=== PATIENT | male | born 1950 | race Asian ===

== ENCOUNTER 2016-10-03 19:52 | Inpatient (IN) | payer MEDICARE, OTHER ==
[~2016-10-03] VITALS: Ht 167.6 cm; Wt 90.7 kg
[2016-10-03] MEDS ORDERED: MIDODRINE HCL10 MG ORAL (20:11)
[2016-10-03] MEDS ORDERED: XIFAXAN550 MG ORAL (20:11)
[2016-10-03] MEDS ORDERED: HYDRALAZINE HCL25 M1 ORAL (20:11)
[2016-10-03] MEDS ORDERED: PRO-STAT LIQUID30 ML ORAL (20:11)
[2016-10-03] MEDS ORDERED: PANTOPRAZOLE SO40 MG ORAL (20:11)
[2016-10-03] MEDS ORDERED: ZINC SULFATE220 M2 ORAL (20:11)
[2016-10-03] MEDS ORDERED: VITAMIN C500 M1 ORAL (20:11)
[2016-10-03] MEDS ORDERED: LACTULOSE20 GM/301 ORAL (20:11)
[2016-10-03] MEDS ORDERED: IRON325 M2 PO (20:11)
[2016-10-03] MEDS ORDERED: NEPHROVITE1 TAB ORAL (20:11)
[2016-10-03] MEDS ORDERED: AMLODIPINE BESYL5 MG ORAL (20:11)
[2016-10-03] MEDS ORDERED: Famotidine 20 MG/ 2ML VIAL IVP ONE (20:15)
--- NOTE | 2016-10-03 20:34 | Emergency Room Report ---
History of Present Illness General Chief Complaint: Abdominal Pain Source: Patient, Family Member, EMS Present Illness HPI The patient was brought in for altered mentation and abdominal pain. He has a history of cirrhosis and is in [facility] facility. Allegedly he was on hospice care but then when he went to [facility] he was signed off of hospice. He was short of breath earlier today and that an x-ray was taken and according to his doctor he had bilateral infiltrates and effusions. He was sent for further evaluation of this. EMS claim that the patient is fully oriented. The patient has his eyes closed and is not answering any questions for me at this time. The patient has a history of cirrhosis. According to daughter, pleural effusions have been tapped multiple times. Prior GI bleeds with transfusions. Family decided DNR, then patient reversed this. Family was not present when this happened. She has not seen vomiting or diarrhea. He has had encephalopathy in the past. Later the patient c/o chest pain. Will not elaborate. Allergies: Coded Allergies: No Known Allergies (Unverified , 10/03/16) Patient History Limited by: medical condition Past Medical History: see triage record Social History: Reports: alcohol use - prior Social History Narrative [facility] Reviewed Nursing Documentation: PMH: Agreed, PSxH: Agreed Review of Systems All Other Systems: negative except mentioned in HPI - patient poor historian Physical Exam Vital Signs Date Time Temp Pulse Resp B/P Pulse Ox O2 Delivery O2 Flow Rate FiO2 10/03/16 19:48 99.0 96 20 191/96 100 Non-Rebreather 6.0 Sp02 EP Interpretation: reviewed, normal - 98% on room air General Appearance: no apparent distress, non-toxic, Chronically Ill Eyes: bilateral eye PERRL, bilateral eye conjunctivae pale ENT: moist mucus membranes Neck: supple, no bony tend Respiratory: no respiratory distress, decreased breath sounds, crackles Cardiovascular #1: regular rate, rhythm, edema - anasarca, but more edema L arm Cardiovascular #2: 2+ radial (R) Gastrointestinal: no rebound, distended, tenderness - diffuse Rectal: heme negative stool - yellow Musculoskeletal: digits/nails normal, swelling Neurologic: responsive, motor weakness - diffuse, other - poor coordination Psychiatric: depressed affect - occasionally answers questions, not follow commands Skin: other - sallo and pale Procedures Critical Care Time Critical Care Time Total Critical Care Time: 30 min bedside evaluation and treatment excludes procedures (EKG). Reason for critical care: aloc, critical anemia, effusions, liver failure, renal failure, determination level of care Possible complications: hypotension, hypertension, SC, shock, arrhythmias, metabolic acidosis, end organ damage, respiratory failure, hemorrhage, renal failure, encephalopathy. Interventions: Lasix, lactulose, blood ready for transfusion, discussion of level of care Course: Patient with severe cirrhosis with sob, abd pain and aloc. Evaluation with severe anemia, but no GI bleed at this time - blood ready. Hepatic encephalopathy with airway protected. Lactulose given. Coagulopathy treated with vitamin K. Discussion with PMD, patient and daughter regarding code status. Consultations: nursing staff, EMS, family, PMD Performed by: Dr. Najera Tolerated well condition = serious Medical Decision Making Diagnostic Impression: Primary Impression: Altered mental state Qualified Codes: R41.0 - Disorientation, unspecified Additional Impressions: Pleural effusion associated with hepatic disorder Abdominal pain Qualified Codes: R10.84 - Generalized abdominal pain Anemia Qualified Codes: D64.9 - Anemia, unspecified Chest pain Qualified Codes: R07.9 - Chest pain, unspecified Hepatic encephalopathy Renal insufficiency Coagulopathy Thrombocytopenia ER Course Patient presents with ALOC, dyspnea and abdominal pain. Extremely complicated patient. Ddx: anemia, SBP, pneumonia, effusions, hepatic encephalopathy, coagulopathy, electrolyte abnormality amongst others. Evaluation with labs, EKG , CXR. Non-focal neuro and no recent h/o trauma - CT of head not indicated at this time. Total body fluid overloaded. No evidence of GI bleed at this time. Severe anemia, but no evidence of bleeding. Will make blood ready. Elevated ammonia. Coagulopathy. Large effusions. Normal WBC. Renal failure. Treated with lasix, lactulose, vitamin K. Still c/o pain - now in chest. Treating with morphine. C/O needing to urinate (perkins present). Pyridium ordered. Dr. Dc requestes admit to Dr. Light. Discussed care with daughter. She states family wanted DNR but patient wanted full code. Attempt to discuss quality of life with patient. He refuses to answer many questions (might be function of encephalopathy) however, he seems to continue to want full treatment. Laboratory Tests Test 10/03/16 20:16 10/03/16 20:26 White Blood Count 5.7 K/UL (4.8-10.8) Red Blood Count 2.32 M/UL (4.70-6.10) L Hemoglobin 7.3 G/DL (14.2-18.0) L Hematocrit 23.2 % (42.0-52.0) L Mean Corpuscular Volume 100 FL (80-99) H Mean Corpuscular Hemoglobin 31.5 PG (27.0-31.0) H Mean Corpuscular Hemoglobin Concent 31.5 G/DL (32.0-36.0) L Red Cell Distribution Width 24.0 % (11.6-14.8) H Platelet Count 88 K/UL (150-450) L Mean Platelet Volume 5.6 FL (6.5-10.1) L Neutrophils (%) (Auto) % (45.0-75.0) Lymphocytes (%) (Auto) % (20.0-45.0) Monocytes (%) (Auto) % (1.0-10.0) Eosinophils (%) (Auto) % (0.0-3.0) Basophils (%) (Auto) % (0.0-2.0) Differential Total Cells Counted 100 Neutrophils % (Manual) 70 % (45-75) Lymphocytes % (Manual) 16 % (20-45) L Monocytes % (Manual) 8 % (1-10) Eosinophils % (Manual) 3 % (0-3) Basophils % (Manual) 1 % (0-2) Band Neutrophils 2 % (0-8) Platelet Estimate Decreased L Platelet Morphology Normal Polychromasia 1+ Hypochromasia 1+ Anisocytosis 3+ Macrocytosis 2+ Prothrombin Time 14.1 SEC (9.30-11.50) H Prothrombin Time INR 1.4 (0.9-1.1) H PTT 39 SEC (23-33) H Urine Color Yellow Urine Appearance Cloudy Urine pH 5 (4.5-8.0) Urine Specific Sullivan 1.015 (1.005-1.035) Urine Protein 4+ (NEGATIVE) H Urine Glucose (UA) Negative (NEGATIVE) Urine Ketones Negative (NEGATIVE) Urine Occult Blood 4+ (NEGATIVE) H Urine Nitrite Negative (NEGATIVE) Urine Bilirubin Negative (NEGATIVE) Urine Urobilinogen Normal MG/DL (0.0-1.0) Urine Leukocyte Esterase Negative (NEGATIVE) Urine RBC 2-4 /HPF (0 - 0) H Urine WBC 0 /HPF (0 - 0) Urine Squamous Epithelial Cells None /LPF (NONE/OCC) Urine Amorphous Sediment Many /LPF (NONE) H Urine Bacteria Moderate /HPF (NONE) H Sodium Level 148 mEQ/L (135-145) H Potassium Level 4.6 mEQ/L (3.4-4.9) Chloride Level 111 mEQ/L (98-107) H Carbon Dioxide Level 25 mEQ/L (20-30) Anion Gap 12 (5-15) Blood Urea Nitrogen 49 mg/dL (7-23) H Creatinine 2.0 mg/dL (0.7-1.2) H Estimate Glomerular Filtration Rate 33.5 mL/min (>60) Glucose Level 106 mg/dL (74-106) Calcium Level 9.0 mg/dL (8.6-10.2) Total Bilirubin 1.9 mg/dL (0.0-1.2) H Direct Bilirubin 0.7 mg/dL (0.1-0.3) H Aspartate Amino Transferase (AST) 42 U/L (5-40) H Alanine Aminotransferase (ALT) 25 U/L (3-41) Alkaline Phosphatase 86 U/L (40-129) Ammonia 188 umol/L (16-60) H Troponin I < 0.30 ng/mL (<=0.30) Pro-B-Type Natriuretic Peptide 2327 pg/mL (0-125) H Total Protein 6.4 g/dL (6.6-8.7) L Albumin 2.4 g/dL (3.5-5.2) L Globulin 4.0 g/dL Albumin/Globulin Ratio 0.6 (1.0-2.7) L Lipase 41 U/L (< 60) Thyroid Stimulating Hormone (TSH) 5.110 uIU/mL (0.300-4.500) Salicylates Level < 1 mg/dL (10-30) L Urine Opiates Screen Negative (NEGATIVE) Acetaminophen Level < 10 ug/mL (10-30) L Urine Barbiturates Screen Negative (NEGATIVE) Phencyclidine (PCP) Screen Negative (NEGATIVE) Urine Amphetamines Screen Negative (NEGATIVE) Urine Benzodiazepines Screen Negative (NEGATIVE) Urine Cocaine Screen Negative (NEGATIVE) Urine Marijuana (THC) Screen Negative (NEGATIVE) Serum Alcohol < 10 mg/dL EKG Diagnostic Results Rate: normal Rhythm: NSR ST Segments: no acute changes Rhythm Strip Diag. Results EP Interpretation: yes Rhythm: NSR, no PVC's, no ectopy Chest X-Ray Diagnostic Results EP Interpretation: Yes Findings: no pneumothorax, other - L effusion, increased ramirez Number of Views: 1 Other X-Ray Diagnostic Results Other X-Ray Diagnostic Results : X-Ray Ordered: abd EP Interpretation: Yes Findings: other - ascites, no obstruction, gas in rectum Number of Views: 2 Last Vital Signs Date Time Temp Pulse Resp B/P Pulse Ox O2 Delivery O2 Flow Rate FiO2 10/03/16 19:48 99.0 96 20 191/96 100 Non-Rebreather 6.0 Status: improved Disposition: ADMITTED INPATIENT Condition: Serious Referrals: FERNANDO DC (PCP) Mando Najera M.D. Oct 03, 2016 20:34
[2016-10-03 21:05] VITALS: BP 152/58
[2016-10-03 21:07] LABS: APPEARANCE,URINE CLOUDY; KETONES,URINE NEGATIVE (NEGATIVE); LEUKOCYTE ESTERASE ,URINE NEGATIVE (NEGATIVE); NITRITE,URINE NEGATIVE (NEGATIVE); PH,URINE 5 (4.5-8.0); PROTEIN,URINE 4+ (NEGATIVE); UROBILINOGEN,URINE NORMAL MG/DL (0.0-1.0)
[2016-10-03 21:10] LABS: MEAN CORPUSCULAR HEMOGLOBIN 31.5 PG (27.0-31.0); MEAN CORPUSCULAR HGB CONC 31.5 G/DL (32.0-36.0); MEAN CORPUSCULAR VOLUME 100 FL (80-99); MEAN PLATELET VOLUME 5.6 FL (6.5-10.1); PLATELET COUNT 88 K/UL (150-450); RED BLOOD COUNT 2.32 M/UL (4.70-6.10); WHITE BLOOD COUNT 5.7 K/UL (4.8-10.8)
[2016-10-03 21:18] LABS: WBC,URINE 0 /HPF (0 - 0)
[2016-10-03 21:19] LABS: AMORPHOUS SEDIMENT,UR MANY /LPF; BACTERIA,URINE MODERATE /HPF
[2016-10-03 21:22] LABS: INR 1.4 (0.9-1.1); PROTHROMBIN TIME 14.1 SEC (9.30-11.50)
[2016-10-03 21:31] LABS: AMMONIA 188 umol/L (16-60)
[2016-10-03 21:32] LABS: TROPONIN I < 0.30 ng/mL (<=0.30)
[2016-10-03 21:33] LABS: ACETAMINOPHEN < 10 ug/mL (10-30); ALANINE AMINOTRANSFERASE 25 U/L (3-41); ALBUMIN/GLOBULIN RATIO 0.6 (1.0-2.7); ALCOHOL < 10 mg/dL; ANION GAP 12 (5-15); ASPARTATE AMINO TRANSFERASE 42 U/L (5-40); CARBON DIOXIDE 25 mEQ/L (20-30); CHLORIDE 111 mEQ/L (98-107); GLOMERULAR FILTRATION RATE 33.5 mL/min (>60); HEMOLYSIS 5; LIPASE 41 U/L (< 60); POTASSIUM 4.6 mEQ/L (3.4-4.9); SODIUM 148 mEQ/L (135-145); TOTAL PROTEIN 6.4 g/dL (6.6-8.7)
[2016-10-03 21:53] LABS: BAND NEUTROPHILS % (MANUAL) 2 % (0-8); BASOPHILS % (MANUAL) 1 % (0-2); EOSINOPHILS % (MANUAL) 3 % (0-3); LYMPHOCYTES % (MANUAL) 16 % (20-45); NEUTROPHILS % (MANUAL) 70 % (45-75); TOTAL CELLS COUNTED 100
[2016-10-03 21:54] LABS: PLATELET ESTIMATE DECREASED
[2016-10-03 21:55] LABS: PLATELET MORPHOLOGY NORMAL
[2016-10-03 22:00] LABS: BILIRUBIN,DIRECT 0.7 mg/dL (0.1-0.3)
[2016-10-03 22:04] LABS: ANISOCYTOSIS 3+; HYPOCHROMASIA 1+; MACROCYTES 2+; POLYCHROMASIA 1+
[2016-10-03] MEDS ORDERED: Lactulose 20gm/30ml UDC ORAL ONE (22:30)
[2016-10-03] MEDS ORDERED: Morphine Sulfate 2mg/ml Inj IVP ONE (22:30)
[2016-10-03] MEDS ORDERED: Phytonadione 10 mg/mL 1ml amp SUBQ ONE (22:30)
[2016-10-03 22:54] VITALS: BP 179/75
[2016-10-03] MEDS ORDERED: Phenazopyridine 200mg tab ORAL ONE (23:15)
[2016-10-03 23:45] VITALS: BP 165/70
[2016-10-04] MEDS ORDERED: ZOFRAN4 M1 ORAL (00:18)
[2016-10-04] MEDS ORDERED: MIRALAX17 G2 ORAL (00:18)
[2016-10-04] MEDS ORDERED: Morphine Sulfate 4mg/ml Inj IVP PRN (01:30)
[2016-10-04] MEDS: Morphine Sulfate 2mg/ml Inj IVP PRN ×2 (02:09→12:54)
[2016-10-04 04:00] VITALS: BP 165/64
[2016-10-04] MEDS: Lactulose 20gm/30ml UDC ORAL SCH ×4 (06:00→22:03)
[2016-10-04] MEDS: NovoLOG Insulin Flexpen SUBQ SCH ×4 (06:29→21:00)
[2016-10-04 08:11] VITALS: BP 173/74
--- NOTE | 2016-10-04 10:09 | Diagnostic Imaging Report ---
Indication: Abdominal pain Technique: Supine views of the abdomen Comparison: None Findings: Bowel gas pattern is nonobstructive and nonspecific. White catheter projects in the pelvis. There is increased density of the flanks. Degenerative changes of the spine are noted. Impression: Nonobstructive and nonspecific bowel gas pattern. Increased density of the flanks could represent ascites. Clinical correlation recommended.
[2016-10-04 10:45] LABS: ALANINE AMINOTRANSFERASE 31 U/L (3-41); ALBUMIN/GLOBULIN RATIO 0.6 (1.0-2.7); ANION GAP 13 (5-15); ASPARTATE AMINO TRANSFERASE 59 U/L (5-40); CALCIUM 9.1 mg/dL (8.6-10.2); CARBON DIOXIDE 24 mEQ/L (20-30); CHLORIDE 112 mEQ/L (98-107); CREATININE 2.1 mg/dL (0.7-1.2); GLOMERULAR FILTRATION RATE 31.7 mL/min (>60); MAGNESIUM 1.8 mg/dL (1.7-2.5); PHOSPHORUS 3.9 mg/dL (2.5-4.8); POTASSIUM 4.5 mEQ/L (3.4-4.9); SODIUM 149 mEQ/L (135-145); TOTAL PROTEIN 6.4 g/dL (6.6-8.7); URIC ACID 10.1 mg/dL (3.0-7.5)
--- NOTE | 2016-10-04 10:50 | Diagnostic Imaging Report ---
Indication: Back pain Technique: Renal ultrasound Findings: The right kidney measures 10.7 cm in length. The left kidney measures 10.1 cm in length. There is no obvious hydronephrosis. A right renal cyst measures 0.7 cm. White catheter is noted in the bladder limiting evaluation. Bilateral pleural effusions are seen. The visualized portions of the inferior vena cava are unremarkable. Impression: Technically limited examination without hydronephrosis. White catheter. Small right renal cyst. Bilateral pleural effusions.
--- NOTE | 2016-10-04 10:56 | Wound Care Consultation ---
Wound Assessment Wound Assessment #1: Wound Number: #1 Wound Present on Admission: Yes New Wound: No Status Change of Wound: No Wound Location Body Site Modif: mid Wound Location Body Site: sacral Wound Type: pressure ulcer Francisco J Test: Does not Francisco J Pressure Ulcer Stage: deep tissue injury - SUSPECTED Wound Thickness: Full Thickness Wound Length: 7.0 Wound Width: 7.0 Wound Depth: UTD Percent of Wound [place]/Red: 50 Percent of Wound Purple/Maroon: 50 Wound Drainage Amount: None Wound Drainage Odor: None/Absent Tissue Surrounding Wound: Intact Wound General Appearance: Reddened, Open to air Wound Assessment #2: Wound Number: #2 Wound Present on Admission: Yes New Wound: No Status Change of Wound: No Wound Location Body Site Modif: right Wound Location Body Site: elbow - close to elbow area on forearm Wound Type: other - open wound -etiology unknown. Francisco J Test: Does not Francisco J Edema Degree: 4+ marked deep indentation - noted +4 edema to upper extremitities Wound Thickness: Full Thickness Wound Length: 1.0 Wound Width: 1.0 Wound Depth: 0.2 Wound Drainage Description: Serosanguineous Wound Drainage Amount: Scant Wound Drainage Odor: None/Absent Tissue Surrounding Wound: Erythemic Wound General Appearance: Reddened, Draining Wound Assessment #3: Wound Number: #3 Wound Present on Admission: Yes New Wound: No Status Change of Wound: No Wound Location Body Site Modif: left Wound Location Body Site: elbow Wound Type: pressure ulcer Francisco J Test: Does not Francisco J Pressure Ulcer Stage: I Edema Degree: 4+ marked deep indentation Wound Length: 7.0 Wound Width: 3.0 Percent of Wound [place]/Red: 100 Wound Drainage Amount: None Wound Drainage Odor: None/Absent Tissue Surrounding Wound: Erythemic Wound General Appearance: Reddened Wound Assessment #4: Wound Number: #4 Wound Present on Admission: Yes New Wound: No Status Change of Wound: No Wound Location Body Site Modif: right Wound Location Body Site: chest Wound Type: scab - scattered scabs Francisco J Test: Does not Francisco J Wound Thickness: Partial Thickness Percent of Wound [place]/Red: 100 - scattered Wound Drainage Amount: None Wound Drainage Odor: None/Absent Tissue Surrounding Wound: Erythemic Wound General Appearance: Reddened, Open to air Wound Comment #1 Sacral suspected deep tissue injury. #2 Right elbow area open wound -etiology unknown. #3 Left elbow pressure ulcer stage I. #4 Left chest scattered scabs. #5 Bilateral lower extremities hyperpigmentation. Recommendation -Apply low air loss overlay (SPR) -Local wound care as ordered. -Turn and reposition. -Keep clean and dry. -Optimize nutrition. -Heel protectors. -Offload bilateral elbows, sacral and feet. -Avoid shear and friction. -Assess and notify MD if any change of condition is noted. DAVID DOTSON Oct 04, 2016 10:56
[2016-10-04 10:57] LABS: FREE T3 1.7 pg/mL (2.3-4.2)
[2016-10-04 11:12] LABS: HEMOLYSIS 6; IRON 120 ug/dL (59-158)
[2016-10-04 11:19] LABS: MEAN CORPUSCULAR HEMOGLOBIN 32.4 PG (27.0-31.0); MEAN CORPUSCULAR HGB CONC 32.8 G/DL (32.0-36.0); MEAN CORPUSCULAR VOLUME 99 FL (80-99); MEAN PLATELET VOLUME 6.2 FL (6.5-10.1); PLATELET COUNT 94 K/UL (150-450); RED BLOOD COUNT 2.23 M/UL (4.70-6.10); RED CELL DISTRIBUTION WIDTH 23.9 % (11.6-14.8); WHITE BLOOD COUNT 6.5 K/UL (4.8-10.8)
[2016-10-04 11:57] LABS: RETICULOCYTE COUNT 0.6 % (0.0-2.0)
[2016-10-04 12:01] LABS: LACTATE DEHYDROGENASE 334 U/L (135-230)
[2016-10-04 12:14] VITALS: BP 139/73
[2016-10-04 12:14] LABS: APPEARANCE,URINE SLIGHTLY CLOUDY
[2016-10-04 12:15] LABS: KETONES,URINE NEGATIVE (NEGATIVE); LEUKOCYTE ESTERASE ,URINE 2+ (NEGATIVE); NITRITE,URINE NEGATIVE (NEGATIVE); PH,URINE 5 (4.5-8.0); PROTEIN,URINE 4+ (NEGATIVE); RBC,URINE 30-40 /HPF (0 - 0); SQUAMOUS EPITHELIAL CELL,UR FEW /LPF (NONE/OCC); UROBILINOGEN,URINE NORMAL MG/DL (0.0-1.0)
[2016-10-04 12:16] LABS: BACTERIA,URINE FEW /HPF
[2016-10-04 12:23] LABS: BILIRUBIN,DIRECT 0.7 mg/dL (0.1-0.3); ERYTHROCYTE SEDIMENTATION RATE 75 MM/HR (0-20)
[2016-10-04 12:33] LABS: INR 1.4 (0.9-1.1); PROTHROMBIN TIME 14.5 SEC (9.30-11.50)
[2016-10-04 13:19] LABS: ANISOCYTOSIS 2+; BAND NEUTROPHILS % (MANUAL) 3 % (0-8); BASOPHILS % (MANUAL) 0 % (0-2); EOSINOPHILS % (MANUAL) 4 % (0-3); HYPOCHROMASIA 1+; LYMPHOCYTES % (MANUAL) 19 % (20-45); MACROCYTES 1+; NEUTROPHILS % (MANUAL) 64 % (45-75); PLATELET ESTIMATE DECREASED; PLATELET MORPHOLOGY NORMAL; TOTAL CELLS COUNTED 100
--- NOTE | 2016-10-04 13:19 | History & Physical ---
History and Physical History & Physicial Dictated for Int Med-Dr Light no. [id number]. KARIS FLORENTINO Oct 04, 2016 13:19
[2016-10-04 13:31] LABS: PATH BLOOD SMEAR/OMC SENT TO PATHOLOGIST
[2016-10-04] MEDS ORDERED: DuoNeb 0.5-3(2.5)mg/3ml neb HHN PRN (15:00)
--- NOTE | 2016-10-04 15:03 | Consultation ---
History of Present Illness General Date patient seen: Oct 04, 2016 Time patient seen: 13:00 Chief Complaint: Abdominal Pain Referring physician: dr Light Reason for Consultation: bialteral pleural effsuion Present Illness HPI 66 y/old male was brought in for altered mentation and abdominal pain. Patient with history of cirrhosis, encephalopathy ; patient is from [facility] facility. Allegedly he was on hospice care but then when he went to [facility] he was signed off of hospice. He was short of breath earlier prior to ER arrival No n/v/diarrhea chest x-ray was taken, and according to his doctor he had bilateral infiltrates and effusions. He was sent for further evaluation of this. in ED the patient had his eyes closed and was not answering any questions According to his daughter, pleural effusions have been tapped multiple times. History of prior GI bleeds with transfusions. Family decided DNR, then patient reversed this. Family was not present when this happened. workup in ED revealed CXR with bilateral pleural effusion L>R troponin negative ECG with NSR INR-1./4, PLT-88, HH 7.3/23.2, BUN/creat 49/2.0 elevated ammonia 188 elevated bili and AST pro BNP elevated -[id number] patient was admitted for further management PMH: cirrhosis, encephalopathy, pleural effusions with recurrent tap, Allergies: Coded Allergies: No Known Allergies (Unverified , 10/03/16) Medication History Scheduled Amino Acids/Protein Hydrolys (Pro-Stat Liquid), 30 ML ORAL DAILY, (Reported) Amlodipine Besylate* (Amlodipine Besylate*), 5 MG ORAL DAILY, (Reported) Ascorbic Acid* (Vitamin C*), 500 MG ORAL DAILY, (Reported) Ferrous Sulfate (Iron), 325 MG PO DAILY, (Reported) Hydralazine Hcl* (Hydralazine Hcl*), 25 MG ORAL TID, (Reported) Lactulose (Lactulose*), 30 ML ORAL TID, (Reported) Midodrine* (Proamatine*), 15 MG ORAL THREE TIMES A DAY, (Reported) Pantoprazole* (Pantoprazole*), 40 MG ORAL EVERY 12 HOURS, (Reported) Rifaximin* (Xifaxan*), 550 MG ORAL TWICE A DAY, (Reported) Vitamin B Cmplx/Vit C/Folic AC (Nephro-Heidi Tablet), 1 TAB ORAL DAILY, (Reported ) Zinc Sulfate (Zinc Sulfate), 220 MG ORAL DAILY, (Reported) Scheduled PRN Ondansetron (Zofran), 4 MG ORAL Q6H PRN for Nausea & Vomiting, (Reported) Polyethylene Glycol 3350* (Miralax*), 17 GM ORAL DAILY PRN for Constipation, ( Reported) Patient History Healthcare decision maker Resuscitation status Full Code Advanced Directive on File Past Medical/Surgical History Past Medical/Surgical History: (1) Renal insufficiency (2) Hepatic encephalopathy (3) Anemia (4) Pleural effusion associated with hepatic disorder (5) Altered level of consciousness Review of Systems ROS Narrative unable to obtain ROS due to ALOC Physical Exam General Appearance: no apparent distress, alert, other - somnolent, nonverbal, Lines, tubes and drains: peripheral HEENT: normocephalic, atraumatic Neck: non-tender, supple Respiratory/Chest: lungs clear - decreased BS at bases , no respiratory distress, no accessory muscle use Cardiovascular/Chest: regular rhythm - SR on tele , tachycardia Abdomen: normal bowel sounds, non tender - distended , soft Extremities: normal range of motion, no calf tenderness, normal capillary refill Neurologic: abnormal gait, other - lethargic, non verbal Musculoskeletal: normal muscle bulk Last 24 Hour Vital Signs Date Time Temp Pulse Resp B/P Pulse Ox O2 Delivery O2 Flow Rate FiO2 10/04/16 12:14 96.9 103 18 139/73 97 Room Air 10/04/16 12:00 103 10/04/16 08:49 173/74 10/04/16 08:11 96.6 96 18 173/74 98 Room Air 10/04/16 08:00 95 10/04/16 04:00 101 10/04/16 04:00 97.3 101 20 165/64 98 Room Air 10/04/16 00:02 98.9 90 20 165/70 98 Room Air 6.0 10/04/16 00:01 165/70 10/04/16 00:00 88 10/03/16 23:47 98.9 10/03/16 23:45 98.9 90 20 165/70 98 Room Air 10/03/16 22:54 98.9 90 20 179/75 98 Room Air 10/03/16 21:05 98.9 90 20 152/58 100 Room Air 10/03/16 19:48 99.0 96 20 191/96 100 Non-Rebreather 6.0 Intake and Output 10/03/16 10/04/16 19:00 07:00 Output Total 251 ml Balance -251 ml Output Urine Total 251 ml Laboratory Tests Test 10/03/16 20:16 10/03/16 20:26 10/04/16 09:00 10/04/16 09:45 White Blood Count 5.7 K/UL (4.8-10.8) 6.5 K/UL (4.8-10.8) Red Blood Count 2.32 M/UL (4.70-6.10) L 2.23 M/UL (4.70-6.10) L Hemoglobin 7.3 G/DL (14.2-18.0) L 7.2 G/DL (14.2-18.0) L Hematocrit 23.2 % (42.0-52.0) L 22.0 % (42.0-52.0) L Mean Corpuscular Volume 100 FL (80-99) H 99 FL (80-99) Mean Corpuscular Hemoglobin 31.5 PG (27.0-31.0) H 32.4 PG (27.0-31.0) H Mean Corpuscular Hemoglobin Concent 31.5 G/DL (32.0-36.0) L 32.8 G/DL (32.0-36.0) Red Cell Distribution Width 24.0 % (11.6-14.8) H 23.9 % (11.6-14.8) H Platelet Count 88 K/UL (150-450) L 94 K/UL (150-450) L Mean Platelet Volume 5.6 FL (6.5-10.1) L 6.2 FL (6.5-10.1) L Neutrophils (%) (Auto) % (45.0-75.0) % (45.0-75.0) Lymphocytes (%) (Auto) % (20.0-45.0) % (20.0-45.0) Monocytes (%) (Auto) % (1.0-10.0) % (1.0-10.0) Eosinophils (%) (Auto) % (0.0-3.0) % (0.0-3.0) Basophils (%) (Auto) % (0.0-2.0) % (0.0-2.0) Differential Total Cells Counted 100 100 Neutrophils % (Manual) 70 % (45-75) 64 % (45-75) Lymphocytes % (Manual) 16 % (20-45) L 19 % (20-45) L Monocytes % (Manual) 8 % (1-10) 10 % (1-10) Eosinophils % (Manual) 3 % (0-3) 4 % (0-3) H Basophils % (Manual) 1 % (0-2) 0 % (0-2) Band Neutrophils 2 % (0-8) 3 % (0-8) Platelet Estimate Decreased L Decreased L Platelet Morphology Normal Normal Polychromasia 1+ Hypochromasia 1+ 1+ Anisocytosis 3+ 2+ Macrocytosis 2+ 1+ Prothrombin Time 14.1 SEC (9.30-11.50) H Prothromb Time International Ratio 1.4 (0.9-1.1) H Activated Partial Thromboplast Time 39 SEC (23-33) H Urine Color Yellow Urine Appearance Cloudy Urine pH 5 (4.5-8.0) Urine Specific [place] 1.015 (1.005-1.035) Urine Protein 4+ (NEGATIVE) H Urine Glucose (UA) Negative (NEGATIVE) Urine Ketones Negative (NEGATIVE) Urine Occult Blood 4+ (NEGATIVE) H Urine Nitrite Negative (NEGATIVE) Urine Bilirubin Negative (NEGATIVE) Urine Urobilinogen Normal MG/DL (0.0-1.0) Urine Leukocyte Esterase Negative (NEGATIVE) Urine RBC 2-4 /HPF (0 - 0) H Urine WBC 0 /HPF (0 - 0) Urine Squamous Epithelial Cells None /LPF (NONE/OCC) Urine Amorphous Sediment Many /LPF (NONE) H Urine Bacteria Moderate /HPF (NONE) H Sodium Level 148 mEQ/L (135-145) H 149 mEQ/L (135-145) H Potassium Level 4.6 mEQ/L (3.4-4.9) 4.5 mEQ/L (3.4-4.9) Chloride Level 111 mEQ/L (98-107) H 112 mEQ/L (98-107) H Carbon Dioxide Level 25 mEQ/L (20-30) 24 mEQ/L (20-30) Anion Gap 12 (5-15) 13 (5-15) Blood Urea Nitrogen 49 mg/dL (7-23) H 48 mg/dL (7-23) H Creatinine 2.0 mg/dL (0.7-1.2) H 2.1 mg/dL (0.7-1.2) H Estimat Glomerular Filtration Rate 33.5 mL/min (>60) 31.7 mL/min (>60) Glucose Level 106 mg/dL (74-106) 79 mg/dL (74-106) Calcium Level 9.0 mg/dL (8.6-10.2) 9.1 mg/dL (8.6-10.2) Total Bilirubin 1.9 mg/dL (0.0-1.2) H 2.0 mg/dL (0.0-1.2) H Direct Bilirubin 0.7 mg/dL (0.1-0.3) H 0.7 mg/dL (0.1-0.3) H Aspartate Amino Transf (AST/SGOT) 42 U/L (5-40) H 59 U/L (5-40) H Alanine Aminotransferase (ALT/SGPT) 25 U/L (3-41) 31 U/L (3-41) Alkaline Phosphatase 86 U/L (40-129) 88 U/L (40-129) Ammonia 188 umol/L (16-60) H Troponin I < 0.30 ng/mL (<=0.30) Pro-B-Type Natriuretic Peptide 2327 pg/mL (0-125) H Total Protein 6.4 g/dL (6.6-8.7) L 6.4 g/dL (6.6-8.7) L Albumin 2.4 g/dL (3.5-5.2) L 2.5 g/dL (3.5-5.2) L Globulin 4.0 g/dL 3.9 g/dL Albumin/Globulin Ratio 0.6 (1.0-2.7) L 0.6 (1.0-2.7) L Lipase 41 U/L (< 60) Thyroid Stimulating Hormone (TSH) 5.110 uIU/mL (0.300-4.500) 5.700 uIU/mL (0.300-4.500) Salicylates Level < 1 mg/dL (10-30) L Urine Opiates Screen Negative (NEGATIVE) Acetaminophen Level < 10 ug/mL (10-30) L Urine Barbiturates Screen Negative (NEGATIVE) Phencyclidine (PCP) Screen Negative (NEGATIVE) Urine Amphetamines Screen Negative (NEGATIVE) Urine Benzodiazepines Screen Negative (NEGATIVE) Urine Cocaine Screen Negative (NEGATIVE) Urine Marijuana (THC) Screen Negative (NEGATIVE) Serum Alcohol < 10 mg/dL Erythrocyte Sedimentation Rate 75 MM/HR (0-20) H Reticulocyte Count 0.6 % (0.0-2.0) Plasma/Serum Osmolality Pending Uric Acid 10.1 mg/dL (3.0-7.5) H Phosphorus Level 3.9 mg/dL (2.5-4.8) Magnesium Level 1.8 mg/dL (1.7-2.5) Iron Level 120 ug/dL (59-158) Total Iron Binding Capacity ug/dL (250-400) Percent Iron Saturation % (15-50) Unsaturated Iron Binding ug/dL (112-346) Lactate Dehydrogenase 334 U/L (135-230) H Total Creatine Kinase 88 U/L (38-174) Carcinoembryonic Antigen 3.9 ng/mL H Vitamin B12 Level 1609 pg/mL (211-946) H Folate Pending Free Thyroxine 1.86 ng/dL (0.86-1.85) H Free Triiodothyronine 1.7 pg/mL (2.3-4.2) L Cortisol Pending Test 10/04/16 11:25 Prothrombin Time 14.5 SEC (9.30-11.50) H Prothromb Time International Ratio 1.4 (0.9-1.1) H Activated Partial Thromboplast Time 37 SEC (23-33) H Urine Color Yellow Urine Appearance Slightly cloudy Urine pH 5 (4.5-8.0) Urine Specific [place] 1.015 (1.005-1.035) Urine Protein 4+ (NEGATIVE) H Urine Glucose (UA) Negative (NEGATIVE) Urine Ketones Negative (NEGATIVE) Urine Occult Blood 5+ (NEGATIVE) H Urine Nitrite Negative (NEGATIVE) Urine Bilirubin Negative (NEGATIVE) Urine Urobilinogen Normal MG/DL (0.0-1.0) Urine Leukocyte Esterase 2+ (NEGATIVE) H Urine RBC 30-40 /HPF (0 - 0) H Urine WBC 10-15 /HPF (0 - 0) H Urine Squamous Epithelial Cells Few /LPF (NONE/OCC) Urine Bacteria Few /HPF (NONE) Urine Eosinophils None seen Urine Osmolality Pending Urine Random Sodium 67 mmol/L Urine Random Chloride 69 mmol/L Urine Potassium Timed 31 mmol/L Microbiology Date/Time Source Procedure Growth Status 10/03/16 20:26 Urine,Clean Catch Urine Culture - Preliminary NO GROWTH Resulted Height (Feet): 5 Height (Inches): 6.00 Weight (Pounds): 200 Medications Current Medications Medications (Trade) Dose Ordered Sig/Morgan Route PRN Reason Start Time Stop Time Status Last Admin Dose Admin Dextrose (Dextrose 50%) STAT PRN IV Hypoglycemia 10/04/16 01:30 11/03/16 01:29 Hydralazine HCl (Apresoline) 5 mg Q4H PRN IV For High Blood Pressure 10/04/16 01:30 11/03/16 01:29 10/04/16 08:49 Insulin Aspart (NovoLOG) BEFORE MEALS AND HS SUBQ 10/04/16 06:30 11/03/16 06:29 Lactulose (Cephulac) 20 gm EVERY 8 HOURS ORAL 10/04/16 06:00 11/03/16 05:59 10/04/16 14:09 Morphine Sulfate (Morphine Sulfate) 2 mg EVERY 4 HOURS PRN IVP Moderate Pain (Pain Scale 4-6) 10/04/16 01:30 10/11/16 01:29 10/04/16 12:54 Morphine Sulfate (Morphine Sulfate) 4 mg EVERY 4 HOURS PRN IVP Severe Pain (Pain Scale 7-10) 10/04/16 01:30 10/11/16 01:29 Ondansetron HCl (Zofran) 4 mg EVERY 4 HOURS PRN IVP Nausea & Vomiting 10/04/16 01:30 11/03/16 01:29 Vitamin A/Vitamin D (A & D Oint) 1 applic EVERY 12 HOURS TOPIC 10/04/16 21:00 11/03/16 20:59 Assessment/Plan Assessment/Plan ASSESSMENT acute hepatic encephalopathy pleural effusion associated with liver disease sinus tachycardia cirrhosis abdominal pain coagulopathy thrombocytopenia ATN anemia elevated CEA DM PLAN OF CARE tele lactulose, trend ammonia O2 HHN prn fup with CXR cardio eval per PMD US guided thoracentesis as needed pain management s/p vit K, check INR monitor PLT count anemia workup with stable B 12 and irom, folate P, elevated CEA , check stool OB transfuse 1 u PRBC BS management with SS of insulin GI prophylaxis keep NPO until fully awake GT inserted CT A/P today abdominal US GI eval -per PMD monitor renal parameters, lytes renal US with normal kidney echogenicity case discussed and evaluated by supervising physician Briseida Osullivan NP (Vanchtein) Oct 04, 2016 15:02
[2016-10-04 16:00] VITALS: BP 165/88
--- NOTE | 2016-10-04 18:38 | History and Physical Report ---
DATE OF ADMISSION: 10/03/[address] Light. CHIEF COMPLAINT: The patient is a 66-year-old male, presents with complaint of abdominal pain. HISTORY OF PRESENT ILLNESS: The patient himself is unable to contribute much of the history and physical at this time. The patient over and over. The patient is a resident of [facility]. According to staff at [facility], the patient was previously on hospice. The patient was taken off hospice recently. The patient has a history of end-stage cirrhosis of the liver. According to staff at [facility], the patient began to experience abdominal pain on 10/03/2016. The patient was transported to [facility]. The patient was admitted for abdominal pain to rule out obstruction. PAST MEDICAL HISTORY: Significant for, 1. Diabetes type 2. 2. Hypertension. 3. Anemia. 4. Chronic renal failure. 5. Elevated PSA . 6. End-stage cirrhosis of liver. PAST SURGICAL HISTORY: Significant for, 1. TIPS procedure. 2. Carpal tunnel surgery. 3. Cholecystectomy. CURRENT MEDICATIONS: 1. Vitamin C 500 mg one tablet p.o. daily. 2. 30 mL p.o. daily. 3. Rifaximin 550 mg p.o. one tablet p.o. twice daily. 4. Zinc sulfate 220 mg one tablet p.o. daily. 5. Iron sulfate 325 mg one tablet p.o. daily. 6. Amlodipine 5 mg one tablet p.o. daily. 7. Hydralazine 25 mg one tablet p.o. three times daily. 8. Lactulose 30 mL p.o. three times daily. 9. 15 mg one tablet p.o. three times daily. 10. Nephro-Heidi one tablet p.o. daily. 11. Protonix 40 mg one tablet p.o. twice daily. 12. MiraLax 17 g p.o. daily. ALLERGIES: No known drug allergies. SOCIAL HISTORY: The patient is resident of [facility]. The patient denies tobacco or alcohol use. REVIEW OF SYSTEMS: Unable to assess secondary to the patient's medical condition. PHYSICAL EXAMINATION: VITAL SIGNS: Temperature 97.2 degrees, respirations 20, pulse 101, and blood pressure 155/64. GENERAL: The patient is well-developed and well-nourished male, who is yelling help. HEENT: Eyes, pupils are equal and responsive to light and accommodation. Extraocular movements are intact. NECK: Supple without lymphadenopathy. CHEST: Lungs are clear to auscultation bilaterally without wheezes or rales. CARDIOVASCULAR: Regular rhythm and rate. S1, S2 normal without murmurs, rubs, or gallops. ABDOMEN: Soft and distended with positive bowel sounds. No evidence of hepatosplenomegaly. Currently, no rebound or guarding noted. There is a fluid wave noted. EXTREMITIES: Negative for clubbing, cyanosis, or edema. RECTAL: Refused. GENITAL: Refused. NEUROLOGIC: Unable to assess. LABORATORY STUDIES: WBC 5.7, hemoglobin 10.3, hematocrit 23.2, and platelets 88,000. Sodium 140, potassium 4.6, chloride 111, CO2 25, BUN 49, creatinine 2.0, and glucose 106. Liver function tests were elevated with a total bilirubin of 1.9. Direct bilirubin of 0.7. AST elevated at 42. Ammonia level elevated at 188. BNP elevated at 2327. ASSESSMENT: This is a 66-year-old male, 1. Abdominal pain. 2. Elevated liver function tests. 3. End-stage cirrhosis of the liver. 4. Congestive heart failure. 5. Diabetes type 2. 6. Hypertension. 7. Anemia. 8. Renal failure. TREATMENT: 1. Cirrhosis of the liver/abdominal pain/elevated liver function tests. A Gastroenterology consultation was obtaiend with Dr. Dustin Ly. The patient has elevated ammonia level. We will follow recommendations of Gastroenterology. The patient is currently NPO. 2. Congestive heart failure. Cardiology consultation with Dr. Siddharth Armendariz. Congestive heart failure may be secondary to congestive liver as above. 3. Diabetes type 2. The patient's blood sugar is currently normal. We will hold antihyperglycemic medication at this time. 4. Hypertension. Continue hydralazine and amlodipine as above. 5. Anemia may be secondary to gastrointestinal bleed. A Gastroenterology consultation was obtained with Dr. Dustin Ly M.D. 6. Renal failure. A Nephrology consultation was obtained with Dr. Reagan Langston. Rafiq Waldron M.D. DR: Aubree JOB#: [id number] CC:
[2016-10-04] MEDS ORDERED: cloNIDine 0.2mg Tab ORAL PRN (19:00)
--- NOTE | 2016-10-04 19:00 | Cardiac Electrophysiology PN ---
Subjective Subjective [id number] Objective Last 24 Hour Vital Signs Date Time Temp Pulse Resp B/P Pulse Ox O2 Delivery O2 Flow Rate FiO2 10/04/16 16:48 165/88 10/04/16 16:00 97.7 20 165/88 98 Room Air 10/04/16 12:14 96.9 103 18 139/73 97 Room Air 10/04/16 12:00 103 10/04/16 08:49 173/74 10/04/16 08:11 96.6 96 18 173/74 98 Room Air 10/04/16 08:00 95 10/04/16 04:00 101 10/04/16 04:00 97.3 101 20 165/64 98 Room Air 10/04/16 00:02 98.9 90 20 165/70 98 Room Air 6.0 10/04/16 00:01 165/70 10/04/16 00:00 88 10/03/16 23:47 98.9 10/03/16 23:45 98.9 90 20 165/70 98 Room Air 10/03/16 22:54 98.9 90 20 179/75 98 Room Air 10/03/16 21:05 98.9 90 20 152/58 100 Room Air 10/03/16 19:48 99.0 96 20 191/96 100 Non-Rebreather 6.0 Intake and Output 10/03/16 10/04/16 19:00 07:00 Output Total 251 ml Balance -251 ml Output Urine Total 251 ml Laboratory Tests Test 10/03/16 20:16 10/03/16 20:26 10/04/16 09:00 10/04/16 09:45 White Blood Count 5.7 K/UL (4.8-10.8) 6.5 K/UL (4.8-10.8) Red Blood Count 2.32 M/UL (4.70-6.10) L 2.23 M/UL (4.70-6.10) L Hemoglobin 7.3 G/DL (14.2-18.0) L 7.2 G/DL (14.2-18.0) L Hematocrit 23.2 % (42.0-52.0) L 22.0 % (42.0-52.0) L Mean Corpuscular Volume 100 FL (80-99) H 99 FL (80-99) Mean Corpuscular Hemoglobin 31.5 PG (27.0-31.0) H 32.4 PG (27.0-31.0) H Mean Corpuscular Hemoglobin Concent 31.5 G/DL (32.0-36.0) L 32.8 G/DL (32.0-36.0) Red Cell Distribution Width 24.0 % (11.6-14.8) H 23.9 % (11.6-14.8) H Platelet Count 88 K/UL (150-450) L 94 K/UL (150-450) L Mean Platelet Volume 5.6 FL (6.5-10.1) L 6.2 FL (6.5-10.1) L Neutrophils (%) (Auto) % (45.0-75.0) % (45.0-75.0) Lymphocytes (%) (Auto) % (20.0-45.0) % (20.0-45.0) Monocytes (%) (Auto) % (1.0-10.0) % (1.0-10.0) Eosinophils (%) (Auto) % (0.0-3.0) % (0.0-3.0) Basophils (%) (Auto) % (0.0-2.0) % (0.0-2.0) Differential Total Cells Counted 100 100 Neutrophils % (Manual) 70 % (45-75) 64 % (45-75) Lymphocytes % (Manual) 16 % (20-45) L 19 % (20-45) L Monocytes % (Manual) 8 % (1-10) 10 % (1-10) Eosinophils % (Manual) 3 % (0-3) 4 % (0-3) H Basophils % (Manual) 1 % (0-2) 0 % (0-2) Band Neutrophils 2 % (0-8) 3 % (0-8) Platelet Estimate Decreased L Decreased L Platelet Morphology Normal Normal Polychromasia 1+ Hypochromasia 1+ 1+ Anisocytosis 3+ 2+ Macrocytosis 2+ 1+ Prothrombin Time 14.1 SEC (9.30-11.50) H Prothromb Time International Ratio 1.4 (0.9-1.1) H Activated Partial Thromboplast Time 39 SEC (23-33) H Urine Color Yellow Urine Appearance Cloudy Urine pH 5 (4.5-8.0) Urine Specific [place] 1.015 (1.005-1.035) Urine Protein 4+ (NEGATIVE) H Urine Glucose (UA) Negative (NEGATIVE) Urine Ketones Negative (NEGATIVE) Urine Occult Blood 4+ (NEGATIVE) H Urine Nitrite Negative (NEGATIVE) Urine Bilirubin Negative (NEGATIVE) Urine Urobilinogen Normal MG/DL (0.0-1.0) Urine Leukocyte Esterase Negative (NEGATIVE) Urine RBC 2-4 /HPF (0 - 0) H Urine WBC 0 /HPF (0 - 0) Urine Squamous Epithelial Cells None /LPF (NONE/OCC) Urine Amorphous Sediment Many /LPF (NONE) H Urine Bacteria Moderate /HPF (NONE) H Sodium Level 148 mEQ/L (135-145) H 149 mEQ/L (135-145) H Potassium Level 4.6 mEQ/L (3.4-4.9) 4.5 mEQ/L (3.4-4.9) Chloride Level 111 mEQ/L (98-107) H 112 mEQ/L (98-107) H Carbon Dioxide Level 25 mEQ/L (20-30) 24 mEQ/L (20-30) Anion Gap 12 (5-15) 13 (5-15) Blood Urea Nitrogen 49 mg/dL (7-23) H 48 mg/dL (7-23) H Creatinine 2.0 mg/dL (0.7-1.2) H 2.1 mg/dL (0.7-1.2) H Estimat Glomerular Filtration Rate 33.5 mL/min (>60) 31.7 mL/min (>60) Glucose Level 106 mg/dL (74-106) 79 mg/dL (74-106) Calcium Level 9.0 mg/dL (8.6-10.2) 9.1 mg/dL (8.6-10.2) Total Bilirubin 1.9 mg/dL (0.0-1.2) H 2.0 mg/dL (0.0-1.2) H Direct Bilirubin 0.7 mg/dL (0.1-0.3) H 0.7 mg/dL (0.1-0.3) H Aspartate Amino Transf (AST/SGOT) 42 U/L (5-40) H 59 U/L (5-40) H Alanine Aminotransferase (ALT/SGPT) 25 U/L (3-41) 31 U/L (3-41) Alkaline Phosphatase 86 U/L (40-129) 88 U/L (40-129) Ammonia 188 umol/L (16-60) H Troponin I < 0.30 ng/mL (<=0.30) Pro-B-Type Natriuretic Peptide 2327 pg/mL (0-125) H Total Protein 6.4 g/dL (6.6-8.7) L 6.4 g/dL (6.6-8.7) L Albumin 2.4 g/dL (3.5-5.2) L 2.5 g/dL (3.5-5.2) L Globulin 4.0 g/dL 3.9 g/dL Albumin/Globulin Ratio 0.6 (1.0-2.7) L 0.6 (1.0-2.7) L Lipase 41 U/L (< 60) Thyroid Stimulating Hormone (TSH) 5.110 uIU/mL (0.300-4.500) 5.700 uIU/mL (0.300-4.500) Salicylates Level < 1 mg/dL (10-30) L Urine Opiates Screen Negative (NEGATIVE) Acetaminophen Level < 10 ug/mL (10-30) L Urine Barbiturates Screen Negative (NEGATIVE) Phencyclidine (PCP) Screen Negative (NEGATIVE) Urine Amphetamines Screen Negative (NEGATIVE) Urine Benzodiazepines Screen Negative (NEGATIVE) Urine Cocaine Screen Negative (NEGATIVE) Urine Marijuana (THC) Screen Negative (NEGATIVE) Serum Alcohol < 10 mg/dL Erythrocyte Sedimentation Rate 75 MM/HR (0-20) H Reticulocyte Count 0.6 % (0.0-2.0) Plasma/Serum Osmolality Pending Uric Acid 10.1 mg/dL (3.0-7.5) H Phosphorus Level 3.9 mg/dL (2.5-4.8) Magnesium Level 1.8 mg/dL (1.7-2.5) Iron Level 120 ug/dL (59-158) Total Iron Binding Capacity ug/dL (250-400) Percent Iron Saturation % (15-50) Unsaturated Iron Binding ug/dL (112-346) Ferritin 1703 ng/mL (10-230) H Lactate Dehydrogenase 334 U/L (135-230) H Total Creatine Kinase 88 U/L (38-174) Carcinoembryonic Antigen 3.9 ng/mL H Vitamin B12 Level 1609 pg/mL (211-946) H Folate Pending Free Thyroxine 1.86 ng/dL (0.86-1.85) H Free Triiodothyronine 1.7 pg/mL (2.3-4.2) L Cortisol Pending Test 10/04/16 11:25 Prothrombin Time 14.5 SEC (9.30-11.50) H Prothromb Time International Ratio 1.4 (0.9-1.1) H Activated Partial Thromboplast Time 37 SEC (23-33) H Urine Color Yellow Urine Appearance Slightly cloudy Urine pH 5 (4.5-8.0) Urine Specific [place] 1.015 (1.005-1.035) Urine Protein 4+ (NEGATIVE) H Urine Glucose (UA) Negative (NEGATIVE) Urine Ketones Negative (NEGATIVE) Urine Occult Blood 5+ (NEGATIVE) H Urine Nitrite Negative (NEGATIVE) Urine Bilirubin Negative (NEGATIVE) Urine Urobilinogen Normal MG/DL (0.0-1.0) Urine Leukocyte Esterase 2+ (NEGATIVE) H Urine RBC 30-40 /HPF (0 - 0) H Urine WBC 10-15 /HPF (0 - 0) H Urine Squamous Epithelial Cells Few /LPF (NONE/OCC) Urine Bacteria Few /HPF (NONE) Urine Eosinophils None seen Urine Osmolality Pending Urine Random Sodium 67 mmol/L Urine Random Chloride 69 mmol/L Urine Potassium Timed 31 mmol/L Microbiology Date/Time Source Procedure Growth Status 10/03/16 20:26 Urine,Clean Catch Urine Culture - Preliminary NO GROWTH Resulted MLYES COSME Oct 04, 2016 19:00
[2016-10-04 20:00] VITALS: BP 185/85
[2016-10-04] MEDS: Vitamin A&D Oint 2oz Tube TOPIC SCH (21:02)
[2016-10-05] VITALS (7 sets, daily range): BP systolic 152–198; BP diastolic 64–102
--- NOTE | 2016-10-05 06:08 | Consultation ---
DATE OF CONSULTATION: 10/04/2016 CARDIOLOGY CONSULTATION REFERRING PHYSICIAN: Jeremiah Light M.D. REASON FOR CONSULTATION: Accelerated hypertension. HISTORY OF PRESENT ILLNESS: The patient is a 66-year-old Urdu gentleman, who has history of hypertension, diabetes, end-stage cirrhosis of the liver and chronic kidney disease, who was brought to the emergency room upon care in alf facility, who previously was on hospice. The patient was taken off of hospice. The patient was brought to the emergency for increasing abdominal pain and was admitted to rule out obstruction. At time of my evaluation, the patient is unable to provide any information. Perfusing restrained. He has an NG-tube in and is getting blood transfusion. REVIEW OF SYSTEMS: Cannot be obtained. PAST MEDICAL HISTORY: 1. Hypertension. 2. Diabetes. 3. Chronic kidney disease. 4. Anemia. 5. End-stage cirrhosis of the liver. PAST SURGICAL HISTORY: 1. Carpal tunnel surgery. 2. TIPS procedure. 3. History of cholecystectomy. MEDICATIONS: At group home include amlodipine 5 mg daily, hydralazine 25 mg 2 times daily, lactulose, Protonix, MiraLax, , zinc sulfate and Nephro-Heidi. ALLERGIES: He has no known drug allergies. SOCIAL HISTORY: He lives in a [facility] Center. Does not smoke or drink alcohol. REVIEW OF SYSTEMS: Cannot be obtained due to patient's mental status. PHYSICAL EXAMINATION: VITAL SIGNS: Blood pressure 173/74, pulse 103, respirations 20, and temperature 97.7 degrees. NECK: Shows no JVD. He is orally intubated. LUNGS: Coarse rhonchi. CARDIOVASCULAR: Tachycardic. S1 and S2 with no gallop or murmur. ABDOMEN: Soft, but distended. EXTREMITIES: A 2+ pitting edema. LABORATORY DATA: White count 6.5, hemoglobin 7.2, hematocrit 22, and platelets 94,000. Sodium 149, potassium 4.5, BUN 48, creatinine 2.1, and glucose of 79. is 1703. Troponin is negative. BNP is 2327. TSH is 5.11. His urine toxicology screen is negative. INR is 1.4. ASSESSMENT AND PLAN: 1. Tachycardia with sinus tachycardia. The patient had severe anemia and hemoglobin of 7. The patient's first troponin is negative. Echocardiogram showed ejection fraction of 60% to 65%, very poor effusion and moderate left ventricular hypertrophy, moderate aortic regurgitation and severe pulmonary hypertension with pressure of 58. The patient is on as needed intravenous hydralazine and will be continued at this time. I will add at this time a dose of metoprolol 25 mg b.i.d. Continue to follow the patient clinically. 2. Altered mental status likely due to hepatic encephalopathy on lactulose at this time. 3. Cirrhosis of the liver. 4. Congestive heart failure with diastolic dysfunction. 5. Type 2 diabetes. 6. Renal failure. A cardiology consult by Dr. Langston. 7. Anemia with gastrointestinal bleed. 8. Cirrhosis. Further evaluation with Dr. Ly. Thank you very much, Dr. Light and Dr. Waldron, for allowing me to participate in the care of this patient. Please do not hesitate to contact for any questions regarding my evaluation. Siddharth Armendariz M.D. DR: DEEDEE JOB#: [id number] CC:
[2016-10-05] MEDS: Lactulose 20gm/30ml UDC NG SCH ×3 (06:30→22:12)
[2016-10-05] MEDS: NovoLOG Insulin Flexpen SUBQ SCH ×4 (07:00→21:00)
[2016-10-05 07:53] LABS: TROPONIN I < 0.30 ng/mL (<=0.30)
[2016-10-05 08:08] LABS: CORTISOL LC 8.9 ug/dL (.)
[2016-10-05] MEDS: Vitamin A&D Oint 2oz Tube TOPIC SCH ×2 (08:33→21:59)
--- NOTE | 2016-10-05 09:33 | Diagnostic Imaging Report ---
Indication: Hepatic encephalopathy and abdominal pain Technique: CT scan of the abdomen and pelvis utilizing automated exposure control with oral contrast. Axial, sagittal and coronal images were obtained. CT dose: Total DLP 1047 mGycm; CTDI vol 19.5 mGy Findings: Evaluation of the solid organs is limited without intravenous contrast material. Moderate bilateral pleural effusions are partially visualized with compressive atelectasis. There is diffuse subcutaneous edema. The liver is small and nodular consistent with cirrhosis. There is a questionable exophytic mass of the right lobe the liver anteriorly measuring 1.9 cm series 3 image 39. A TIPS shunt is present although patency cannot be assessed. Cholecystectomy clips are noted. A nasogastric tube is present within the stomach. The adrenal glands and pancreas are unremarkable. There is a small hypodensity within the lower pole of the right kidney. The spleen is enlarged. A White catheter is noted in the bladder. There is mild ascites which extends into a fluid, fat and bowel containing right inguinal hernia. The entering loop of bowel is relatively prominent measuring 2.3 cm in caliber compared to the exiting loop of bowel. There is no free intraperitoneal air. There is no definitive evidence of appendicitis. Atherosclerotic changes are present. Degenerative changes of the spine are seen. Impression: Moderate bilateral pleural effusions with compressive atelectasis in the partially visualized lung bases, left greater than right. Nasogastric tube within the stomach. White catheter in the bladder. Small and nodular liver consistent with cirrhosis. TIPS shunt not adequately evaluated without contrast. Questionable exophytic mass of the anterior right lobe of liver measuring 1.9 cm. Further evaluation with contrast recommended. Mild ascites. Right inguinal hernia containing fat, fluid and distal small bowel. Entering loop of bowel within the hernia relatively larger in caliber than the exiting loop of bowel and possibility of partial or early obstruction not excluded. Clinical correlation/followup recommended. Approximately 1.9 cm hypodensity within the lower pole of the right kidney incompletely assessed probably a cyst. Clinical correlation recommended. Diffuse subcutaneous edema. Other findings as above. The CT scanner at [facility] is accredited by the [employer] and the scans are performed using protocols designed to limit radiation exposure to as low as reasonably achievable to attain images of sufficient resolution adequate for diagnostic evaluation.
--- NOTE | 2016-10-05 10:14 | Pulmonology Progress Note ---
Assessment/Plan Assessment/Plan ASSESSMENT acute hepatic encephalopathy bilateral pleural effusions, associated with liver disease severe pulmonary HTN moderate TR ST -resolved diastolic dysfunction abdominal pain coagulopathy thrombocytopenia ATN anemia GI bleeding cirrhosis elevated CEA DM PLAN OF CARE tele all labs still pending for today tachy resolved, cardio eval noted ECHO with EF 60-65%, RVSP of 58, c/w severe pulmonary HTN, + moderate LVH, + moderate TR , large anterior and posterior pleural effusion lactulose, trend ammonia O2 HHN prn fup with CXR in am consider US guided thoracentesis depending on results of CXR pain management s/p vit K, monitor PLT count anemia workup with stable B 12 and iron, folate P, elevated CEA , check stool OB s/p 1 u PRBC BS management with SS of insulin GI prophylaxis keep NPO until fully awake NGT inserted CT A/P noted, mild ascites, moderate bilateral pleural effusions with compressive atelectasis in the partially visualized lung bases, left greater than right. abdominal US pending GI eval -per PMD monitor renal parameters, lytes renal US with normal kidney echogenicity case discussed and evaluated by supervising physician Subjective Allergies: Coded Allergies: No Known Allergies (Unverified , 10/03/16) Subjective tachy resolved, remains altered on RA sat stable, no signs of respiratory distress Objective Last 24 Hour Vital Signs Date Time Temp Pulse Resp B/P Pulse Ox O2 Delivery O2 Flow Rate FiO2 10/05/16 08:33 86 166/64 10/05/16 08:00 97.2 86 18 166/64 93 Room Air 10/05/16 04:15 98.1 84 20 156/69 95 Nasal Cannula 2.0 10/05/16 04:00 86 10/05/16 01:30 102 159/90 10/05/16 00:00 102 10/05/16 00:00 98.2 106 20 198/102 98 Nasal Cannula 2.0 10/04/16 23:53 192/102 10/04/16 20:00 98.1 91 20 185/85 Nasal Cannula 2.0 94 10/04/16 20:00 87 10/04/16 16:48 165/88 10/04/16 16:00 98 10/04/16 16:00 97.7 20 165/88 98 Room Air 10/04/16 12:14 96.9 103 18 139/73 97 Room Air 10/04/16 12:00 103 Intake and Output 10/04/16 10/05/16 19:00 07:00 Output Total 560 ml 400 ml Balance -560 ml -400 ml Output Urine Total 560 ml 400 ml # Bowel Movements 2 Objective General Appearance: no apparent distress, somnolent, nonverbal, Lines, tubes and drains: peripheral HEENT: normocephalic, atraumatic, NGT clamped Neck: non-tender, supple Respiratory/Chest: lungs clear , decreased BS at bases , no respiratory distress, no accessory muscle use Cardiovascular/Chest: normal rate, regular rhythm, SR on tele Abdomen: normal bowel sounds, non tender , distended , soft Extremities: normal range of motion, no calf tenderness, normal capillary refill, trace edema BLE Neurologic: abnormal gait, lethargic, non verbal Musculoskeletal: normal muscle bulk Microbiology Date/Time Source Procedure Growth Status 10/03/16 20:26 Urine,Clean Catch Urine Culture - Preliminary NO GROWTH Resulted Laboratory Tests 10/04/16 11:25: Prothrombin Time 14.5H, Prothromb Time International Ratio 1.4H, Activated Partial Thromboplast Time 37H, Urine Color Yellow, Urine Appearance Slightly cloudy, Urine pH 5, Urine Specific [place] 1.015, Urine Protein 4+H, Urine Glucose (UA) Negative, Urine Ketones Negative, Urine Occult Blood 5+H, Urine Nitrite Negative, Urine Bilirubin Negative, Urine Urobilinogen Normal, Urine Leukocyte Esterase 2+H, Urine RBC 30-40H, Urine WBC 10-15H, Urine Squamous Epithelial Cells Few, Urine Bacteria Few, Urine Eosinophils None seen, Urine Osmolality [Pending], Urine Random Sodium 67, Urine Random Chloride 69, Urine Potassium Timed 31 10/05/16 05:25: Troponin I < 0.30, Pro-B-Type Natriuretic Peptide 3462H 10/05/16 06:50: Stool Occult Blood [Pending] Current Medications Medications (Trade) Dose Ordered Sig/Morgan Route PRN Reason Start Time Stop Time Status Last Admin Dose Admin Albuterol/ Ipratropium (DuoNeb 0.5-3(2.5)mg/3ml) 3 ml Q4H PRN HHN Shortness of Breath 10/04/16 15:00 10/09/16 14:59 Amlodipine Besylate (Norvasc) 5 mg DAILY NG 10/05/16 09:00 11/04/16 08:59 10/05/16 08:33 Clonidine HCl (Catapres) 0.2 mg Q4H PRN GT SBP>170 10/05/16 07:00 11/04/16 06:59 Dextrose (D5W 1000ml) 1,000 ml @ 50 mls/hr Q20H IV 10/05/16 08:00 11/04/16 07:59 10/05/16 07:59 Dextrose (Dextrose 50%) STAT PRN IV Hypoglycemia 10/04/16 01:30 11/03/16 01:29 10/05/16 07:09 Hydralazine HCl (Apresoline) 5 mg Q4H PRN IV For High Blood Pressure 10/04/16 01:30 11/03/16 01:29 10/04/16 16:48 Insulin Aspart (NovoLOG) BEFORE MEALS AND HS SUBQ 10/04/16 06:30 11/03/16 06:29 Lactulose 20 gm 20 gm EVERY 8 HOURS NG 10/05/16 06:00 11/04/16 05:59 10/05/16 06:30 Morphine Sulfate (Morphine Sulfate) 2 mg EVERY 4 HOURS PRN IVP Moderate Pain (Pain Scale 4-6) 10/04/16 01:30 10/11/16 01:29 10/04/16 12:54 Morphine Sulfate (Morphine Sulfate) 4 mg EVERY 4 HOURS PRN IVP Severe Pain (Pain Scale 7-10) 10/04/16 01:30 10/11/16 01:29 Ondansetron HCl (Zofran) 4 mg EVERY 4 HOURS PRN IVP Nausea & Vomiting 10/04/16 01:30 11/03/16 01:29 Vitamin A/Vitamin D (A & D Oint) 1 applic EVERY 12 HOURS TOPIC 10/04/16 21:00 11/03/16 20:59 10/05/16 08:33 Abran DavenportBriseida doyle NP Oct 05, 2016 10:14
[2016-10-05 10:28] LABS: MEAN CORPUSCULAR HEMOGLOBIN 31.7 PG (27.0-31.0); MEAN CORPUSCULAR HGB CONC 32.5 G/DL (32.0-36.0); MEAN CORPUSCULAR VOLUME 98 FL (80-99); MEAN PLATELET VOLUME 6.5 FL (6.5-10.1); PLATELET COUNT 34 K/UL (150-450); RED BLOOD COUNT 2.65 M/UL (4.70-6.10); RED CELL DISTRIBUTION WIDTH 23.7 % (11.6-14.8); WHITE BLOOD COUNT 7.2 K/UL (4.8-10.8)
[2016-10-05 10:57] LABS: BILIRUBIN,DIRECT 0.7 mg/dL (0.1-0.3); CREATININE 2.2 mg/dL (0.7-1.2); POTASSIUM 4.7 mEQ/L (3.4-4.9); TOTAL PROTEIN 5.9 g/dL (6.6-8.7)
[2016-10-05] MEDS ORDERED: LORazepam Inj 2mg/ml 1ml IV ONE (11:05)
[2016-10-05 11:11] LABS: ANISOCYTOSIS 4+; BAND NEUTROPHILS % (MANUAL) 0 % (0-8); BASOPHILS % (MANUAL) 2 % (0-2); EOSINOPHILS % (MANUAL) 2 % (0-3); HYPOCHROMASIA 3+; LYMPHOCYTES % (MANUAL) 10 % (20-45); NEUTROPHILS % (MANUAL) 73 % (45-75); PLATELET ESTIMATE DECREASED; TOTAL CELLS COUNTED 100
[2016-10-05 11:12] LABS: PLATELET MORPHOLOGY NORMAL
[2016-10-05] MEDS ORDERED: Tubing Blood Filter IV ONE (11:13)
[2016-10-05] MEDS ORDERED: NS 275ml ONE (11:13)
[2016-10-05] MEDS ORDERED: Sterile Water Irrig 1000ml IRRIG ONE (11:13)
[2016-10-05] MEDS: Rifaximin 550mg tab ORAL SCH ×2 (11:21→21:59)
--- NOTE | 2016-10-05 15:04 | Internal Med Progress Note ---
Subjective Date of Service: Oct 05, 2016 Physician Name WaldronRafiq brantley Attending Physician Jeremiah Light MD Current Medications Medications (Trade) Dose Ordered Sig/Morgan Route PRN Reason Start Time Stop Time Status Last Admin Dose Admin Albuterol/ Ipratropium (DuoNeb 0.5-3(2.5)mg/3ml) 3 ml Q4H PRN HHN Shortness of Breath 10/04/16 15:00 10/09/16 14:59 Amlodipine Besylate (Norvasc) 5 mg DAILY NG 10/05/16 09:00 11/04/16 08:59 10/05/16 08:33 Clonidine HCl (Catapres) 0.2 mg Q4H PRN GT SBP>170 10/05/16 07:00 11/04/16 06:59 Dextrose (D5W 1000ml) 1,000 ml @ 50 mls/hr Q20H IV 10/05/16 08:00 11/04/16 07:59 10/05/16 07:59 Dextrose (Dextrose 50%) STAT PRN IV Hypoglycemia 10/04/16 01:30 11/03/16 01:29 10/05/16 07:09 Hydralazine HCl (Apresoline) 5 mg Q4H PRN IV For High Blood Pressure 10/04/16 01:30 11/03/16 01:29 10/04/16 16:48 Insulin Aspart (NovoLOG) BEFORE MEALS AND HS SUBQ 10/04/16 06:30 11/03/16 06:29 Lactulose 20 gm 20 gm EVERY 8 HOURS NG 10/05/16 06:00 11/04/16 05:59 10/05/16 14:16 Morphine Sulfate (Morphine Sulfate) 2 mg EVERY 4 HOURS PRN IVP Moderate Pain (Pain Scale 4-6) 10/04/16 01:30 10/11/16 01:29 10/04/16 12:54 Morphine Sulfate (Morphine Sulfate) 4 mg EVERY 4 HOURS PRN IVP Severe Pain (Pain Scale 7-10) 10/04/16 01:30 10/11/16 01:29 Ondansetron HCl (Zofran) 4 mg EVERY 4 HOURS PRN IVP Nausea & Vomiting 10/04/16 01:30 11/03/16 01:29 Rifaximin (Xifaxan) 550 mg EVERY 12 HOURS ORAL 10/05/16 12:00 10/12/16 11:59 10/05/16 11:21 Vitamin A/Vitamin D (A & D Oint) 1 applic EVERY 12 HOURS TOPIC 10/04/16 21:00 11/03/16 20:59 10/05/16 08:33 Allergies: Coded Allergies: No Known Allergies (Unverified , 10/03/16) ROS Limited/Unobtainable: Yes Subjective 66 YO M admitted with abdominal pain and encephalopathy. Await GI consult. Cover for Int Med-Dr Light. Objective Last Vital Signs Date Time Temp Pulse Resp B/P Pulse Ox O2 Delivery O2 Flow Rate FiO2 10/05/16 12:45 97.4 80 17 152/66 94 Room Air 10/05/16 04:15 2.0 10/04/16 20:00 94 General Appearance: WD/WN, alert, mild distress EENT: PERRL/EOMI, normal ENT inspection Neck: non-tender, normal alignment, supple, normal inspection Cardiovascular: normal peripheral pulses, normal rate, regular rhythm, no gallop/murmur, no JVD Respiratory/Chest: chest wall non-tender, lungs clear, no respiratory distress , no accessory muscle use Abdomen: decreased bowel sounds, distended, guarding, tender Extremities: normal range of motion 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: 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 II-XII grossly normal, no motor/sensory deficits Skin: normal pigmentation, warm/dry Laboratory Tests Test 10/05/16 05:25 10/05/16 06:50 10/05/16 09:40 Troponin I < 0.30 ng/mL (<=0.30) Pro-B-Type Natriuretic Peptide 3462 pg/mL (0-125) H Stool Occult Blood Pending White Blood Count 7.2 K/UL (4.8-10.8) Red Blood Count 2.65 M/UL (4.70-6.10) L Hemoglobin 8.4 G/DL (14.2-18.0) L Hematocrit 25.9 % (42.0-52.0) L Mean Corpuscular Volume 98 FL (80-99) Mean Corpuscular Hemoglobin 31.7 PG (27.0-31.0) H Mean Corpuscular Hemoglobin Concent 32.5 G/DL (32.0-36.0) Red Cell Distribution Width 23.7 % (11.6-14.8) H Platelet Count 34 K/UL (150-450) #L Mean Platelet Volume 6.5 FL (6.5-10.1) Neutrophils (%) (Auto) % (45.0-75.0) Lymphocytes (%) (Auto) % (20.0-45.0) Monocytes (%) (Auto) % (1.0-10.0) Eosinophils (%) (Auto) % (0.0-3.0) Basophils (%) (Auto) % (0.0-2.0) Differential Total Cells Counted 100 Neutrophils % (Manual) 73 % (45-75) Lymphocytes % (Manual) 10 % (20-45) L Monocytes % (Manual) 13 % (1-10) H Eosinophils % (Manual) 2 % (0-3) Basophils % (Manual) 2 % (0-2) Band Neutrophils 0 % (0-8) Platelet Estimate Decreased L Platelet Morphology Normal Hypochromasia 3+ Anisocytosis 4+ Sodium Level 147 mEQ/L (135-145) H Potassium Level 4.7 mEQ/L (3.4-4.9) Chloride Level 111 mEQ/L (98-107) H Carbon Dioxide Level 23 mEQ/L (20-30) Anion Gap 13 (5-15) Blood Urea Nitrogen 47 mg/dL (7-23) H Creatinine 2.2 mg/dL (0.7-1.2) H Estimat Glomerular Filtration Rate 30.0 mL/min (>60) Glucose Level 81 mg/dL (74-106) Calcium Level 9.0 mg/dL (8.6-10.2) Total Bilirubin 2.4 mg/dL (0.0-1.2) H Direct Bilirubin 0.7 mg/dL (0.1-0.3) H Aspartate Amino Transf (AST/SGOT) 50 U/L (5-40) H Alanine Aminotransferase (ALT/SGPT) 26 U/L (3-41) Alkaline Phosphatase 66 U/L (40-129) Total Protein 5.9 g/dL (6.6-8.7) L Albumin 2.4 g/dL (3.5-5.2) L Microbiology Date/Time Source Procedure Growth Status 10/03/16 20:21 Blood Blood Culture - Preliminary NO GROWTH AFTER 24 HOURS Resulted 10/03/16 20:12 Blood Blood Culture - Preliminary NO GROWTH AFTER 24 HOURS Resulted 10/03/16 21:05 Nasal Nares MRSA Culture - Final NO METHICILLIN RESISTANT STAPH AUREUS... Complete 10/04/16 11:25 Urine,Clean Catch Urine Culture - Preliminary NO GROWTH Resulted 10/03/16 20:26 Urine,Clean Catch Urine Culture - Final NO GROWTH AFTER 48 HOURS Complete 10/03/16 21:05 Rectum VRE Culture - Final Enterococcus Faecium - Vre Complete Intake and Output 10/04/16 10/05/16 19:00 07:00 Output Total 560 ml 400 ml Balance -560 ml -400 ml Output Urine Total 560 ml 400 ml # Bowel Movements 2 Assessment/Plan Problem List: (1) Altered mental status (2) Cirrhosis of liver Assessment & Plan: Await GI consult. (3) Elevated liver function tests (4) CHF (congestive heart failure) (5) Diabetes mellitus Assessment & Plan: Cont novolog sliding scale (6) HTN (hypertension) Assessment & Plan: Continue amlodipine and clonidine. (7) Renal failure (8) Anemia (9) Hepatic encephalopathy Assessment & Plan: Continue Xifaxan Status: not improved RAFIQ WALDRON Oct 05, 2016 15:04
[2016-10-05] MEDS: cloNIDine 0.2mg Tab GT PRN (22:03)
[2016-10-06 00:05] VITALS: BP 120/68
--- NOTE | 2016-10-06 00:18 | Consultation ---
DATE OF CONSULTATION: 10/05/2016 CHIEF COMPLAINT: Altered mental status, anemia, and cirrhosis. HISTORY OF PRESENT ILLNESS: Most of the history is per chart. The patient is confused at this time, had an NG tube. On restraints, encephalopathic with pneumonia 180. PAST MEDICAL HISTORY: 1. Most probably the patient has history of cirrhosis. 2. Hypertension. 3. History of encephalopathy. 4. Ascites. 5. BPH. 6. Arthritis. 7. Chronic kidney disease. 8. Anemia. 9. Nephrolithiasis. 10. History of alcohol abuse. 11. Thrombocytopenia. 12. Cholecystectomy. 13. Questionable diabetes. 14. UTI. PAST SURGICAL HISTORY: None. ALLERGIES: No known drug allergies. MEDICATIONS: Please see medication reconciliation list. SOCIAL HISTORY: Unable to obtain at this time, but the patient apparently had prior history of alcohol abuse. FAMILY HISTORY: Unable to obtain. REVIEW OF SYSTEMS: Unable to obtain. PHYSICAL EXAMINATION: VITAL SIGNS: Temperature 97.2 degrees, pulse 86, respiration 18, and blood pressure is 166/64. HEENT: Most likely mild pale conjunctiva. NECK: Supple. No evidence of lymphadenopathy. CARDIOVASCULAR: Tachy. Regular rate. Plus S1 and S2. No obvious murmur. LUNGS: Decreased breath sounds bilaterally and diffusely. ABDOMEN: Soft and nontender. No rebound. No peritoneal sign. EXTREMITIES: No cyanosis. No clubbing. LABORATORY DATA: White count 7.2, hemoglobin 8.4, hematocrit 25.9, and platelet count is 34,000. CT of the abdomen and pelvis showed evidence of cirrhosis, ascites, and questionable liver lesion ASSESSMENT: This is a 66-year-old male with of most probably alcoholic cirrhosis complicated with thrombocytopenia, anemia, ascites, encephalopathy, and hypoalbuminemia. PLAN: Continue on NG tube for using a G-tube for lactulose, we are going to add . At one point, the patient would benefit from paracentesis, but given platelet count of 34,000 and no elevated white count, we are going to hold off at this time. Also patient at one point will need an endoscopy for evaluation of esophageal varices, but again given the platelet count of 34,000, and no active GI bleeding. We are ill going to hold off at this time, we are going to order abdominal ultrasound for evaluation of liver mass and we are going to order alpha-fetoprotein and monitor the patient labs and supportive care. Overall poor prognosis. Dustin Ly M.D. DR: Kayla JOB#: [id number] CC:
[2016-10-06] MEDS: Morphine Sulfate 2mg/ml Inj IVP PRN (00:53)
[2016-10-06 04:00] VITALS: BP 165/84
[2016-10-06] MEDS: NovoLOG Insulin Flexpen SUBQ SCH ×4 (06:30→21:00)
[2016-10-06] MEDS: Lactulose 20gm/30ml UDC NG SCH ×3 (06:34→22:10)
[2016-10-06 07:55] VITALS: BP 185/90
--- NOTE | 2016-10-06 08:00 | Diagnostic Imaging Report ---
Indication: Nasogastric tube placement Technique: XRAY ABDOMEN 1VIEW/KUB Comparison: Examination from the same day at 1109 hrs. Findings: Nasogastric tube is within the stomach. Small bowel loops are mildly distended. There is gas and stool in the colon. Impression: Nasogastric tube placement within the stomach. Mildly distended small bowel loops measuring up to 3.5 cm. Clinical correlation recommended. Cholecystectomy and TIPS shunt.
--- NOTE | 2016-10-06 08:07 | Diagnostic Imaging Report ---
Indication: Nasogastric tube placement Technique: Supine abdomen Comparison: 10/03/16 Findings: Nasogastric tube is within the stomach. Bowel gas pattern is again nonspecific. Clips are seen in the right upper quadrant. There is an apparent TIPS shunt. Impression: Nasogastric tube placement within the stomach.
--- NOTE | 2016-10-06 08:09 | Diagnostic Imaging Report ---
Indication: Shortness of breath Technique: XRAY CHEST 1 V Comparison: None Findings: Cardiac silhouette is obscured. Moderate to large left and small right pleural effusions are seen with atelectasis. Degenerative changes of the spine are noted. Impression: Moderate to large left and small right pleural effusions.
[2016-10-06 08:16] LABS: MEAN CORPUSCULAR HEMOGLOBIN 31.5 PG (27.0-31.0); MEAN CORPUSCULAR HGB CONC 32.2 G/DL (32.0-36.0); MEAN CORPUSCULAR VOLUME 98 FL (80-99); MEAN PLATELET VOLUME 6.7 FL (6.5-10.1); PLATELET COUNT 71 K/UL (150-450); RED BLOOD COUNT 2.46 M/UL (4.70-6.10); RED CELL DISTRIBUTION WIDTH 23.5 % (11.6-14.8); WHITE BLOOD COUNT 4.4 K/UL (4.8-10.8)
[2016-10-06 08:26] LABS: ALBUMIN/GLOBULIN RATIO 0.6 (1.0-2.7); CALCIUM 8.8 mg/dL (8.6-10.2); CREATININE 2.2 mg/dL (0.7-1.2); POTASSIUM 4.4 mEQ/L (3.4-4.9); TOTAL PROTEIN 5.6 g/dL (6.6-8.7)
[2016-10-06 08:42] LABS: ANISOCYTOSIS 3+; BAND NEUTROPHILS % (MANUAL) 0 % (0-8); BASOPHILS % (MANUAL) 2 % (0-2); EOSINOPHILS % (MANUAL) 9 % (0-3); HYPOCHROMASIA 3+; LYMPHOCYTES % (MANUAL) 19 % (20-45); NEUTROPHILS % (MANUAL) 58 % (45-75); PLATELET ESTIMATE DECREASED; TOTAL CELLS COUNTED 100
[2016-10-06 08:43] LABS: PLATELET MORPHOLOGY NORMAL; SPHEROCYTES 2+
[2016-10-06 08:52] LABS: BILIRUBIN,DIRECT 0.7 mg/dL (0.1-0.3)
[2016-10-06] MEDS: Rifaximin 550mg tab ORAL SCH ×2 (09:06→22:10)
[2016-10-06] MEDS: Vitamin A&D Oint 2oz Tube TOPIC SCH ×2 (09:07→22:14)
--- NOTE | 2016-10-06 10:24 | Internal Med Progress Note ---
Subjective Date of Service: Oct 06, 2016 Physician Name Florentino,Karis Attending Physician Jeremiah Light MD Current Medications Medications (Trade) Dose Ordered Sig/Morgan Route PRN Reason Start Time Stop Time Status Last Admin Dose Admin Albuterol/ Ipratropium (DuoNeb 0.5-3(2.5)mg/3ml) 3 ml Q4H PRN HHN Shortness of Breath 10/04/16 15:00 10/09/16 14:59 Amlodipine Besylate (Norvasc) 5 mg DAILY NG 10/05/16 09:00 11/04/16 08:59 10/06/16 09:07 Clonidine HCl (Catapres) 0.2 mg Q4H PRN GT SBP>170 10/05/16 07:00 11/04/16 06:59 10/05/16 22:03 Dextrose (D5W 1000ml) 1,000 ml @ 50 mls/hr Q20H IV 10/05/16 08:00 11/04/16 07:59 10/06/16 04:44 Dextrose (Dextrose 50%) STAT PRN IV Hypoglycemia 10/04/16 01:30 11/03/16 01:29 10/05/16 07:09 Hydralazine HCl (Apresoline) 5 mg Q4H PRN IV For High Blood Pressure 10/04/16 01:30 11/03/16 01:29 10/05/16 17:24 Insulin Aspart (NovoLOG) BEFORE MEALS AND HS SUBQ 10/04/16 06:30 11/03/16 06:29 Lactulose 20 gm 20 gm EVERY 8 HOURS NG 10/05/16 06:00 11/04/16 05:59 10/06/16 06:34 Morphine Sulfate (Morphine Sulfate) 2 mg EVERY 4 HOURS PRN IVP Moderate Pain (Pain Scale 4-6) 10/04/16 01:30 10/11/16 01:29 10/06/16 00:53 Morphine Sulfate (Morphine Sulfate) 4 mg EVERY 4 HOURS PRN IVP Severe Pain (Pain Scale 7-10) 10/04/16 01:30 10/11/16 01:29 Ondansetron HCl (Zofran) 4 mg EVERY 4 HOURS PRN IVP Nausea & Vomiting 10/04/16 01:30 11/03/16 01:29 Rifaximin (Xifaxan) 550 mg EVERY 12 HOURS ORAL 10/05/16 12:00 10/12/16 11:59 10/06/16 09:06 Vitamin A/Vitamin D (A & D Oint) 1 applic EVERY 12 HOURS TOPIC 10/04/16 21:00 11/03/16 20:59 10/06/16 09:07 Allergies: Coded Allergies: No Known Allergies (Unverified , 10/03/16) ROS Limited/Unobtainable: Yes Subjective 66 YO M admitted with abdominal pain and encephalopathy. Less agitated today. Cover for Int Med-Dr Light.. Paracentesis and colonoscopy/endoscopy on hold due to thrombocytopenia. Objective Last Vital Signs Date Time Temp Pulse Resp B/P Pulse Ox O2 Delivery O2 Flow Rate FiO2 10/06/16 09:07 63 185/90 10/06/16 07:55 97.0 20 96 Room Air 10/06/16 07:43 21 10/05/16 04:15 2.0 Laboratory Tests Test 10/06/16 06:30 White Blood Count 4.4 K/UL (4.8-10.8) L Red Blood Count 2.46 M/UL (4.70-6.10) L Hemoglobin 7.8 G/DL (14.2-18.0) L Hematocrit 24.1 % (42.0-52.0) L Mean Corpuscular Volume 98 FL (80-99) Mean Corpuscular Hemoglobin 31.5 PG (27.0-31.0) H Mean Corpuscular Hemoglobin Concent 32.2 G/DL (32.0-36.0) Red Cell Distribution Width 23.5 % (11.6-14.8) H Platelet Count 71 K/UL (150-450) #L Mean Platelet Volume 6.7 FL (6.5-10.1) Neutrophils (%) (Auto) % (45.0-75.0) Lymphocytes (%) (Auto) % (20.0-45.0) Monocytes (%) (Auto) % (1.0-10.0) Eosinophils (%) (Auto) % (0.0-3.0) Basophils (%) (Auto) % (0.0-2.0) Differential Total Cells Counted 100 Neutrophils % (Manual) 58 % (45-75) Lymphocytes % (Manual) 19 % (20-45) L Monocytes % (Manual) 12 % (1-10) H Eosinophils % (Manual) 9 % (0-3) H Basophils % (Manual) 2 % (0-2) Band Neutrophils 0 % (0-8) Platelet Estimate Decreased L Platelet Morphology Normal Hypochromasia 3+ Anisocytosis 3+ Spherocytes 2+ Sodium Level 148 mEQ/L (135-145) H Potassium Level 4.4 mEQ/L (3.4-4.9) Chloride Level 114 mEQ/L (98-107) H Carbon Dioxide Level 25 mEQ/L (20-30) Anion Gap 9 (5-15) Blood Urea Nitrogen 46 mg/dL (7-23) H Creatinine 2.2 mg/dL (0.7-1.2) H Estimat Glomerular Filtration Rate 30.0 mL/min (>60) Glucose Level 84 mg/dL (74-106) Calcium Level 8.8 mg/dL (8.6-10.2) Total Bilirubin 1.9 mg/dL (0.0-1.2) H Direct Bilirubin 0.7 mg/dL (0.1-0.3) H Aspartate Amino Transf (AST/SGOT) 41 U/L (5-40) H Alanine Aminotransferase (ALT/SGPT) 22 U/L (3-41) Alkaline Phosphatase 61 U/L (40-129) Ammonia 51 umol/L (16-60) Total Protein 5.6 g/dL (6.6-8.7) L Albumin 2.1 g/dL (3.5-5.2) L Globulin 3.5 g/dL Albumin/Globulin Ratio 0.6 (1.0-2.7) L Alpha Fetoprotein Pending Hepatitis A IgM Antibody Pending Hepatitis B Surface Antigen Pending Hepatitis B Core IgM Antibody Pending Hepatitis C Antibody Pending Microbiology Date/Time Source Procedure Growth Status 10/03/16 20:21 Blood Blood Culture - Preliminary NO GROWTH AFTER 48 HOURS Resulted 10/03/16 20:12 Blood Blood Culture - Preliminary NO GROWTH AFTER 48 HOURS Resulted 10/03/16 21:05 Nasal Nares MRSA Culture - Final NO METHICILLIN RESISTANT STAPH AUREUS... Complete 10/04/16 11:25 Urine,Clean Catch Urine Culture - Preliminary NO GROWTH Resulted 10/03/16 20:26 Urine,Clean Catch Urine Culture - Final NO GROWTH AFTER 48 HOURS Complete 10/03/16 21:05 Rectum VRE Culture - Final Enterococcus Faecium - Vre Complete Intake and Output 10/05/16 10/06/16 18:59 06:59 Intake Total 500 ml 600 ml Output Total 380 ml Balance 120 ml 600 ml Intake IV Total 500 ml 600 ml Output Urine Total 380 ml # Bowel Movements 1 1 Objective General Appearance: WD/WN, alert, mild distress EENT: PERRL/EOMI, normal ENT inspection Neck: non-tender, normal alignment, supple, normal inspection Cardiovascular: normal peripheral pulses, normal rate, regular rhythm, no gallop/murmur, no JVD Respiratory/Chest: chest wall non-tender, lungs clear, no respiratory distress , no accessory muscle use Abdomen: decreased bowel sounds, distended, guarding, tender Extremities: normal range of motion Neurologic: manager credit II-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 (3) Elevated liver function tests (4) CHF (congestive heart failure) (5) Diabetes mellitus Assessment & Plan: Cont novolog sliding scale (6) HTN (hypertension) Assessment & Plan: Continue amlodipine and clonidine. (7) Renal failure (8) Anemia (9) Hepatic encephalopathy Assessment & Plan: Continue Xifaxan (10) Ascites Assessment & Plan: Paracentesis on hold due to thrombocytopenia. (11) Thrombocytopenia Status: not improved Assessment/Plan Colonoscopy and endoscopy on hold due to thrombocytopenia - see GI note KARIS FLORENTINO Oct 06, 2016 10:24
[2016-10-06 11:36] VITALS: BP 150/77
--- NOTE | 2016-10-06 12:13 | Consultation ---
Consult Note Assessment/Plan renal consult dictated # [id number] FERNANDO DC Oct 06, 2016 12:13
--- NOTE | 2016-10-06 12:17 | Diagnostic Imaging Report ---
Indication: Dyspnea Comparison: 10/03/16 A single view chest radiograph was obtained. Findings: There is a moderate to large left pleural effusion. There is evidence of CHF. Heart size is probably enlarged but difficult to evaluate on this study. NG tube is satisfactory in position. Impression: NG tube in good position. No change otherwise.
--- NOTE | 2016-10-06 12:28 | Cardiology Report ---
APPROVED REPORT EXAM: Two-dimensional and M-mode echocardiogram with Doppler and color Doppler. INDICATION Congestive Heart Failure M-Mode DIMENSIONS IVSd0.8 (0.7-1.1cm)Left Atrium (MM)3.2 (1.6-4.0cm) LVDd5.4 (3.5-5.6cm)Aortic Root2.7 (2.0-3.7cm) PWd0.8 (0.7-1.1cm)Aortic Cusp Exc.1.6 (1.5-2.0cm) LVDs2.9 (2.5-4.0cm) PWs1.3 cm Technically difficult study due to poor acoustic windows. Patient on restrains. Normal left ventricular chamber size, systolic function and wall motion. Left ventricular ejection fraction estimated to be 60-65 %. Moderate left ventricular hypertrophy. Large anterior and posterior pleural effusion. Right cardiac chamber sizes are within normal limits. Mild left atrial enlargement by 2D. Focal aortic valve sclerosis with adequate cusp excursion Thickened mitral valve leaflets with normal excursion. Mitral annulus and aortic root calcification. Pulmonic valve not well visualized. Normal tricuspid valve structure. IVC is normal in size with physiologic collapse. A color flow and spectral Doppler study was performed and revealed: No aortic regurgitation. Trace mitral regurgitation. Left ventricular diastolic dysfunction grade 1. Moderate tricuspid regurgitation. Tricuspid systolic velocities suggests peak right ventricular systolic pressure of 58 mmHg Consistent with severe pulmonary hypertension.
--- NOTE | 2016-10-06 14:45 | Pulmonology Progress Note ---
Assessment/Plan Problems: (1) Pleural effusion associated with hepatic disorder (2) Coagulopathy (3) Thrombocytopenia (4) Altered mental state Assessment/Plan thoracentesis liver w/u in process rule out malignancy. f/u GI ammonia level Subjective ROS Limited/Unobtainable: No Interval Events: somnolent Allergies: Coded Allergies: No Known Allergies (Unverified , 10/03/16) Objective Last 24 Hour Vital Signs Date Time Temp Pulse Resp B/P Pulse Ox O2 Delivery O2 Flow Rate FiO2 10/06/16 12:00 58 10/06/16 11:36 96.9 56 20 150/77 97 Room Air 10/06/16 09:07 63 185/90 10/06/16 08:00 60 10/06/16 07:55 97.0 63 20 185/90 96 Room Air 10/06/16 07:43 62 20 Room Air 21 10/06/16 04:00 98.1 66 19 165/84 98 Room Air 10/06/16 04:00 63 10/06/16 00:05 96.3 70 18 120/68 99 Room Air 10/06/16 00:00 65 10/05/16 22:03 172/96 10/05/16 20:00 96.8 82 19 193/81 100 Room Air 10/05/16 20:00 76 10/05/16 19:30 68 20 Room Air 10/05/16 17:24 166/72 10/05/16 16:00 82 10/05/16 16:00 97.5 80 18 170/77 97 Room Air Intake and Output 10/05/16 10/06/16 19:00 07:00 Intake Total 550 ml 600 ml Output Total 380 ml Balance 170 ml 600 ml Intake IV Total 550 ml 600 ml Output Urine Total 380 ml # Bowel Movements 1 1 General Appearance: WD/WN HEENT: normocephalic, atraumatic Respiratory/Chest: chest wall non-tender, crackles/rales Cardiovascular: normal rate Abdomen: normal bowel sounds Genitourinary: normal external genitalia Skin: no rash Neurologic/Psychiatric: utilization specialist II-XII grossly normal Microbiology Date/Time Source Procedure Growth Status 10/03/16 20:21 Blood Blood Culture - Preliminary NO GROWTH AFTER 48 HOURS Resulted 10/03/16 20:12 Blood Blood Culture - Preliminary NO GROWTH AFTER 48 HOURS Resulted 10/03/16 21:05 Nasal Nares MRSA Culture - Final NO METHICILLIN RESISTANT STAPH AUREUS... Complete 10/04/16 11:25 Urine,Clean Catch Urine Culture - Preliminary NO GROWTH AFTER 24 HOURS Resulted 10/03/16 20:26 Urine,Clean Catch Urine Culture - Final NO GROWTH AFTER 48 HOURS Complete 10/03/16 21:05 Rectum VRE Culture - Final Enterococcus Faecium - Vre Complete Laboratory Tests 10/06/16 06:30: White Blood Count 4.4L, Red Blood Count 2.46L, Hemoglobin 7.8L, Hematocrit 24.1L , Mean Corpuscular Volume 98, Mean Corpuscular Hemoglobin 31.5H, Mean Corpuscular Hemoglobin Concent 32.2, Red Cell Distribution Width 23.5H, Platelet Count 71#L, Mean Platelet Volume 6.7, Neutrophils (%) (Auto) , Lymphocytes (%) (Auto) , Monocytes (%) (Auto) , Eosinophils (%) (Auto) , Basophils (%) (Auto) , Differential Total Cells Counted 100, Neutrophils % ( Manual) 58, Lymphocytes % (Manual) 19L, Monocytes % (Manual) 12H, Eosinophils % (Manual) 9H, Basophils % (Manual) 2, Band Neutrophils 0, Platelet Estimate DecreasedL, Platelet Morphology Normal, Hypochromasia 3+, Anisocytosis 3+, Spherocytes 2+, Sodium Level 148H, Potassium Level 4.4, Chloride Level 114H, Carbon Dioxide Level 25, Anion Gap 9, Blood Urea Nitrogen 46H, Creatinine 2.2H, Estimat Glomerular Filtration Rate 30.0, Glucose Level 84, Calcium Level 8.8, Total Bilirubin 1.9H, Direct Bilirubin 0.7H, Aspartate Amino Transf (AST/SGOT) 41H, Alanine Aminotransferase (ALT/SGPT) 22, Alkaline Phosphatase 61, Ammonia 51 , Total Protein 5.6L, Albumin 2.1L, Globulin 3.5, Albumin/Globulin Ratio 0.6L, Alpha Fetoprotein [Pending], Hepatitis A IgM Antibody [Pending], Hepatitis B Surface Antigen [Pending], Hepatitis B Core IgM Antibody [Pending], Hepatitis C Antibody [Pending] Current Medications Medications (Trade) Dose Ordered Sig/Morgan Route PRN Reason Start Time Stop Time Status Last Admin Dose Admin Albuterol/ Ipratropium (DuoNeb 0.5-3(2.5)mg/3ml) 3 ml Q4H PRN HHN Shortness of Breath 10/04/16 15:00 10/09/16 14:59 Amlodipine Besylate (Norvasc) 5 mg DAILY NG 10/05/16 09:00 11/04/16 08:59 10/06/16 09:07 Clonidine HCl (Catapres) 0.2 mg Q4H PRN GT SBP>170 10/05/16 07:00 11/04/16 06:59 10/05/16 22:03 Dextrose (D5W 1000ml) 1,000 ml @ 50 mls/hr Q20H IV 10/05/16 08:00 11/04/16 07:59 10/06/16 04:44 Dextrose (Dextrose 50%) STAT PRN IV Hypoglycemia 10/04/16 01:30 11/03/16 01:29 10/05/16 07:09 Hydralazine HCl (Apresoline) 5 mg Q4H PRN IV For High Blood Pressure 10/04/16 01:30 11/03/16 01:29 10/05/16 17:24 Insulin Aspart (NovoLOG) BEFORE MEALS AND HS SUBQ 10/04/16 06:30 11/03/16 06:29 Lactulose 20 gm 20 gm EVERY 8 HOURS NG 10/05/16 06:00 11/04/16 05:59 10/06/16 13:17 Morphine Sulfate (Morphine Sulfate) 2 mg EVERY 4 HOURS PRN IVP Moderate Pain (Pain Scale 4-6) 10/04/16 01:30 10/11/16 01:29 10/06/16 00:53 Morphine Sulfate (Morphine Sulfate) 4 mg EVERY 4 HOURS PRN IVP Severe Pain (Pain Scale 7-10) 10/04/16 01:30 10/11/16 01:29 Ondansetron HCl (Zofran) 4 mg EVERY 4 HOURS PRN IVP Nausea & Vomiting 10/04/16 01:30 11/03/16 01:29 Rifaximin (Xifaxan) 550 mg EVERY 12 HOURS ORAL 10/05/16 12:00 10/12/16 11:59 10/06/16 09:06 Vitamin A/Vitamin D (A & D Oint) 1 applic EVERY 12 HOURS TOPIC 10/04/16 21:00 11/03/16 20:59 10/06/16 09:07 KRISTOPHER JACQUES Oct 06, 2016 14:45
--- NOTE | 2016-10-06 15:00 | GI Progress Note ---
Assessment/Plan Problems: (1) Ascites ICD Codes: R18.8 - Other ascites SNOMED: 561992036 (2) Elevated liver function tests ICD Codes: R94.5 - Abnormal results of liver function studies SNOMED: 531381511 (3) Altered mental status ICD Codes: R41.82 - Altered mental status, unspecified SNOMED: 879219205 (4) Cirrhosis of liver ICD Codes: K74.60 - Unspecified cirrhosis of liver SNOMED: 48223147 (5) Diabetes mellitus ICD Codes: E11.9 - Type 2 diabetes mellitus without complications SNOMED: 88451364 (6) Abdominal pain ICD Codes: R10.9 - Unspecified abdominal pain SNOMED: 76641184 Qualifiers: Qualified Codes: R10.84 - Generalized abdominal pain (7) Anemia ICD Codes: D64.9 - Anemia, unspecified SNOMED: 497024558 Qualifiers: Qualified Codes: D64.9 - Anemia, unspecified (8) Hepatic encephalopathy ICD Codes: K72.90 - Hepatic failure, unspecified without coma SNOMED: 01101168 (9) Thrombocytopenia ICD Codes: D69.6 - Thrombocytopenia, unspecified SNOMED: 498424815 (10) Coagulopathy ICD Codes: D68.9 - Coagulation defect, unspecified SNOMED: 38141309 Status: unchanged Status Narrative Discussed with Dr. Ly. Assessment/Plan APCT >> Small and nodular liver consistent with cirrhosis. TIPS shunt not adequately evaluated without contrast, see full report below. OB stool uncollected pt recommended to have EGD to evaluate for EV monitor H&H, transfuse prn ordered venous duplex NGT elevated ammonia >> lactulose + Xifaxan fu paracentesis fu abdominal US evaluation of liver mass fu AFP, Hep Panel ppi poor prognosis fu labs Subjective Subjective limited Objective Last 24 Hour Vital Signs Date Time Temp Pulse Resp B/P Pulse Ox O2 Delivery O2 Flow Rate FiO2 10/06/16 12:00 58 10/06/16 11:36 96.9 56 20 150/77 97 Room Air 10/06/16 09:07 63 185/90 10/06/16 08:00 60 10/06/16 07:55 97.0 63 20 185/90 96 Room Air 10/06/16 07:43 62 20 Room Air 21 10/06/16 04:00 98.1 66 19 165/84 98 Room Air 10/06/16 04:00 63 10/06/16 00:05 96.3 70 18 120/68 99 Room Air 10/06/16 00:00 65 10/05/16 22:03 172/96 10/05/16 20:00 96.8 82 19 193/81 100 Room Air 10/05/16 20:00 76 10/05/16 19:30 68 20 Room Air 21 10/05/16 17:24 166/72 10/05/16 16:00 82 10/05/16 16:00 97.5 80 18 170/77 97 Room Air Intake and Output 10/05/16 10/06/16 19:00 07:00 Intake Total 550 ml 600 ml Output Total 380 ml Balance 170 ml 600 ml Intake IV Total 550 ml 600 ml Output Urine Total 380 ml # Bowel Movements 1 1 Laboratory Tests Test 10/06/16 06:30 White Blood Count 4.4 K/UL (4.8-10.8) L Red Blood Count 2.46 M/UL (4.70-6.10) L Hemoglobin 7.8 G/DL (14.2-18.0) L Hematocrit 24.1 % (42.0-52.0) L Mean Corpuscular Volume 98 FL (80-99) Mean Corpuscular Hemoglobin 31.5 PG (27.0-31.0) H Mean Corpuscular Hemoglobin Concent 32.2 G/DL (32.0-36.0) Red Cell Distribution Width 23.5 % (11.6-14.8) H Platelet Count 71 K/UL (150-450) #L Mean Platelet Volume 6.7 FL (6.5-10.1) Neutrophils (%) (Auto) % (45.0-75.0) Lymphocytes (%) (Auto) % (20.0-45.0) Monocytes (%) (Auto) % (1.0-10.0) Eosinophils (%) (Auto) % (0.0-3.0) Basophils (%) (Auto) % (0.0-2.0) Differential Total Cells Counted 100 Neutrophils % (Manual) 58 % (45-75) Lymphocytes % (Manual) 19 % (20-45) L Monocytes % (Manual) 12 % (1-10) H Eosinophils % (Manual) 9 % (0-3) H Basophils % (Manual) 2 % (0-2) Band Neutrophils 0 % (0-8) Platelet Estimate Decreased L Platelet Morphology Normal Hypochromasia 3+ Anisocytosis 3+ Spherocytes 2+ Sodium Level 148 mEQ/L (135-145) H Potassium Level 4.4 mEQ/L (3.4-4.9) Chloride Level 114 mEQ/L (98-107) H Carbon Dioxide Level 25 mEQ/L (20-30) Anion Gap 9 (5-15) Blood Urea Nitrogen 46 mg/dL (7-23) H Creatinine 2.2 mg/dL (0.7-1.2) H Estimat Glomerular Filtration Rate 30.0 mL/min (>60) Glucose Level 84 mg/dL (74-106) Calcium Level 8.8 mg/dL (8.6-10.2) Total Bilirubin 1.9 mg/dL (0.0-1.2) H Direct Bilirubin 0.7 mg/dL (0.1-0.3) H Aspartate Amino Transf (AST/SGOT) 41 U/L (5-40) H Alanine Aminotransferase (ALT/SGPT) 22 U/L (3-41) Alkaline Phosphatase 61 U/L (40-129) Ammonia 51 umol/L (16-60) Total Protein 5.6 g/dL (6.6-8.7) L Albumin 2.1 g/dL (3.5-5.2) L Globulin 3.5 g/dL Albumin/Globulin Ratio 0.6 (1.0-2.7) L Alpha Fetoprotein Pending Hepatitis A IgM Antibody Pending Hepatitis B Surface Antigen Pending Hepatitis B Core IgM Antibody Pending Hepatitis C Antibody Pending Height (Feet): 5 Height (Inches): 6.00 Weight (Pounds): 200 General Appearance: alert, confused Cardiovascular: normal rate Respiratory/Chest: no respiratory distress Abdominal Exam: soft Extremities: other - BUE +3 / BLE + 1 Objective Service Date: 10/04/16 Procedure: CT Abdomen Pelvis WO Contrast Indication: Hepatic encephalopathy and abdominal pain Impression: Moderate bilateral pleural effusions with compressive atelectasis in the partially visualized lung bases, left greater than right. Nasogastric tube within the stomach. White catheter in the bladder. Small and nodular liver consistent with cirrhosis. TIPS shunt not adequately evaluated without contrast. Questionable exophytic mass of the anterior right lobe of liver measuring 1.9 cm. Further evaluation with contrast recommended. Mild ascites. Right inguinal hernia containing fat, fluid and distal small bowel. Entering loop of bowel within the hernia relatively larger in caliber than the exiting loop of bowel and possibility of partial or early obstruction not excluded. Clinical correlation/followup recommended. Approximately 1.9 cm hypodensity within the lower pole of the right kidney incompletely assessed probably a cyst. Clinical correlation recommended. Diffuse subcutaneous edema. Angela Anderson N.P. Oct 06, 2016 15:00
--- NOTE | 2016-10-06 15:48 | Cardiac Electrophysiology PN ---
Assessment/Plan Assessment/Plan 1. Tachycardia with sinus tachycardia. Due to severe anemia and sepsis. The patient's troponins are negative. Echocardiogram showed ejection fraction of 60% to 65%, Pleural effusion and moderate left ventricular hypertrophy, moderate aortic regurgitation and severe pulmonary hypertension with pressure of 58. 2. HTN on Norvasc 5 daily. 3. Pleural effusion and Congestive heart failure with diastolic dysfunction.Thoracentesis tomorrow 4. Altered mental status likely due to hepatic encephalopathy on lactulose at this time. 5. Cirrhosis of the liver. 6. Type 2 diabetes. 7. Renal failure. Per Dr. Langston. 8. Anemia with gastrointestinal bleed. FÉLIX RN Subjective Subjective Lethargic. No SVT or VT overnight. Objective Last 24 Hour Vital Signs Date Time Temp Pulse Resp B/P Pulse Ox O2 Delivery O2 Flow Rate FiO2 10/06/16 12:00 58 10/06/16 11:36 96.9 56 20 150/77 97 Room Air 10/06/16 09:07 63 185/90 10/06/16 08:00 60 10/06/16 07:55 97.0 63 20 185/90 96 Room Air 10/06/16 07:43 62 20 Room Air 21 10/06/16 04:00 98.1 66 19 165/84 98 Room Air 10/06/16 04:00 63 10/06/16 00:05 96.3 70 18 120/68 99 Room Air 10/06/16 00:00 65 10/05/16 22:03 172/96 10/05/16 20:00 96.8 82 19 193/81 100 Room Air 10/05/16 20:00 76 10/05/16 19:30 68 20 Room Air 21 10/05/16 17:24 166/72 10/05/16 16:00 82 10/05/16 16:00 97.5 80 18 170/77 97 Room Air Intake and Output 10/05/16 10/06/16 19:00 07:00 Intake Total 550 ml 600 ml Output Total 380 ml Balance 170 ml 600 ml Intake IV Total 550 ml 600 ml Output Urine Total 380 ml # Bowel Movements 1 1 Laboratory Tests Test 10/06/16 06:30 White Blood Count 4.4 K/UL (4.8-10.8) L Red Blood Count 2.46 M/UL (4.70-6.10) L Hemoglobin 7.8 G/DL (14.2-18.0) L Hematocrit 24.1 % (42.0-52.0) L Mean Corpuscular Volume 98 FL (80-99) Mean Corpuscular Hemoglobin 31.5 PG (27.0-31.0) H Mean Corpuscular Hemoglobin Concent 32.2 G/DL (32.0-36.0) Red Cell Distribution Width 23.5 % (11.6-14.8) H Platelet Count 71 K/UL (150-450) #L Mean Platelet Volume 6.7 FL (6.5-10.1) Neutrophils (%) (Auto) % (45.0-75.0) Lymphocytes (%) (Auto) % (20.0-45.0) Monocytes (%) (Auto) % (1.0-10.0) Eosinophils (%) (Auto) % (0.0-3.0) Basophils (%) (Auto) % (0.0-2.0) Differential Total Cells Counted 100 Neutrophils % (Manual) 58 % (45-75) Lymphocytes % (Manual) 19 % (20-45) L Monocytes % (Manual) 12 % (1-10) H Eosinophils % (Manual) 9 % (0-3) H Basophils % (Manual) 2 % (0-2) Band Neutrophils 0 % (0-8) Platelet Estimate Decreased L Platelet Morphology Normal Hypochromasia 3+ Anisocytosis 3+ Spherocytes 2+ Sodium Level 148 mEQ/L (135-145) H Potassium Level 4.4 mEQ/L (3.4-4.9) Chloride Level 114 mEQ/L (98-107) H Carbon Dioxide Level 25 mEQ/L (20-30) Anion Gap 9 (5-15) Blood Urea Nitrogen 46 mg/dL (7-23) H Creatinine 2.2 mg/dL (0.7-1.2) H Estimat Glomerular Filtration Rate 30.0 mL/min (>60) Glucose Level 84 mg/dL (74-106) Calcium Level 8.8 mg/dL (8.6-10.2) Total Bilirubin 1.9 mg/dL (0.0-1.2) H Direct Bilirubin 0.7 mg/dL (0.1-0.3) H Aspartate Amino Transf (AST/SGOT) 41 U/L (5-40) H Alanine Aminotransferase (ALT/SGPT) 22 U/L (3-41) Alkaline Phosphatase 61 U/L (40-129) Ammonia 51 umol/L (16-60) Total Protein 5.6 g/dL (6.6-8.7) L Albumin 2.1 g/dL (3.5-5.2) L Globulin 3.5 g/dL Albumin/Globulin Ratio 0.6 (1.0-2.7) L Alpha Fetoprotein Pending Hepatitis A IgM Antibody Pending Hepatitis B Surface Antigen Pending Hepatitis B Core IgM Antibody Pending Hepatitis C Antibody Pending Microbiology Date/Time Source Procedure Growth Status 10/03/16 20:21 Blood Blood Culture - Preliminary NO GROWTH AFTER 48 HOURS Resulted 10/03/16 20:12 Blood Blood Culture - Preliminary NO GROWTH AFTER 48 HOURS Resulted 10/03/16 21:05 Nasal Nares MRSA Culture - Final NO METHICILLIN RESISTANT STAPH AUREUS... Complete 10/04/16 11:25 Urine,Clean Catch Urine Culture - Preliminary NO GROWTH AFTER 24 HOURS Resulted 10/03/16 20:26 Urine,Clean Catch Urine Culture - Final NO GROWTH AFTER 48 HOURS Complete 10/03/16 21:05 Rectum VRE Culture - Final Enterococcus Faecium - Vre Complete Objective NECK: Shows no JVD. NG tube in. LUNGS: Coarse rhonchi. CARDIOVASCULAR: Tachycardic. S1 and S2 with no gallop or murmur. ABDOMEN: Soft, but distended. EXTREMITIES: A 2+ pitting edema. MYLES COSME Oct 06, 2016 15:48
[2016-10-06 16:00] VITALS: BP 174/75
[2016-10-06] MEDS ORDERED: Phytonadione 10 MG in D5W 55 ML IVPB ONE (16:00)
[2016-10-06] MEDS: cloNIDine 0.2mg Tab GT PRN (16:24)
--- NOTE | 2016-10-06 17:22 | Diagnostic Imaging Report ---
Indication: Abdominal pain Technique: Soliz-scale and duplex images of the upper abdomen were obtained Comparison: Reference made to CT abdomen pelvis dated 10/04/2016, renal ultrasound dated 10/04/2016 Findings: The pancreas is unremarkable. The liver demonstrates increased echogenicity. It contains a TIPS shunt. The velocities range between 60 and 150 m/s. The liver demonstrates surface nodularity and relative atrophy. There is a large right pleural effusion. There is trace ascites. Liver surface demonstrates nodularity. No focal abnormality to correspond to anterior right lobe liver mass described on recent CT. Right kidney measures 11.4 cm in length. It demonstrates increased echogenicity It demonstrates a 2.4 cm lower pole cyst and a smaller interpolar region cyst. The gallbladder is surgically absent. The common bile duct measures 8 mm diameter. No intrahepatic biliary duct dilatation. Nonaneurysmal abdominal aorta. The left kidney measures 10.7 cm in length. There is a left pleural effusion. The spleen is upper limits of normal in size, measuring 12.9 cm long axis dimension. The pancreas is unremarkable. Impression: Evidence of hepatic cirrhosis, also previously described Patent TIPS shunt, normal velocities Surgically absent gallbladder. There is mild biliary ductal dilatation. Downstream obstruction not completely excludable. Correlate with liver function tests, consider MRCP for further evaluation if clinically indicated Bilateral large pleural effusions, also previously described Trace ascites, also previously described Note that exophytic liver mass recent CT scan could not be visualized sonographically. Abdominal wall edema Echogenic right kidney, may reflect medical renal disease Right renal cysts
[2016-10-06] MEDS ORDERED: DuoNeb 0.5-3(2.5)mg/3ml neb HHN PRN (19:00)
[2016-10-06] MEDS ORDERED: cloNIDine 0.2mg Tab GT PRN (19:00)
[2016-10-06 20:00] VITALS: BP 155/78
[2016-10-06] MEDS ORDERED: Morphine Sulfate 2mg/ml Inj IVP PRN (21:00)
[2016-10-06] MEDS ORDERED: Morphine Sulfate 4mg/ml Inj IVP PRN (21:00)
--- NOTE | 2016-10-06 23:08 | Consultation ---
DATE OF CONSULTATION: NEPHROLOGY CONSULTATION CONSULTING PHYSICIAN: Reagan Langston M.D. REFERRING PHYSICIAN: Jeremiah Light M.D. REASON FOR CONSULTATION: Renal failure. HISTORY OF PRESENT ILLNESS: This is a 66-year-old male, who is under my care at [facility]. I saw him on the day of admission in [facility]. The patient was complaining of orthopnea. A chest x-ray was done and reports came back as bilateral pulmonary infiltrates as well as pleural effusions. The patient was sent to the emergency room under Dr. Light. Dr. Light asked me to follow the patient because the patient has also history of renal failure. His BUN and creatinine are 46 and 2.2 as of today. The patient is lethargic at this point, is not able to provide any history. 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 The patient was a previously at hospice care, however, this was reversed later and the patient was taken off hospice care. The patient has history of gastrointestinal bleeds and transfusions, pleural effusions before, status post thoracentesis. MEDICATIONS: Reviewed. SOCIAL HISTORY: As mentioned, the patient lives in the halfway, otherwise unobtainable at this point. REVIEW OF SYSTEMS: Unobtainable. PHYSICAL EXAMINATION: GENERAL: The patient is a 66-year-old male, in no acute distress. VITAL SIGNS: Blood pressure 150/77, pulse 56, temperature 96.9, and respirations 20. HEENT: Pale conjunctivae, anicteric sclerae. NECK: Supple. LUNGS: Decreased breath sounds bilaterally. HEART: S1 and S2 without murmurs or rubs. ABDOMEN: Soft and nontender. EXTREMITIES: Bilateral pedal edema. LABORATORY FINDINGS: The CBC shows a WBC of 4.4, hematocrit 24.1, hemoglobin 7.8, and platelets are 71,000. The chemistry panel shows sodium 140, potassium 4.4, chloride 114, BUN is 46, and creatinine 2.2. Total bilirubin is 1.9. UA shows 30 to 40 RBCs and 10 to 15 WBCs per high-power field with 4+ protein. ASSESSMENT: This is a 66-year-old male, who is admitted with shortness of breath. He had bilateral pulmonary infiltrates on chest x-ray as well as pleural effusions. In terms of kidney function, his serum creatinine has not changed much since his admission. He has chronic kidney disease, likely as a result of atherosclerosis, but he does have also proteinuria, which goes along with the diagnosis, however, other possibilities cannot be excluded such as hepatorenal syndrome. His urine sodium was checked on 10/04/2016, however, was not that low, so that diagnosis is still in consideration but not very likely. Also, he has WBCs in the urine, but his eosinophils were negative against the diagnosis of interstitial nephritis. PLAN: I would follow his BUN and creatinine closely. The patient may require to be on diuretics, although at this time it does not appear that he is taking much p.o. He has an NG tube. So, I will hold off on that. His encephalopathy may be as a result of his high ammonia level, and he is on lactulose, which has to be probably increased and as it gets increased, the patient also will lose some fluid as well with the diarrhea. The case will be discussed with Dr. Light. Thank you very much for this consultation. Reagan Langston M.D. DR: BRITTNEE JOB#: [id number] CC: CAMERON
[2016-10-07] VITALS (8 sets, daily range): BP systolic 108–150; BP diastolic 50–87
[2016-10-07] MEDS: Lactulose 20gm/30ml UDC NG SCH ×3 (05:53→22:24)
[2016-10-07] MEDS: NovoLOG Insulin Flexpen SUBQ SCH ×3 (05:54→16:30)
[2016-10-07 07:10] LABS: GLOMERULAR FILTRATION RATE 33.5 mL/min (>60); POTASSIUM 4.3 mEQ/L (3.4-4.9)
[2016-10-07 07:28] LABS: MEAN CORPUSCULAR HEMOGLOBIN 31.8 PG (27.0-31.0); MEAN CORPUSCULAR HGB CONC 32.7 G/DL (32.0-36.0); MEAN CORPUSCULAR VOLUME 97 FL (80-99); MEAN PLATELET VOLUME 7.7 FL (6.5-10.1); PLATELET COUNT 82 K/UL (150-450); RED BLOOD COUNT 2.75 M/UL (4.70-6.10); RED CELL DISTRIBUTION WIDTH 22.8 % (11.6-14.8); WHITE BLOOD COUNT 3.9 K/UL (4.8-10.8)
[2016-10-07 09:01] LABS: BAND NEUTROPHILS % (MANUAL) 0 % (0-8); BASOPHILS % (MANUAL) 1 % (0-2); EOSINOPHILS % (MANUAL) 5 % (0-3); LYMPHOCYTES % (MANUAL) 11 % (20-45); NEUTROPHILS % (MANUAL) 73 % (45-75); PLATELET ESTIMATE DECREASED; PLATELET MORPHOLOGY NORMAL; TOTAL CELLS COUNTED 100
[2016-10-07 09:02] LABS: ANISOCYTOSIS 3+
[2016-10-07 09:03] LABS: HYPOCHROMASIA 1+
--- NOTE | 2016-10-07 12:04 | Diagnostic Imaging Report ---
APPROVED REPORT CPT Code: 70607 Present Symptoms Lower Extremity Pain: Bilateral BILATERAL: Imaging reveals a patent deep venous system bilaterally. There is no evidence of thrombus within the femoral, popliteal or tibial segments. The greater saphenous veins are also within normal limits. Doppler indicates normal spontaneous flow within these segments
[2016-10-07] MEDS: Rifaximin 550mg tab ORAL SCH (13:39)
[2016-10-07] MEDS: Vitamin A&D Oint 2oz Tube TOPIC SCH ×2 (13:43→22:00)
--- NOTE | 2016-10-07 14:31 | Diagnostic Imaging Report ---
Indications: Pleural effusion Technique: Ultrasound used to localize optimal puncture site. Sterile prepping and draping left chest. Local anesthesia with 1% lidocaine. Under real-time ultrasound guidance, puncture pleural space using thoracentesis needle. Stylet removed. Catheter placed to vacuum bottle suction. Total 3000 milliliters of fluid aspirated. Patient tolerated procedure well, although an ex vacuo pneumothorax was evident on the post procedure chest radiograph. Findings: Followup sonography demonstrates complete resolution of pleural fluid. Impression: Successful ultrasound-guided thoracentesis, yielding 3000 milliliters of fluid
--- NOTE | 2016-10-07 14:42 | Diagnostic Imaging Report ---
Indication: Status post large volume thoracentesis Technique: One view of the chest Comparison: 10/06/2016 Findings: Interval evacuation of previously demonstrated large left pleural effusion. There is now an approximately 40-50 % pneumothorax. The lung nonetheless appears more expanded than the on the prethoracentesis radiograph. There is a moderate to large right pleural effusion which appears slightly larger than on the previous exam. The heart size is normal. Nasogastric tube remains. Interstitial congestive changes persist. Impression: Interim thoracentesis, with complete evacuation of previously demonstrated large left pleural effusion. Resultant 40-50% left pneumothorax. This is presumably an ex vacuo pneumothorax, as the size of the pneumothorax appears to be considerably smaller than the size of the previous pleural effusion. Recommend short interval followup chest radiograph Critical value findings previously discussed by phone with Dr. Worley
--- NOTE | 2016-10-07 14:52 | Nephrology Progress Note ---
Assessment/Plan Problem List: (1) CKD (chronic kidney disease) (2) Ascites (3) Elevated liver function tests (4) Diabetes mellitus (5) Thrombocytopenia (6) Anemia (7) Hepatic encephalopathy (8) Altered mental state Plan cont lactulose follow BMP no diuretics for now Subjective Subjective lethargic Objective Objective Last 24 Hour Vital Signs Date Time Temp Pulse Resp B/P Pulse Ox O2 Delivery O2 Flow Rate FiO2 10/07/16 14:12 58 18 119/60 97 Room Air 10/07/16 09:00 55 119/60 10/07/16 08:00 96.9 60 18 147/87 98 Room Air 10/07/16 04:00 97.9 85 18 148/78 98 Room Air 10/07/16 00:00 97.9 84 18 150/75 98 Nasal Cannula 2.0 10/06/16 23:35 54 19 Room Air 2.0 28 10/06/16 20:05 54 19 Nasal Cannula 2.0 28 10/06/16 20:00 97.9 65 22 155/78 98 Room Air 10/06/16 16:24 174/75 10/06/16 16:00 97.8 63 20 174/75 99 Room Air Intake and Output 10/06/16 10/07/16 19:00 07:00 Intake Total 400 ml 600 ml Output Total 500 ml 350 ml Balance -100 ml 250 ml Intake IV Total 400 ml 600 ml Output Urine Total 500 ml 350 ml # Bowel Movements 2 1 Laboratory Tests 10/07/16 05:30: White Blood Count 3.9L, Red Blood Count 2.75L, Hemoglobin 8.7L, Hematocrit 26.7L , Mean Corpuscular Volume 97, Mean Corpuscular Hemoglobin 31.8H, Mean Corpuscular Hemoglobin Concent 32.7, Red Cell Distribution Width 22.8H, Platelet Count 82L, Mean Platelet Volume 7.7, Neutrophils (%) (Auto) , Lymphocytes (%) (Auto) , Monocytes (%) (Auto) , Eosinophils (%) (Auto) , Basophils (%) (Auto) , Differential Total Cells Counted 100, Neutrophils % ( Manual) 73, Lymphocytes % (Manual) 11L, Monocytes % (Manual) 10, Eosinophils % ( Manual) 5H, Basophils % (Manual) 1, Band Neutrophils 0, Platelet Estimate DecreasedL, Platelet Morphology Normal, Hypochromasia 1+, Anisocytosis 3+, Sodium Level 148H, Potassium Level 4.3, Chloride Level 112H, Carbon Dioxide Level 24, Anion Gap 12, Blood Urea Nitrogen 44H, Creatinine 2.0H, Estimat Glomerular Filtration Rate 33.5, Glucose Level 83, Calcium Level 9.0 Height (Feet): 5 Height (Inches): 6.00 Weight (Pounds): 200 Cardiovascular: normal rate Respiratory/Chest: lungs clear Extremities: moderate edema FERNANDO DC Oct 07, 2016 14:52
--- NOTE | 2016-10-07 15:42 | GI Progress Note ---
Assessment/Plan Problems: (1) Ascites ICD Codes: R18.8 - Other ascites SNOMED: 319835197 (2) Elevated liver function tests ICD Codes: R94.5 - Abnormal results of liver function studies SNOMED: 719327954 (3) Altered mental status ICD Codes: R41.82 - Altered mental status, unspecified SNOMED: 734320482 (4) Cirrhosis of liver ICD Codes: K74.60 - Unspecified cirrhosis of liver SNOMED: 31379202 (5) Diabetes mellitus ICD Codes: E11.9 - Type 2 diabetes mellitus without complications SNOMED: 68304534 (6) Abdominal pain ICD Codes: R10.9 - Unspecified abdominal pain SNOMED: 11859541 Qualifiers: Qualified Codes: R10.84 - Generalized abdominal pain (7) Anemia ICD Codes: D64.9 - Anemia, unspecified SNOMED: 328645043 Qualifiers: Qualified Codes: D64.9 - Anemia, unspecified (8) Hepatic encephalopathy ICD Codes: K72.90 - Hepatic failure, unspecified without coma SNOMED: 25525421 (9) Thrombocytopenia ICD Codes: D69.6 - Thrombocytopenia, unspecified SNOMED: 317280472 (10) Coagulopathy ICD Codes: D68.9 - Coagulation defect, unspecified SNOMED: 88586645 Status: unchanged Status Narrative Discussed with Dr. Ly. Assessment/Plan APCT >> Small and nodular liver consistent with cirrhosis. TIPS shunt not adequately evaluated without contrast, see full report below. OB stool uncollected pt recommended to have EGD to evaluate for EV monitor H&H, transfuse prn fu venous duplex hold NGTF elevated ammonia >> lactulose + Xifaxan fu abdominal US >> Evidence of hepatic cirrhosis, also previously described. Patent TIPS shunt, normal velocities fu AFP, Hep Panel ppi poor prognosis fu labs Subjective Subjective limited Objective Last 24 Hour Vital Signs Date Time Temp Pulse Resp B/P Pulse Ox O2 Delivery O2 Flow Rate FiO2 10/07/16 14:12 58 18 119/60 97 Room Air 10/07/16 09:00 55 119/60 10/07/16 08:00 96.9 60 18 147/87 98 Room Air 10/07/16 04:00 97.9 85 18 148/78 98 Room Air 10/07/16 00:00 97.9 84 18 150/75 98 Nasal Cannula 2.0 10/06/16 23:35 54 19 Room Air 2.0 28 10/06/16 20:05 54 19 Nasal Cannula 2.0 28 10/06/16 20:00 97.9 65 22 155/78 98 Room Air 10/06/16 16:24 174/75 10/06/16 16:00 97.8 63 20 174/75 99 Room Air Intake and Output 10/06/16 10/07/16 19:00 07:00 Intake Total 400 ml 600 ml Output Total 500 ml 350 ml Balance -100 ml 250 ml Intake IV Total 400 ml 600 ml Output Urine Total 500 ml 350 ml # Bowel Movements 2 1 Laboratory Tests Test 10/07/16 05:30 White Blood Count 3.9 K/UL (4.8-10.8) L Red Blood Count 2.75 M/UL (4.70-6.10) L Hemoglobin 8.7 G/DL (14.2-18.0) L Hematocrit 26.7 % (42.0-52.0) L Mean Corpuscular Volume 97 FL (80-99) Mean Corpuscular Hemoglobin 31.8 PG (27.0-31.0) H Mean Corpuscular Hemoglobin Concent 32.7 G/DL (32.0-36.0) Red Cell Distribution Width 22.8 % (11.6-14.8) H Platelet Count 82 K/UL (150-450) L Mean Platelet Volume 7.7 FL (6.5-10.1) Neutrophils (%) (Auto) % (45.0-75.0) Lymphocytes (%) (Auto) % (20.0-45.0) Monocytes (%) (Auto) % (1.0-10.0) Eosinophils (%) (Auto) % (0.0-3.0) Basophils (%) (Auto) % (0.0-2.0) Differential Total Cells Counted 100 Neutrophils % (Manual) 73 % (45-75) Lymphocytes % (Manual) 11 % (20-45) L Monocytes % (Manual) 10 % (1-10) Eosinophils % (Manual) 5 % (0-3) H Basophils % (Manual) 1 % (0-2) Band Neutrophils 0 % (0-8) Platelet Estimate Decreased L Platelet Morphology Normal Hypochromasia 1+ Anisocytosis 3+ Sodium Level 148 mEQ/L (135-145) H Potassium Level 4.3 mEQ/L (3.4-4.9) Chloride Level 112 mEQ/L (98-107) H Carbon Dioxide Level 24 mEQ/L (20-30) Anion Gap 12 (5-15) Blood Urea Nitrogen 44 mg/dL (7-23) H Creatinine 2.0 mg/dL (0.7-1.2) H Estimat Glomerular Filtration Rate 33.5 mL/min (>60) Glucose Level 83 mg/dL (74-106) Calcium Level 9.0 mg/dL (8.6-10.2) Height (Feet): 5 Height (Inches): 6.00 Weight (Pounds): 200 General Appearance: no apparent distress, lethargic, confused Cardiovascular: normal rate Respiratory/Chest: no respiratory distress Abdominal Exam: soft Extremities: other - BUE edema Objective Service Date: 10/04/16 Procedure: CT Abdomen Pelvis WO Contrast Indication: Hepatic encephalopathy and abdominal pain Impression: Moderate bilateral pleural effusions with compressive atelectasis in the partially visualized lung bases, left greater than right. Nasogastric tube within the stomach. White catheter in the bladder. Small and nodular liver consistent with cirrhosis. TIPS shunt not adequately evaluated without contrast. Questionable exophytic mass of the anterior right lobe of liver measuring 1.9 cm. Further evaluation with contrast recommended. Mild ascites. Right inguinal hernia containing fat, fluid and distal small bowel. Entering loop of bowel within the hernia relatively larger in caliber than the exiting loop of bowel and possibility of partial or early obstruction not excluded. Clinical correlation/followup recommended. Approximately 1.9 cm hypodensity within the lower pole of the right kidney incompletely assessed probably a cyst. Clinical correlation recommended. Diffuse subcutaneous edema. Angela Anderson N.P. Oct 07, 2016 15:42
--- NOTE | 2016-10-07 16:00 | Diagnostic Imaging Report ---
Indication: Followup pneumothorax, status post thoracentesis Technique: One view of the chest Comparison: 2 hours earlier Findings: Interim equivocal slight increase in size of previously demonstrated left pneumothorax. There is now increased opacification diffusely of the reexpanded left upper lobe. There is interim the accumulation of pleural fluid. Right-sided pleural effusion persists. Impression: Equivocal interim expansion of previously demonstrated left pneumothorax Diffuse opacification of previously lucent left lung, consistent with developing reexpansion pulmonary edema
[2016-10-07] MEDS ORDERED: Lidocaine 1% Plain 30 ml INJ ONE (16:29)
[2016-10-07] MEDS ORDERED: Sodium Bicarbonate 8.4% 50ml Inj ONE (16:29)
--- NOTE | 2016-10-07 16:33 | Cardiac Electrophysiology PN ---
Assessment/Plan Assessment/Plan 1.Sinus tachycardia. Due to severe anemia and sepsis. The patient's troponins are negative. EF 60% to 65%. HR better. 2. Severe pulmonary hypertension with PA pressure of 58. 3. HTN on Norvasc 5 daily. 4. Pleural effusion and Congestive heart failure with diastolic dysfunction.Thoracentesis tomorrow 5. Altered mental status likely due to hepatic encephalopathy due to Cirrhosis of the liver,on lactulose at this time. 6. Type 2 diabetes. 7. Renal failure. Per Dr. Langston. 8. Anemia with gastrointestinal bleed. FÉLIX RN Subjective Subjective Lethargic.Off tele. No new events overnight. Objective Last 24 Hour Vital Signs Date Time Temp Pulse Resp B/P Pulse Ox O2 Delivery O2 Flow Rate FiO2 10/07/16 14:12 58 18 119/60 97 Room Air 10/07/16 09:00 55 119/60 10/07/16 08:00 96.9 60 18 147/87 98 Room Air 10/07/16 04:00 97.9 85 18 148/78 98 Room Air 10/07/16 00:00 97.9 84 18 150/75 98 Nasal Cannula 2.0 10/06/16 23:35 54 19 Room Air 2.0 28 10/06/16 20:05 54 19 Nasal Cannula 2.0 28 10/06/16 20:00 97.9 65 22 155/78 98 Room Air Intake and Output 10/06/16 10/07/16 19:00 07:00 Intake Total 400 ml 600 ml Output Total 500 ml 350 ml Balance -100 ml 250 ml Intake IV Total 400 ml 600 ml Output Urine Total 500 ml 350 ml # Bowel Movements 2 1 Laboratory Tests Test 10/07/16 05:30 White Blood Count 3.9 K/UL (4.8-10.8) L Red Blood Count 2.75 M/UL (4.70-6.10) L Hemoglobin 8.7 G/DL (14.2-18.0) L Hematocrit 26.7 % (42.0-52.0) L Mean Corpuscular Volume 97 FL (80-99) Mean Corpuscular Hemoglobin 31.8 PG (27.0-31.0) H Mean Corpuscular Hemoglobin Concent 32.7 G/DL (32.0-36.0) Red Cell Distribution Width 22.8 % (11.6-14.8) H Platelet Count 82 K/UL (150-450) L Mean Platelet Volume 7.7 FL (6.5-10.1) Neutrophils (%) (Auto) % (45.0-75.0) Lymphocytes (%) (Auto) % (20.0-45.0) Monocytes (%) (Auto) % (1.0-10.0) Eosinophils (%) (Auto) % (0.0-3.0) Basophils (%) (Auto) % (0.0-2.0) Differential Total Cells Counted 100 Neutrophils % (Manual) 73 % (45-75) Lymphocytes % (Manual) 11 % (20-45) L Monocytes % (Manual) 10 % (1-10) Eosinophils % (Manual) 5 % (0-3) H Basophils % (Manual) 1 % (0-2) Band Neutrophils 0 % (0-8) Platelet Estimate Decreased L Platelet Morphology Normal Hypochromasia 1+ Anisocytosis 3+ Sodium Level 148 mEQ/L (135-145) H Potassium Level 4.3 mEQ/L (3.4-4.9) Chloride Level 112 mEQ/L (98-107) H Carbon Dioxide Level 24 mEQ/L (20-30) Anion Gap 12 (5-15) Blood Urea Nitrogen 44 mg/dL (7-23) H Creatinine 2.0 mg/dL (0.7-1.2) H Estimat Glomerular Filtration Rate 33.5 mL/min (>60) Glucose Level 83 mg/dL (74-106) Calcium Level 9.0 mg/dL (8.6-10.2) Objective NECK: Shows no JVD. NG tube in. LUNGS: Coarse rhonchi. CARDIOVASCULAR: Tachycardic. S1 and S2 with no gallop or murmur. ABDOMEN: Ascites EXTREMITIES: A 2+ pitting edema. MYLES COSME Oct 07, 2016 16:33
--- NOTE | 2016-10-07 16:45 | Internal Med Progress Note ---
Subjective Date of Service: Oct 07, 2016 Physician Name Florentino,Karis Attending Physician Jeremiah Light MD Current Medications Medications (Trade) Dose Ordered Sig/Morgan Route PRN Reason Start Time Stop Time Status Last Admin Dose Admin Albuterol/ Ipratropium (DuoNeb 0.5-3(2.5)mg/3ml) 3 ml Q4H PRN HHN Shortness of Breath 10/06/16 19:00 10/11/16 18:59 Amlodipine Besylate (Norvasc) 5 mg DAILY NG 10/07/16 09:00 11/06/16 08:59 Clonidine HCl (Catapres) 0.2 mg Q4H PRN GT SBP>170 10/06/16 19:00 11/05/16 18:59 Dextrose (D5W 1000ml) 1,000 ml @ 50 mls/hr Q20H IV 10/06/16 19:00 11/05/16 18:59 10/07/16 14:03 Dextrose (Dextrose 50%) STAT PRN IV Hypoglycemia 10/07/16 01:30 11/06/16 01:29 Insulin Aspart (NovoLOG) BEFORE MEALS AND HS SUBQ 10/06/16 21:00 11/05/16 20:59 Lactulose (Cephulac) 20 gm EVERY 8 HOURS NG 10/06/16 22:00 11/05/16 21:59 10/07/16 14:04 Morphine Sulfate (Morphine Sulfate) 2 mg EVERY 4 HOURS PRN IVP Moderate Pain (Pain Scale 4-6) 10/06/16 21:00 10/13/16 20:59 Morphine Sulfate (Morphine Sulfate) 4 mg EVERY 4 HOURS PRN IVP Severe Pain (Pain Scale 7-10) 10/06/16 21:00 10/13/16 20:59 Ondansetron HCl (Zofran) 4 mg EVERY 4 HOURS PRN IVP Nausea & Vomiting 10/06/16 21:00 11/05/16 20:59 Rifaximin (Xifaxan) 550 mg EVERY 12 HOURS ORAL 10/06/16 21:00 10/13/16 20:59 10/07/16 13:39 Vitamin A/Vitamin D (A & D Oint) 1 applic EVERY 12 HOURS TOPIC 10/06/16 21:00 11/05/16 20:59 10/07/16 13:43 Allergies: Coded Allergies: No Known Allergies (Unverified , 10/03/16) ROS Limited/Unobtainable: Yes Subjective 66 YO M admitted with abdominal pain and encephalopathy. Less agitated today. Cover for Int Med-Dr Light.. S/P left thoracentesis on 10/07/16. Now left pneumothorax; S/P chest tube. Objective Last Vital Signs Date Time Temp Pulse Resp B/P Pulse Ox O2 Delivery O2 Flow Rate FiO2 10/07/16 14:12 58 18 119/60 97 Room Air 10/07/16 08:00 96.9 10/07/16 00:00 2.0 10/06/16 23:35 28 Laboratory Tests Test 10/07/16 05:30 White Blood Count 3.9 K/UL (4.8-10.8) L Red Blood Count 2.75 M/UL (4.70-6.10) L Hemoglobin 8.7 G/DL (14.2-18.0) L Hematocrit 26.7 % (42.0-52.0) L Mean Corpuscular Volume 97 FL (80-99) Mean Corpuscular Hemoglobin 31.8 PG (27.0-31.0) H Mean Corpuscular Hemoglobin Concent 32.7 G/DL (32.0-36.0) Red Cell Distribution Width 22.8 % (11.6-14.8) H Platelet Count 82 K/UL (150-450) L Mean Platelet Volume 7.7 FL (6.5-10.1) Neutrophils (%) (Auto) % (45.0-75.0) Lymphocytes (%) (Auto) % (20.0-45.0) Monocytes (%) (Auto) % (1.0-10.0) Eosinophils (%) (Auto) % (0.0-3.0) Basophils (%) (Auto) % (0.0-2.0) Differential Total Cells Counted 100 Neutrophils % (Manual) 73 % (45-75) Lymphocytes % (Manual) 11 % (20-45) L Monocytes % (Manual) 10 % (1-10) Eosinophils % (Manual) 5 % (0-3) H Basophils % (Manual) 1 % (0-2) Band Neutrophils 0 % (0-8) Platelet Estimate Decreased L Platelet Morphology Normal Hypochromasia 1+ Anisocytosis 3+ Sodium Level 148 mEQ/L (135-145) H Potassium Level 4.3 mEQ/L (3.4-4.9) Chloride Level 112 mEQ/L (98-107) H Carbon Dioxide Level 24 mEQ/L (20-30) Anion Gap 12 (5-15) Blood Urea Nitrogen 44 mg/dL (7-23) H Creatinine 2.0 mg/dL (0.7-1.2) H Estimat Glomerular Filtration Rate 33.5 mL/min (>60) Glucose Level 83 mg/dL (74-106) Calcium Level 9.0 mg/dL (8.6-10.2) Intake and Output 10/06/16 10/07/16 19:00 07:00 Intake Total 400 ml 600 ml Output Total 500 ml 350 ml Balance -100 ml 250 ml Intake IV Total 400 ml 600 ml Output Urine Total 500 ml 350 ml # Bowel Movements 2 1 Objective General Appearance: WD/WN, alert, mild distress EENT: PERRL/EOMI, normal ENT inspection Neck: non-tender, normal alignment, supple, normal inspection Cardiovascular: normal peripheral pulses, normal rate, regular rhythm, no gallop/murmur, no JVD Respiratory/Chest: chest wall non-tender, lungs clear, no respiratory distress , no accessory muscle use Abdomen: decreased bowel sounds, distended, guarding, tender Extremities: normal range of motion Neurologic: project management manager II-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 (3) Elevated liver function tests (4) CHF (congestive heart failure) (5) Diabetes mellitus Assessment & Plan: Cont novolog sliding scale (6) HTN (hypertension) Assessment & Plan: Continue amlodipine and clonidine. (7) Renal failure (8) Anemia (9) Hepatic encephalopathy Assessment & Plan: Continue Xifaxan (10) Ascites Assessment & Plan: Paracentesis on hold due to thrombocytopenia. (11) Thrombocytopenia (12) Pleural effusion associated with hepatic disorder Assessment & Plan: Left. S/P thoracentesis 10/07/16. 3 Liters fluid removed. (13) Pneumothorax, left Assessment & Plan: S/P left chest tube. Status: deteriorating Assessment/Plan Colonoscopy and endoscopy on hold due to thrombocytopenia - see GI note KARIS FLORENTINO Oct 07, 2016 16:45
--- NOTE | 2016-10-07 17:11 | Pre-Procedure Note/Attestation ---
Pre-Procedure Note/Attestation Complete Prior to Procedure Planned Procedure: left Procedure Narrative: CT guided chest vent Indications for Procedure Pre-Operative Diagnosis: PTX Attestation I attest that I discussed the nature of the procedure; its benefits; risks and complications; and alternatives (and the risks and benefits of such alternatives ), prior to the procedure, with the patient (or the patient's legal representative phlebotomy services). I attest that, if there was a reasonable possibility of needing a blood transfusion, the patient (or the patient's legal representative phlebotomy services) was given the [facility] standardized written summary, pursuant to the Juan Strawberry Blood Safety Act ([place] Health and Safety Code # 1645, as amended). I attest that I re-evaluated the patient just prior to the surgery and that there has been no change in the patient's H&P, except as documented below: HUBER JAMESON M.D. Oct 07, 2016 17:11
--- NOTE | 2016-10-07 17:29 | Diagnostic Imaging Report ---
Indication: PNEUMOTX, status post chest vent placement Technique: One view of the chest Comparison: 3 hours earlier Findings: Interim reduction in size of previously demonstrated left pneumothorax, now only apical component, status post chest vent placement. Again demonstrated is opacification of the left lung diffusely, consistent with retention pulmonary edema. Right pleural effusion persists. Generalized interstitial congestion persists. Nasogastric tube again demonstrated. Impression: Decreased left pneumothorax, status post chest vent catheter placement. Other findings as noted
[2016-10-07] MEDS ORDERED: Sterile Water Irrig 1000ml IRRIG ONE (18:49)
[2016-10-07] MEDS ORDERED: DuoNeb 0.5-3(2.5)mg/3ml neb HHN PRN (22:00)
[2016-10-07] MEDS ORDERED: Rifaximin 550mg tab ORAL SCH (22:00)
--- NOTE | 2016-10-07 22:55 | Pulmonolgy Critical Care Note ---
Critical Care - Asmt/Plan Problems: (1) Pneumothorax, left (2) CKD (chronic kidney disease) (3) Ascites (4) Cirrhosis of liver (5) Altered mental status (6) Diabetes mellitus (7) Pleural effusion associated with hepatic disorder Respiratory: monitor respiratory rate, adjust FIO2, CXR, other - Dr. Austin for thoracic surgey called Cardiac: continue to monitor HR/BP Renal: F/U I&O, keep IV fluid Infectious Disease: check cultures Gastrointestinal: continue feedings/current rate Endocrine: monitor blood sugar, continue sliding scale insulin Hematologic: monitor H/H, transfuse if hgb<8.5 Neurologic: PRN Ativan, PRN Morphine, keep patient comfortable Affect: PRN ativan Time Spent (Minutes): 40 Notes Reviewed: rn women services, cardio, renal Discussed with: nurses, consultants, manager of case managementmanager configuration - Objective Last 24 Hour Vital Signs Date Time Temp Pulse Resp B/P Pulse Ox O2 Delivery O2 Flow Rate FiO2 10/07/16 21:45 95 Nasal Cannula 3.0 32 10/07/16 21:44 Nasal Cannula 3.0 32 10/07/16 19:35 63 16 Room Air 21 10/07/16 14:12 58 18 119/60 97 Room Air 10/07/16 09:00 55 119/60 10/07/16 08:00 96.9 60 18 147/87 98 Room Air 10/07/16 04:00 97.9 85 18 148/78 98 Room Air 10/07/16 00:00 97.9 84 18 150/75 98 Nasal Cannula 2.0 10/06/16 23:35 54 19 Room Air 2.0 28 Status: awake Condition: critical HEENT: atraumatic Lungs: clear Heart: HR/BP stable Abdomen: non-tender, feeding tube Extremities: no C/C/E, edema Decubiti: location Accucheck: 84 Critical Care - Subjective ROS Limited/Unobtainable: No ICU Day: 1 Interval Events: pt developed large pneumothorac after removing of 3 liters by thoracentesis, Radiology put a drainage tube. Condition: critical EKG Rhythm: Sinus Rhythm FI02: 32 Sputum Amount: None I&O: Intake and Output 10/06/16 10/07/16 19:00 07:00 Intake Total 400 ml 600 ml Output Total 500 ml 350 ml Balance -100 ml 250 ml Intake IV Total 400 ml 600 ml Output Urine Total 500 ml 350 ml # Bowel Movements 2 1 CXR: chest tube in place, pneumothorac resolved Labs: Laboratory Tests Test 10/08/16 04:15 10/08/16 09:00 White Blood Count 3.9 K/UL (4.8-10.8) L Red Blood Count 2.61 M/UL (4.70-6.10) L Hemoglobin 8.4 G/DL (14.2-18.0) L Hematocrit 26.1 % (42.0-52.0) L Mean Corpuscular Volume 100 FL (80-99) H Mean Corpuscular Hemoglobin 32.0 PG (27.0-31.0) H Mean Corpuscular Hemoglobin Concent 32.0 G/DL (32.0-36.0) Red Cell Distribution Width 23.4 % (11.6-14.8) H Platelet Count 86 K/UL (150-450) L Mean Platelet Volume 6.4 FL (6.5-10.1) L Neutrophils (%) (Auto) % (45.0-75.0) Lymphocytes (%) (Auto) % (20.0-45.0) Monocytes (%) (Auto) % (1.0-10.0) Eosinophils (%) (Auto) % (0.0-3.0) Basophils (%) (Auto) % (0.0-2.0) Sodium Level 148 mEQ/L (135-145) H Potassium Level 4.7 mEQ/L (3.4-4.9) Chloride Level 114 mEQ/L (98-107) H Carbon Dioxide Level 18 mEQ/L (20-30) L Anion Gap 16 (5-15) H Blood Urea Nitrogen 47 mg/dL (7-23) H Creatinine 2.1 mg/dL (0.7-1.2) H Estimat Glomerular Filtration Rate 31.7 mL/min (>60) Glucose Level 94 mg/dL (74-106) Calcium Level 8.4 mg/dL (8.6-10.2) L Phosphorus Level 4.2 mg/dL (2.5-4.8) Magnesium Level 1.7 mg/dL (1.7-2.5) Total Bilirubin 1.5 mg/dL (0.0-1.2) H Direct Bilirubin 0.4 mg/dL (0.1-0.3) H Aspartate Amino Transf (AST/SGOT) 56 U/L (5-40) H Alanine Aminotransferase (ALT/SGPT) 25 U/L (3-41) Alkaline Phosphatase 64 U/L (40-129) Total Protein 4.6 g/dL (6.6-8.7) L Albumin 1.6 g/dL (3.5-5.2) L Globulin 3.0 g/dL Albumin/Globulin Ratio 0.5 (1.0-2.7) L Arterial Blood pH 7.414 (7.350-7.450) Arterial Blood Partial Pressure CO2 36.3 mmHg (35.0-45.0) Arterial Blood Partial Pressure O2 96.4 mmHg (75.0-100.0) Arterial Blood HCO3 22.7 mmol/L (22.0-26.0) Arterial Blood Oxygen Saturation 96.6 % (92.0-98.0) Arterial Blood Base Excess -1.6 Kaden Test Positive KRISTOPHER JACQUES Oct 07, 2016 22:55
[2016-10-07] MEDS ORDERED: cloNIDine 0.2mg Tab GT PRN (23:00)
[2016-10-08] VITALS (22 sets, daily range): BP systolic 105–129; BP diastolic 41–69
[2016-10-08] MEDS ORDERED: Morphine Sulfate 4mg/ml Inj IVP PRN (01:00)
[2016-10-08] MEDS ORDERED: Morphine Sulfate 2mg/ml Inj IVP PRN (01:00)
[2016-10-08] MEDS: NovoLOG Insulin Flexpen SUBQ SCH ×4 (05:53→18:10)
[2016-10-08] MEDS: Lactulose 20gm/30ml UDC NG SCH ×3 (05:53→22:45)
[2016-10-08 05:56] LABS: MEAN CORPUSCULAR VOLUME 100 FL (80-99); MEAN PLATELET VOLUME 6.4 FL (6.5-10.1); PLATELET COUNT 86 K/UL (150-450); RED BLOOD COUNT 2.61 M/UL (4.70-6.10); RED CELL DISTRIBUTION WIDTH 23.4 % (11.6-14.8); WHITE BLOOD COUNT 3.9 K/UL (4.8-10.8)
[2016-10-08] MEDS ORDERED: NovoLOG Insulin Flexpen SUBQ SCH (06:30)
[2016-10-08 06:53] LABS: MAGNESIUM 1.7 mg/dL (1.7-2.5); PHOSPHORUS 4.2 mg/dL (2.5-4.8)
[2016-10-08 06:57] LABS: ALBUMIN/GLOBULIN RATIO 0.5 (1.0-2.7); CALCIUM 8.4 mg/dL (8.6-10.2); CREATININE 2.1 mg/dL (0.7-1.2); GLOMERULAR FILTRATION RATE 31.7 mL/min (>60); POTASSIUM 4.7 mEQ/L (3.4-4.9); TOTAL PROTEIN 4.6 g/dL (6.6-8.7)
[2016-10-08 07:32] LABS: BILIRUBIN,DIRECT 0.4 mg/dL (0.1-0.3)
[2016-10-08 09:16] LABS: ABG ALLEN TEST POSITIVE; ABG BASE EXCESS -1.6; ABG PCO2 36.3 mmHg (35.0-45.0)
[2016-10-08] MEDS: Rifaximin 550mg tab NG SCH ×2 (09:27→20:59)
--- NOTE | 2016-10-08 09:39 | Diagnostic Imaging Report ---
APPROVED REPORT CPT Code: 96835 Present Symptoms Comments: BUE arm swelling BILATERAL UPPER EXTREMITY: Imaging reveals patency of the internal jugular, subclavian, axillary and brachial veins. The cephalic and left basilic veins are also patent. Doppler indicates normal spontaneous flow within these venous segments, bilaterally.The right basilic vein was not well visualized.
[2016-10-08] MEDS: Vitamin A&D Oint 2oz Tube TOPIC SCH ×2 (09:55→21:00)
--- NOTE | 2016-10-08 11:52 | GI Progress Note ---
Assessment/Plan Problems: (1) Ascites ICD Codes: R18.8 - Other ascites SNOMED: 515116459 (2) Elevated liver function tests ICD Codes: R94.5 - Abnormal results of liver function studies SNOMED: 811618826 (3) Altered mental status ICD Codes: R41.82 - Altered mental status, unspecified SNOMED: 285826868 (4) Cirrhosis of liver ICD Codes: K74.60 - Unspecified cirrhosis of liver SNOMED: 34070591 (5) Diabetes mellitus ICD Codes: E11.9 - Type 2 diabetes mellitus without complications SNOMED: 96768683 (6) Abdominal pain ICD Codes: R10.9 - Unspecified abdominal pain SNOMED: 10953093 Qualifiers: Qualified Codes: R10.84 - Generalized abdominal pain (7) Anemia ICD Codes: D64.9 - Anemia, unspecified SNOMED: 195044264 Qualifiers: Qualified Codes: D64.9 - Anemia, unspecified (8) Hepatic encephalopathy ICD Codes: K72.90 - Hepatic failure, unspecified without coma SNOMED: 11523933 (9) Thrombocytopenia ICD Codes: D69.6 - Thrombocytopenia, unspecified SNOMED: 439302511 (10) Coagulopathy ICD Codes: D68.9 - Coagulation defect, unspecified SNOMED: 29630894 Status: not improved Status Narrative Discussed with Dr. Ly. Assessment/Plan APCT >> Small and nodular liver consistent with cirrhosis. TIPS shunt not adequately evaluated without contrast, see full report below. OB stool uncollected AFP WNL Hep panel negative fu abdominal US >> Evidence of hepatic cirrhosis, also previously described. Patent TIPS shunt, normal velocities pt recommended to have EGD to evaluate for EV when stable monitor H&H, transfuse prn cont NGTFs per dietary elevated ammonia >> lactulose + Xifaxan ppi poor prognosis fu labs Subjective Subjective limited Objective Last 24 Hour Vital Signs Date Time Temp Pulse Resp B/P Pulse Ox O2 Delivery O2 Flow Rate FiO2 10/08/16 09:27 77 121/47 10/08/16 07:55 Venturi Mask 8.0 40 10/08/16 07:54 100 Venturi Mask 8.0 40 10/08/16 07:53 81 16 Venturi Mask 8.0 40 10/08/16 06:00 86 17 105/53 100 Venturi Mask 40 10/08/16 05:00 86 24 117/47 100 Venturi Mask 40 10/08/16 04:00 97.9 84 35 108/63 98 Venturi Mask 40 10/08/16 03:00 83 35 127/61 98 Venturi Mask 40 10/08/16 02:00 83 26 124/69 98 Venturi Mask 40 10/08/16 01:00 81 23 129/67 97 Venturi Mask 40 10/08/16 00:00 94.0 80 25 118/69 93 Venturi Mask 40 10/07/16 23:45 Venturi Mask 10.0 40 10/07/16 23:00 75 23 109/50 93 Venturi Mask 40 10/07/16 22:00 79 18 108/61 91 Nasal Cannula 2.0 10/07/16 21:45 95 Nasal Cannula 3.0 32 10/07/16 21:44 Nasal Cannula 3.0 32 10/07/16 21:00 67 18 136/55 93 Nasal Cannula 2.0 10/07/16 20:00 92.0 67 25 125/65 92 Nasal Cannula 2.0 10/07/16 19:35 63 16 Room Air 21 10/07/16 14:12 58 18 119/60 97 Room Air Intake and Output 10/07/16 10/08/16 19:00 07:00 Intake Total 150 ml 709 ml Output Total 1010 ml Balance 150 ml -301 ml Intake IV Total 150 ml 450 ml Tube Feeding 259 ml Output Urine Total 310 ml Chest Tube Drainage Total 700 ml # Bowel Movements 1 Laboratory Tests Test 10/08/16 04:15 10/08/16 09:00 White Blood Count 3.9 K/UL (4.8-10.8) L Red Blood Count 2.61 M/UL (4.70-6.10) L Hemoglobin 8.4 G/DL (14.2-18.0) L Hematocrit 26.1 % (42.0-52.0) L Mean Corpuscular Volume 100 FL (80-99) H Mean Corpuscular Hemoglobin 32.0 PG (27.0-31.0) H Mean Corpuscular Hemoglobin Concent 32.0 G/DL (32.0-36.0) Red Cell Distribution Width 23.4 % (11.6-14.8) H Platelet Count 86 K/UL (150-450) L Mean Platelet Volume 6.4 FL (6.5-10.1) L Neutrophils (%) (Auto) % (45.0-75.0) Lymphocytes (%) (Auto) % (20.0-45.0) Monocytes (%) (Auto) % (1.0-10.0) Eosinophils (%) (Auto) % (0.0-3.0) Basophils (%) (Auto) % (0.0-2.0) Sodium Level 148 mEQ/L (135-145) H Potassium Level 4.7 mEQ/L (3.4-4.9) Chloride Level 114 mEQ/L (98-107) H Carbon Dioxide Level 18 mEQ/L (20-30) L Anion Gap 16 (5-15) H Blood Urea Nitrogen 47 mg/dL (7-23) H Creatinine 2.1 mg/dL (0.7-1.2) H Estimat Glomerular Filtration Rate 31.7 mL/min (>60) Glucose Level 94 mg/dL (74-106) Calcium Level 8.4 mg/dL (8.6-10.2) L Phosphorus Level 4.2 mg/dL (2.5-4.8) Magnesium Level 1.7 mg/dL (1.7-2.5) Total Bilirubin 1.5 mg/dL (0.0-1.2) H Direct Bilirubin 0.4 mg/dL (0.1-0.3) H Aspartate Amino Transf (AST/SGOT) 56 U/L (5-40) H Alanine Aminotransferase (ALT/SGPT) 25 U/L (3-41) Alkaline Phosphatase 64 U/L (40-129) Total Protein 4.6 g/dL (6.6-8.7) L Albumin 1.6 g/dL (3.5-5.2) L Globulin 3.0 g/dL Albumin/Globulin Ratio 0.5 (1.0-2.7) L Arterial Blood pH 7.414 (7.350-7.450) Arterial Blood Partial Pressure CO2 36.3 mmHg (35.0-45.0) Arterial Blood Partial Pressure O2 96.4 mmHg (75.0-100.0) Arterial Blood HCO3 22.7 mmol/L (22.0-26.0) Arterial Blood Oxygen Saturation 96.6 % (92.0-98.0) Arterial Blood Base Excess -1.6 Kaden Test Positive Height (Feet): 5 Height (Inches): 6.00 Weight (Pounds): 200 General Appearance: lethargic Cardiovascular: normal rate Respiratory/Chest: other - mech vent Abdominal Exam: other - NGTFs Objective Service Date: 10/04/16 Procedure: CT Abdomen Pelvis WO Contrast Indication: Hepatic encephalopathy and abdominal pain Impression: Moderate bilateral pleural effusions with compressive atelectasis in the partially visualized lung bases, left greater than right. Nasogastric tube within the stomach. White catheter in the bladder. Small and nodular liver consistent with cirrhosis. TIPS shunt not adequately evaluated without contrast. Questionable exophytic mass of the anterior right lobe of liver measuring 1.9 cm. Further evaluation with contrast recommended. Mild ascites. Right inguinal hernia containing fat, fluid and distal small bowel. Entering loop of bowel within the hernia relatively larger in caliber than the exiting loop of bowel and possibility of partial or early obstruction not excluded. Clinical correlation/followup recommended. Approximately 1.9 cm hypodensity within the lower pole of the right kidney incompletely assessed probably a cyst. Clinical correlation recommended. Diffuse subcutaneous edema. Angela Anderson N.P. Oct 08, 2016 11:52
--- NOTE | 2016-10-08 12:00 | Nephrology Progress Note ---
Assessment/Plan Problem List: (1) CKD (chronic kidney disease) Assessment: no change (2) Ascites (3) Elevated liver function tests (4) Diabetes mellitus (5) Thrombocytopenia (6) Anemia (7) Hepatic encephalopathy (8) Altered mental state (9) Pneumothorax, left Plan cont lactulose follow BMP ICU care Discussed with RN Subjective Subjective lethargic seen in ICU Objective Objective Last 24 Hour Vital Signs Date Time Temp Pulse Resp B/P Pulse Ox O2 Delivery O2 Flow Rate FiO2 10/08/16 09:27 77 121/47 10/08/16 07:55 Venturi Mask 8.0 40 10/08/16 07:54 100 Venturi Mask 8.0 40 10/08/16 07:53 81 16 Venturi Mask 8.0 40 10/08/16 06:00 86 17 105/53 100 Venturi Mask 40 10/08/16 05:00 86 24 117/47 100 Venturi Mask 40 10/08/16 04:00 97.9 84 35 108/63 98 Venturi Mask 40 10/08/16 03:00 83 35 127/61 98 Venturi Mask 40 10/08/16 02:00 83 26 124/69 98 Venturi Mask 40 10/08/16 01:00 81 23 129/67 97 Venturi Mask 40 10/08/16 00:00 94.0 80 25 118/69 93 Venturi Mask 40 10/07/16 23:45 Venturi Mask 10.0 40 10/07/16 23:00 75 23 109/50 93 Venturi Mask 40 10/07/16 22:00 79 18 108/61 91 Nasal Cannula 2.0 10/07/16 21:45 95 Nasal Cannula 3.0 32 10/07/16 21:44 Nasal Cannula 3.0 32 10/07/16 21:00 67 18 136/55 93 Nasal Cannula 2.0 10/07/16 20:00 92.0 67 25 125/65 92 Nasal Cannula 2.0 10/07/16 19:35 63 16 Room Air 21 10/07/16 14:12 58 18 119/60 97 Room Air Intake and Output 10/07/16 10/08/16 19:00 07:00 Intake Total 150 ml 709 ml Output Total 1010 ml Balance 150 ml -301 ml Intake IV Total 150 ml 450 ml Tube Feeding 259 ml Output Urine Total 310 ml Chest Tube Drainage Total 700 ml # Bowel Movements 1 Laboratory Tests 10/08/16 04:15: White Blood Count 3.9L, Red Blood Count 2.61L, Hemoglobin 8.4L, Hematocrit 26.1L , Mean Corpuscular Volume 100H, Mean Corpuscular Hemoglobin 32.0H, Mean Corpuscular Hemoglobin Concent 32.0, Red Cell Distribution Width 23.4H, Platelet Count 86L, Mean Platelet Volume 6.4L, Neutrophils (%) (Auto) , Lymphocytes (%) (Auto) , Monocytes (%) (Auto) , Eosinophils (%) (Auto) , Basophils (%) (Auto) , Sodium Level 148H, Potassium Level 4.7, Chloride Level 114H, Carbon Dioxide Level 18L, Anion Gap 16H, Blood Urea Nitrogen 47H, Creatinine 2.1H, Estimat Glomerular Filtration Rate 31.7, Glucose Level 94, Calcium Level 8.4L, Phosphorus Level 4.2, Magnesium Level 1.7, Total Bilirubin 1.5H, Direct Bilirubin 0.4H, Aspartate Amino Transf (AST/SGOT) 56H, Alanine Aminotransferase (ALT/SGPT) 25, Alkaline Phosphatase 64, Total Protein 4.6L, Albumin 1.6L, Globulin 3.0, Albumin/Globulin Ratio 0.5L 10/08/16 09:00: Arterial Blood pH 7.414, Arterial Blood Partial Pressure CO2 36.3, Arterial Blood Partial Pressure O2 96.4, Arterial Blood HCO3 22.7, Arterial Blood Oxygen Saturation 96.6, Arterial Blood Base Excess -1.6, Kaden Test Positive Height (Feet): 5 Height (Inches): 6.00 Weight (Pounds): 200 Respiratory/Chest: lungs clear Abdomen: soft Extremities: moderate edema FERNANDO DC Oct 08, 2016 12:00
--- NOTE | 2016-10-08 12:16 | Internal Med Progress Note ---
Subjective Date of Service: Oct 08, 2016 Physician Name Florentino,Karis Attending Physician Jeremiah Light MD Current Medications Medications (Trade) Dose Ordered Sig/Morgan Route PRN Reason Start Time Stop Time Status Last Admin Dose Admin Albuterol/ Ipratropium (DuoNeb 0.5-3(2.5)mg/3ml) 3 ml Q4H PRN HHN Shortness of Breath 10/07/16 22:00 10/12/16 21:59 Amlodipine Besylate (Norvasc) 5 mg DAILY NG 10/08/16 09:00 11/07/16 08:59 10/08/16 09:27 Clonidine HCl (Catapres) 0.2 mg Q4H PRN GT SBP>170 10/07/16 23:00 11/06/16 22:59 Dextrose (D5W 1000ml) 1,000 ml @ 50 mls/hr Q20H IV 10/07/16 21:30 11/06/16 21:29 10/07/16 22:23 Dextrose (Dextrose 50%) STAT PRN IV Hypoglycemia 10/07/16 22:00 11/06/16 21:59 Insulin Aspart (NovoLOG) EVERY 6 HOURS SUBQ 10/08/16 00:00 11/07/16 00:00 Lactulose (Cephulac) 20 gm EVERY 8 HOURS NG 10/07/16 22:00 11/06/16 21:59 10/08/16 05:53 Morphine Sulfate (Morphine Sulfate) 2 mg Q4H PRN IVP Moderate Pain (Pain Scale 4-6) 10/08/16 01:00 10/15/16 00:59 Morphine Sulfate (Morphine Sulfate) 4 mg Q4H PRN IVP Severe Pain (Pain Scale 7-10) 10/08/16 01:00 10/15/16 00:59 Ondansetron HCl (Zofran) 4 mg Q4H PRN IVP Nausea & Vomiting 10/08/16 01:00 11/07/16 00:59 Rifaximin (Xifaxan) 550 mg EVERY 12 HOURS NG 10/07/16 22:00 10/14/16 21:59 10/08/16 09:27 Vitamin A/Vitamin D (A & D Oint) 1 applic EVERY 12 HOURS TOPIC 10/07/16 22:00 11/06/16 21:59 10/08/16 09:55 Allergies: Coded Allergies: No Known Allergies (Unverified , 10/03/16) ROS Limited/Unobtainable: No Constitutional: Reports: no symptoms HEENT: Reports: no symptoms Cardiovascular: Reports: no symptoms Respiratory: Reports: no symptoms Gastrointestinal/Abdominal: Reports: no symptoms Genitourinary: Reports: no symptoms Neurologic/Psychiatric: Reports: no symptoms Subjective 66 YO M admitted with abdominal pain and encephalopathy. Cover for Int Med-Dr Light.. ICU. S/P left thoracentesis on 10/07/16. Now left pneumothorax; S/P chest tube. Objective Last Vital Signs Date Time Temp Pulse Resp B/P Pulse Ox O2 Delivery O2 Flow Rate FiO2 10/08/16 12:00 97.8 77 13 111/57 100 Venturi Mask 40 10/08/16 07:55 8.0 Laboratory Tests Test 10/08/16 04:15 10/08/16 09:00 White Blood Count 3.9 K/UL (4.8-10.8) L Red Blood Count 2.61 M/UL (4.70-6.10) L Hemoglobin 8.4 G/DL (14.2-18.0) L Hematocrit 26.1 % (42.0-52.0) L Mean Corpuscular Volume 100 FL (80-99) H Mean Corpuscular Hemoglobin 32.0 PG (27.0-31.0) H Mean Corpuscular Hemoglobin Concent 32.0 G/DL (32.0-36.0) Red Cell Distribution Width 23.4 % (11.6-14.8) H Platelet Count 86 K/UL (150-450) L Mean Platelet Volume 6.4 FL (6.5-10.1) L Neutrophils (%) (Auto) % (45.0-75.0) Lymphocytes (%) (Auto) % (20.0-45.0) Monocytes (%) (Auto) % (1.0-10.0) Eosinophils (%) (Auto) % (0.0-3.0) Basophils (%) (Auto) % (0.0-2.0) Sodium Level 148 mEQ/L (135-145) H Potassium Level 4.7 mEQ/L (3.4-4.9) Chloride Level 114 mEQ/L (98-107) H Carbon Dioxide Level 18 mEQ/L (20-30) L Anion Gap 16 (5-15) H Blood Urea Nitrogen 47 mg/dL (7-23) H Creatinine 2.1 mg/dL (0.7-1.2) H Estimat Glomerular Filtration Rate 31.7 mL/min (>60) Glucose Level 94 mg/dL (74-106) Calcium Level 8.4 mg/dL (8.6-10.2) L Phosphorus Level 4.2 mg/dL (2.5-4.8) Magnesium Level 1.7 mg/dL (1.7-2.5) Total Bilirubin 1.5 mg/dL (0.0-1.2) H Direct Bilirubin 0.4 mg/dL (0.1-0.3) H Aspartate Amino Transf (AST/SGOT) 56 U/L (5-40) H Alanine Aminotransferase (ALT/SGPT) 25 U/L (3-41) Alkaline Phosphatase 64 U/L (40-129) Total Protein 4.6 g/dL (6.6-8.7) L Albumin 1.6 g/dL (3.5-5.2) L Globulin 3.0 g/dL Albumin/Globulin Ratio 0.5 (1.0-2.7) L Arterial Blood pH 7.414 (7.350-7.450) Arterial Blood Partial Pressure CO2 36.3 mmHg (35.0-45.0) Arterial Blood Partial Pressure O2 96.4 mmHg (75.0-100.0) Arterial Blood HCO3 22.7 mmol/L (22.0-26.0) Arterial Blood Oxygen Saturation 96.6 % (92.0-98.0) Arterial Blood Base Excess -1.6 Akden Test Positive Intake and Output 10/07/16 10/08/16 19:00 07:00 Intake Total 150 ml 709 ml Output Total 1010 ml Balance 150 ml -301 ml Intake IV Total 150 ml 450 ml Tube Feeding 259 ml Output Urine Total 310 ml Chest Tube Drainage Total 700 ml # Bowel Movements 1 Objective General Appearance: WD/WN, alert, mild distress EENT: PERRL/EOMI, normal ENT inspection Neck: non-tender, normal alignment, supple, normal inspection Cardiovascular: normal peripheral pulses, normal rate, regular rhythm, no gallop/murmur, no JVD Respiratory/Chest: Left chest tube; chest wall non-tender, lungs clear, no respiratory distress, no accessory muscle use Abdomen: decreased bowel sounds, distended, guarding, tender Extremities: normal range of motion Neurologic: produce team member II-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 (3) Elevated liver function tests (4) CHF (congestive heart failure) (5) Diabetes mellitus Assessment & Plan: Cont novolog sliding scale (6) HTN (hypertension) Assessment & Plan: Continue amlodipine and clonidine. (7) Renal failure (8) Anemia (9) Hepatic encephalopathy Assessment & Plan: Continue Xifaxan (10) Ascites Assessment & Plan: Paracentesis on hold due to thrombocytopenia. (11) Thrombocytopenia (12) Pleural effusion associated with hepatic disorder Assessment & Plan: Left. S/P thoracentesis 10/07/17. 3 Liters fluid removed. (13) Pneumothorax, left Assessment & Plan: S/P left chest tube. Status: deteriorating Assessment/Plan Colonoscopy and endoscopy on hold due to thrombocytopenia - see GI note KARIS FLORENTINO Oct 08, 2016 12:15
--- NOTE | 2016-10-08 15:51 | Diagnostic Imaging Report ---
Indication: Pneumothorax. Followup Comparison: 10/07/2016 A single view chest radiograph was obtained. Findings: There is a left pneumothorax again demonstrated without significant change. The left thoracic vent is noted. Pulmonary edema is again noted. There is a right pleural effusion. Impression: Moderate left pneumothorax without significant change
--- NOTE | 2016-10-08 16:56 | Cardiac Electrophysiology PN ---
Assessment/Plan Assessment/Plan 1.Sinus tachycardia. Due to severe anemia, PTX and sepsis. The troponins are negative. EF 60% to 65%. HR better. 2. Severe pulmonary hypertension with PA pressure of 58. 3. HTN on Norvasc 5 daily. 4. Pleural effusion and Congestive heart failure with diastolic dysfunction.S/P Chest tube today. 5. Altered mental status likely due to hepatic encephalopathy due to Cirrhosis of the liver,on lactulose 6. Type 2 diabetes. 7. Renal failure. Per Dr. Langston. 8. Anemia with gastrointestinal bleed. FÉLIX RN Subjective Subjective Transferred to ICU for respiratory failure. Underwent Left chest tube placement. Still confused and agitated. Objective Last 24 Hour Vital Signs Date Time Temp Pulse Resp B/P Pulse Ox O2 Delivery O2 Flow Rate FiO2 10/08/16 16:00 97.5 74 12 118/43 100 Venturi Mask 40 10/08/16 15:00 73 13 107/47 100 Venturi Mask 40 10/08/16 14:00 76 12 109/46 100 Venturi Mask 40 10/08/16 13:00 75 13 106/43 100 Venturi Mask 40 10/08/16 12:00 97.8 77 13 111/57 100 Venturi Mask 40 10/08/16 11:00 76 13 109/44 100 Venturi Mask 40 10/08/16 10:00 77 15 123/50 100 Venturi Mask 40 10/08/16 09:27 77 121/47 10/08/16 09:00 77 14 121/47 100 Venturi Mask 40 10/08/16 08:00 97.8 79 15 118/59 100 Venturi Mask 40 10/08/16 07:55 Venturi Mask 8.0 40 10/08/16 07:54 100 Venturi Mask 8.0 40 10/08/16 07:53 81 16 Venturi Mask 8.0 40 10/08/16 07:00 83 18 107/46 100 Venturi Mask 40 10/08/16 06:00 86 17 105/53 100 Venturi Mask 40 10/08/16 05:00 86 24 117/47 100 Venturi Mask 40 10/08/16 04:00 97.9 84 35 108/63 98 Venturi Mask 40 10/08/16 03:00 83 35 127/61 98 Venturi Mask 40 10/08/16 02:00 83 26 124/69 98 Venturi Mask 40 10/08/16 01:00 81 23 129/67 97 Venturi Mask 40 10/08/16 00:00 94.0 80 25 118/69 93 Venturi Mask 40 10/07/16 23:45 Venturi Mask 10.0 40 10/07/16 23:00 75 23 109/50 93 Venturi Mask 40 10/07/16 22:00 79 18 108/61 91 Nasal Cannula 2.0 10/07/16 21:45 95 Nasal Cannula 3.0 32 10/07/16 21:44 Nasal Cannula 3.0 32 10/07/16 21:00 67 18 136/55 93 Nasal Cannula 2.0 10/07/16 20:00 92.0 67 25 125/65 92 Nasal Cannula 2.0 10/07/16 19:35 63 16 Room Air 21 Intake and Output 10/07/16 10/08/16 19:00 07:00 Intake Total 150 ml 746 ml Output Total 1025 ml Balance 150 ml -279 ml IV Total 150 ml 450 ml Tube Feeding 296 ml Output Urine Total 325 ml Chest Tube Drainage Total 700 ml # Bowel Movements 1 Laboratory Tests Test 10/08/16 04:15 10/08/16 09:00 White Blood Count 3.9 K/UL (4.8-10.8) L Red Blood Count 2.61 M/UL (4.70-6.10) L Hemoglobin 8.4 G/DL (14.2-18.0) L Hematocrit 26.1 % (42.0-52.0) L Mean Corpuscular Volume 100 FL (80-99) H Mean Corpuscular Hemoglobin 32.0 PG (27.0-31.0) H Mean Corpuscular Hemoglobin Concent 32.0 G/DL (32.0-36.0) Red Cell Distribution Width 23.4 % (11.6-14.8) H Platelet Count 86 K/UL (150-450) L Mean Platelet Volume 6.4 FL (6.5-10.1) L Neutrophils (%) (Auto) % (45.0-75.0) Lymphocytes (%) (Auto) % (20.0-45.0) Monocytes (%) (Auto) % (1.0-10.0) Eosinophils (%) (Auto) % (0.0-3.0) Basophils (%) (Auto) % (0.0-2.0) Sodium Level 148 mEQ/L (135-145) H Potassium Level 4.7 mEQ/L (3.4-4.9) Chloride Level 114 mEQ/L (98-107) H Carbon Dioxide Level 18 mEQ/L (20-30) L Anion Gap 16 (5-15) H Blood Urea Nitrogen 47 mg/dL (7-23) H Creatinine 2.1 mg/dL (0.7-1.2) H Estimat Glomerular Filtration Rate 31.7 mL/min (>60) Glucose Level 94 mg/dL (74-106) Calcium Level 8.4 mg/dL (8.6-10.2) L Phosphorus Level 4.2 mg/dL (2.5-4.8) Magnesium Level 1.7 mg/dL (1.7-2.5) Total Bilirubin 1.5 mg/dL (0.0-1.2) H Direct Bilirubin 0.4 mg/dL (0.1-0.3) H Aspartate Amino Transf (AST/SGOT) 56 U/L (5-40) H Alanine Aminotransferase (ALT/SGPT) 25 U/L (3-41) Alkaline Phosphatase 64 U/L (40-129) Total Protein 4.6 g/dL (6.6-8.7) L Albumin 1.6 g/dL (3.5-5.2) L Globulin 3.0 g/dL Albumin/Globulin Ratio 0.5 (1.0-2.7) L Arterial Blood pH 7.414 (7.350-7.450) Arterial Blood Partial Pressure CO2 36.3 mmHg (35.0-45.0) Arterial Blood Partial Pressure O2 96.4 mmHg (75.0-100.0) Arterial Blood HCO3 22.7 mmol/L (22.0-26.0) Arterial Blood Oxygen Saturation 96.6 % (92.0-98.0) Arterial Blood Base Excess -1.6 Kaden Test Positive Objective NECK: Shows no JVD. NG tube in. LUNGS: Coarse rhonchi.Left chest tube in place CARDIOVASCULAR: Tachycardic. S1 and S2 with no gallop or murmur. ABDOMEN: Ascites EXTREMITIES: A 2+ pitting edema. MYLES COSME Oct 08, 2016 16:56
--- NOTE | 2016-10-08 20:42 | Wound Care Consultation ---
Wound Assessment Wound Assessment : Wound Present on Admission: Yes New Wound: No Status Change of Wound: Yes Wound Location Body Site Modif: mid Wound Location Body Site: sacral Wound Type: pressure ulcer Francisco J Test: Does not Francisco J Pressure Ulcer Stage: II Wound Thickness: Partial Thickness Wound Length: 4.0 Wound Width: 2.0 Percent of Wound [place]/Red: 100 Wound Drainage Description: Serosanguineous Wound Drainage Amount: Scant Wound Drainage Odor: None/Absent Tissue Surrounding Wound: Erythemic Wound General Appearance: Reddened Wound Comment #1 Sacral area DTI reviling as stage II, pressure ulcer Recommendation -Sacral pressure ulcer Cleanse with saline pat dry apply Triad cream cover with [place] silicone drg daily and PRN soiled/dislodged -Keep clean and dry -Turn and reposition -Low air loss overlay mattress -Optimize nutrition -Offload both heels -Assess and f/u accordingly for any changes BERTHA PARK RN Oct 08, 2016 20:42
[2016-10-08] MEDS ORDERED: cloNIDine 0.2mg Tab GT PRN (23:00)
[2016-10-09] VITALS: BP 132/80
[2016-10-09] MEDS: NovoLOG Insulin Flexpen SUBQ SCH ×5 (00:34→23:59)
[2016-10-09] MEDS ORDERED: Morphine Sulfate 4mg/ml Inj IVP PRN (01:00)
[2016-10-09] MEDS ORDERED: Morphine Sulfate 2mg/ml Inj IVP PRN (01:00)
[2016-10-09] MEDS ORDERED: DuoNeb 0.5-3(2.5)mg/3ml neb HHN PRN (02:00)
--- NOTE | 2016-10-09 03:18 | Consultation ---
DATE OF CONSULTATION: 10/08/2016 CONSULTING PHYSICIAN: Ibrahima Austin M.D. REFERRING PHYSICIAN: Lyn Worley M.D. HISTORY OF PRESENT ILLNESS: The patient is a 66-year-old, male with a history of end-stage liver cirrhosis, who was transferred from the nursing facility to [facility] complaining of abdominal pain. He was being evaluated to rule out obstruction. During the course of his hospitalization, he was found to have a left-sided pleural effusion for which he underwent a thoracentesis removing 3 liters of fluid. Postprocedure, the patient was found to have a large pneumothorax for which a pigtail catheter was then placed and Thoracic surgery was then consulted for further evaluation. PAST MEDICAL HISTORY: 1. Liver cirrhosis leading to end-stage liver disease. 2. Diabetes. 3. Hypertension. 4. Anemia. 5. History of renal failure. 6. Elevated PSA. PAST SURGICAL HISTORY: 1. TIPS procedure. 2. Carpal tunnel surgery. 3. Cholecystectomy. MEDICATIONS: Reviewed. ALLERGIES: The patient has no known drug allergies. FAMILY AND SOCIAL HISTORY: The patient lives in [facility] resident. He denied any tobacco or alcohol abuse. PHYSICAL EXAMINATION: GENERAL: He is noted to be afebrile. VITAL SIGNS: Within normal limits. CARDIAC: Regular rate and rhythm. No gallops or murmur. RESPIRATORY: Clear to auscultation on the right with decreased crackles on the left. ABDOMEN: Soft, nondistended, and nontender. EXTREMITIES: Showed no evidence of cyanosis, clubbing, or edema. LABORATORY STUDIES: Performed on October 08, 2016 show white count 3.9, hemoglobin of 8.4, hematocrit 26, and a platelet count of 86,000. Sodium is 140, potassium 4.7, chloride 114, bicarbonate 16, BUN 47, creatinine 2.1, and glucose is 94. PT is 14. PTT is 37. INR is 1.4. Chest x-ray performed on October 08, 2016 demonstrated a well-positioned pigtail catheter with minimal left-sided pleural effusion. There is no evidence of pneumothorax. ASSESSMENT AND PLAN: This is a 66-year-old, male with end-stage liver disease secondary to liver cirrhosis, who was found to have a large left-sided pleural effusion. Currently, the left pigtail drainage catheter drains roughly 1.4 liters in the last 24 hour periods. It is likely that the patient will continue to have this refractory pleural effusion secondary to his liver disease. We will continue to monitor the fluid drainage in the next 3 days. If there is excessive drainage is documented that he may be a candidate for Pleurx catheter placement. I want to thank you for referring this patient to my attention. If there are any questions in regards to this patient's clinical care, please do not hesitate to contact me. Goetz M.D. DR: SHARI JOB#: [id number] CC: CAMERON
[2016-10-09 04:00] VITALS: BP 141/75
[2016-10-09] MEDS: Lactulose 20gm/30ml UDC NG SCH ×3 (05:51→21:34)
[2016-10-09] MEDS: Rifaximin 550mg tab NG SCH ×2 (09:29→21:34)
[2016-10-09] MEDS: Vitamin A&D Oint 2oz Tube TOPIC SCH ×2 (09:31→21:34)
--- NOTE | 2016-10-09 10:13 | Diagnostic Imaging Report ---
Indication: DYSPNEA Technique: Informed consent obtained prior to commencement of the procedure. Procedure and possible complications discussed by phone with patient's daughter. Localizing acquisitions obtained through the chest. Intended puncture site sterilely prepped and draped. Local anesthesia with 1% lidocaine. Under CT guidance, pleural space was accessed using a Darren Vent catheter. This was fixed to the skin Air was aspirated by hand to the extent possible. Followup CT slices obtained, demonstrating considerable decrease in size of the pneumothorax. Catheter was placed to pleural vac suction. The patient tolerated the procedure well, without immediate complication. Total dose length product 2846 mGycm. CTDIvol(s) 29.5 mGy. Radiation dose was minimized using automated exposure control Comparison: Reference made to earlier chest radiograph Findings: As above Impression: Successful placement of thoracic vent catheter for treatment of post thoracentesis pneumothorax The CT scanner at [facility] is accredited by the [employer] and the scans are performed using protocols designed to limit radiation exposure to as low as reasonably achievable to attain images of sufficient resolution adequate for diagnostic evaluation.
[2016-10-09 10:17] LABS: ABG BASE EXCESS 0.7; ABG PCO2 44.9 mmHg (35.0-45.0)
[2016-10-09 10:18] LABS: ABG ALLEN TEST POSITIVE
--- NOTE | 2016-10-09 11:30 | Nephrology Progress Note ---
Assessment/Plan Problem List: (1) CKD (chronic kidney disease) Assessment: no change (2) Ascites (3) Elevated liver function tests (4) Diabetes mellitus (5) Thrombocytopenia (6) Anemia (7) Hepatic encephalopathy (8) Altered mental state (9) Pneumothorax, left Plan cont lactulose follow BMP Chest Tube Subjective Subjective lethargic out of ICU Objective Objective Last 24 Hour Vital Signs Date Time Temp Pulse Resp B/P Pulse Ox O2 Delivery O2 Flow Rate FiO2 10/09/16 09:29 76 141/75 10/09/16 08:00 96.0 76 18 100 Nasal Cannula 9.0 10/09/16 04:00 98.1 78 18 141/75 100 Simple Mask 9.0 10/09/16 00:00 98.4 80 18 132/80 100 Simple Mask 9.0 10/08/16 21:00 73 12 117/50 100 Venturi Mask 40 10/08/16 20:00 98.0 76 14 125/50 100 Venturi Mask 40 10/08/16 19:00 73 13 118/42 100 Venturi Mask 40 10/08/16 18:55 74 15 Venturi Mask 8.0 40 10/08/16 18:55 Venturi Mask 8.0 40 10/08/16 18:55 100 Venturi Mask 8.0 40 10/08/16 18:00 74 11 121/46 100 Venturi Mask 40 10/08/16 17:00 74 12 115/41 100 Venturi Mask 40 10/08/16 16:00 97.5 74 12 118/43 100 Venturi Mask 40 10/08/16 15:00 73 13 107/47 100 Venturi Mask 40 10/08/16 14:00 76 12 109/46 100 Venturi Mask 40 10/08/16 13:00 75 13 106/43 100 Venturi Mask 40 10/08/16 12:00 97.8 77 13 111/57 100 Venturi Mask 40 Intake and Output 10/08/16 10/09/16 19:00 07:00 Intake Total 1104 ml 704 ml Output Total 490 ml 520 ml Balance 614 ml 184 ml Intake Free Water 50 ml 100 ml IV Total 610 ml 100 ml Tube Feeding 444 ml 444 ml Other 60 ml Output Urine Total 90 ml 60 ml Chest Tube Drainage Total 400 ml 460 ml Laboratory Tests 10/09/16 10:07: Arterial Blood pH 7.380, Arterial Blood Partial Pressure CO2 44.9, Arterial Blood Partial Pressure O2 116.7H, Arterial Blood HCO3 26.0, Arterial Blood Oxygen Saturation 98.1H, Arterial Blood Base Excess 0.7, Kaden Test Positive 10/09/16 11:19: White Blood Count [Pending], Red Blood Count [Pending], Hemoglobin [Pending], Hematocrit [Pending], Mean Corpuscular Volume [Pending], Mean Corpuscular Hemoglobin [Pending], Mean Corpuscular Hemoglobin Concent [Pending], Red Cell Distribution Width [Pending], Platelet Count [Pending], Mean Platelet Volume [ Pending], Neutrophils (%) (Auto) [Pending], Lymphocytes (%) (Auto) [Pending], Monocytes (%) (Auto) [Pending], Eosinophils (%) (Auto) [Pending], Basophils (%) (Auto) [Pending], Sodium Level [Pending], Potassium Level [Pending], Chloride Level [Pending], Carbon Dioxide Level [Pending], Blood Urea Nitrogen [Pending], Creatinine [Pending], Estimat Glomerular Filtration Rate [Pending], Glucose Level [Pending], Calcium Level [Pending], Phosphorus Level [Pending], Magnesium Level [Pending], Total Bilirubin [Pending], Aspartate Amino Transf (AST/SGOT) [ Pending], Alanine Aminotransferase (ALT/SGPT) [Pending], Alkaline Phosphatase [ Pending], Total Protein [Pending], Albumin [Pending], Globulin [Pending] Height (Feet): 5 Height (Inches): 6.00 Weight (Pounds): 200 Cardiovascular: normal rate Respiratory/Chest: rhonchi - bilaterally Extremities: moderate edema FERNANDO DC Oct 09, 2016 11:30
[2016-10-09 11:32] LABS: MEAN CORPUSCULAR HEMOGLOBIN 32.5 PG (27.0-31.0); MEAN CORPUSCULAR VOLUME 98 FL (80-99); MEAN PLATELET VOLUME 7.5 FL (6.5-10.1); PLATELET COUNT 75 K/UL (150-450); WHITE BLOOD COUNT 12.3 K/UL (4.8-10.8)
--- NOTE | 2016-10-09 11:35 | Diagnostic Imaging Report ---
Indication: DYSPNEA Technique: One view of the chest Comparison: 10/08/2016 Findings: Interim reexpansion of the left lung, with only equivocal trace pneumothorax seen medially and at the left lung apex. Chest vent catheter remains in place. Left-sided pleural effusion remains unchanged. Bilateral parenchymal opacities, right-sided pleural effusion persists, unchanged. Nasogastric tube remains in stable satisfactory position Impression: Complete or near complete resolution of previously demonstrated left pneumothorax. Other stable findings as described
[2016-10-09 11:52] LABS: ALBUMIN/GLOBULIN RATIO 0.6 (1.0-2.7); CALCIUM 8.6 mg/dL (8.6-10.2); CREATININE 2.4 mg/dL (0.7-1.2); GLOMERULAR FILTRATION RATE 27.1 mL/min (>60); MAGNESIUM 1.8 mg/dL (1.7-2.5); PHOSPHORUS 3.7 mg/dL (2.5-4.8); POTASSIUM 4.6 mEQ/L (3.4-4.9)
[2016-10-09 11:55] LABS: EOSINOPHILS % (MANUAL) 2 % (0-3); LYMPHOCYTES % (MANUAL) 4 % (20-45); NEUTROPHILS % (MANUAL) 84 % (45-75); TOTAL CELLS COUNTED 100
[2016-10-09 11:56] LABS: ANISOCYTOSIS 2+; BAND NEUTROPHILS % (MANUAL) 0 % (0-8); BASOPHILS % (MANUAL) 0 % (0-2); HYPOCHROMASIA 1+; PLATELET ESTIMATE DECREASED; PLATELET MORPHOLOGY NORMAL
[2016-10-09 12:00] VITALS: BP 140/79
[2016-10-09 12:08] LABS: BILIRUBIN,DIRECT 0.5 mg/dL (0.1-0.3)
--- NOTE | 2016-10-09 14:22 | GI Progress Note ---
Assessment/Plan Problems: (1) Ascites ICD Codes: R18.8 - Other ascites SNOMED: 253081154 (2) Elevated liver function tests ICD Codes: R94.5 - Abnormal results of liver function studies SNOMED: 950637089 (3) Altered mental status ICD Codes: R41.82 - Altered mental status, unspecified SNOMED: 453589292 (4) Cirrhosis of liver ICD Codes: K74.60 - Unspecified cirrhosis of liver SNOMED: 00011874 (5) Diabetes mellitus ICD Codes: E11.9 - Type 2 diabetes mellitus without complications SNOMED: 09401095 (6) Abdominal pain ICD Codes: R10.9 - Unspecified abdominal pain SNOMED: 21975635 Qualifiers: Qualified Codes: R10.84 - Generalized abdominal pain (7) Anemia ICD Codes: D64.9 - Anemia, unspecified SNOMED: 554557479 Qualifiers: Qualified Codes: D64.9 - Anemia, unspecified (8) Hepatic encephalopathy ICD Codes: K72.90 - Hepatic failure, unspecified without coma SNOMED: 26076303 (9) Thrombocytopenia ICD Codes: D69.6 - Thrombocytopenia, unspecified SNOMED: 806102944 (10) Coagulopathy ICD Codes: D68.9 - Coagulation defect, unspecified SNOMED: 89856526 Status: not improved Status Narrative Discussed with Dr. Ly. Assessment/Plan APCT >> Small and nodular liver consistent with cirrhosis. TIPS shunt not adequately evaluated without contrast, see full report below. OB stool uncollected AFP WNL Hep panel negative fu abdominal US >> Evidence of hepatic cirrhosis, also previously described. Patent TIPS shunt, normal velocities pt recommended to have EGD to evaluate for EV when stable monitor H&H, transfuse prn NGTFs per dietary elevated ammonia >> lactulose + Xifaxan ppi poor prognosis fu labs Subjective Subjective limited Objective Last 24 Hour Vital Signs Date Time Temp Pulse Resp B/P Pulse Ox O2 Delivery O2 Flow Rate FiO2 10/09/16 12:00 97.9 75 18 140/79 100 Venturi Mask 10/09/16 09:29 76 141/75 10/09/16 08:18 100 Venturi Mask 8.0 40 10/09/16 08:18 72 16 Venturi Mask 8.0 40 10/09/16 08:18 Venturi Mask 8.0 40 10/09/16 08:00 96.0 76 18 100 Nasal Cannula 9.0 10/09/16 04:00 98.1 78 18 141/75 100 Simple Mask 9.0 10/09/16 00:00 98.4 80 18 132/80 100 Simple Mask 9.0 10/08/16 21:00 73 12 117/50 100 Venturi Mask 40 10/08/16 20:00 98.0 76 14 125/50 100 Venturi Mask 40 10/08/16 19:00 73 13 118/42 100 Venturi Mask 40 10/08/16 18:55 74 15 Venturi Mask 8.0 40 10/08/16 18:55 Venturi Mask 8.0 40 10/08/16 18:55 100 Venturi Mask 8.0 40 10/08/16 18:00 74 11 121/46 100 Venturi Mask 40 10/08/16 17:00 74 12 115/41 100 Venturi Mask 40 10/08/16 16:00 97.5 74 12 118/43 100 Venturi Mask 40 10/08/16 15:00 73 13 107/47 100 Venturi Mask 40 Intake and Output 10/08/16 10/09/16 19:00 07:00 Intake Total 1104 ml 704 ml Output Total 490 ml 520 ml Balance 614 ml 184 ml Intake Free Water 50 ml 100 ml IV Total 610 ml 100 ml Tube Feeding 444 ml 444 ml Other 60 ml Output Urine Total 90 ml 60 ml Chest Tube Drainage Total 400 ml 460 ml Laboratory Tests Test 10/09/16 10:07 10/09/16 11:19 Arterial Blood pH 7.380 (7.350-7.450) Arterial Blood Partial Pressure CO2 44.9 mmHg (35.0-45.0) Arterial Blood Partial Pressure O2 116.7 mmHg (75.0-100.0) H Arterial Blood HCO3 26.0 mmol/L (22.0-26.0) Arterial Blood Oxygen Saturation 98.1 % (92.0-98.0) H Arterial Blood Base Excess 0.7 Kaden Test Positive White Blood Count 12.3 K/UL (4.8-10.8) #H Red Blood Count 2.60 M/UL (4.70-6.10) L Hemoglobin 8.5 G/DL (14.2-18.0) L Hematocrit 25.6 % (42.0-52.0) L Mean Corpuscular Volume 98 FL (80-99) Mean Corpuscular Hemoglobin 32.5 PG (27.0-31.0) H Mean Corpuscular Hemoglobin Concent 33.0 G/DL (32.0-36.0) Red Cell Distribution Width 23.0 % (11.6-14.8) H Platelet Count 75 K/UL (150-450) L Mean Platelet Volume 7.5 FL (6.5-10.1) Neutrophils (%) (Auto) % (45.0-75.0) Lymphocytes (%) (Auto) % (20.0-45.0) Monocytes (%) (Auto) % (1.0-10.0) Eosinophils (%) (Auto) % (0.0-3.0) Basophils (%) (Auto) % (0.0-2.0) Differential Total Cells Counted 100 Neutrophils % (Manual) 84 % (45-75) H Lymphocytes % (Manual) 4 % (20-45) L Monocytes % (Manual) 10 % (1-10) Eosinophils % (Manual) 2 % (0-3) Basophils % (Manual) 0 % (0-2) Band Neutrophils 0 % (0-8) Platelet Estimate Decreased L Platelet Morphology Normal Hypochromasia 1+ Anisocytosis 2+ Sodium Level 146 mEQ/L (135-145) H Potassium Level 4.6 mEQ/L (3.4-4.9) Chloride Level 110 mEQ/L (98-107) H Carbon Dioxide Level 25 mEQ/L (20-30) Anion Gap 11 (5-15) Blood Urea Nitrogen 51 mg/dL (7-23) H Creatinine 2.4 mg/dL (0.7-1.2) H Estimat Glomerular Filtration Rate 27.1 mL/min (>60) Glucose Level 115 mg/dL (74-106) H Calcium Level 8.6 mg/dL (8.6-10.2) Phosphorus Level 3.7 mg/dL (2.5-4.8) Magnesium Level 1.8 mg/dL (1.7-2.5) Total Bilirubin 1.1 mg/dL (0.0-1.2) Direct Bilirubin 0.5 mg/dL (0.1-0.3) H Aspartate Amino Transf (AST/SGOT) 39 U/L (5-40) Alanine Aminotransferase (ALT/SGPT) 24 U/L (3-41) Alkaline Phosphatase 124 U/L (40-129) Total Protein 5.0 g/dL (6.6-8.7) L Albumin 1.9 g/dL (3.5-5.2) L Globulin 3.1 g/dL Albumin/Globulin Ratio 0.6 (1.0-2.7) L Height (Feet): 5 Height (Inches): 6.00 Weight (Pounds): 200 General Appearance: lethargic Cardiovascular: normal rate Respiratory/Chest: other - venturi mask Abdominal Exam: other - NGT Objective Service Date: 10/04/16 Procedure: CT Abdomen Pelvis WO Contrast Indication: Hepatic encephalopathy and abdominal pain Impression: Moderate bilateral pleural effusions with compressive atelectasis in the partially visualized lung bases, left greater than right. Nasogastric tube within the stomach. White catheter in the bladder. Small and nodular liver consistent with cirrhosis. TIPS shunt not adequately evaluated without contrast. Questionable exophytic mass of the anterior right lobe of liver measuring 1.9 cm. Further evaluation with contrast recommended. Mild ascites. Right inguinal hernia containing fat, fluid and distal small bowel. Entering loop of bowel within the hernia relatively larger in caliber than the exiting loop of bowel and possibility of partial or early obstruction not excluded. Clinical correlation/followup recommended. Approximately 1.9 cm hypodensity within the lower pole of the right kidney incompletely assessed probably a cyst. Clinical correlation recommended. Diffuse subcutaneous edema. Angela Anderson N.P. Oct 09, 2016 14:22
[2016-10-09 16:00] VITALS: BP 147/66
--- NOTE | 2016-10-09 17:30 | Cardiac Electrophysiology PN ---
Assessment/Plan Assessment/Plan 1.Sinus tachycardia. Due to severe anemia, PTX and sepsis. Ruled out for OR. EF 60% to 65%. HR better. 2. Severe pulmonary hypertension with PA pressure of 58. 3. HTN on Norvasc 5 daily. 4. Pleural effusion and Congestive heart failure with diastolic dysfunction.S/P Chest tube 5. Altered mental status likely due to hepatic encephalopathy due to Cirrhosis of the liver,on lactulose 6. Type 2 diabetes. 7. Renal failure. Per Dr. Langston. 8. Anemia with gastrointestinal bleed. FÉLIX RN Subjective Subjective Transferred out of ICU. Underwent Left chest tube placement yesterday. Still confused and agitated. Objective Last 24 Hour Vital Signs Date Time Temp Pulse Resp B/P Pulse Ox O2 Delivery O2 Flow Rate FiO2 10/09/16 16:00 98.2 75 20 147/66 100 Nasal Cannula 15.0 10/09/16 12:00 97.9 75 18 140/79 100 Venturi Mask 10/09/16 09:29 76 141/75 10/09/16 08:18 100 Venturi Mask 8.0 40 10/09/16 08:18 72 16 Venturi Mask 8.0 40 10/09/16 08:18 Venturi Mask 8.0 40 10/09/16 08:00 96.0 76 18 100 Nasal Cannula 9.0 10/09/16 04:00 98.1 78 18 141/75 100 Simple Mask 9.0 10/09/16 00:00 98.4 80 18 132/80 100 Simple Mask 9.0 10/08/16 21:00 73 12 117/50 100 Venturi Mask 40 10/08/16 20:00 98.0 76 14 125/50 100 Venturi Mask 40 10/08/16 19:00 73 13 118/42 100 Venturi Mask 40 10/08/16 18:55 74 15 Venturi Mask 8.0 40 10/08/16 18:55 Venturi Mask 8.0 40 10/08/16 18:55 100 Venturi Mask 8.0 40 10/08/16 18:00 74 11 121/46 100 Venturi Mask 40 Intake and Output 10/08/16 10/09/16 19:00 07:00 Intake Total 1104 ml 704 ml Output Total 490 ml 520 ml Balance 614 ml 184 ml Intake Free Water 50 ml 100 ml IV Total 610 ml 100 ml Tube Feeding 444 ml 444 ml Other 60 ml Output Urine Total 90 ml 60 ml Chest Tube Drainage Total 400 ml 460 ml Laboratory Tests Test 10/09/16 10:07 10/09/16 11:19 Arterial Blood pH 7.380 (7.350-7.450) Arterial Blood Partial Pressure CO2 44.9 mmHg (35.0-45.0) Arterial Blood Partial Pressure O2 116.7 mmHg (75.0-100.0) H Arterial Blood HCO3 26.0 mmol/L (22.0-26.0) Arterial Blood Oxygen Saturation 98.1 % (92.0-98.0) H Arterial Blood Base Excess 0.7 Kaden Test Positive White Blood Count 12.3 K/UL (4.8-10.8) #H Red Blood Count 2.60 M/UL (4.70-6.10) L Hemoglobin 8.5 G/DL (14.2-18.0) L Hematocrit 25.6 % (42.0-52.0) L Mean Corpuscular Volume 98 FL (80-99) Mean Corpuscular Hemoglobin 32.5 PG (27.0-31.0) H Mean Corpuscular Hemoglobin Concent 33.0 G/DL (32.0-36.0) Red Cell Distribution Width 23.0 % (11.6-14.8) H Platelet Count 75 K/UL (150-450) L Mean Platelet Volume 7.5 FL (6.5-10.1) Neutrophils (%) (Auto) % (45.0-75.0) Lymphocytes (%) (Auto) % (20.0-45.0) Monocytes (%) (Auto) % (1.0-10.0) Eosinophils (%) (Auto) % (0.0-3.0) Basophils (%) (Auto) % (0.0-2.0) Differential Total Cells Counted 100 Neutrophils % (Manual) 84 % (45-75) H Lymphocytes % (Manual) 4 % (20-45) L Monocytes % (Manual) 10 % (1-10) Eosinophils % (Manual) 2 % (0-3) Basophils % (Manual) 0 % (0-2) Band Neutrophils 0 % (0-8) Platelet Estimate Decreased L Platelet Morphology Normal Hypochromasia 1+ Anisocytosis 2+ Sodium Level 146 mEQ/L (135-145) H Potassium Level 4.6 mEQ/L (3.4-4.9) Chloride Level 110 mEQ/L (98-107) H Carbon Dioxide Level 25 mEQ/L (20-30) Anion Gap 11 (5-15) Blood Urea Nitrogen 51 mg/dL (7-23) H Creatinine 2.4 mg/dL (0.7-1.2) H Estimat Glomerular Filtration Rate 27.1 mL/min (>60) Glucose Level 115 mg/dL (74-106) H Calcium Level 8.6 mg/dL (8.6-10.2) Phosphorus Level 3.7 mg/dL (2.5-4.8) Magnesium Level 1.8 mg/dL (1.7-2.5) Total Bilirubin 1.1 mg/dL (0.0-1.2) Direct Bilirubin 0.5 mg/dL (0.1-0.3) H Aspartate Amino Transf (AST/SGOT) 39 U/L (5-40) Alanine Aminotransferase (ALT/SGPT) 24 U/L (3-41) Alkaline Phosphatase 124 U/L (40-129) Total Protein 5.0 g/dL (6.6-8.7) L Albumin 1.9 g/dL (3.5-5.2) L Globulin 3.1 g/dL Albumin/Globulin Ratio 0.6 (1.0-2.7) L Objective NECK: Shows no JVD. NG tube in. LUNGS: Coarse rhonchi.Left chest tube in place CARDIOVASCULAR: Tachycardic. S1 and S2 with no gallop or murmur. ABDOMEN: Ascites EXTREMITIES: 2+ pitting edema. MYLES COSME Oct 09, 2016 17:30
--- NOTE | 2016-10-09 18:07 | Internal Med Progress Note ---
Subjective Date of Service: Oct 09, 2016 Physician Name VanitaKaris Attending Physician Jeremiah Light MD Current Medications Medications (Trade) Dose Ordered Sig/Morgan Route PRN Reason Start Time Stop Time Status Last Admin Dose Admin Albuterol/ Ipratropium (DuoNeb 0.5-3(2.5)mg/3ml) 3 ml Q4H PRN HHN Shortness of Breath 10/09/16 02:00 10/14/16 01:59 Amlodipine Besylate (Norvasc) 5 mg DAILY NG 10/09/16 09:00 11/08/16 08:59 10/09/16 09:29 Clonidine HCl (Catapres) 0.2 mg Q4H PRN GT SBP>170 10/08/16 23:00 11/07/16 22:59 Dextrose (Dextrose 50%) STAT PRN IV Hypoglycemia 10/09/16 22:00 11/08/16 21:59 Insulin Aspart (NovoLOG) EVERY 6 HOURS SUBQ 10/09/16 00:00 11/08/16 00:00 10/09/16 11:53 Lactulose (Cephulac) 20 gm EVERY 8 HOURS NG 10/09/16 06:00 11/08/16 05:59 10/09/16 13:31 Morphine Sulfate (Morphine Sulfate) 2 mg Q4H PRN IVP Moderate Pain (Pain Scale 4-6) 10/09/16 01:00 10/16/16 00:59 Morphine Sulfate (Morphine Sulfate) 4 mg Q4H PRN IVP Severe Pain (Pain Scale 7-10) 10/09/16 01:00 10/16/16 00:59 Ondansetron HCl (Zofran) 4 mg Q4H PRN IVP Nausea & Vomiting 10/09/16 01:00 11/08/16 00:59 Rifaximin (Xifaxan) 550 mg EVERY 12 HOURS NG 10/09/16 09:00 10/16/16 08:59 10/09/16 09:29 Vitamin A/Vitamin D (A & D Oint) 1 applic EVERY 12 HOURS TOPIC 10/09/16 09:00 11/08/16 08:59 10/09/16 09:31 Allergies: Coded Allergies: No Known Allergies (Unverified , 10/03/16) ROS Limited/Unobtainable: Yes Subjective 66 YO M admitted with abdominal pain and encephalopathy. Cover for Int Holden-Dr Light. S/P left thoracentesis on 10/07/16. Now left pneumothorax; S/P chest tube. Objective Last Vital Signs Date Time Temp Pulse Resp B/P Pulse Ox O2 Delivery O2 Flow Rate FiO2 10/09/16 16:00 98.2 75 20 147/66 100 Nasal Cannula 15.0 10/09/16 08:18 40 Laboratory Tests Test 10/09/16 10:07 10/09/16 11:19 Arterial Blood pH 7.380 (7.350-7.450) Arterial Blood Partial Pressure CO2 44.9 mmHg (35.0-45.0) Arterial Blood Partial Pressure O2 116.7 mmHg (75.0-100.0) H Arterial Blood HCO3 26.0 mmol/L (22.0-26.0) Arterial Blood Oxygen Saturation 98.1 % (92.0-98.0) H Arterial Blood Base Excess 0.7 Kaden Test Positive White Blood Count 12.3 K/UL (4.8-10.8) #H Red Blood Count 2.60 M/UL (4.70-6.10) L Hemoglobin 8.5 G/DL (14.2-18.0) L Hematocrit 25.6 % (42.0-52.0) L Mean Corpuscular Volume 98 FL (80-99) Mean Corpuscular Hemoglobin 32.5 PG (27.0-31.0) H Mean Corpuscular Hemoglobin Concent 33.0 G/DL (32.0-36.0) Red Cell Distribution Width 23.0 % (11.6-14.8) H Platelet Count 75 K/UL (150-450) L Mean Platelet Volume 7.5 FL (6.5-10.1) Neutrophils (%) (Auto) % (45.0-75.0) Lymphocytes (%) (Auto) % (20.0-45.0) Monocytes (%) (Auto) % (1.0-10.0) Eosinophils (%) (Auto) % (0.0-3.0) Basophils (%) (Auto) % (0.0-2.0) Differential Total Cells Counted 100 Neutrophils % (Manual) 84 % (45-75) H Lymphocytes % (Manual) 4 % (20-45) L Monocytes % (Manual) 10 % (1-10) Eosinophils % (Manual) 2 % (0-3) Basophils % (Manual) 0 % (0-2) Band Neutrophils 0 % (0-8) Platelet Estimate Decreased L Platelet Morphology Normal Hypochromasia 1+ Anisocytosis 2+ Sodium Level 146 mEQ/L (135-145) H Potassium Level 4.6 mEQ/L (3.4-4.9) Chloride Level 110 mEQ/L (98-107) H Carbon Dioxide Level 25 mEQ/L (20-30) Anion Gap 11 (5-15) Blood Urea Nitrogen 51 mg/dL (7-23) H Creatinine 2.4 mg/dL (0.7-1.2) H Estimat Glomerular Filtration Rate 27.1 mL/min (>60) Glucose Level 115 mg/dL (74-106) H Calcium Level 8.6 mg/dL (8.6-10.2) Phosphorus Level 3.7 mg/dL (2.5-4.8) Magnesium Level 1.8 mg/dL (1.7-2.5) Total Bilirubin 1.1 mg/dL (0.0-1.2) Direct Bilirubin 0.5 mg/dL (0.1-0.3) H Aspartate Amino Transf (AST/SGOT) 39 U/L (5-40) Alanine Aminotransferase (ALT/SGPT) 24 U/L (3-41) Alkaline Phosphatase 124 U/L (40-129) Total Protein 5.0 g/dL (6.6-8.7) L Albumin 1.9 g/dL (3.5-5.2) L Globulin 3.1 g/dL Albumin/Globulin Ratio 0.6 (1.0-2.7) L Intake and Output 10/08/16 10/09/16 19:00 07:00 Intake Total 1104 ml 704 ml Output Total 490 ml 520 ml Balance 614 ml 184 ml Intake Free Water 50 ml 100 ml IV Total 610 ml 100 ml Tube Feeding 444 ml 444 ml Other 60 ml Output Urine Total 90 ml 60 ml Chest Tube Drainage Total 400 ml 460 ml Objective General Appearance: WD/WN, alert, mild distress EENT: PERRL/EOMI, normal ENT inspection Neck: non-tender, normal alignment, supple, normal inspection Cardiovascular: normal peripheral pulses, normal rate, regular rhythm, no gallop/murmur, no JVD Respiratory/Chest: Nasal Canula; Left chest tube; chest wall non-tender, lungs clear, no respiratory distress, no accessory muscle use Abdomen: decreased bowel sounds, distended, guarding, tender Extremities: normal range of motion Neurologic: inspector machine 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 (3) Elevated liver function tests (4) CHF (congestive heart failure) (5) Diabetes mellitus Assessment & Plan: Cont novolog sliding scale (6) HTN (hypertension) Assessment & Plan: Continue amlodipine and clonidine. (7) Renal failure (8) Anemia (9) Hepatic encephalopathy Assessment & Plan: Continue Xifaxan (10) Ascites Assessment & Plan: Paracentesis on hold due to thrombocytopenia. (11) Thrombocytopenia (12) Pleural effusion associated with hepatic disorder Assessment & Plan: Left. S/P thoracentesis 10/07/17. 3 Liters fluid removed. (13) Pneumothorax, left Assessment & Plan: S/P left chest tube. Status: not improved Assessment/Plan Colonoscopy and endoscopy on hold due to thrombocytopenia - see GI note KARIS FLORENTINO Oct 09, 2016 18:07
[2016-10-09 20:00] VITALS: BP 142/70
--- NOTE | 2016-10-09 22:36 | Pulmonology Progress Note ---
Assessment/Plan Problems: (1) Pleural effusion associated with hepatic disorder (2) Coagulopathy (3) Thrombocytopenia (4) Altered mental state Assessment/Plan thoracentesis liver w/u in process rule out malignancy. f/u GI ammonia level Subjective ROS Limited/Unobtainable: Yes Constitutional: Reports: anorexia, fatigue Respiratory: Reports: dyspnea at rest, dyspnea on exertion, productive cough, shortness of breath, sputum Neurologic: Reports: confusion, weakness Allergies: Coded Allergies: No Known Allergies (Unverified , 10/03/16) Objective Last 24 Hour Vital Signs Date Time Temp Pulse Resp B/P Pulse Ox O2 Delivery O2 Flow Rate FiO2 10/09/16 20:00 99.0 75 20 142/70 100 Nasal Cannula 10/09/16 19:48 Venturi Mask 8.0 40 10/09/16 19:47 97 Venturi Mask 8.0 40 10/09/16 19:47 76 16 Venturi Mask 8.0 40 10/09/16 16:00 98.2 75 20 147/66 100 Nasal Cannula 15.0 10/09/16 12:00 97.9 75 18 140/79 100 Venturi Mask 10/09/16 09:29 76 141/75 10/09/16 08:18 100 Venturi Mask 8.0 40 10/09/16 08:18 72 16 Venturi Mask 8.0 40 10/09/16 08:18 Venturi Mask 8.0 40 10/09/16 08:00 96.0 76 18 100 Nasal Cannula 9.0 10/09/16 04:00 98.1 78 18 141/75 100 Simple Mask 9.0 10/09/16 00:00 98.4 80 18 132/80 100 Simple Mask 9.0 Intake and Output 10/08/16 10/09/16 19:00 07:00 Intake Total 1104 ml 704 ml Output Total 490 ml 520 ml Balance 614 ml 184 ml Intake Free Water 50 ml 100 ml IV Total 610 ml 100 ml Tube Feeding 444 ml 444 ml Other 60 ml Output Urine Total 90 ml 60 ml Chest Tube Drainage Total 400 ml 460 ml General Appearance: no acute distress HEENT: normocephalic, atraumatic, PERRL Respiratory/Chest: chest wall non-tender, decreased breath sounds, accessory muscle use, crackles/rales, inspiratory wheezing, pleural rub Cardiovascular: normal peripheral pulses, normal rate, regular rhythm, no JVD Abdomen: normal bowel sounds, soft, non tender, no organomegaly Genitourinary: normal external genitalia Skin: rash, lesions Neurologic/Psychiatric: clinical genetics laboratory chief II-XII grossly normal, responsive, disoriented Laboratory Tests 10/09/16 10:07: Arterial Blood pH 7.380, Arterial Blood Partial Pressure CO2 44.9, Arterial Blood Partial Pressure O2 116.7H, Arterial Blood HCO3 26.0, Arterial Blood Oxygen Saturation 98.1H, Arterial Blood Base Excess 0.7, Kaden Test Positive 10/09/16 11:19: White Blood Count 12.3#H, Red Blood Count 2.60L, Hemoglobin 8.5L, Hematocrit 25.6L, Mean Corpuscular Volume 98, Mean Corpuscular Hemoglobin 32.5H, Mean Corpuscular Hemoglobin Concent 33.0, Red Cell Distribution Width 23.0H, Platelet Count 75L, Mean Platelet Volume 7.5, Neutrophils (%) (Auto) , Lymphocytes (%) (Auto) , Monocytes (%) (Auto) , Eosinophils (%) (Auto) , Basophils (%) (Auto) , Differential Total Cells Counted 100, Neutrophils % ( Manual) 84H, Lymphocytes % (Manual) 4L, Monocytes % (Manual) 10, Eosinophils % ( Manual) 2, Basophils % (Manual) 0, Band Neutrophils 0, Platelet Estimate DecreasedL, Platelet Morphology Normal, Hypochromasia 1+, Anisocytosis 2+, Sodium Level 146H, Potassium Level 4.6, Chloride Level 110H, Carbon Dioxide Level 25, Anion Gap 11, Blood Urea Nitrogen 51H, Creatinine 2.4H, Estimat Glomerular Filtration Rate 27.1, Glucose Level 115H, Calcium Level 8.6, Phosphorus Level 3.7, Magnesium Level 1.8, Total Bilirubin 1.1, Direct Bilirubin 0.5H, Aspartate Amino Transf (AST/SGOT) 39, Alanine Aminotransferase ( ALT/SGPT) 24, Alkaline Phosphatase 124, Total Protein 5.0L, Albumin 1.9L, Globulin 3.1, Albumin/Globulin Ratio 0.6L Current Medications Medications (Trade) Dose Ordered Sig/Morgan Route PRN Reason Start Time Stop Time Status Last Admin Dose Admin Albuterol/ Ipratropium (DuoNeb 0.5-3(2.5)mg/3ml) 3 ml Q4H PRN HHN Shortness of Breath 10/09/16 02:00 10/14/16 01:59 Amlodipine Besylate (Norvasc) 5 mg DAILY NG 10/09/16 09:00 11/08/16 08:59 10/09/16 09:29 Clonidine HCl (Catapres) 0.2 mg Q4H PRN GT SBP>170 10/08/16 23:00 11/07/16 22:59 Dextrose (Dextrose 50%) STAT PRN IV Hypoglycemia 10/09/16 22:00 11/08/16 21:59 Insulin Aspart (NovoLOG) EVERY 6 HOURS SUBQ 10/09/16 00:00 11/08/16 00:00 10/09/16 19:45 Lactulose (Cephulac) 20 gm EVERY 8 HOURS NG 10/09/16 06:00 11/08/16 05:59 10/09/16 21:34 Morphine Sulfate (Morphine Sulfate) 2 mg Q4H PRN IVP Moderate Pain (Pain Scale 4-6) 10/09/16 01:00 10/16/16 00:59 Morphine Sulfate (Morphine Sulfate) 4 mg Q4H PRN IVP Severe Pain (Pain Scale 7-10) 10/09/16 01:00 10/16/16 00:59 Ondansetron HCl (Zofran) 4 mg Q4H PRN IVP Nausea & Vomiting 10/09/16 01:00 11/08/16 00:59 Rifaximin (Xifaxan) 550 mg EVERY 12 HOURS NG 10/09/16 09:00 10/16/16 08:59 10/09/16 21:34 Vitamin A/Vitamin D (A & D Oint) 1 applic EVERY 12 HOURS TOPIC 10/09/16 09:00 11/08/16 08:59 10/09/16 21:34 KRISTOPHER JACQUES Oct 09, 2016 22:36
[2016-10-10] VITALS: BP 141/69
[2016-10-10 04:00] VITALS: BP 143/76
[2016-10-10 06:55] LABS: MEAN CORPUSCULAR HEMOGLOBIN 32.7 PG (27.0-31.0); MEAN CORPUSCULAR VOLUME 99 FL (80-99); PLATELET COUNT 74 K/UL (150-450); RED BLOOD COUNT 2.41 M/UL (4.70-6.10); RED CELL DISTRIBUTION WIDTH 22.6 % (11.6-14.8); WHITE BLOOD COUNT 9.5 K/UL (4.8-10.8)
[2016-10-10 07:13] LABS: ALBUMIN/GLOBULIN RATIO 0.5 (1.0-2.7); CALCIUM 8.3 mg/dL (8.6-10.2); CREATININE 2.4 mg/dL (0.7-1.2); GLOMERULAR FILTRATION RATE 27.1 mL/min (>60); POTASSIUM 4.5 mEQ/L (3.4-4.9); TOTAL PROTEIN 4.7 g/dL (6.6-8.7)
[2016-10-10] MEDS: NovoLOG Insulin Flexpen SUBQ SCH ×3 (07:24→18:13)
[2016-10-10] MEDS: Lactulose 20gm/30ml UDC NG SCH ×3 (07:27→22:08)
[2016-10-10 08:11] LABS: BAND NEUTROPHILS % (MANUAL) 2 % (0-8); BASOPHILS % (MANUAL) 0 % (0-2); EOSINOPHILS % (MANUAL) 2 % (0-3); LYMPHOCYTES % (MANUAL) 15 % (20-45); NEUTROPHILS % (MANUAL) 73 % (45-75); PLATELET ESTIMATE DECREASED; PLATELET MORPHOLOGY NORMAL; TOTAL CELLS COUNTED 100
[2016-10-10 08:36] VITALS: BP 141/63
[2016-10-10] MEDS: Rifaximin 550mg tab NG SCH ×2 (08:57→22:09)
[2016-10-10] MEDS: Vitamin A&D Oint 2oz Tube TOPIC SCH ×2 (08:57→22:10)
[2016-10-10 12:52] VITALS: BP 120/50
--- NOTE | 2016-10-10 13:04 | Nephrology Progress Note ---
Assessment/Plan Problem List: (1) CKD (chronic kidney disease) Assessment: no change (2) Ascites (3) Elevated liver function tests (4) Diabetes mellitus (5) Thrombocytopenia (6) Anemia (7) Hepatic encephalopathy (8) Altered mental state (9) Pneumothorax, left Plan cont lactulose follow BMP Chest Tube Subjective Subjective lethargic Objective Objective Last 24 Hour Vital Signs Date Time Temp Pulse Resp B/P Pulse Ox O2 Delivery O2 Flow Rate FiO2 10/10/16 12:52 97.0 76 19 120/50 98 Room Air 10/10/16 08:57 75 141/63 10/10/16 08:36 98.1 75 19 141/63 99 Room Air 10/10/16 07:45 100 Venturi Mask 8.0 40 10/10/16 07:45 74 16 Venturi Mask 8.0 40 10/10/16 07:45 Venturi Mask 8.0 40 10/10/16 04:00 98.1 74 18 143/76 100 10/10/16 00:00 97.9 75 20 141/69 100 Nasal Cannula 10/09/16 20:00 99.0 75 20 142/70 100 Nasal Cannula 10/09/16 19:48 Venturi Mask 8.0 40 10/09/16 19:47 97 Venturi Mask 8.0 40 10/09/16 19:47 76 16 Venturi Mask 8.0 40 10/09/16 16:00 98.2 75 20 147/66 100 Nasal Cannula 15.0 Intake and Output 10/09/16 10/10/16 19:00 07:00 Intake Total 581 ml 627 ml Output Total 310 ml 1015 ml Balance 271 ml -388 ml Intake Free Water 100 ml 220 ml Tube Feeding 481 ml 407 ml Output Urine Total 120 ml 1000 ml Chest Tube Drainage Total 190 ml 15 ml # Bowel Movements 1 Laboratory Tests 10/10/16 06:25: White Blood Count 9.5, Red Blood Count 2.41L, Hemoglobin 7.9L, Hematocrit 23.9L , Mean Corpuscular Volume 99, Mean Corpuscular Hemoglobin 32.7H, Mean Corpuscular Hemoglobin Concent 33.0, Red Cell Distribution Width 22.6H, Platelet Count 74L, Mean Platelet Volume 7.0, Neutrophils (%) (Auto) , Lymphocytes (%) (Auto) , Monocytes (%) (Auto) , Eosinophils (%) (Auto) , Basophils (%) (Auto) , Differential Total Cells Counted 100, Neutrophils % ( Manual) 73, Lymphocytes % (Manual) 15L, Monocytes % (Manual) 8, Eosinophils % ( Manual) 2, Basophils % (Manual) 0, Band Neutrophils 2, Platelet Estimate DecreasedL, Platelet Morphology Normal, Red Blood Cell Morphology Normal, Sodium Level 143, Potassium Level 4.5, Chloride Level 108H, Carbon Dioxide Level 25, Anion Gap 10, Blood Urea Nitrogen 56H, Creatinine 2.4H, Estimat Glomerular Filtration Rate 27.1, Glucose Level 134H, Calcium Level 8.3L, Total Bilirubin 0.9, Aspartate Amino Transf (AST/SGOT) 38, Alanine Aminotransferase ( ALT/SGPT) 22, Alkaline Phosphatase 137H, Total Protein 4.7L, Albumin 1.7L, Globulin 3.0, Albumin/Globulin Ratio 0.5L Height (Feet): 5 Height (Inches): 6.00 Weight (Pounds): 200 Cardiovascular: normal rate Respiratory/Chest: rhonchi - bilaterally Extremities: moderate edema FERNANDO DC Oct 10, 2016 13:04
--- NOTE | 2016-10-10 13:54 | GI Progress Note ---
Assessment/Plan Problems: (1) Ascites ICD Codes: R18.8 - Other ascites SNOMED: 214877543 (2) Elevated liver function tests ICD Codes: R94.5 - Abnormal results of liver function studies SNOMED: 049509632 (3) Altered mental status ICD Codes: R41.82 - Altered mental status, unspecified SNOMED: 528231273 (4) Cirrhosis of liver ICD Codes: K74.60 - Unspecified cirrhosis of liver SNOMED: 88734522 (5) Diabetes mellitus ICD Codes: E11.9 - Type 2 diabetes mellitus without complications SNOMED: 50214195 (6) Abdominal pain ICD Codes: R10.9 - Unspecified abdominal pain SNOMED: 54183242 Qualifiers: Qualified Codes: R10.84 - Generalized abdominal pain (7) Anemia ICD Codes: D64.9 - Anemia, unspecified SNOMED: 247327998 Qualifiers: Qualified Codes: D64.9 - Anemia, unspecified (8) Hepatic encephalopathy ICD Codes: K72.90 - Hepatic failure, unspecified without coma SNOMED: 89531118 (9) Thrombocytopenia ICD Codes: D69.6 - Thrombocytopenia, unspecified SNOMED: 068888210 (10) Coagulopathy ICD Codes: D68.9 - Coagulation defect, unspecified SNOMED: 92545412 Status: unchanged Status Narrative Discussed with Dr. Ly. Assessment/Plan APCT >> Small and nodular liver consistent with cirrhosis. TIPS shunt not adequately evaluated without contrast, see full report below. OB stool uncollected AFP WNL Hep panel negative fu abdominal US >> Evidence of hepatic cirrhosis, also previously described. Patent TIPS shunt, normal velocities pt recommended to have EGD to evaluate for EV when stable monitor H&H, transfuse prn NGTFs per dietary elevated ammonia >> lactulose + Xifaxan ppi poor prognosis fu labs Subjective Subjective limited Objective Last 24 Hour Vital Signs Date Time Temp Pulse Resp B/P Pulse Ox O2 Delivery O2 Flow Rate FiO2 10/10/16 12:52 97.0 76 19 120/50 98 Room Air 10/10/16 08:57 75 141/63 10/10/16 08:36 98.1 75 19 141/63 99 Room Air 10/10/16 07:45 100 Venturi Mask 8.0 40 10/10/16 07:45 74 16 Venturi Mask 8.0 40 10/10/16 07:45 Venturi Mask 8.0 40 10/10/16 04:00 98.1 74 18 143/76 100 10/10/16 00:00 97.9 75 20 141/69 100 Nasal Cannula 10/09/16 20:00 99.0 75 20 142/70 100 Nasal Cannula 10/09/16 19:48 Venturi Mask 8.0 40 10/09/16 19:47 97 Venturi Mask 8.0 40 10/09/16 19:47 76 16 Venturi Mask 8.0 40 10/09/16 16:00 98.2 75 20 147/66 100 Nasal Cannula 15.0 Intake and Output 10/09/16 10/10/16 19:00 07:00 Intake Total 581 ml 627 ml Output Total 310 ml 1015 ml Balance 271 ml -388 ml Intake Free Water 100 ml 220 ml Tube Feeding 481 ml 407 ml Output Urine Total 120 ml 1000 ml Chest Tube Drainage Total 190 ml 15 ml # Bowel Movements 1 Laboratory Tests Test 10/10/16 06:25 White Blood Count 9.5 K/UL (4.8-10.8) Red Blood Count 2.41 M/UL (4.70-6.10) L Hemoglobin 7.9 G/DL (14.2-18.0) L Hematocrit 23.9 % (42.0-52.0) L Mean Corpuscular Volume 99 FL (80-99) Mean Corpuscular Hemoglobin 32.7 PG (27.0-31.0) H Mean Corpuscular Hemoglobin Concent 33.0 G/DL (32.0-36.0) Red Cell Distribution Width 22.6 % (11.6-14.8) H Platelet Count 74 K/UL (150-450) L Mean Platelet Volume 7.0 FL (6.5-10.1) Neutrophils (%) (Auto) % (45.0-75.0) Lymphocytes (%) (Auto) % (20.0-45.0) Monocytes (%) (Auto) % (1.0-10.0) Eosinophils (%) (Auto) % (0.0-3.0) Basophils (%) (Auto) % (0.0-2.0) Differential Total Cells Counted 100 Neutrophils % (Manual) 73 % (45-75) Lymphocytes % (Manual) 15 % (20-45) L Monocytes % (Manual) 8 % (1-10) Eosinophils % (Manual) 2 % (0-3) Basophils % (Manual) 0 % (0-2) Band Neutrophils 2 % (0-8) Platelet Estimate Decreased L Platelet Morphology Normal Red Blood Cell Morphology Normal Sodium Level 143 mEQ/L (135-145) Potassium Level 4.5 mEQ/L (3.4-4.9) Chloride Level 108 mEQ/L (98-107) H Carbon Dioxide Level 25 mEQ/L (20-30) Anion Gap 10 (5-15) Blood Urea Nitrogen 56 mg/dL (7-23) H Creatinine 2.4 mg/dL (0.7-1.2) H Estimat Glomerular Filtration Rate 27.1 mL/min (>60) Glucose Level 134 mg/dL (74-106) H Calcium Level 8.3 mg/dL (8.6-10.2) L Total Bilirubin 0.9 mg/dL (0.0-1.2) Aspartate Amino Transf (AST/SGOT) 38 U/L (5-40) Alanine Aminotransferase (ALT/SGPT) 22 U/L (3-41) Alkaline Phosphatase 137 U/L (40-129) H Total Protein 4.7 g/dL (6.6-8.7) L Albumin 1.7 g/dL (3.5-5.2) L Globulin 3.0 g/dL Albumin/Globulin Ratio 0.5 (1.0-2.7) L Height (Feet): 5 Height (Inches): 6.00 Weight (Pounds): 200 General Appearance: no apparent distress Cardiovascular: normal rate Respiratory/Chest: normal breath sounds, no respiratory distress, other - 2LNC Abdominal Exam: other - NGT Objective Service Date: 10/04/16 Procedure: CT Abdomen Pelvis WO Contrast Indication: Hepatic encephalopathy and abdominal pain Impression: Moderate bilateral pleural effusions with compressive atelectasis in the partially visualized lung bases, left greater than right. Nasogastric tube within the stomach. White catheter in the bladder. Small and nodular liver consistent with cirrhosis. TIPS shunt not adequately evaluated without contrast. Questionable exophytic mass of the anterior right lobe of liver measuring 1.9 cm. Further evaluation with contrast recommended. Mild ascites. Right inguinal hernia containing fat, fluid and distal small bowel. Entering loop of bowel within the hernia relatively larger in caliber than the exiting loop of bowel and possibility of partial or early obstruction not excluded. Clinical correlation/followup recommended. Approximately 1.9 cm hypodensity within the lower pole of the right kidney incompletely assessed probably a cyst. Clinical correlation recommended. Diffuse subcutaneous edema. Angela Anderson N.P. Oct 10, 2016 13:54
--- NOTE | 2016-10-10 13:55 | Diagnostic Imaging Report ---
Indication: Dyspnea Comparison: 10/09/16 A single view chest radiograph was obtained. Findings: Bone or edema bilateral pleural effusions again noted. There is a left thoracic vent. No pneumothorax is seen. Impression: No significant change from one day earlier. Moderate bilateral pleural effusions
[2016-10-10 16:00] VITALS: BP 146/60
--- NOTE | 2016-10-10 16:41 | Cardiology Report ---
APPROVED REPORT EKG Measurement Heart [id number] IA [id number] Sinus rhythm with occasional premature ventricular complexes Low voltage QRS Borderline ECG
--- NOTE | 2016-10-10 16:44 | Cardiac Electrophysiology PN ---
Assessment/Plan Assessment/Plan 1.Sinus tachycardia. Due to severe anemia, PTX and sepsis. Ruled out for SC. EF 60% to 65%. 2. Severe pulmonary hypertension with PA pressure of 58. 3. HTN on Norvasc 5 daily. 4. Pleural effusion and Congestive heart failure with diastolic dysfunction. Chest tube on left side draining. 5. Hepatic encephalopathy due to Cirrhosis of the liver,on lactulose 6. Type 2 diabetes. 7. Renal failure. Per Dr. Langston. 8. Anemia with gastrointestinal bleed. FÉLIX RN Subjective Subjective On Med surge on Oxygen mask. Left chest tube draining.Lethargic. Objective Last 24 Hour Vital Signs Date Time Temp Pulse Resp B/P Pulse Ox O2 Delivery O2 Flow Rate FiO2 10/10/16 16:00 98.1 71 20 146/60 100 Venturi Mask 10.0 10/10/16 12:52 97.0 76 19 120/50 98 Room Air 10/10/16 08:57 75 141/63 10/10/16 08:36 98.1 75 19 141/63 99 Room Air 10/10/16 07:45 100 Venturi Mask 8.0 40 10/10/16 07:45 74 16 Venturi Mask 8.0 40 10/10/16 07:45 Venturi Mask 8.0 40 10/10/16 04:00 98.1 74 18 143/76 100 10/10/16 00:00 97.9 75 20 141/69 100 Nasal Cannula 10/09/16 20:00 99.0 75 20 142/70 100 Nasal Cannula 10/09/16 19:48 Venturi Mask 8.0 40 10/09/16 19:47 97 Venturi Mask 8.0 40 10/09/16 19:47 76 16 Venturi Mask 8.0 40 Intake and Output 10/09/16 10/10/16 19:00 07:00 Intake Total 581 ml 627 ml Output Total 310 ml 1015 ml Balance 271 ml -388 ml Intake Free Water 100 ml 220 ml Tube Feeding 481 ml 407 ml Output Urine Total 120 ml 1000 ml Chest Tube Drainage Total 190 ml 15 ml # Bowel Movements 1 Laboratory Tests Test 10/10/16 06:25 White Blood Count 9.5 K/UL (4.8-10.8) Red Blood Count 2.41 M/UL (4.70-6.10) L Hemoglobin 7.9 G/DL (14.2-18.0) L Hematocrit 23.9 % (42.0-52.0) L Mean Corpuscular Volume 99 FL (80-99) Mean Corpuscular Hemoglobin 32.7 PG (27.0-31.0) H Mean Corpuscular Hemoglobin Concent 33.0 G/DL (32.0-36.0) Red Cell Distribution Width 22.6 % (11.6-14.8) H Platelet Count 74 K/UL (150-450) L Mean Platelet Volume 7.0 FL (6.5-10.1) Neutrophils (%) (Auto) % (45.0-75.0) Lymphocytes (%) (Auto) % (20.0-45.0) Monocytes (%) (Auto) % (1.0-10.0) Eosinophils (%) (Auto) % (0.0-3.0) Basophils (%) (Auto) % (0.0-2.0) Differential Total Cells Counted 100 Neutrophils % (Manual) 73 % (45-75) Lymphocytes % (Manual) 15 % (20-45) L Monocytes % (Manual) 8 % (1-10) Eosinophils % (Manual) 2 % (0-3) Basophils % (Manual) 0 % (0-2) Band Neutrophils 2 % (0-8) Platelet Estimate Decreased L Platelet Morphology Normal Red Blood Cell Morphology Normal Sodium Level 143 mEQ/L (135-145) Potassium Level 4.5 mEQ/L (3.4-4.9) Chloride Level 108 mEQ/L (98-107) H Carbon Dioxide Level 25 mEQ/L (20-30) Anion Gap 10 (5-15) Blood Urea Nitrogen 56 mg/dL (7-23) H Creatinine 2.4 mg/dL (0.7-1.2) H Estimat Glomerular Filtration Rate 27.1 mL/min (>60) Glucose Level 134 mg/dL (74-106) H Calcium Level 8.3 mg/dL (8.6-10.2) L Total Bilirubin 0.9 mg/dL (0.0-1.2) Aspartate Amino Transf (AST/SGOT) 38 U/L (5-40) Alanine Aminotransferase (ALT/SGPT) 22 U/L (3-41) Alkaline Phosphatase 137 U/L (40-129) H Total Protein 4.7 g/dL (6.6-8.7) L Albumin 1.7 g/dL (3.5-5.2) L Globulin 3.0 g/dL Albumin/Globulin Ratio 0.5 (1.0-2.7) L Current Medications Medications (Trade) Dose Ordered Sig/Morgan Route PRN Reason Start Time Stop Time Status Last Admin Dose Admin Albuterol/ Ipratropium (DuoNeb 0.5-3(2.5)mg/3ml) 3 ml Q4H PRN HHN Shortness of Breath 10/09/16 02:00 10/14/16 01:59 Amlodipine Besylate (Norvasc) 5 mg DAILY NG 10/09/16 09:00 11/08/16 08:59 10/10/16 08:57 Clonidine HCl (Catapres) 0.2 mg Q4H PRN GT SBP>170 10/08/16 23:00 11/07/16 22:59 Dextrose (Dextrose 50%) STAT PRN IV Hypoglycemia 10/09/16 22:00 11/08/16 21:59 Insulin Aspart (NovoLOG) EVERY 6 HOURS SUBQ 10/09/16 00:00 11/08/16 00:00 10/10/16 11:52 Lactulose (Cephulac) 20 gm EVERY 8 HOURS NG 10/09/16 06:00 11/08/16 05:59 10/10/16 13:23 Morphine Sulfate (Morphine Sulfate) 2 mg Q4H PRN IVP Moderate Pain (Pain Scale 4-6) 10/09/16 01:00 10/16/16 00:59 Morphine Sulfate (Morphine Sulfate) 4 mg Q4H PRN IVP Severe Pain (Pain Scale 7-10) 10/09/16 01:00 10/16/16 00:59 Ondansetron HCl (Zofran) 4 mg Q4H PRN IVP Nausea & Vomiting 10/09/16 01:00 11/08/16 00:59 Rifaximin (Xifaxan) 550 mg EVERY 12 HOURS NG 10/09/16 09:00 10/16/16 08:59 10/10/16 08:57 Vitamin A/Vitamin D (A & D Oint) 1 applic EVERY 12 HOURS TOPIC 10/09/16 09:00 11/08/16 08:59 10/10/16 08:57 Objective NECK: Shows no JVD. NG tube in. LUNGS: Coarse rhonchi.Left chest tube in place CARDIOVASCULAR: Tachycardic. S1 and S2 with no gallop or murmur. ABDOMEN: Ascites EXTREMITIES: 2+ pitting edema. MYLES COSME Oct 10, 2016 16:44
--- NOTE | 2016-10-10 19:37 | Internal Med Progress Note ---
Subjective Physician Name Jeremiah Light Attending Physician Jeremiah Light MD Current Medications Medications (Trade) Dose Ordered Sig/Morgan Route PRN Reason Start Time Stop Time Status Last Admin Dose Admin Albuterol/ Ipratropium (DuoNeb 0.5-3(2.5)mg/3ml) 3 ml Q4H PRN HHN Shortness of Breath 10/09/16 02:00 10/14/16 01:59 Amlodipine Besylate (Norvasc) 5 mg DAILY NG 10/09/16 09:00 11/08/16 08:59 10/10/16 08:57 Clonidine HCl (Catapres) 0.2 mg Q4H PRN GT SBP>170 10/08/16 23:00 11/07/16 22:59 Dextrose (Dextrose 50%) STAT PRN IV Hypoglycemia 10/09/16 22:00 11/08/16 21:59 Insulin Aspart (NovoLOG) EVERY 6 HOURS SUBQ 10/09/16 00:00 11/08/16 00:00 10/10/16 18:13 Lactulose (Cephulac) 20 gm EVERY 8 HOURS NG 10/09/16 06:00 11/08/16 05:59 10/10/16 13:23 Morphine Sulfate (Morphine Sulfate) 2 mg Q4H PRN IVP Moderate Pain (Pain Scale 4-6) 10/09/16 01:00 10/16/16 00:59 Morphine Sulfate (Morphine Sulfate) 4 mg Q4H PRN IVP Severe Pain (Pain Scale 7-10) 10/09/16 01:00 10/16/16 00:59 Ondansetron HCl (Zofran) 4 mg Q4H PRN IVP Nausea & Vomiting 10/09/16 01:00 11/08/16 00:59 Rifaximin (Xifaxan) 550 mg EVERY 12 HOURS NG 10/09/16 09:00 10/16/16 08:59 10/10/16 08:57 Vitamin A/Vitamin D (A & D Oint) 1 applic EVERY 12 HOURS TOPIC 10/09/16 09:00 11/08/16 08:59 10/10/16 08:57 Allergies: Coded Allergies: No Known Allergies (Unverified , 10/03/16) Subjective open eyes with deep stimuli, lying in bed, NAD Objective Last Vital Signs Date Time Temp Pulse Resp B/P Pulse Ox O2 Delivery O2 Flow Rate FiO2 10/10/16 19:14 Venturi Mask 8.0 40 10/10/16 19:14 72 16 10/10/16 19:14 100 10/10/16 16:00 98.1 146/60 Laboratory Tests Test 10/10/16 06:25 White Blood Count 9.5 K/UL (4.8-10.8) Red Blood Count 2.41 M/UL (4.70-6.10) L Hemoglobin 7.9 G/DL (14.2-18.0) L Hematocrit 23.9 % (42.0-52.0) L Mean Corpuscular Volume 99 FL (80-99) Mean Corpuscular Hemoglobin 32.7 PG (27.0-31.0) H Mean Corpuscular Hemoglobin Concent 33.0 G/DL (32.0-36.0) Red Cell Distribution Width 22.6 % (11.6-14.8) H Platelet Count 74 K/UL (150-450) L Mean Platelet Volume 7.0 FL (6.5-10.1) Neutrophils (%) (Auto) % (45.0-75.0) Lymphocytes (%) (Auto) % (20.0-45.0) Monocytes (%) (Auto) % (1.0-10.0) Eosinophils (%) (Auto) % (0.0-3.0) Basophils (%) (Auto) % (0.0-2.0) Differential Total Cells Counted 100 Neutrophils % (Manual) 73 % (45-75) Lymphocytes % (Manual) 15 % (20-45) L Monocytes % (Manual) 8 % (1-10) Eosinophils % (Manual) 2 % (0-3) Basophils % (Manual) 0 % (0-2) Band Neutrophils 2 % (0-8) Platelet Estimate Decreased L Platelet Morphology Normal Red Blood Cell Morphology Normal Sodium Level 143 mEQ/L (135-145) Potassium Level 4.5 mEQ/L (3.4-4.9) Chloride Level 108 mEQ/L (98-107) H Carbon Dioxide Level 25 mEQ/L (20-30) Anion Gap 10 (5-15) Blood Urea Nitrogen 56 mg/dL (7-23) H Creatinine 2.4 mg/dL (0.7-1.2) H Estimat Glomerular Filtration Rate 27.1 mL/min (>60) Glucose Level 134 mg/dL (74-106) H Calcium Level 8.3 mg/dL (8.6-10.2) L Total Bilirubin 0.9 mg/dL (0.0-1.2) Aspartate Amino Transf (AST/SGOT) 38 U/L (5-40) Alanine Aminotransferase (ALT/SGPT) 22 U/L (3-41) Alkaline Phosphatase 137 U/L (40-129) H Total Protein 4.7 g/dL (6.6-8.7) L Albumin 1.7 g/dL (3.5-5.2) L Globulin 3.0 g/dL Albumin/Globulin Ratio 0.5 (1.0-2.7) L Intake and Output 10/09/16 10/10/16 19:00 07:00 Intake Total 581 ml 627 ml Output Total 310 ml 1015 ml Balance 271 ml -388 ml Intake Free Water 100 ml 220 ml Tube Feeding 481 ml 407 ml Output Urine Total 120 ml 1000 ml Chest Tube Drainage Total 190 ml 15 ml # Bowel Movements 1 Objective General Appearance: WD/WN, sleepy, less responsive. EENT: PERRL, anicteric, NG Tube Neck: non-tender, supple, Cardiovascular: normal peripheral pulses, normal rate, regular rhythm, no murmur, Respiratory/Chest: Nasal Canula; Left chest tube; chest wall non-tender, lungs clear, no respiratory distress. Abdomen: + bowel sounds, distended, guarding, not tender, Obesity. White Cath Extremities: decrease edema in UE. No C/C Neurologic: not responsive, unable to F/u with commands, Limited evaluation Skin: normal pigmentation, warm/dry Assessment/Plan Assessment/Plan 1.Sinus tachycardia. Due to severe anemia, PTX and sepsis. 2. Severe pulmonary hypertension with PA pressure of 58. 3. HTN 4. Pleural effusion and Congestive heart failure with diastolic dysfunction. 5. Liver cirrhosis with Hepatic encephalopathy 6. Type 2 diabetes. 7. Renal failure 8. Anemia with gastrointestinal bleed. 9. Morbid obesity 10. left Pneumothorax 11. thrombocytopenia Plan: Tube feeding, Monitor Labs Lactulose via NG Tube CXR Jeremiah Light MD Oct 10, 2016 19:37
[2016-10-10 20:00] VITALS: BP 153/73
--- NOTE | 2016-10-10 23:36 | Pulmonology Progress Note ---
Assessment/Plan Problems: (1) Pleural effusion associated with hepatic disorder (2) Coagulopathy (3) Thrombocytopenia (4) Altered mental state Assessment/Plan thoracentesis liver w/u in process rule out malignancy. f/u GI ammonia level Subjective ROS Limited/Unobtainable: No Constitutional: Reports: anorexia, fatigue Respiratory: Reports: dyspnea at rest, dyspnea on exertion, pleuritic pain, shortness of breath, wheezing Gastrointestinal/Abdominal: Reports: bloating, nausea Neurologic: Reports: confusion, weakness Allergies: Coded Allergies: No Known Allergies (Unverified , 10/03/16) Objective Last 24 Hour Vital Signs Date Time Temp Pulse Resp B/P Pulse Ox O2 Delivery O2 Flow Rate FiO2 10/10/16 20:00 97.9 72 20 153/73 100 Venturi Mask 10.0 10/10/16 19:14 Venturi Mask 8.0 40 10/10/16 19:14 72 16 Venturi Mask 8.0 40 10/10/16 19:14 100 Venturi Mask 8.0 40 10/10/16 16:00 98.1 71 20 146/60 100 Venturi Mask 10.0 10/10/16 12:52 97.0 76 19 120/50 98 Room Air 10/10/16 08:57 75 141/63 10/10/16 08:36 98.1 75 19 141/63 99 Room Air 10/10/16 07:45 100 Venturi Mask 8.0 40 10/10/16 07:45 74 16 Venturi Mask 8.0 40 10/10/16 07:45 Venturi Mask 8.0 40 10/10/16 04:00 98.1 74 18 143/76 100 10/10/16 00:00 97.9 75 20 141/69 100 Nasal Cannula Intake and Output 10/09/16 10/10/16 19:00 07:00 Intake Total 581 ml 627 ml Output Total 310 ml 1015 ml Balance 271 ml -388 ml Intake Free Water 100 ml 220 ml Tube Feeding 481 ml 407 ml Output Urine Total 120 ml 1000 ml Chest Tube Drainage Total 190 ml 15 ml # Bowel Movements 1 General Appearance: no acute distress HEENT: normocephalic, atraumatic, PERRL Respiratory/Chest: chest wall non-tender, decreased breath sounds, accessory muscle use, crackles/rales, pleural rub Cardiovascular: normal peripheral pulses, normal rate, regular rhythm, no JVD Abdomen: normal bowel sounds, soft, non tender, no organomegaly Genitourinary: normal external genitalia Skin: rash, lesions Neurologic/Psychiatric: 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 grossly normal, no motor/sensory deficits Laboratory Tests 10/10/16 06:25: White Blood Count 9.5, Red Blood Count 2.41L, Hemoglobin 7.9L, Hematocrit 23.9L , Mean Corpuscular Volume 99, Mean Corpuscular Hemoglobin 32.7H, Mean Corpuscular Hemoglobin Concent 33.0, Red Cell Distribution Width 22.6H, Platelet Count 74L, Mean Platelet Volume 7.0, Neutrophils (%) (Auto) , Lymphocytes (%) (Auto) , Monocytes (%) (Auto) , Eosinophils (%) (Auto) , Basophils (%) (Auto) , Differential Total Cells Counted 100, Neutrophils % ( Manual) 73, Lymphocytes % (Manual) 15L, Monocytes % (Manual) 8, Eosinophils % ( Manual) 2, Basophils % (Manual) 0, Band Neutrophils 2, Platelet Estimate DecreasedL, Platelet Morphology Normal, Red Blood Cell Morphology Normal, Sodium Level 143, Potassium Level 4.5, Chloride Level 108H, Carbon Dioxide Level 25, Anion Gap 10, Blood Urea Nitrogen 56H, Creatinine 2.4H, Estimat Glomerular Filtration Rate 27.1, Glucose Level 134H, Calcium Level 8.3L, Total Bilirubin 0.9, Aspartate Amino Transf (AST/SGOT) 38, Alanine Aminotransferase ( ALT/SGPT) 22, Alkaline Phosphatase 137H, Total Protein 4.7L, Albumin 1.7L, Globulin 3.0, Albumin/Globulin Ratio 0.5L Current Medications Medications (Trade) Dose Ordered Sig/Morgan Route PRN Reason Start Time Stop Time Status Last Admin Dose Admin Albuterol/ Ipratropium (DuoNeb 0.5-3(2.5)mg/3ml) 3 ml Q4H PRN HHN Shortness of Breath 10/09/16 02:00 10/14/16 01:59 Amlodipine Besylate (Norvasc) 5 mg DAILY NG 10/09/16 09:00 11/08/16 08:59 10/10/16 08:57 Clonidine HCl (Catapres) 0.2 mg Q4H PRN GT SBP>170 10/08/16 23:00 11/07/16 22:59 Dextrose (Dextrose 50%) STAT PRN IV Hypoglycemia 10/09/16 22:00 11/08/16 21:59 Insulin Aspart (NovoLOG) EVERY 6 HOURS SUBQ 10/09/16 00:00 11/08/16 00:00 10/10/16 18:13 Lactulose (Cephulac) 20 gm EVERY 8 HOURS NG 10/09/16 06:00 11/08/16 05:59 10/10/16 22:08 Morphine Sulfate (Morphine Sulfate) 2 mg Q4H PRN IVP Moderate Pain (Pain Scale 4-6) 10/09/16 01:00 10/16/16 00:59 Morphine Sulfate (Morphine Sulfate) 4 mg Q4H PRN IVP Severe Pain (Pain Scale 7-10) 10/09/16 01:00 10/16/16 00:59 Ondansetron HCl (Zofran) 4 mg Q4H PRN IVP Nausea & Vomiting 10/09/16 01:00 11/08/16 00:59 Rifaximin (Xifaxan) 550 mg EVERY 12 HOURS NG 10/09/16 09:00 10/16/16 08:59 10/10/16 22:09 Vitamin A/Vitamin D (A & D Oint) 1 applic EVERY 12 HOURS TOPIC 10/09/16 09:00 11/08/16 08:59 10/10/16 22:10 KRISTOPHER JACQUES Oct 10, 2016 23:36
[2016-10-11] VITALS: BP 162/75
[2016-10-11 04:00] VITALS: BP 155/76
[2016-10-11] MEDS: Lactulose 20gm/30ml UDC NG SCH ×3 (05:53→22:08)
[2016-10-11] MEDS: NovoLOG Insulin Flexpen SUBQ SCH ×4 (05:57→18:42)
[2016-10-11 07:35] LABS: ALBUMIN/GLOBULIN RATIO 0.5 (1.0-2.7); CALCIUM 8.6 mg/dL (8.6-10.2); CREATININE 2.3 mg/dL (0.7-1.2); GLOMERULAR FILTRATION RATE 28.5 mL/min (>60); POTASSIUM 5.2 mEQ/L (3.4-4.9)
[2016-10-11 08:00] VITALS: BP 126/67
[2016-10-11] MEDS: Rifaximin 550mg tab NG SCH ×2 (09:12→22:08)
[2016-10-11] MEDS: Vitamin A&D Oint 2oz Tube TOPIC SCH ×2 (09:12→22:09)
[2016-10-11 10:08] LABS: MEAN CORPUSCULAR HEMOGLOBIN 33.3 PG (27.0-31.0); MEAN CORPUSCULAR HGB CONC 33.9 G/DL (32.0-36.0); MEAN CORPUSCULAR VOLUME 98 FL (80-99); PLATELET COUNT 45 K/UL (150-450); RED BLOOD COUNT 2.33 M/UL (4.70-6.10); RED CELL DISTRIBUTION WIDTH 22.2 % (11.6-14.8); WHITE BLOOD COUNT 8.1 K/UL (4.8-10.8)
[2016-10-11 11:17] LABS: ANISOCYTOSIS 2+; BAND NEUTROPHILS % (MANUAL) 6 % (0-8); BASOPHILS % (MANUAL) 0 % (0-2); EOSINOPHILS % (MANUAL) 3 % (0-3); HYPOCHROMASIA 1+; LYMPHOCYTES % (MANUAL) 8 % (20-45); NEUTROPHILS % (MANUAL) 70 % (45-75); PLATELET ESTIMATE DECREASED; PLATELET MORPHOLOGY NORMAL; TOTAL CELLS COUNTED 100
[2016-10-11 11:19] LABS: BURR CELLS OCCASIONAL
[2016-10-11] MEDS ORDERED: Sodium Polystyrene Sulfonate 15gm Powder GT ONE (11:30)
[2016-10-11 12:00] VITALS: BP 135/70
--- NOTE | 2016-10-11 12:52 | General Progress Note ---
Progress Note Progress Note Left pigtail continues to drain 700-1000 cc per day CXR 10/10/2016 showed bilateral pleural effusion Recommend bilateral pleurex catheter only if shelter is able to care for the drainage tubes as pleurodesis will fail Continue drainage for now ZELDA FAIRBANKS M.D. Oct 11, 2016 12:52
--- NOTE | 2016-10-11 14:59 | Internal Med Progress Note ---
Subjective Physician Name Jeremiah Light Attending Physician Jeremiah Light MD Current Medications Medications (Trade) Dose Ordered Sig/Morgan Route PRN Reason Start Time Stop Time Status Last Admin Dose Admin Albuterol/ Ipratropium (DuoNeb 0.5-3(2.5)mg/3ml) 3 ml Q4H PRN HHN Shortness of Breath 10/09/16 02:00 10/14/16 01:59 Amlodipine Besylate (Norvasc) 5 mg DAILY NG 10/09/16 09:00 11/08/16 08:59 10/11/16 09:12 Clonidine HCl (Catapres) 0.2 mg Q4H PRN GT SBP>170 10/08/16 23:00 11/07/16 22:59 Dextrose (Dextrose 50%) STAT PRN IV Hypoglycemia 10/09/16 22:00 11/08/16 21:59 Insulin Aspart (NovoLOG) EVERY 6 HOURS SUBQ 10/09/16 00:00 11/08/16 00:00 10/11/16 11:40 Lactulose (Cephulac) 20 gm EVERY 8 HOURS NG 10/09/16 06:00 11/08/16 05:59 10/11/16 13:29 Morphine Sulfate (Morphine Sulfate) 2 mg Q4H PRN IVP Moderate Pain (Pain Scale 4-6) 10/09/16 01:00 10/16/16 00:59 Morphine Sulfate (Morphine Sulfate) 4 mg Q4H PRN IVP Severe Pain (Pain Scale 7-10) 10/09/16 01:00 10/16/16 00:59 Ondansetron HCl (Zofran) 4 mg Q4H PRN IVP Nausea & Vomiting 10/09/16 01:00 11/08/16 00:59 Rifaximin (Xifaxan) 550 mg EVERY 12 HOURS NG 10/09/16 09:00 10/16/16 08:59 10/11/16 09:12 Vitamin A/Vitamin D (A & D Oint) 1 applic EVERY 12 HOURS TOPIC 10/09/16 09:00 11/08/16 08:59 10/11/16 09:12 Allergies: Coded Allergies: No Known Allergies (Unverified , 10/03/16) Subjective unable to open his eyes with deep stimuli, lying in bed, Nodded to questions, NAD, on Venti mask Objective Last Vital Signs Date Time Temp Pulse Resp B/P Pulse Ox O2 Delivery O2 Flow Rate FiO2 10/11/16 12:00 97.7 71 18 135/70 100 Venturi Mask 10.0 10/11/16 07:04 40 Laboratory Tests Test 10/11/16 06:05 10/11/16 09:20 Sodium Level 143 mEQ/L (135-145) Potassium Level 5.2 mEQ/L (3.4-4.9) H Chloride Level 109 mEQ/L (98-107) H Carbon Dioxide Level 24 mEQ/L (20-30) Anion Gap 10 (5-15) Blood Urea Nitrogen 60 mg/dL (7-23) H Creatinine 2.3 mg/dL (0.7-1.2) H Estimat Glomerular Filtration Rate 28.5 mL/min (>60) Glucose Level 146 mg/dL (74-106) H Calcium Level 8.6 mg/dL (8.6-10.2) Total Bilirubin 1.0 mg/dL (0.0-1.2) Aspartate Amino Transf (AST/SGOT) 77 U/L (5-40) H Alanine Aminotransferase (ALT/SGPT) 34 U/L (3-41) Alkaline Phosphatase 183 U/L (40-129) H Total Protein 5.0 g/dL (6.6-8.7) L Albumin 1.7 g/dL (3.5-5.2) L Globulin 3.3 g/dL Albumin/Globulin Ratio 0.5 (1.0-2.7) L White Blood Count 8.1 K/UL (4.8-10.8) Red Blood Count 2.33 M/UL (4.70-6.10) L Hemoglobin 7.7 G/DL (14.2-18.0) L Hematocrit 22.9 % (42.0-52.0) L Mean Corpuscular Volume 98 FL (80-99) Mean Corpuscular Hemoglobin 33.3 PG (27.0-31.0) H Mean Corpuscular Hemoglobin Concent 33.9 G/DL (32.0-36.0) Red Cell Distribution Width 22.2 % (11.6-14.8) H Platelet Count 45 K/UL (150-450) L Mean Platelet Volume 8.0 FL (6.5-10.1) Neutrophils (%) (Auto) % (45.0-75.0) Lymphocytes (%) (Auto) % (20.0-45.0) Monocytes (%) (Auto) % (1.0-10.0) Eosinophils (%) (Auto) % (0.0-3.0) Basophils (%) (Auto) % (0.0-2.0) Differential Total Cells Counted 100 Neutrophils % (Manual) 70 % (45-75) Lymphocytes % (Manual) 8 % (20-45) L Monocytes % (Manual) 13 % (1-10) H Eosinophils % (Manual) 3 % (0-3) Basophils % (Manual) 0 % (0-2) Band Neutrophils 6 % (0-8) Platelet Estimate Decreased L Platelet Morphology Normal Hypochromasia 1+ Anisocytosis 2+ [place] Cells Occasional Intake and Output 10/10/16 10/11/16 19:00 07:00 Intake Total 604 ml 607 ml Output Total 450 ml 1150 ml Balance 154 ml -543 ml Intake Free Water 160 ml 200 ml Tube Feeding 444 ml 407 ml Output Urine Total 150 ml 450 ml Chest Tube Drainage Total 300 ml 700 ml Objective General Appearance: WD/WN, sleepy, Not responsive. EENT: PERRL, anicteric, NG Tube Neck: non-tender, supple, Cardiovascular: normal peripheral pulses, normal rate, regular rhythm, no murmur, Respiratory/Chest: Nasal Canula; Left chest tube; chest wall non-tender, lungs clear, no respiratory distress. Abdomen: + bowel sounds, distended, guarding, not tender, Obesity. White Cath Extremities: decrease edema in UE. No C/C Neurologic: not responsive, unable to F/u with commands, Limited evaluation Skin: normal pigmentation, warm/dry Assessment/Plan Assessment/Plan 1.Sinus tachycardia due to severe anemia, PTX and sepsis. 2. Severe pulmonary hypertension with PA pressure of 58. 3. HTN 4. Pleural effusion and Congestive heart failure with diastolic dysfunction. 5. Liver cirrhosis with Hepatic encephalopathy 6. Type 2 diabetes. 7. Renal failure 8. Anemia with gastrointestinal bleed. 9. Morbid obesity 10. left Pneumothorax 11. thrombocytopenia Plan: Tube feeding Via NG tube, Monitor Labs Lactulose and rifaximin Code status: DNAR No Abx Called daughter Bruno De Paz , left message. Jeremiah Light MD Oct 11, 2016 14:59
--- NOTE | 2016-10-11 15:26 | Cardiac Electrophysiology PN ---
Assessment/Plan Assessment/Plan 1.Sinus tachycardia. Due to severe anemia, PTX and sepsis. Ruled out for GA. EF 60% to 65%. 2. Severe pulmonary hypertension with PA pressure of 58. 3. HTN on Norvasc 5 daily. 4. Pleural effusion and Congestive heart failure with diastolic dysfunction. Chest tube on left side draining. 5. Hepatic encephalopathy due to Cirrhosis of the liver,on lactulose 6. Type 2 diabetes. 7. Renal failure. Per Dr. Langston. 8. Anemia with gastrointestinal bleed. 9. Very poor prognosis. DNR/DNI DW RN, Dr Light and Brunilda Subjective Subjective Unresponsive and lethargic. On Med surge on Oxygen mask. Left chest tube draining. Objective Last 24 Hour Vital Signs Date Time Temp Pulse Resp B/P Pulse Ox O2 Delivery O2 Flow Rate FiO2 10/11/16 12:00 97.7 71 18 135/70 100 Venturi Mask 10.0 10/11/16 09:12 74 126/67 10/11/16 08:00 97.9 74 18 126/67 100 Venturi Mask 10.0 10/11/16 07:04 Venturi Mask 8.0 40 10/11/16 07:04 100 Venturi Mask 8.0 40 10/11/16 07:03 74 17 Venturi Mask 8.0 40 10/11/16 04:00 97.7 73 18 155/76 100 Venturi Mask 10.0 10/11/16 00:00 97.7 74 18 162/75 100 Venturi Mask 10.0 10/10/16 20:00 97.9 72 20 153/73 100 Venturi Mask 10.0 10/10/16 19:14 Venturi Mask 8.0 40 10/10/16 19:14 72 16 Venturi Mask 8.0 40 10/10/16 19:14 100 Venturi Mask 8.0 40 10/10/16 16:00 98.1 71 20 146/60 100 Venturi Mask 10.0 Intake and Output 10/10/16 10/11/16 19:00 07:00 Intake Total 604 ml 607 ml Output Total 450 ml 1150 ml Balance 154 ml -543 ml Intake Free Water 160 ml 200 ml Tube Feeding 444 ml 407 ml Output Urine Total 150 ml 450 ml Chest Tube Drainage Total 300 ml 700 ml Laboratory Tests Test 10/11/16 06:05 10/11/16 09:20 Sodium Level 143 mEQ/L (135-145) Potassium Level 5.2 mEQ/L (3.4-4.9) H Chloride Level 109 mEQ/L (98-107) H Carbon Dioxide Level 24 mEQ/L (20-30) Anion Gap 10 (5-15) Blood Urea Nitrogen 60 mg/dL (7-23) H Creatinine 2.3 mg/dL (0.7-1.2) H Estimat Glomerular Filtration Rate 28.5 mL/min (>60) Glucose Level 146 mg/dL (74-106) H Calcium Level 8.6 mg/dL (8.6-10.2) Total Bilirubin 1.0 mg/dL (0.0-1.2) Aspartate Amino Transf (AST/SGOT) 77 U/L (5-40) H Alanine Aminotransferase (ALT/SGPT) 34 U/L (3-41) Alkaline Phosphatase 183 U/L (40-129) H Total Protein 5.0 g/dL (6.6-8.7) L Albumin 1.7 g/dL (3.5-5.2) L Globulin 3.3 g/dL Albumin/Globulin Ratio 0.5 (1.0-2.7) L White Blood Count 8.1 K/UL (4.8-10.8) Red Blood Count 2.33 M/UL (4.70-6.10) L Hemoglobin 7.7 G/DL (14.2-18.0) L Hematocrit 22.9 % (42.0-52.0) L Mean Corpuscular Volume 98 FL (80-99) Mean Corpuscular Hemoglobin 33.3 PG (27.0-31.0) H Mean Corpuscular Hemoglobin Concent 33.9 G/DL (32.0-36.0) Red Cell Distribution Width 22.2 % (11.6-14.8) H Platelet Count 45 K/UL (150-450) L Mean Platelet Volume 8.0 FL (6.5-10.1) Neutrophils (%) (Auto) % (45.0-75.0) Lymphocytes (%) (Auto) % (20.0-45.0) Monocytes (%) (Auto) % (1.0-10.0) Eosinophils (%) (Auto) % (0.0-3.0) Basophils (%) (Auto) % (0.0-2.0) Differential Total Cells Counted 100 Neutrophils % (Manual) 70 % (45-75) Lymphocytes % (Manual) 8 % (20-45) L Monocytes % (Manual) 13 % (1-10) H Eosinophils % (Manual) 3 % (0-3) Basophils % (Manual) 0 % (0-2) Band Neutrophils 6 % (0-8) Platelet Estimate Decreased L Platelet Morphology Normal Hypochromasia 1+ Anisocytosis 2+ [place] Cells Occasional Objective NECK: Shows no JVD. NG tube in. LUNGS: Coarse rhonchi.Left chest tube in place CARDIOVASCULAR: Tachycardic. S1 and S2 with no gallop or murmur. ABDOMEN: Ascites EXTREMITIES: 2+ pitting edema. MYLES COSME Oct 11, 2016 15:26
[2016-10-11 16:00] VITALS: BP 153/84
--- NOTE | 2016-10-11 16:10 | Nephrology Progress Note ---
Assessment/Plan Problem List: (1) CKD (chronic kidney disease) Assessment: no change (2) Ascites (3) Elevated liver function tests (4) Diabetes mellitus (5) Thrombocytopenia (6) Anemia (7) Hepatic encephalopathy (8) Altered mental state (9) Pneumothorax, left Plan cont lactulose follow BMP Chest Tube Subjective Subjective lethargic/opens eyes when called Objective Objective Last 24 Hour Vital Signs Date Time Temp Pulse Resp B/P Pulse Ox O2 Delivery O2 Flow Rate FiO2 10/11/16 12:00 97.7 71 18 135/70 100 Venturi Mask 10.0 10/11/16 09:12 74 126/67 10/11/16 08:00 97.9 74 18 126/67 100 Venturi Mask 10.0 10/11/16 07:04 Venturi Mask 8.0 40 10/11/16 07:04 100 Venturi Mask 8.0 40 10/11/16 07:03 74 17 Venturi Mask 8.0 40 10/11/16 04:00 97.7 73 18 155/76 100 Venturi Mask 10.0 10/11/16 00:00 97.7 74 18 162/75 100 Venturi Mask 10.0 10/10/16 20:00 97.9 72 20 153/73 100 Venturi Mask 10.0 10/10/16 19:14 Venturi Mask 8.0 40 10/10/16 19:14 72 16 Venturi Mask 8.0 40 10/10/16 19:14 100 Venturi Mask 8.0 40 Intake and Output 10/10/16 10/11/16 19:00 07:00 Intake Total 604 ml 607 ml Output Total 450 ml 1150 ml Balance 154 ml -543 ml Intake Free Water 160 ml 200 ml Tube Feeding 444 ml 407 ml Output Urine Total 150 ml 450 ml Chest Tube Drainage Total 300 ml 700 ml Laboratory Tests 10/11/16 06:05: Sodium Level 143, Potassium Level 5.2H, Chloride Level 109H, Carbon Dioxide Level 24, Anion Gap 10, Blood Urea Nitrogen 60H, Creatinine 2.3H, Estimat Glomerular Filtration Rate 28.5, Glucose Level 146H, Calcium Level 8.6, Total Bilirubin 1.0, Aspartate Amino Transf (AST/SGOT) 77H, Alanine Aminotransferase ( ALT/SGPT) 34, Alkaline Phosphatase 183H, Total Protein 5.0L, Albumin 1.7L, Globulin 3.3, Albumin/Globulin Ratio 0.5L 10/11/16 09:20: White Blood Count 8.1, Red Blood Count 2.33L, Hemoglobin 7.7L, Hematocrit 22.9L , Mean Corpuscular Volume 98, Mean Corpuscular Hemoglobin 33.3H, Mean Corpuscular Hemoglobin Concent 33.9, Red Cell Distribution Width 22.2H, Platelet Count 45L, Mean Platelet Volume 8.0, Neutrophils (%) (Auto) , Lymphocytes (%) (Auto) , Monocytes (%) (Auto) , Eosinophils (%) (Auto) , Basophils (%) (Auto) , Differential Total Cells Counted 100, Neutrophils % ( Manual) 70, Lymphocytes % (Manual) 8L, Monocytes % (Manual) 13H, Eosinophils % ( Manual) 3, Basophils % (Manual) 0, Band Neutrophils 6, Platelet Estimate DecreasedL, Platelet Morphology Normal, Hypochromasia 1+, Anisocytosis 2+, [place] Cells Occasional Height (Feet): 5 Height (Inches): 6.00 Weight (Pounds): 200 Cardiovascular: normal rate Respiratory/Chest: rhonchi - bilaterally Extremities: moderate edema FERNANDO DC Oct 11, 2016 16:10
[2016-10-11 20:00] VITALS: BP 156/65
[2016-10-11] MEDS ORDERED: Sterile Water For Irrig 2000ml IRRIG ONE (21:39)
--- NOTE | 2016-10-11 23:59 | Pulmonology Progress Note ---
Assessment/Plan Problems: (1) Pleural effusion associated with hepatic disorder (2) Coagulopathy (3) Thrombocytopenia (4) Altered mental state Assessment/Plan thoracentesis liver w/u in process rule out malignancy. f/u GI ammonia level Subjective ROS Limited/Unobtainable: No Constitutional: Reports: anorexia, fatigue Respiratory: Reports: dyspnea at rest, productive cough, shortness of breath, wheezing Neurologic: Reports: confusion, weakness Allergies: Coded Allergies: No Known Allergies (Unverified , 10/03/16) Objective Last 24 Hour Vital Signs Date Time Temp Pulse Resp B/P Pulse Ox O2 Delivery O2 Flow Rate FiO2 10/11/16 19:22 76 16 Venturi Mask 8.0 40 10/11/16 19:22 99 Venturi Mask 8.0 40 10/11/16 19:22 Venturi Mask 8.0 40 10/11/16 16:00 98.6 74 19 153/84 96 Venturi Mask 8.0 10/11/16 12:00 97.7 71 18 135/70 100 Venturi Mask 10.0 10/11/16 09:12 74 126/67 10/11/16 08:00 97.9 74 18 126/67 100 Venturi Mask 10.0 10/11/16 07:04 Venturi Mask 8.0 40 10/11/16 07:04 100 Venturi Mask 8.0 40 10/11/16 07:03 74 17 Venturi Mask 8.0 40 10/11/16 04:00 97.7 73 18 155/76 100 Venturi Mask 10.0 10/11/16 00:00 97.7 74 18 162/75 100 Venturi Mask 10.0 Intake and Output 10/10/16 10/11/16 19:00 07:00 Intake Total 604 ml 607 ml Output Total 450 ml 1150 ml Balance 154 ml -543 ml Intake Free Water 160 ml 200 ml Tube Feeding 444 ml 407 ml Output Urine Total 150 ml 450 ml Chest Tube Drainage Total 300 ml 700 ml General Appearance: no acute distress HEENT: normocephalic, atraumatic, PERRL Respiratory/Chest: chest wall non-tender, decreased breath sounds, accessory muscle use, rhonchi Cardiovascular: normal peripheral pulses, normal rate, regular rhythm Abdomen: normal bowel sounds, soft, non tender, no organomegaly Genitourinary: normal external genitalia Extremities: no cyanosis Skin: no rash Neurologic/Psychiatric: provider scribe II-XII grossly normal, responsive, disoriented Laboratory Tests 10/11/16 06:05: Sodium Level 143, Potassium Level 5.2H, Chloride Level 109H, Carbon Dioxide Level 24, Anion Gap 10, Blood Urea Nitrogen 60H, Creatinine 2.3H, Estimat Glomerular Filtration Rate 28.5, Glucose Level 146H, Calcium Level 8.6, Total Bilirubin 1.0, Aspartate Amino Transf (AST/SGOT) 77H, Alanine Aminotransferase ( ALT/SGPT) 34, Alkaline Phosphatase 183H, Total Protein 5.0L, Albumin 1.7L, Globulin 3.3, Albumin/Globulin Ratio 0.5L 10/11/16 09:20: White Blood Count 8.1, Red Blood Count 2.33L, Hemoglobin 7.7L, Hematocrit 22.9L , Mean Corpuscular Volume 98, Mean Corpuscular Hemoglobin 33.3H, Mean Corpuscular Hemoglobin Concent 33.9, Red Cell Distribution Width 22.2H, Platelet Count 45L, Mean Platelet Volume 8.0, Neutrophils (%) (Auto) , Lymphocytes (%) (Auto) , Monocytes (%) (Auto) , Eosinophils (%) (Auto) , Basophils (%) (Auto) , Differential Total Cells Counted 100, Neutrophils % ( Manual) 70, Lymphocytes % (Manual) 8L, Monocytes % (Manual) 13H, Eosinophils % ( Manual) 3, Basophils % (Manual) 0, Band Neutrophils 6, Platelet Estimate DecreasedL, Platelet Morphology Normal, Hypochromasia 1+, Anisocytosis 2+, Merari Cells Occasional Current Medications Medications (Trade) Dose Ordered Sig/Morgan Route PRN Reason Start Time Stop Time Status Last Admin Dose Admin Albuterol/ Ipratropium (DuoNeb 0.5-3(2.5)mg/3ml) 3 ml Q4H PRN HHN Shortness of Breath 10/09/16 02:00 10/14/16 01:59 Amlodipine Besylate (Norvasc) 5 mg DAILY NG 10/09/16 09:00 11/08/16 08:59 10/11/16 09:12 Clonidine HCl (Catapres) 0.2 mg Q4H PRN GT SBP>170 10/08/16 23:00 11/07/16 22:59 Dextrose (Dextrose 50%) STAT PRN IV Hypoglycemia 10/09/16 22:00 11/08/16 21:59 Insulin Aspart (NovoLOG) EVERY 6 HOURS SUBQ 10/09/16 00:00 11/08/16 00:00 10/11/16 18:42 Lactulose (Cephulac) 20 gm EVERY 8 HOURS NG 10/09/16 06:00 11/08/16 05:59 10/11/16 22:08 Morphine Sulfate (Morphine Sulfate) 2 mg Q4H PRN IVP Moderate Pain (Pain Scale 4-6) 10/09/16 01:00 10/16/16 00:59 Morphine Sulfate (Morphine Sulfate) 4 mg Q4H PRN IVP Severe Pain (Pain Scale 7-10) 10/09/16 01:00 10/16/16 00:59 Ondansetron HCl (Zofran) 4 mg Q4H PRN IVP Nausea & Vomiting 10/09/16 01:00 11/08/16 00:59 Rifaximin (Xifaxan) 550 mg EVERY 12 HOURS NG 10/09/16 09:00 10/16/16 08:59 10/11/16 22:08 Vitamin A/Vitamin D (A & D Oint) 1 applic EVERY 12 HOURS TOPIC 10/09/16 09:00 11/08/16 08:59 10/11/16 22:09 KRISTOPHER JACQUES Oct 11, 2016 23:59
[2016-10-12] VITALS: BP 139/72
[2016-10-12] MEDS: Lactulose 20gm/30ml UDC NG SCH ×3 (06:24→22:00)
[2016-10-12] MEDS: NovoLOG Insulin Flexpen SUBQ SCH ×4 (06:25→18:00)
[2016-10-12 07:12] VITALS: BP 125/66
[2016-10-12 08:00] VITALS: BP 138/73
[2016-10-12 09:08] LABS: CALCIUM 8.5 mg/dL (8.6-10.2); CREATININE 2.1 mg/dL (0.7-1.2); GLOMERULAR FILTRATION RATE 31.7 mL/min (>60); POTASSIUM 4.6 mEQ/L (3.4-4.9)
[2016-10-12] MEDS: Vitamin A&D Oint 2oz Tube TOPIC SCH ×2 (09:08→20:39)
[2016-10-12] MEDS: Rifaximin 550mg tab NG SCH ×2 (09:08→20:39)
[2016-10-12 12:00] VITALS: BP 123/61
--- NOTE | 2016-10-12 12:10 | General Progress Note ---
Progress Note Progress Note Left pigtail catheter removed. Patient tolerated well. Comfort care. ZELDA FAIRBANKS M.D. Oct 12, 2016 12:10
--- NOTE | 2016-10-12 14:45 | Cardiac Electrophysiology PN ---
Assessment/Plan Assessment/Plan 1.Sinus tachycardia. Due to severe anemia, PTX and sepsis. Ruled out for [place]. EF 60% to 65%. 2. Severe pulmonary hypertension with PA pressure of 58. 3. HTN on Norvasc 5 daily. 4. Pleural effusion,with diastolic dysfunction. Chest tube on left side removed. 5. Hepatic encephalopathy due to Cirrhosis of the liver,on lactulose 6. Type 2 diabetes. 7. Renal failure. Per Dr. Langston. 8. Anemia with gastrointestinal bleed. 9. Very poor prognosis. DNR/DNI/comfort care DW RN Subjective Subjective Unresponsive and lethargic. On Med surge on Oxygen mask. Left chest tube was removed today. Patient now comfort care per RN. Objective Last 24 Hour Vital Signs Date Time Temp Pulse Resp B/P Pulse Ox O2 Delivery O2 Flow Rate FiO2 10/12/16 12:00 98.2 80 18 123/61 93 Venturi Mask 10.0 10/12/16 11:51 Venturi Mask 8.0 40 10/12/16 11:50 100 Venturi Mask 8.0 40 10/12/16 11:50 74 17 Venturi Mask 8.0 40 10/12/16 09:08 81 138/73 10/12/16 08:00 97.7 81 18 138/73 99 Venturi Mask 10.0 10/12/16 07:12 97.2 73 20 125/66 100 10/12/16 00:00 97.0 71 20 139/72 100 Room Air 10/11/16 20:00 97.7 74 20 156/65 100 Venturi Mask 10.0 10/11/16 19:22 76 16 Venturi Mask 8.0 40 10/11/16 19:22 99 Venturi Mask 8.0 40 10/11/16 19:22 Venturi Mask 8.0 40 10/11/16 16:00 98.6 74 19 153/84 96 Venturi Mask 8.0 Intake and Output 10/11/16 10/12/16 19:00 07:00 Intake Total 644 ml 544 ml Output Total 200 ml 1670 ml Balance 444 ml -1126 ml Intake Free Water 200 ml 100 ml Tube Feeding 444 ml 444 ml Output Urine Total 300 ml Chest Tube Drainage Total 200 ml 1370 ml Laboratory Tests Test 10/12/16 08:10 Sodium Level 145 mEQ/L (135-145) Potassium Level 4.6 mEQ/L (3.4-4.9) Chloride Level 110 mEQ/L (98-107) H Carbon Dioxide Level 27 mEQ/L (20-30) Anion Gap 8 (5-15) Blood Urea Nitrogen 62 mg/dL (7-23) H Creatinine 2.1 mg/dL (0.7-1.2) H Estimat Glomerular Filtration Rate 31.7 mL/min (>60) Glucose Level 137 mg/dL (74-106) H Calcium Level 8.5 mg/dL (8.6-10.2) L Ammonia 52 umol/L (16-60) Objective NECK: Shows no JVD. NG tube in. LUNGS: Coarse rhonchi.Left chest tube removed. Site covered. CARDIOVASCULAR: Tachycardic. S1 and S2 with no gallop or murmur. ABDOMEN: Ascites EXTREMITIES: 2+ pitting edema. MYLES COSME Oct 12, 2016 14:45
--- NOTE | 2016-10-12 15:33 | Nephrology Progress Note ---
Assessment/Plan Problem List: (1) CKD (chronic kidney disease) Assessment: no change (2) Ascites (3) Elevated liver function tests (4) Diabetes mellitus (5) Thrombocytopenia (6) Anemia (7) Hepatic encephalopathy (8) Altered mental state (9) Pneumothorax, left Plan same meds consider transfusion follow labs Subjective Subjective In NAD Chest tube is out Objective Objective Last 24 Hour Vital Signs Date Time Temp Pulse Resp B/P Pulse Ox O2 Delivery O2 Flow Rate FiO2 10/12/16 12:00 98.2 80 18 123/61 93 Venturi Mask 10.0 10/12/16 11:51 Venturi Mask 8.0 40 10/12/16 11:50 100 Venturi Mask 8.0 40 10/12/16 11:50 74 17 Venturi Mask 8.0 40 10/12/16 09:08 81 138/73 10/12/16 08:00 97.7 81 18 138/73 99 Venturi Mask 10.0 10/12/16 07:12 97.2 73 20 125/66 100 10/12/16 00:00 97.0 71 20 139/72 100 Room Air 10/11/16 20:00 97.7 74 20 156/65 100 Venturi Mask 10.0 10/11/16 19:22 76 16 Venturi Mask 8.0 40 10/11/16 19:22 99 Venturi Mask 8.0 40 10/11/16 19:22 Venturi Mask 8.0 40 10/11/16 16:00 98.6 74 19 153/84 96 Venturi Mask 8.0 Intake and Output 10/11/16 10/12/16 19:00 07:00 Intake Total 644 ml 544 ml Output Total 200 ml 1670 ml Balance 444 ml -1126 ml Intake Free Water 200 ml 100 ml Tube Feeding 444 ml 444 ml Output Urine Total 300 ml Chest Tube Drainage Total 200 ml 1370 ml Laboratory Tests 10/12/16 08:10: Sodium Level 145, Potassium Level 4.6, Chloride Level 110H, Carbon Dioxide Level 27, Anion Gap 8, Blood Urea Nitrogen 62H, Creatinine 2.1H, Estimat Glomerular Filtration Rate 31.7, Glucose Level 137H, Calcium Level 8.5L, Ammonia 52 Height (Feet): 5 Height (Inches): 6.00 Weight (Pounds): 200 Cardiovascular: normal rate Respiratory/Chest: lungs clear Extremities: moderate edema FERNANDO DC Oct 12, 2016 15:33
[2016-10-12 16:42] VITALS: BP 122/62
[2016-10-12 20:50] VITALS: BP 125/65
--- NOTE | 2016-10-12 21:13 | Internal Med Progress Note ---
Subjective Physician Name Jeremiah Light Attending Physician Jeremiah Light MD Current Medications Medications (Trade) Dose Ordered Sig/Morgan Route PRN Reason Start Time Stop Time Status Last Admin Dose Admin Albuterol/ Ipratropium (DuoNeb 0.5-3(2.5)mg/3ml) 3 ml Q4H PRN HHN Shortness of Breath 10/09/16 02:00 10/14/16 01:59 Amlodipine Besylate (Norvasc) 5 mg DAILY NG 10/09/16 09:00 11/08/16 08:59 10/12/16 09:08 Clonidine HCl (Catapres) 0.2 mg Q4H PRN GT SBP>170 10/08/16 23:00 11/07/16 22:59 Dextrose (Dextrose 50%) STAT PRN IV Hypoglycemia 10/09/16 22:00 11/08/16 21:59 Insulin Aspart (NovoLOG) EVERY 6 HOURS SUBQ 10/09/16 00:00 11/08/16 00:00 10/12/16 12:19 Lactulose (Cephulac) 20 gm EVERY 8 HOURS NG 10/09/16 06:00 11/08/16 05:59 10/12/16 06:24 Morphine Sulfate (Morphine Sulfate) 2 mg Q4H PRN IVP Moderate Pain (Pain Scale 4-6) 10/09/16 01:00 10/16/16 00:59 Morphine Sulfate (Morphine Sulfate) 4 mg Q4H PRN IVP Severe Pain (Pain Scale 7-10) 10/09/16 01:00 10/16/16 00:59 Ondansetron HCl (Zofran) 4 mg Q4H PRN IVP Nausea & Vomiting 10/09/16 01:00 11/08/16 00:59 Rifaximin (Xifaxan) 550 mg EVERY 12 HOURS NG 10/09/16 09:00 10/16/16 08:59 10/12/16 20:39 Vitamin A/Vitamin D (A & D Oint) 1 applic EVERY 12 HOURS TOPIC 10/09/16 09:00 11/08/16 08:59 10/12/16 20:39 Allergies: Coded Allergies: No Known Allergies (Unverified , 10/03/16) Subjective unable to open his eyes with deep stimuli, lying in bed, Nodded to questions, NAD, on Venti mask Objective Last Vital Signs Date Time Temp Pulse Resp B/P Pulse Ox O2 Delivery O2 Flow Rate FiO2 10/12/16 20:50 98.1 78 19 125/65 98 Simple Mask 10/12/16 19:16 8.0 40 Laboratory Tests Test 10/12/16 08:10 Sodium Level 145 mEQ/L (135-145) Potassium Level 4.6 mEQ/L (3.4-4.9) Chloride Level 110 mEQ/L (98-107) H Carbon Dioxide Level 27 mEQ/L (20-30) Anion Gap 8 (5-15) Blood Urea Nitrogen 62 mg/dL (7-23) H Creatinine 2.1 mg/dL (0.7-1.2) H Estimat Glomerular Filtration Rate 31.7 mL/min (>60) Glucose Level 137 mg/dL (74-106) H Calcium Level 8.5 mg/dL (8.6-10.2) L Ammonia 52 umol/L (16-60) Intake and Output 10/11/16 10/12/16 19:00 07:00 Intake Total 644 ml 544 ml Output Total 200 ml 1670 ml Balance 444 ml -1126 ml Intake Free Water 200 ml 100 ml Tube Feeding 444 ml 444 ml Output Urine Total 300 ml Chest Tube Drainage Total 200 ml 1370 ml Objective General Appearance: WD/WN, minimal response. EENT: PERRL, anicteric, NG Tube Neck: non-tender, supple, Cardiovascular: normal peripheral pulses, normal rate, regular rhythm, no murmur, Respiratory/Chest: Nasal Canula; Left chest tube removed; chest wall non-tender , lungs clear, no respiratory distress. Abdomen: + bowel sounds, distended, guarding, not tender, Obesity. White Cath Extremities: decrease edema in UE. No C/C Neurologic: not responsive, unable to F/u with commands, Limited evaluation Skin: normal pigmentation, warm/dry Assessment/Plan Assessment/Plan 1.Sinus tachycardia due to severe anemia, PTX and sepsis. 2. Severe pulmonary hypertension with PA pressure of 58. 3. HTN 4. Pleural effusion and Congestive heart failure with diastolic dysfunction. 5. Liver cirrhosis with Hepatic encephalopathy 6. Type 2 diabetes. 7. Renal failure 8. Anemia with gastrointestinal bleed. 9. Morbid obesity 10. left Pneumothorax 11. thrombocytopenia Plan: Tube feeding Via NG tube, Monitor Labs Lactulose and rifaximin Code status: DNAR No Abx Discuss daughter (DPCLOVIS) Zandra , over the phone confirmed DNR / DNI and possible hospice soon. Very poor prognosis. DNR/DNI/comfort care DC Planning to SNF in . Jeremiah Light MD Oct 12, 2016 21:13
--- NOTE | 2016-10-12 23:27 | Consultation ---
History of Present Illness General Chief Complaint: Abdominal Pain Referring physician: dr Light Reason for Consultation: bialteral pleural effsuion Present Illness Allergies: Coded Allergies: No Known Allergies (Unverified , 10/03/16) Medication History Scheduled Amlodipine Besylate* (Amlodipine Besylate*), 5 MG ORAL DAILY, (Reported) Insulin Aspart (Novolog), 100 UNIT SQ BEFORE MEALS AND HS, (Reported) Lactulose (Lactulose*), 20 ML ORAL Q8HR, (Reported) Rifaximin* (Xifaxan*), 550 MG ORAL TWICE A DAY, (Reported) Vits A and D/White Pet/Lanolin (A And D Ointment), 42.5 GM TP Q12HR, (Reported) Scheduled PRN Clonidine HCl (Clonidine HCl), 0.2 MG GT Q4HR PRN for For High Blood Pressure, ( Reported) Hydrocodone Bit/Acetaminophen 5-325* ([place] 5-325 Tablet*), 1 TAB ORAL Q6HR PRN for For Pain, (Reported) Ondansetron* (Zofran*), 4 MG IV Q4HR PRN for Nausea & Vomiting, (Reported) Patient History Healthcare decision maker pt's dtr Resuscitation status Full Code Advanced Directive on File Physical Exam Last 24 Hour Vital Signs Date Time Temp Pulse Resp B/P Pulse Ox O2 Delivery O2 Flow Rate FiO2 10/12/16 20:50 98.1 78 19 125/65 98 Simple Mask 10/12/16 19:16 99 Venturi Mask 8.0 40 10/12/16 19:16 Venturi Mask 8.0 40 10/12/16 19:16 79 18 Venturi Mask 8.0 40 10/12/16 16:42 97.9 76 18 122/62 100 Simple Mask 10/12/16 12:00 98.2 80 18 123/61 93 Venturi Mask 10.0 10/12/16 11:51 Venturi Mask 8.0 40 10/12/16 11:50 100 Venturi Mask 8.0 40 10/12/16 11:50 74 17 Venturi Mask 8.0 40 10/12/16 09:08 81 138/73 10/12/16 08:00 97.7 81 18 138/73 99 Venturi Mask 10.0 10/12/16 07:12 97.2 73 20 125/66 100 10/12/16 00:00 97.0 71 20 139/72 100 Room Air Intake and Output 10/11/16 10/12/16 19:00 07:00 Intake Total 644 ml 544 ml Output Total 200 ml 1670 ml Balance 444 ml -1126 ml Free Water 200 ml 100 ml Tube Feeding 444 ml 444 ml Output Urine Total 300 ml Chest Tube Drainage Total 200 ml 1370 ml Laboratory Tests Test 10/12/16 08:10 Sodium Level 145 mEQ/L (135-145) Potassium Level 4.6 mEQ/L (3.4-4.9) Chloride Level 110 mEQ/L (98-107) H Carbon Dioxide Level 27 mEQ/L (20-30) Anion Gap 8 (5-15) Blood Urea Nitrogen 62 mg/dL (7-23) H Creatinine 2.1 mg/dL (0.7-1.2) H Estimat Glomerular Filtration Rate 31.7 mL/min (>60) Glucose Level 137 mg/dL (74-106) H Calcium Level 8.5 mg/dL (8.6-10.2) L Ammonia 52 umol/L (16-60) Height (Feet): 5 Height (Inches): 6.00 Weight (Pounds): 200 Medications Current Medications Medications (Trade) Dose Ordered Sig/Morgan Route PRN Reason Start Time Stop Time Status Last Admin Dose Admin Albuterol/ Ipratropium (DuoNeb 0.5-3(2.5)mg/3ml) 3 ml Q4H PRN HHN Shortness of Breath 10/09/16 02:00 10/14/16 01:59 Amlodipine Besylate (Norvasc) 5 mg DAILY NG 10/09/16 09:00 11/08/16 08:59 10/12/16 09:08 Clonidine HCl (Catapres) 0.2 mg Q4H PRN GT SBP>170 10/08/16 23:00 11/07/16 22:59 Dextrose (Dextrose 50%) STAT PRN IV Hypoglycemia 10/09/16 22:00 11/08/16 21:59 Insulin Aspart (NovoLOG) EVERY 6 HOURS SUBQ 10/09/16 00:00 11/08/16 00:00 10/12/16 12:19 Lactulose (Cephulac) 20 gm EVERY 8 HOURS NG 10/09/16 06:00 11/08/16 05:59 10/12/16 06:24 Morphine Sulfate (Morphine Sulfate) 2 mg Q4H PRN IVP Moderate Pain (Pain Scale 4-6) 10/09/16 01:00 10/16/16 00:59 Morphine Sulfate (Morphine Sulfate) 4 mg Q4H PRN IVP Severe Pain (Pain Scale 7-10) 10/09/16 01:00 10/16/16 00:59 Ondansetron HCl (Zofran) 4 mg Q4H PRN IVP Nausea & Vomiting 10/09/16 01:00 11/08/16 00:59 Rifaximin (Xifaxan) 550 mg EVERY 12 HOURS NG 10/09/16 09:00 10/16/16 08:59 10/12/16 20:39 Vitamin A/Vitamin D (A & D Oint) 1 applic EVERY 12 HOURS TOPIC 10/09/16 09:00 11/08/16 08:59 10/12/16 20:39 Assessment/Plan Problem List: (1) Pleural effusion associated with hepatic disorder ICD Codes: K76.9 - Liver disease, unspecified; J91.8 - Pleural effusion in other conditions classified elsewhere SNOMED: 87715609 (2) Coagulopathy ICD Codes: D68.9 - Coagulation defect, unspecified SNOMED: 16347155 (3) Thrombocytopenia ICD Codes: D69.6 - Thrombocytopenia, unspecified SNOMED: 444548178 (4) Altered mental state ICD Codes: R41.82 - Altered mental status, unspecified SNOMED: 892533496 Qualifiers: Qualified Codes: R41.0 - Disorientation, unspecified KRISTOPHER JACQUES Oct 12, 2016 23:27
--- NOTE | 2016-10-12 23:30 | Pulmonology Progress Note ---
Assessment/Plan Problems: (1) Pleural effusion associated with hepatic disorder (2) Coagulopathy (3) Thrombocytopenia (4) Altered mental state Assessment/Plan thoracentesis liver w/u in process rule out malignancy. f/u GI ammonia level Subjective ROS Limited/Unobtainable: Yes Respiratory: Reports: productive cough Gastrointestinal/Abdominal: Reports: bloating, nausea Neurologic: Reports: confusion, weakness Allergies: Coded Allergies: No Known Allergies (Unverified , 10/03/16) Objective Last 24 Hour Vital Signs Date Time Temp Pulse Resp B/P Pulse Ox O2 Delivery O2 Flow Rate FiO2 10/12/16 20:50 98.1 78 19 125/65 98 Simple Mask 10/12/16 19:16 99 Venturi Mask 8.0 40 10/12/16 19:16 Venturi Mask 8.0 40 10/12/16 19:16 79 18 Venturi Mask 8.0 40 10/12/16 16:42 97.9 76 18 122/62 100 Simple Mask 10/12/16 12:00 98.2 80 18 123/61 93 Venturi Mask 10.0 10/12/16 11:51 Venturi Mask 8.0 40 10/12/16 11:50 100 Venturi Mask 8.0 40 10/12/16 11:50 74 17 Venturi Mask 8.0 40 10/12/16 09:08 81 138/73 10/12/16 08:00 97.7 81 18 138/73 99 Venturi Mask 10.0 10/12/16 07:12 97.2 73 20 125/66 100 10/12/16 00:00 97.0 71 20 139/72 100 Room Air Intake and Output 10/11/16 10/12/16 19:00 07:00 Intake Total 644 ml 544 ml Output Total 200 ml 1670 ml Balance 444 ml -1126 ml Free Water 200 ml 100 ml Tube Feeding 444 ml 444 ml Output Urine Total 300 ml Chest Tube Drainage Total 200 ml 1370 ml General Appearance: no acute distress HEENT: normocephalic, atraumatic, PERRL Respiratory/Chest: chest wall non-tender, decreased breath sounds, accessory muscle use, rhonchi Cardiovascular: normal peripheral pulses, normal rate, regular rhythm, no JVD Abdomen: hyperactive bowel sounds, distended, guarding, tender, rebound tenderness, mass Genitourinary: normal external genitalia Skin: no rash, no lesions Neurologic/Psychiatric: treater II-XII grossly normal, responsive, disoriented Laboratory Tests 10/12/16 08:10: Sodium Level 145, Potassium Level 4.6, Chloride Level 110H, Carbon Dioxide Level 27, Anion Gap 8, Blood Urea Nitrogen 62H, Creatinine 2.1H, Estimat Glomerular Filtration Rate 31.7, Glucose Level 137H, Calcium Level 8.5L, Ammonia 52 Current Medications Medications (Trade) Dose Ordered Sig/Morgan Route PRN Reason Start Time Stop Time Status Last Admin Dose Admin Albuterol/ Ipratropium (DuoNeb 0.5-3(2.5)mg/3ml) 3 ml Q4H PRN HHN Shortness of Breath 10/09/16 02:00 10/14/16 01:59 Amlodipine Besylate (Norvasc) 5 mg DAILY NG 10/09/16 09:00 11/08/16 08:59 10/12/16 09:08 Clonidine HCl (Catapres) 0.2 mg Q4H PRN GT SBP>170 10/08/16 23:00 11/07/16 22:59 Dextrose (Dextrose 50%) STAT PRN IV Hypoglycemia 10/09/16 22:00 11/08/16 21:59 Insulin Aspart (NovoLOG) EVERY 6 HOURS SUBQ 10/09/16 00:00 11/08/16 00:00 10/12/16 12:19 Lactulose (Cephulac) 20 gm EVERY 8 HOURS NG 10/09/16 06:00 11/08/16 05:59 10/12/16 06:24 Morphine Sulfate (Morphine Sulfate) 2 mg Q4H PRN IVP Moderate Pain (Pain Scale 4-6) 10/09/16 01:00 10/16/16 00:59 Morphine Sulfate (Morphine Sulfate) 4 mg Q4H PRN IVP Severe Pain (Pain Scale 7-10) 10/09/16 01:00 10/16/16 00:59 Ondansetron HCl (Zofran) 4 mg Q4H PRN IVP Nausea & Vomiting 10/09/16 01:00 11/08/16 00:59 Rifaximin (Xifaxan) 550 mg EVERY 12 HOURS NG 10/09/16 09:00 10/16/16 08:59 10/12/16 20:39 Vitamin A/Vitamin D (A & D Oint) 1 applic EVERY 12 HOURS TOPIC 10/09/16 09:00 11/08/16 08:59 10/12/16 20:39 KRISTOPHER JACQUES Oct 12, 2016 23:30
[2016-10-13] VITALS: BP 124/59
[2016-10-13 04:00] VITALS: BP 133/65
[2016-10-13] MEDS: NovoLOG Insulin Flexpen SUBQ SCH ×5 (05:25→21:33)
[2016-10-13] MEDS: Lactulose 20gm/30ml UDC NG SCH ×4 (05:45→21:24)
[2016-10-13 08:00] VITALS: BP 133/70
[2016-10-13] MEDS: Rifaximin 550mg tab NG SCH ×2 (09:00→21:24)
[2016-10-13] MEDS: Vitamin A&D Oint 2oz Tube TOPIC SCH ×2 (09:10→21:24)
--- NOTE | 2016-10-13 11:32 | Internal Med Progress Note ---
Subjective Date of Service: Oct 13, 2016 Physician Name Rafiq Florentino Attending Physician Jeremiah Light MD Current Medications Medications (Trade) Dose Ordered Sig/Morgan Route PRN Reason Start Time Stop Time Status Last Admin Dose Admin Albuterol/ Ipratropium (DuoNeb 0.5-3(2.5)mg/3ml) 3 ml Q4H PRN HHN Shortness of Breath 10/09/16 02:00 10/14/16 01:59 Amlodipine Besylate (Norvasc) 5 mg DAILY NG 10/09/16 09:00 11/08/16 08:59 10/12/16 09:08 Clonidine HCl (Catapres) 0.2 mg Q4H PRN GT SBP>170 10/08/16 23:00 11/07/16 22:59 Dextrose (Dextrose 50%) STAT PRN IV Hypoglycemia 10/09/16 22:00 11/08/16 21:59 Insulin Aspart (NovoLOG) EVERY 6 HOURS SUBQ 10/09/16 00:00 11/08/16 00:00 10/12/16 12:19 Lactulose (Cephulac) 20 gm EVERY 8 HOURS NG 10/09/16 06:00 11/08/16 05:59 10/12/16 06:24 Morphine Sulfate (Morphine Sulfate) 2 mg Q4H PRN IVP Moderate Pain (Pain Scale 4-6) 10/09/16 01:00 10/16/16 00:59 Morphine Sulfate (Morphine Sulfate) 4 mg Q4H PRN IVP Severe Pain (Pain Scale 7-10) 10/09/16 01:00 10/16/16 00:59 Ondansetron HCl (Zofran) 4 mg Q4H PRN IVP Nausea & Vomiting 10/09/16 01:00 11/08/16 00:59 Rifaximin (Xifaxan) 550 mg EVERY 12 HOURS NG 10/09/16 09:00 10/16/16 08:59 10/12/16 20:39 Vitamin A/Vitamin D (A & D Oint) 1 applic EVERY 12 HOURS TOPIC 10/09/16 09:00 11/08/16 08:59 10/13/16 09:10 Allergies: Coded Allergies: No Known Allergies (Unverified , 10/03/16) ROS Limited/Unobtainable: Yes Subjective 66 YO M admitted with abdominal pain and encephalopathy. Cover for Int Med-Dr Light. S/P left thoracentesis on 10/07/16. Now left pneumothorax; S/P chest tube. Await transfer to residential facility. On venti mask Objective Last Vital Signs Date Time Temp Pulse Resp B/P Pulse Ox O2 Delivery O2 Flow Rate FiO2 10/13/16 08:00 98.1 83 18 133/70 92 Venturi Mask 10.0 10/13/16 07:42 40 Intake and Output 10/12/16 10/13/16 19:00 07:00 Intake Total 141 ml 340 ml Output Total 1780 ml 500 ml Balance -1639 ml -160 ml Intake Oral 340 ml Free Water 30 ml Tube Feeding 111 ml Output Urine Total 100 ml 500 ml Chest Tube Drainage Total 1680 ml # Bowel Movements 1 Objective General Appearance: WD/WN, alert, mild distress EENT: PERRL/EOMI, normal ENT inspection Neck: non-tender, normal alignment, supple, normal inspection Cardiovascular: normal peripheral pulses, normal rate, regular rhythm, no gallop/murmur, no JVD Respiratory/Chest: Venti Mask; Left chest tube; chest wall non-tender, lungs clear, no respiratory distress, no accessory muscle use Abdomen: decreased bowel sounds, distended, guarding, tender Extremities: normal range of motion Neurologic: front office attendant II-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 (3) Elevated liver function tests (4) CHF (congestive heart failure) (5) Diabetes mellitus Assessment & Plan: Cont novolog sliding scale (6) HTN (hypertension) Assessment & Plan: Continue amlodipine and clonidine. (7) Renal failure (8) Anemia (9) Hepatic encephalopathy Assessment & Plan: Continue Xifaxan (10) Ascites Assessment & Plan: Paracentesis on hold due to thrombocytopenia. (11) Thrombocytopenia (12) Pleural effusion associated with hepatic disorder Assessment & Plan: Left. S/P thoracentesis 10/07/16. 3 Liters fluid removed. (13) Pneumothorax, left Assessment & Plan: S/P left chest tube. Status: not improved Assessment/Plan Transfer to residential facility when bed available. RAFIQ FLORENTINO Oct 13, 2016 11:32
[2016-10-13 12:04] VITALS: BP 125/61
--- NOTE | 2016-10-13 12:31 | Nephrology Progress Note ---
Assessment/Plan Problem List: (1) CKD (chronic kidney disease) Assessment: no change (2) Ascites (3) Elevated liver function tests (4) Diabetes mellitus (5) Thrombocytopenia (6) Anemia Assessment: worse (7) Hepatic encephalopathy (8) Altered mental state (9) Pneumothorax, left Assessment no labs today Plan same meds consider transfusion follow labs Subjective Subjective In NAD Feels fine Objective Objective Last 24 Hour Vital Signs Date Time Temp Pulse Resp B/P Pulse Ox O2 Delivery O2 Flow Rate FiO2 10/13/16 12:04 97.9 70 18 125/61 93 Room Air 10/13/16 08:00 98.1 83 18 133/70 92 Venturi Mask 10.0 10/13/16 07:42 81 18 Venturi Mask 8.0 40 10/13/16 07:42 Venturi Mask 8.0 40 10/13/16 07:42 99 Venturi Mask 8.0 40 10/13/16 04:00 98.1 79 18 133/65 98 Simple Mask 10/13/16 00:00 98.2 79 18 124/59 91 Room Air 10/12/16 20:50 98.1 78 19 125/65 98 Simple Mask 10/12/16 19:16 99 Venturi Mask 8.0 40 10/12/16 19:16 Venturi Mask 8.0 40 10/12/16 19:16 79 18 Venturi Mask 8.0 40 10/12/16 16:42 97.9 76 18 122/62 100 Simple Mask Intake and Output 10/12/16 10/13/16 19:00 07:00 Intake Total 141 ml 340 ml Output Total 1780 ml 500 ml Balance -1639 ml -160 ml Intake Oral 340 ml Free Water 30 ml Tube Feeding 111 ml Output Urine Total 100 ml 500 ml Chest Tube Drainage Total 1680 ml # Bowel Movements 1 Height (Feet): 5 Height (Inches): 6.00 Weight (Pounds): 200 Cardiovascular: normal rate Respiratory/Chest: lungs clear Extremities: moderate edema FERNANDO DC Oct 13, 2016 12:31
--- NOTE | 2016-10-13 13:21 | GI Progress Note ---
Assessment/Plan Problems: (1) Ascites ICD Codes: R18.8 - Other ascites SNOMED: 995616206 (2) Elevated liver function tests ICD Codes: R94.5 - Abnormal results of liver function studies SNOMED: 687575708 (3) Altered mental status ICD Codes: R41.82 - Altered mental status, unspecified SNOMED: 468564223 (4) Cirrhosis of liver ICD Codes: K74.60 - Unspecified cirrhosis of liver SNOMED: 07816873 (5) Diabetes mellitus ICD Codes: E11.9 - Type 2 diabetes mellitus without complications SNOMED: 09133854 (6) Abdominal pain ICD Codes: R10.9 - Unspecified abdominal pain SNOMED: 18419724 Qualifiers: Qualified Codes: R10.84 - Generalized abdominal pain (7) Anemia ICD Codes: D64.9 - Anemia, unspecified SNOMED: 775413677 Qualifiers: Qualified Codes: D64.9 - Anemia, unspecified (8) Hepatic encephalopathy ICD Codes: K72.90 - Hepatic failure, unspecified without coma SNOMED: 31704814 (9) Thrombocytopenia ICD Codes: D69.6 - Thrombocytopenia, unspecified SNOMED: 780088892 (10) Coagulopathy ICD Codes: D68.9 - Coagulation defect, unspecified SNOMED: 57285303 Status: progressing Status Narrative Discussed with Dr. Ly. Assessment/Plan APCT >> Small and nodular liver consistent with cirrhosis. TIPS shunt not adequately evaluated without contrast, see full report below. OB stool negative AFP WNL Hep panel negative abdominal US >> Evidence of hepatic cirrhosis, also previously described. Patent TIPS shunt, normal velocities monitor H&H, transfuse prn FLD, adv as tolerated elevated ammonia >> lactulose + Xifaxan ppi fu labs Subjective Subjective limited Objective Last 24 Hour Vital Signs Date Time Temp Pulse Resp B/P Pulse Ox O2 Delivery O2 Flow Rate FiO2 10/13/16 12:04 97.9 70 18 125/61 93 Room Air 10/13/16 08:00 98.1 83 18 133/70 92 Venturi Mask 10.0 10/13/16 07:42 81 18 Venturi Mask 8.0 40 10/13/16 07:42 Venturi Mask 8.0 40 10/13/16 07:42 99 Venturi Mask 8.0 40 10/13/16 04:00 98.1 79 18 133/65 98 Simple Mask 10/13/16 00:00 98.2 79 18 124/59 91 Room Air 10/12/16 20:50 98.1 78 19 125/65 98 Simple Mask 10/12/16 19:16 99 Venturi Mask 8.0 40 10/12/16 19:16 Venturi Mask 8.0 40 10/12/16 19:16 79 18 Venturi Mask 8.0 40 10/12/16 16:42 97.9 76 18 122/62 100 Simple Mask Intake and Output 10/12/16 10/13/16 19:00 07:00 Intake Total 141 ml 340 ml Output Total 1780 ml 500 ml Balance -1639 ml -160 ml Intake Oral 340 ml Free Water 30 ml Tube Feeding 111 ml Output Urine Total 100 ml 500 ml Chest Tube Drainage Total 1680 ml # Bowel Movements 1 Height (Feet): 5 Height (Inches): 6.00 Weight (Pounds): 200 General Appearance: no apparent distress, alert - more awake today, not altered Cardiovascular: normal rate Respiratory/Chest: lungs clear, normal breath sounds Abdominal Exam: normal bowel sounds, non tender, soft Objective Service Date: 10/04/16 Procedure: CT Abdomen Pelvis WO Contrast Indication: Hepatic encephalopathy and abdominal pain Impression: Moderate bilateral pleural effusions with compressive atelectasis in the partially visualized lung bases, left greater than right. Nasogastric tube within the stomach. White catheter in the bladder. Small and nodular liver consistent with cirrhosis. TIPS shunt not adequately evaluated without contrast. Questionable exophytic mass of the anterior right lobe of liver measuring 1.9 cm. Further evaluation with contrast recommended. Mild ascites. Right inguinal hernia containing fat, fluid and distal small bowel. Entering loop of bowel within the hernia relatively larger in caliber than the exiting loop of bowel and possibility of partial or early obstruction not excluded. Clinical correlation/followup recommended. Approximately 1.9 cm hypodensity within the lower pole of the right kidney incompletely assessed probably a cyst. Clinical correlation recommended. Diffuse subcutaneous edema. Angela Anderson N.P. Oct 13, 2016 13:21
--- NOTE | 2016-10-13 15:30 | Cardiac Electrophysiology PN ---
Assessment/Plan Assessment/Plan 1. Sinus tachycardia. Due to severe anemia, PTX and sepsis. Ruled out for OH. EF 60% to 65%. 2. Severe pulmonary hypertension with PA pressure of 58. 3. HTN on Norvasc 5 daily.But refusing 4. Pleural effusion,with diastolic dysfunction. S/P chest tube. 5. Hepatic encephalopathy due to Cirrhosis of the liver,on lactulose 6. Type 2 diabetes. 7. Renal failure. Per Dr. Langston. 8. Anemia with gastrointestinal bleed. 9. Very poor prognosis. DNR/DNI DW RN and Dr Worley Subjective Subjective Refusing meds. Just drinks water. On Med surge on Oxygen mask. Left chest tube was removed. Still DNR/DNI Objective Last 24 Hour Vital Signs Date Time Temp Pulse Resp B/P Pulse Ox O2 Delivery O2 Flow Rate FiO2 10/13/16 12:04 97.9 70 18 125/61 93 Room Air 10/13/16 08:00 98.1 83 18 133/70 92 Venturi Mask 10.0 10/13/16 07:42 81 18 Venturi Mask 8.0 40 10/13/16 07:42 Venturi Mask 8.0 40 10/13/16 07:42 99 Venturi Mask 8.0 40 10/13/16 04:00 98.1 79 18 133/65 98 Simple Mask 10/13/16 00:00 98.2 79 18 124/59 91 Room Air 10/12/16 20:50 98.1 78 19 125/65 98 Simple Mask 10/12/16 19:16 99 Venturi Mask 8.0 40 10/12/16 19:16 Venturi Mask 8.0 40 10/12/16 19:16 79 18 Venturi Mask 8.0 40 10/12/16 16:42 97.9 76 18 122/62 100 Simple Mask Intake and Output 10/12/16 10/13/16 19:00 07:00 Intake Total 141 ml 340 ml Output Total 1780 ml 500 ml Balance -1639 ml -160 ml Intake Oral 340 ml Free Water 30 ml Tube Feeding 111 ml Output Urine Total 100 ml 500 ml Chest Tube Drainage Total 1680 ml # Bowel Movements 1 Labs Test 10/12/16 08:10 Sodium Level 145 mEQ/L (135-145) Potassium Level 4.6 mEQ/L (3.4-4.9) Chloride Level 110 mEQ/L (98-107) Carbon Dioxide Level 27 mEQ/L (20-30) Anion Gap 8 (5-15) Blood Urea Nitrogen 62 mg/dL (7-23) Creatinine 2.1 mg/dL (0.7-1.2) Estimat Glomerular Filtration Rate 31.7 mL/min (>60) Glucose Level 137 mg/dL (74-106) Calcium Level 8.5 mg/dL (8.6-10.2) Ammonia 52 umol/L (16-60) Current Medications Medications (Trade) Dose Ordered Sig/Morgan Route PRN Reason Start Time Stop Time Status Last Admin Dose Admin Albuterol/ Ipratropium (DuoNeb 0.5-3(2.5)mg/3ml) 3 ml Q4H PRN HHN Shortness of Breath 10/09/16 02:00 10/14/16 01:59 Amlodipine Besylate (Norvasc) 5 mg DAILY NG 10/09/16 09:00 11/08/16 08:59 10/12/16 09:08 Clonidine HCl (Catapres) 0.2 mg Q4H PRN GT SBP>170 10/08/16 23:00 11/07/16 22:59 Dextrose (Dextrose 50%) STAT PRN IV Hypoglycemia 10/09/16 22:00 11/08/16 21:59 Insulin Aspart (NovoLOG) EVERY 6 HOURS SUBQ 10/09/16 00:00 11/08/16 00:00 10/12/16 12:19 Lactulose (Cephulac) 20 gm EVERY 8 HOURS NG 10/09/16 06:00 11/08/16 05:59 10/12/16 06:24 Morphine Sulfate (Morphine Sulfate) 2 mg Q4H PRN IVP Moderate Pain (Pain Scale 4-6) 10/09/16 01:00 10/16/16 00:59 Morphine Sulfate (Morphine Sulfate) 4 mg Q4H PRN IVP Severe Pain (Pain Scale 7-10) 10/09/16 01:00 10/16/16 00:59 Ondansetron HCl (Zofran) 4 mg Q4H PRN IVP Nausea & Vomiting 10/09/16 01:00 11/08/16 00:59 Rifaximin (Xifaxan) 550 mg EVERY 12 HOURS NG 10/09/16 09:00 10/16/16 08:59 10/12/16 20:39 Vitamin A/Vitamin D (A & D Oint) 1 applic EVERY 12 HOURS TOPIC 10/09/16 09:00 11/08/16 08:59 10/13/16 09:10 Objective NECK: Shows no JVD. NG tube in. LUNGS: Coarse rhonchi.Left chest tube removed. Site covered. CARDIOVASCULAR: Tachycardic. S1 and S2 with no gallop or murmur. ABDOMEN: Ascites EXTREMITIES: 2+ pitting edema. MYLES COSME Oct 13, 2016 15:30
[2016-10-13 16:00] VITALS: BP 145/64
--- NOTE | 2016-10-13 23:43 | Pulmonology Progress Note ---
Assessment/Plan Problems: (1) Pleural effusion associated with hepatic disorder (2) Coagulopathy (3) Thrombocytopenia (4) Altered mental state Assessment/Plan thoracentesis liver w/u in process rule out malignancy. f/u GI ammonia level Subjective ROS Limited/Unobtainable: Yes Respiratory: Reports: dyspnea at rest, pleuritic pain, productive cough, shortness of breath, sputum Neurologic: Reports: confusion, weakness Allergies: Coded Allergies: No Known Allergies (Unverified , 10/03/16) Objective Last 24 Hour Vital Signs Date Time Temp Pulse Resp B/P Pulse Ox O2 Delivery O2 Flow Rate FiO2 10/13/16 20:55 Room Air 21 10/13/16 20:54 97 Room Air 21 10/13/16 20:53 69 18 Room Air 10/13/16 16:00 97.5 74 15 145/64 96 Room Air 10/13/16 12:04 97.9 70 18 125/61 93 Room Air 10/13/16 08:00 98.1 83 18 133/70 92 Venturi Mask 10.0 10/13/16 07:42 81 18 Venturi Mask 8.0 40 10/13/16 07:42 Venturi Mask 8.0 40 10/13/16 07:42 99 Venturi Mask 8.0 40 10/13/16 04:00 98.1 79 18 133/65 98 Simple Mask 10/13/16 00:00 98.2 79 18 124/59 91 Room Air Intake and Output 10/12/16 10/13/16 19:00 07:00 Intake Total 141 ml 340 ml Output Total 1780 ml 500 ml Balance -1639 ml -160 ml Intake Oral 340 ml Free Water 30 ml Tube Feeding 111 ml Output Urine Total 100 ml 500 ml Chest Tube Drainage Total 1680 ml # Bowel Movements 1 General Appearance: no acute distress HEENT: normocephalic, atraumatic, PERRL Respiratory/Chest: chest wall non-tender, decreased breath sounds, accessory muscle use, crackles/rales, rhonchi Cardiovascular: normal peripheral pulses, normal rate, regular rhythm, no JVD Abdomen: normal bowel sounds, soft, non tender, no organomegaly Genitourinary: normal external genitalia Extremities: no cyanosis Skin: rash, lesions Neurologic/Psychiatric: responsive, abnormal CN, disoriented Current Medications Medications (Trade) Dose Ordered Sig/Morgan Route PRN Reason Start Time Stop Time Status Last Admin Dose Admin Albuterol/ Ipratropium (DuoNeb 0.5-3(2.5)mg/3ml) 3 ml Q4H PRN HHN Shortness of Breath 10/09/16 02:00 10/14/16 01:59 Amlodipine Besylate (Norvasc) 5 mg DAILY NG 10/09/16 09:00 11/08/16 08:59 10/12/16 09:08 Clonidine HCl (Catapres) 0.2 mg Q4H PRN GT SBP>170 10/08/16 23:00 11/07/16 22:59 Dextrose (Dextrose 50%) STAT PRN IV Hypoglycemia 10/09/16 22:00 11/08/16 21:59 Insulin Aspart (NovoLOG) BEFORE MEALS AND HS SUBQ 10/13/16 21:00 11/12/16 20:59 Lactulose (Cephulac) 20 gm EVERY 8 HOURS NG 10/09/16 06:00 11/08/16 05:59 10/13/16 21:24 Morphine Sulfate (Morphine Sulfate) 2 mg Q4H PRN IVP Moderate Pain (Pain Scale 4-6) 10/09/16 01:00 10/16/16 00:59 Morphine Sulfate (Morphine Sulfate) 4 mg Q4H PRN IVP Severe Pain (Pain Scale 7-10) 10/09/16 01:00 10/16/16 00:59 Ondansetron HCl (Zofran) 4 mg Q4H PRN IVP Nausea & Vomiting 10/09/16 01:00 11/08/16 00:59 Rifaximin (Xifaxan) 550 mg EVERY 12 HOURS NG 10/09/16 09:00 10/16/16 08:59 10/13/16 21:24 Vitamin A/Vitamin D (A & D Oint) 1 applic EVERY 12 HOURS TOPIC 10/09/16 09:00 11/08/16 08:59 10/13/16 21:24 KRISTOPHER JACQUES Oct 13, 2016 23:43
[2016-10-13 23:52] VITALS: BP 162/61
[2016-10-14 04:00] VITALS: BP 124/66
[2016-10-14] MEDS: NovoLOG Insulin Flexpen SUBQ SCH ×4 (06:06→21:00)
[2016-10-14] MEDS: Lactulose 20gm/30ml UDC NG SCH ×3 (06:06→21:42)
[2016-10-14] MEDS ORDERED: NovoLOG Insulin Flexpen SUBQ SCH (06:30)
[2016-10-14 08:00] VITALS: BP 154/83
[2016-10-14 08:01] LABS: BASOPHILS % (AUTO) 1.2 % (0.0-2.0); EOSINOPHILS % (AUTO) 0.8 % (0.0-3.0); LYMPHOCYTES % (AUTO) 5.9 % (20.0-45.0); MEAN CORPUSCULAR HEMOGLOBIN 32.4 PG (27.0-31.0); MEAN CORPUSCULAR VOLUME 98 FL (80-99); MEAN PLATELET VOLUME 8.3 FL (6.5-10.1); MONOCYTES % (AUTO) 9.5 % (1.0-10.0); NEUTROPHILS % (AUTO) 82.5 % (45.0-75.0); PLATELET COUNT 140 K/UL (150-450); RED BLOOD COUNT 2.75 M/UL (4.70-6.10); RED CELL DISTRIBUTION WIDTH 21.8 % (11.6-14.8); WHITE BLOOD COUNT 13.6 K/UL (4.8-10.8)
[2016-10-14] MEDS: Rifaximin 550mg tab NG SCH ×2 (08:04→21:00)
[2016-10-14] MEDS: Vitamin A&D Oint 2oz Tube TOPIC SCH ×2 (08:07→21:00)
[2016-10-14 08:17] LABS: CALCIUM 8.2 mg/dL (8.6-10.2); CREATININE 2.1 mg/dL (0.7-1.2); GLOMERULAR FILTRATION RATE 31.7 mL/min (>60); POTASSIUM 5.3 mEQ/L (3.4-4.9)
--- NOTE | 2016-10-14 08:57 | Nephrology Progress Note ---
Assessment/Plan Problem List: (1) CKD (chronic kidney disease) Assessment: no change (2) Ascites (3) Elevated liver function tests (4) Diabetes mellitus (5) Thrombocytopenia (6) Anemia Assessment: better (7) Hepatic encephalopathy (8) Altered mental state (9) Pneumothorax, left Assessment no labs today Plan cont as is DC planning ? Subjective Subjective In NAD Feels fine Objective Objective Last 24 Hour Vital Signs Date Time Temp Pulse Resp B/P Pulse Ox O2 Delivery O2 Flow Rate FiO2 10/14/16 08:04 76 154/83 10/14/16 08:00 97.0 77 18 154/83 100 Room Air 10/14/16 04:00 97.2 67 18 124/66 95 Room Air 10/13/16 23:52 97.3 70 18 162/61 92 Room Air 10/13/16 20:55 Room Air 21 10/13/16 20:54 97 Room Air 21 10/13/16 20:53 69 18 Room Air 10/13/16 16:00 97.5 74 15 145/64 96 Room Air 10/13/16 12:04 97.9 70 18 125/61 93 Room Air Intake and Output 10/13/16 10/14/16 19:00 07:00 Intake Total 840 ml Output Total 100 ml 150 ml Balance 740 ml -150 ml Intake Oral 840 ml Output Urine Total 100 ml 150 ml Laboratory Tests 10/14/16 05:40: White Blood Count 13.6H, Red Blood Count 2.75L, Hemoglobin 8.9L, Hematocrit 27.0L, Mean Corpuscular Volume 98, Mean Corpuscular Hemoglobin 32.4H, Mean Corpuscular Hemoglobin Concent 33.0, Red Cell Distribution Width 21.8H, Platelet Count 140L, Mean Platelet Volume 8.3, Neutrophils (%) (Auto) 82.5H, Lymphocytes (%) (Auto) 5.9L, Monocytes (%) (Auto) 9.5, Eosinophils (%) (Auto) 0.8, Basophils (%) (Auto) 1.2, Sodium Level 143, Potassium Level 5.3H, Chloride Level 106, Carbon Dioxide Level 26, Anion Gap 11, Blood Urea Nitrogen 77H, Creatinine 2.1H, Estimat Glomerular Filtration Rate 31.7, Glucose Level 81, Calcium Level 8.2L Height (Feet): 5 Height (Inches): 6.00 Weight (Pounds): 200 Cardiovascular: normal rate Respiratory/Chest: lungs clear Extremities: moderate edema FERNANDO DC Oct 14, 2016 08:57
--- NOTE | 2016-10-14 10:51 | GI Progress Note ---
Assessment/Plan Problems: (1) Ascites ICD Codes: R18.8 - Other ascites SNOMED: 639583579 (2) Elevated liver function tests ICD Codes: R94.5 - Abnormal results of liver function studies SNOMED: 675820697 (3) Altered mental status ICD Codes: R41.82 - Altered mental status, unspecified SNOMED: 760379705 (4) Cirrhosis of liver ICD Codes: K74.60 - Unspecified cirrhosis of liver SNOMED: 95530261 (5) Diabetes mellitus ICD Codes: E11.9 - Type 2 diabetes mellitus without complications SNOMED: 99481719 (6) Abdominal pain ICD Codes: R10.9 - Unspecified abdominal pain SNOMED: 85820313 Qualifiers: Qualified Codes: R10.84 - Generalized abdominal pain (7) Anemia ICD Codes: D64.9 - Anemia, unspecified SNOMED: 759916440 Qualifiers: Qualified Codes: D64.9 - Anemia, unspecified (8) Hepatic encephalopathy ICD Codes: K72.90 - Hepatic failure, unspecified without coma SNOMED: 60429742 (9) Thrombocytopenia ICD Codes: D69.6 - Thrombocytopenia, unspecified SNOMED: 170088733 (10) Coagulopathy ICD Codes: D68.9 - Coagulation defect, unspecified SNOMED: 53483967 Status: stable, progressing Status Narrative Discussed with Dr. Ly. Assessment/Plan APCT >> Small and nodular liver consistent with cirrhosis. TIPS shunt not adequately evaluated without contrast, see full report below. OB stool negative AFP WNL Hep panel negative abdominal US >> Evidence of hepatic cirrhosis, also previously described. Patent TIPS shunt, normal velocities ok for DC per GI standpoint monitor H&H, transfuse prn low Na diet elevated ammonia >> lactulose + Xifaxan ppi fu labs Subjective Subjective limited Objective Last 24 Hour Vital Signs Date Time Temp Pulse Resp B/P Pulse Ox O2 Delivery O2 Flow Rate FiO2 10/14/16 08:04 76 154/83 10/14/16 08:00 97.0 77 18 154/83 100 Room Air 10/14/16 04:00 97.2 67 18 124/66 95 Room Air 10/13/16 23:52 97.3 70 18 162/61 92 Room Air 10/13/16 20:55 Room Air 21 10/13/16 20:54 97 Room Air 21 10/13/16 20:53 69 18 Room Air 10/13/16 16:00 97.5 74 15 145/64 96 Room Air 10/13/16 12:04 97.9 70 18 125/61 93 Room Air Intake and Output 10/13/16 10/14/16 19:00 07:00 Intake Total 840 ml Output Total 100 ml 150 ml Balance 740 ml -150 ml Intake Oral 840 ml Output Urine Total 100 ml 150 ml Laboratory Tests Test 10/14/16 05:40 White Blood Count 13.6 K/UL (4.8-10.8) H Red Blood Count 2.75 M/UL (4.70-6.10) L Hemoglobin 8.9 G/DL (14.2-18.0) L Hematocrit 27.0 % (42.0-52.0) L Mean Corpuscular Volume 98 FL (80-99) Mean Corpuscular Hemoglobin 32.4 PG (27.0-31.0) H Mean Corpuscular Hemoglobin Concent 33.0 G/DL (32.0-36.0) Red Cell Distribution Width 21.8 % (11.6-14.8) H Platelet Count 140 K/UL (150-450) L Mean Platelet Volume 8.3 FL (6.5-10.1) Neutrophils (%) (Auto) 82.5 % (45.0-75.0) H Lymphocytes (%) (Auto) 5.9 % (20.0-45.0) L Monocytes (%) (Auto) 9.5 % (1.0-10.0) Eosinophils (%) (Auto) 0.8 % (0.0-3.0) Basophils (%) (Auto) 1.2 % (0.0-2.0) Sodium Level 143 mEQ/L (135-145) Potassium Level 5.3 mEQ/L (3.4-4.9) H Chloride Level 106 mEQ/L (98-107) Carbon Dioxide Level 26 mEQ/L (20-30) Anion Gap 11 (5-15) Blood Urea Nitrogen 77 mg/dL (7-23) H Creatinine 2.1 mg/dL (0.7-1.2) H Estimat Glomerular Filtration Rate 31.7 mL/min (>60) Glucose Level 81 mg/dL (74-106) Calcium Level 8.2 mg/dL (8.6-10.2) L Height (Feet): 5 Height (Inches): 6.00 Weight (Pounds): 200 General Appearance: no apparent distress, alert, overweight Cardiovascular: normal rate Respiratory/Chest: normal breath sounds, no respiratory distress Abdominal Exam: normal bowel sounds, non tender, soft Objective Service Date: 10/04/16 Procedure: CT Abdomen Pelvis WO Contrast Indication: Hepatic encephalopathy and abdominal pain Impression: Moderate bilateral pleural effusions with compressive atelectasis in the partially visualized lung bases, left greater than right. Nasogastric tube within the stomach. White catheter in the bladder. Small and nodular liver consistent with cirrhosis. TIPS shunt not adequately evaluated without contrast. Questionable exophytic mass of the anterior right lobe of liver measuring 1.9 cm. Further evaluation with contrast recommended. Mild ascites. Right inguinal hernia containing fat, fluid and distal small bowel. Entering loop of bowel within the hernia relatively larger in caliber than the exiting loop of bowel and possibility of partial or early obstruction not excluded. Clinical correlation/followup recommended. Approximately 1.9 cm hypodensity within the lower pole of the right kidney incompletely assessed probably a cyst. Clinical correlation recommended. Diffuse subcutaneous edema. Angela Anderson N.P. Oct 14, 2016 10:51
[2016-10-14] MEDS ORDERED: Sodium Polystyrene Sulfonate 15gm Powder ORAL ONE (11:30)
[2016-10-14 12:00] VITALS: BP 143/81
[2016-10-14 16:00] VITALS: BP 143/70
--- NOTE | 2016-10-14 16:40 | Internal Med Progress Note ---
Subjective Date of Service: Oct 14, 2016 Physician Name Rafiq Florentino Attending Physician Jeremiah Light MD Current Medications Medications (Trade) Dose Ordered Sig/Morgan Route PRN Reason Start Time Stop Time Status Last Admin Dose Admin Amlodipine Besylate (Norvasc) 5 mg DAILY NG 10/09/16 09:00 11/08/16 08:59 10/14/16 08:04 Clonidine HCl (Catapres) 0.2 mg Q4H PRN GT SBP>170 10/08/16 23:00 11/07/16 22:59 Dextrose (Dextrose 50%) STAT PRN IV Hypoglycemia 10/09/16 22:00 11/08/16 21:59 Insulin Aspart (NovoLOG) BEFORE MEALS AND HS SUBQ 10/13/16 21:00 11/12/16 20:59 Lactulose (Cephulac) 20 gm EVERY 8 HOURS NG 10/09/16 06:00 11/08/16 05:59 10/14/16 13:44 Morphine Sulfate (Morphine Sulfate) 2 mg Q4H PRN IVP Moderate Pain (Pain Scale 4-6) 10/09/16 01:00 10/16/16 00:59 Morphine Sulfate (Morphine Sulfate) 4 mg Q4H PRN IVP Severe Pain (Pain Scale 7-10) 10/09/16 01:00 10/16/16 00:59 Ondansetron HCl (Zofran) 4 mg Q4H PRN IVP Nausea & Vomiting 10/09/16 01:00 11/08/16 00:59 Rifaximin (Xifaxan) 550 mg EVERY 12 HOURS NG 10/09/16 09:00 10/16/16 08:59 10/14/16 08:04 Vitamin A/Vitamin D (A & D Oint) 1 applic EVERY 12 HOURS TOPIC 10/09/16 09:00 11/08/16 08:59 10/14/16 08:07 Allergies: Coded Allergies: No Known Allergies (Unverified , 10/03/16) ROS Limited/Unobtainable: Yes Subjective 66 YO M admitted with abdominal pain and encephalopathy. Cover for Int Med-Dr Light. S/P left thoracentesis on 10/07/16. Now left pneumothorax; S/P chest tube. Await transfer to snf facility. Tolerating room air. Objective Last Vital Signs Date Time Temp Pulse Resp B/P Pulse Ox O2 Delivery O2 Flow Rate FiO2 10/14/16 12:00 97.8 74 18 143/81 97 Room Air 10/14/16 08:18 40 10/14/16 08:18 8.0 Laboratory Tests Test 10/14/16 05:40 White Blood Count 13.6 K/UL (4.8-10.8) H Red Blood Count 2.75 M/UL (4.70-6.10) L Hemoglobin 8.9 G/DL (14.2-18.0) L Hematocrit 27.0 % (42.0-52.0) L Mean Corpuscular Volume 98 FL (80-99) Mean Corpuscular Hemoglobin 32.4 PG (27.0-31.0) H Mean Corpuscular Hemoglobin Concent 33.0 G/DL (32.0-36.0) Red Cell Distribution Width 21.8 % (11.6-14.8) H Platelet Count 140 K/UL (150-450) L Mean Platelet Volume 8.3 FL (6.5-10.1) Neutrophils (%) (Auto) 82.5 % (45.0-75.0) H Lymphocytes (%) (Auto) 5.9 % (20.0-45.0) L Monocytes (%) (Auto) 9.5 % (1.0-10.0) Eosinophils (%) (Auto) 0.8 % (0.0-3.0) Basophils (%) (Auto) 1.2 % (0.0-2.0) Sodium Level 143 mEQ/L (135-145) Potassium Level 5.3 mEQ/L (3.4-4.9) H Chloride Level 106 mEQ/L (98-107) Carbon Dioxide Level 26 mEQ/L (20-30) Anion Gap 11 (5-15) Blood Urea Nitrogen 77 mg/dL (7-23) H Creatinine 2.1 mg/dL (0.7-1.2) H Estimat Glomerular Filtration Rate 31.7 mL/min (>60) Glucose Level 81 mg/dL (74-106) Calcium Level 8.2 mg/dL (8.6-10.2) L Intake and Output 10/13/16 10/14/16 19:00 07:00 Intake Total 840 ml Output Total 100 ml 150 ml Balance 740 ml -150 ml Intake Oral 840 ml Output Urine Total 100 ml 150 ml Objective General Appearance: WD/WN, alert, mild distress EENT: PERRL/EOMI, normal ENT inspection Neck: non-tender, normal alignment, supple, normal inspection Cardiovascular: normal peripheral pulses, normal rate, regular rhythm, no gallop/murmur, no JVD Respiratory/Chest: Venti Mask; Left chest tube; chest wall non-tender, lungs clear, no respiratory distress, no accessory muscle use Abdomen: decreased bowel sounds, distended, guarding, tender Extremities: normal range of motion Neurologic: green [employer]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 (3) Elevated liver function tests (4) CHF (congestive heart failure) (5) Diabetes mellitus Assessment & Plan: Cont novolog sliding scale (6) HTN (hypertension) Assessment & Plan: Continue amlodipine and clonidine. (7) Renal failure (8) Anemia (9) Hepatic encephalopathy Assessment & Plan: Continue Xifaxan (10) Ascites Assessment & Plan: Paracentesis on hold due to thrombocytopenia. (11) Thrombocytopenia (12) Pleural effusion associated with hepatic disorder Assessment & Plan: Left. S/P thoracentesis 10/07/. 3 Liters fluid removed. (13) Pneumothorax, left Assessment & Plan: S/P left chest tube. Assessment/Plan Transfer to snf facility when bed available. RAFIQ FLORENTINO Oct 14, 2016 16:40
--- NOTE | 2016-10-14 17:18 | Cardiac Electrophysiology PN ---
Assessment/Plan Assessment/Plan 1. Sinus tachycardia. Due to severe anemia, PTX and sepsis. Ruled out for CO. EF 60% to 65%. 2. Severe pulmonary hypertension with PA pressure of 58. 3. HTN on Norvasc 5 daily.But refusing 4. Pleural effusion,with diastolic dysfunction. S/P chest tube. 5. Hepatic encephalopathy due to Cirrhosis of the liver,on lactulose 6. Type 2 diabetes. 7. Renal failure. Per Dr. Langston. 8. Anemia with gastrointestinal bleed. 9. Very poor prognosis. DNR/DNI DW RN and Dr Worley Subjective Subjective Now is able to eat. On Med surge on Oxygen mask. Left chest tube was removed. Still DNR/DNI Objective Last 24 Hour Vital Signs Date Time Temp Pulse Resp B/P Pulse Ox O2 Delivery O2 Flow Rate FiO2 10/14/16 12:00 97.8 74 18 143/81 97 Room Air 10/14/16 08:18 99 Venturi Mask 40 10/14/16 08:18 Venturi Mask 40 10/14/16 08:18 78 16 Venturi Mask 8.0 40 10/14/16 08:04 76 154/83 10/14/16 08:00 97.0 77 18 154/83 100 Room Air 10/14/16 04:00 97.2 67 18 124/66 95 Room Air 10/13/16 23:52 97.3 70 18 162/61 92 Room Air 10/13/16 20:55 Room Air 21 10/13/16 20:54 97 Room Air 21 10/13/16 20:53 69 18 Room Air Intake and Output 10/13/16 10/14/16 19:00 07:00 Intake Total 840 ml Output Total 100 ml 150 ml Balance 740 ml -150 ml Intake Oral 840 ml Output Urine Total 100 ml 150 ml Laboratory Tests Test 10/14/16 05:40 White Blood Count 13.6 K/UL (4.8-10.8) H Red Blood Count 2.75 M/UL (4.70-6.10) L Hemoglobin 8.9 G/DL (14.2-18.0) L Hematocrit 27.0 % (42.0-52.0) L Mean Corpuscular Volume 98 FL (80-99) Mean Corpuscular Hemoglobin 32.4 PG (27.0-31.0) H Mean Corpuscular Hemoglobin Concent 33.0 G/DL (32.0-36.0) Red Cell Distribution Width 21.8 % (11.6-14.8) H Platelet Count 140 K/UL (150-450) L Mean Platelet Volume 8.3 FL (6.5-10.1) Neutrophils (%) (Auto) 82.5 % (45.0-75.0) H Lymphocytes (%) (Auto) 5.9 % (20.0-45.0) L Monocytes (%) (Auto) 9.5 % (1.0-10.0) Eosinophils (%) (Auto) 0.8 % (0.0-3.0) Basophils (%) (Auto) 1.2 % (0.0-2.0) Sodium Level 143 mEQ/L (135-145) Potassium Level 5.3 mEQ/L (3.4-4.9) H Chloride Level 106 mEQ/L (98-107) Carbon Dioxide Level 26 mEQ/L (20-30) Anion Gap 11 (5-15) Blood Urea Nitrogen 77 mg/dL (7-23) H Creatinine 2.1 mg/dL (0.7-1.2) H Estimat Glomerular Filtration Rate 31.7 mL/min (>60) Glucose Level 81 mg/dL (74-106) Calcium Level 8.2 mg/dL (8.6-10.2) L Objective NECK: Shows no JVD. NG tube in. LUNGS: Coarse rhonchi.Left chest tube removed. Site covered. CARDIOVASCULAR: Tachycardic. S1 and S2 with no gallop or murmur. ABDOMEN: Ascites EXTREMITIES: 1+ pitting edema. MYLES COSME Oct 14, 2016 17:18
[2016-10-14 20:00] VITALS: BP 146/79
--- NOTE | 2016-10-14 22:46 | Pulmonology Progress Note ---
Assessment/Plan Problems: (1) Pleural effusion associated with hepatic disorder (2) Coagulopathy (3) Thrombocytopenia (4) Altered mental state Assessment/Plan thoracentesis liver w/u in process rule out malignancy. f/u GI ammonia level Subjective ROS Limited/Unobtainable: Yes Respiratory: Reports: dyspnea at rest, dyspnea on exertion, pleuritic pain, productive cough, shortness of breath, sputum, wheezing Neurologic: Reports: confusion, weakness Allergies: Coded Allergies: No Known Allergies (Unverified , 10/03/16) Objective Last 24 Hour Vital Signs Date Time Temp Pulse Resp B/P Pulse Ox O2 Delivery O2 Flow Rate FiO2 10/14/16 20:49 Venturi Mask 40 10/14/16 20:48 82 18 Venturi Mask 8.0 40 10/14/16 20:48 99 Venturi Mask 8.0 40 10/14/16 16:00 97.7 81 19 143/70 91 Room Air 10/14/16 12:00 97.8 74 18 143/81 97 Room Air 10/14/16 08:18 99 Venturi Mask 40 10/14/16 08:18 Venturi Mask 40 10/14/16 08:18 78 16 Venturi Mask 8.0 40 10/14/16 08:04 76 154/83 10/14/16 08:00 97.0 77 18 154/83 100 Room Air 10/14/16 04:00 97.2 67 18 124/66 95 Room Air 10/13/16 23:52 97.3 70 18 162/61 92 Room Air Intake and Output 10/13/16 10/14/16 19:00 07:00 Intake Total 840 ml Output Total 100 ml 150 ml Balance 740 ml -150 ml Intake Oral 840 ml Output Urine Total 100 ml 150 ml General Appearance: no acute distress HEENT: normocephalic, atraumatic, PERRL Respiratory/Chest: chest wall non-tender, decreased breath sounds, accessory muscle use, rhonchi, pleural rub Cardiovascular: normal peripheral pulses, normal rate, regular rhythm Abdomen: normal bowel sounds, soft, non tender, no organomegaly Genitourinary: normal external genitalia Extremities: no cyanosis Skin: rash, lesions Neurologic/Psychiatric: responsive, abnormal CN, disoriented Laboratory Tests 10/14/16 05:40: White Blood Count 13.6H, Red Blood Count 2.75L, Hemoglobin 8.9L, Hematocrit 27.0L, Mean Corpuscular Volume 98, Mean Corpuscular Hemoglobin 32.4H, Mean Corpuscular Hemoglobin Concent 33.0, Red Cell Distribution Width 21.8H, Platelet Count 140L, Mean Platelet Volume 8.3, Neutrophils (%) (Auto) 82.5H, Lymphocytes (%) (Auto) 5.9L, Monocytes (%) (Auto) 9.5, Eosinophils (%) (Auto) 0.8, Basophils (%) (Auto) 1.2, Sodium Level 143, Potassium Level 5.3H, Chloride Level 106, Carbon Dioxide Level 26, Anion Gap 11, Blood Urea Nitrogen 77H, Creatinine 2.1H, Estimat Glomerular Filtration Rate 31.7, Glucose Level 81, Calcium Level 8.2L Current Medications Medications (Trade) Dose Ordered Sig/Morgan Route PRN Reason Start Time Stop Time Status Last Admin Dose Admin Amlodipine Besylate (Norvasc) 5 mg DAILY NG 10/09/16 09:00 11/08/16 08:59 10/14/16 08:04 Clonidine HCl (Catapres) 0.2 mg Q4H PRN GT SBP>170 10/08/16 23:00 11/07/16 22:59 Dextrose (Dextrose 50%) STAT PRN IV Hypoglycemia 10/09/16 22:00 11/08/16 21:59 Insulin Aspart (NovoLOG) BEFORE MEALS AND HS SUBQ 10/13/16 21:00 11/12/16 20:59 Lactulose (Cephulac) 20 gm EVERY 8 HOURS NG 10/09/16 06:00 11/08/16 05:59 10/14/16 13:44 Morphine Sulfate (Morphine Sulfate) 2 mg Q4H PRN IVP Moderate Pain (Pain Scale 4-6) 10/09/16 01:00 10/16/16 00:59 Morphine Sulfate (Morphine Sulfate) 4 mg Q4H PRN IVP Severe Pain (Pain Scale 7-10) 10/09/16 01:00 10/16/16 00:59 Ondansetron HCl (Zofran) 4 mg Q4H PRN IVP Nausea & Vomiting 10/09/16 01:00 11/08/16 00:59 Rifaximin (Xifaxan) 550 mg EVERY 12 HOURS NG 10/09/16 09:00 10/16/16 08:59 10/14/16 08:04 Vitamin A/Vitamin D (A & D Oint) 1 applic EVERY 12 HOURS TOPIC 10/09/16 09:00 11/08/16 08:59 10/14/16 08:07 KRISTOPHER JACQUES Oct 14, 2016 22:46
[2016-10-15] VITALS: BP 144/75
[2016-10-15 04:00] VITALS: BP 137/75
[2016-10-15] MEDS: Lactulose 20gm/30ml UDC NG SCH ×4 (05:40→21:18)
[2016-10-15] MEDS: NovoLOG Insulin Flexpen SUBQ SCH ×4 (05:45→21:00)
[2016-10-15 08:49] VITALS: BP 151/64
[2016-10-15] MEDS: Rifaximin 550mg tab NG SCH ×2 (09:59→21:00)
[2016-10-15] MEDS: Vitamin A&D Oint 2oz Tube TOPIC SCH ×2 (10:00→21:18)
[2016-10-15 10:24] LABS: MEAN CORPUSCULAR HEMOGLOBIN 32.9 PG (27.0-31.0); MEAN CORPUSCULAR HGB CONC 33.5 G/DL (32.0-36.0); MEAN CORPUSCULAR VOLUME 98 FL (80-99); MEAN PLATELET VOLUME 6.9 FL (6.5-10.1); PLATELET COUNT 164 K/UL (150-450); RED BLOOD COUNT 2.66 M/UL (4.70-6.10); RED CELL DISTRIBUTION WIDTH 21.4 % (11.6-14.8); WHITE BLOOD COUNT 18.9 K/UL (4.8-10.8)
[2016-10-15 10:33] LABS: CALCIUM 8.2 mg/dL (8.6-10.2); CREATININE 2.1 mg/dL (0.7-1.2); GLOMERULAR FILTRATION RATE 31.7 mL/min (>60)
[2016-10-15 11:56] LABS: ANISOCYTOSIS 2+; BAND NEUTROPHILS % (MANUAL) 0 % (0-8); BASOPHILS % (MANUAL) 0 % (0-2); EOSINOPHILS % (MANUAL) 0 % (0-3); HYPOCHROMASIA 1+; LYMPHOCYTES % (MANUAL) 5 % (20-45); MACROCYTES 1+; NEUTROPHILS % (MANUAL) 88 % (45-75); PLATELET ESTIMATE ADEQUATE; PLATELET MORPHOLOGY NORMAL; TOTAL CELLS COUNTED 100
--- NOTE | 2016-10-15 12:41 | Internal Med Progress Note ---
Subjective Date of Service: Oct 15, 2016 Physician Name Rafiq Florentino Attending Physician Jeremiah Light MD Current Medications Medications (Trade) Dose Ordered Sig/Morgan Route PRN Reason Start Time Stop Time Status Last Admin Dose Admin Amlodipine Besylate (Norvasc) 5 mg DAILY NG 10/09/16 09:00 11/08/16 08:59 10/15/16 09:59 Clonidine HCl (Catapres) 0.2 mg Q4H PRN GT SBP>170 10/08/16 23:00 11/07/16 22:59 Dextrose (Dextrose 50%) STAT PRN IV Hypoglycemia 10/09/16 22:00 11/08/16 21:59 Insulin Aspart (NovoLOG) BEFORE MEALS AND HS SUBQ 10/13/16 21:00 11/12/16 20:59 Lactulose (Cephulac) 20 gm EVERY 8 HOURS NG 10/09/16 06:00 11/08/16 05:59 10/15/16 05:40 Morphine Sulfate (Morphine Sulfate) 2 mg Q4H PRN IVP Moderate Pain (Pain Scale 4-6) 10/09/16 01:00 10/16/16 00:59 Morphine Sulfate (Morphine Sulfate) 4 mg Q4H PRN IVP Severe Pain (Pain Scale 7-10) 10/09/16 01:00 10/16/16 00:59 Ondansetron HCl (Zofran) 4 mg Q4H PRN IVP Nausea & Vomiting 10/09/16 01:00 11/08/16 00:59 Rifaximin (Xifaxan) 550 mg EVERY 12 HOURS NG 10/09/16 09:00 10/16/16 08:59 10/15/16 09:59 Sodium Polystyrene Sulfonate (Kayexalate) 30 gm ONCE ONCE ORAL 10/15/16 12:45 10/15/16 12:46 UNV Vitamin A/Vitamin D (A & D Oint) 1 applic EVERY 12 HOURS TOPIC 10/09/16 09:00 11/08/16 08:59 10/15/16 10:00 Allergies: Coded Allergies: No Known Allergies (Unverified , 10/03/16) ROS Limited/Unobtainable: Yes Subjective 66 YO M admitted with abdominal pain and encephalopathy. Cover for Int Med-Dr Light. S/P left thoracentesis on 10/07/16. Now left pneumothorax; S/P chest tube. Await transfer to detention facility. Tolerating room air. Objective Last Vital Signs Date Time Temp Pulse Resp B/P Pulse Ox O2 Delivery O2 Flow Rate FiO2 10/15/16 09:59 86 151/64 10/15/16 08:49 97.9 20 100 Room Air 10/15/16 07:33 8.0 40 Laboratory Tests Test 10/15/16 09:35 White Blood Count 18.9 K/UL (4.8-10.8) H Red Blood Count 2.66 M/UL (4.70-6.10) L Hemoglobin 8.8 G/DL (14.2-18.0) L Hematocrit 26.2 % (42.0-52.0) L Mean Corpuscular Volume 98 FL (80-99) Mean Corpuscular Hemoglobin 32.9 PG (27.0-31.0) H Mean Corpuscular Hemoglobin Concent 33.5 G/DL (32.0-36.0) Red Cell Distribution Width 21.4 % (11.6-14.8) H Platelet Count 164 K/UL (150-450) Mean Platelet Volume 6.9 FL (6.5-10.1) Neutrophils (%) (Auto) % (45.0-75.0) Lymphocytes (%) (Auto) % (20.0-45.0) Monocytes (%) (Auto) % (1.0-10.0) Eosinophils (%) (Auto) % (0.0-3.0) Basophils (%) (Auto) % (0.0-2.0) Differential Total Cells Counted 100 Neutrophils % (Manual) 88 % (45-75) H Lymphocytes % (Manual) 5 % (20-45) L Monocytes % (Manual) 7 % (1-10) Eosinophils % (Manual) 0 % (0-3) Basophils % (Manual) 0 % (0-2) Band Neutrophils 0 % (0-8) Platelet Estimate Adequate Platelet Morphology Normal Hypochromasia 1+ Anisocytosis 2+ Macrocytosis 1+ Sodium Level 140 mEQ/L (135-145) Potassium Level 5.0 mEQ/L (3.4-4.9) H Chloride Level 104 mEQ/L (98-107) Carbon Dioxide Level 26 mEQ/L (20-30) Anion Gap 10 (5-15) Blood Urea Nitrogen 80 mg/dL (7-23) H Creatinine 2.1 mg/dL (0.7-1.2) H Estimat Glomerular Filtration Rate 31.7 mL/min (>60) Glucose Level 100 mg/dL (74-106) Calcium Level 8.2 mg/dL (8.6-10.2) L Intake and Output 10/14/16 10/15/16 19:00 07:00 Intake Total 360 ml 240 ml Output Total 100 ml 375 ml Balance 260 ml -135 ml Intake Oral 360 ml 240 ml Output Urine Total 100 ml 375 ml # Bowel Movements 1 Objective General Appearance: WD/WN, alert, mild distress EENT: PERRL/EOMI, normal ENT inspection Neck: non-tender, normal alignment, supple, normal inspection Cardiovascular: normal peripheral pulses, normal rate, regular rhythm, no gallop/murmur, no JVD Respiratory/Chest: Venti Mask; Left chest tube; chest wall non-tender, lungs clear, no respiratory distress, no accessory muscle use Abdomen: decreased bowel sounds, distended, guarding, tender Extremities: normal range of motion 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 (3) Elevated liver function tests (4) CHF (congestive heart failure) (5) Diabetes mellitus Assessment & Plan: Cont novolog sliding scale (6) HTN (hypertension) Assessment & Plan: Continue amlodipine and clonidine. (7) Renal failure (8) Anemia (9) Hepatic encephalopathy Assessment & Plan: Continue Xifaxan (10) Ascites Assessment & Plan: Paracentesis on hold due to thrombocytopenia. (11) Thrombocytopenia (12) Pleural effusion associated with hepatic disorder Assessment & Plan: Left. S/P thoracentesis 10/07/16. 3 Liters fluid removed. (13) Pneumothorax, left Assessment & Plan: S/P left chest tube. (14) Hyperkalemia Assessment & Plan: PRN Kayexalate Status: not improved Assessment/Plan Transfer to detention facility when bed available. RAFIQ FLORENTINO Oct 15, 2016 12:41
[2016-10-15 12:55] VITALS: BP 124/63
--- NOTE | 2016-10-15 13:05 | GI Progress Note ---
Assessment/Plan Problems: (1) Ascites ICD Codes: R18.8 - Other ascites SNOMED: 108478823 (2) Elevated liver function tests ICD Codes: R94.5 - Abnormal results of liver function studies SNOMED: 216997753 (3) Altered mental status ICD Codes: R41.82 - Altered mental status, unspecified SNOMED: 224847992 (4) Cirrhosis of liver ICD Codes: K74.60 - Unspecified cirrhosis of liver SNOMED: 31136222 (5) Diabetes mellitus ICD Codes: E11.9 - Type 2 diabetes mellitus without complications SNOMED: 45181875 (6) Abdominal pain ICD Codes: R10.9 - Unspecified abdominal pain SNOMED: 75294037 Qualifiers: Qualified Codes: R10.84 - Generalized abdominal pain (7) Anemia ICD Codes: D64.9 - Anemia, unspecified SNOMED: 256160306 Qualifiers: Qualified Codes: D64.9 - Anemia, unspecified (8) Hepatic encephalopathy ICD Codes: K72.90 - Hepatic failure, unspecified without coma SNOMED: 52790494 (9) Thrombocytopenia ICD Codes: D69.6 - Thrombocytopenia, unspecified SNOMED: 977678538 (10) Coagulopathy ICD Codes: D68.9 - Coagulation defect, unspecified SNOMED: 08615425 Status: stable, unchanged Status Narrative Discussed with Dr. Ly. Assessment/Plan APCT >> Small and nodular liver consistent with cirrhosis. TIPS shunt not adequately evaluated without contrast, see full report below. OB stool negative AFP WNL Hep panel negative abdominal US >> Evidence of hepatic cirrhosis, also previously described. Patent TIPS shunt, normal velocities ok for DC per GI standpoint monitor H&H, transfuse prn low Na diet elevated ammonia >> lactulose + Xifaxan ppi fu labs Subjective Gastrointestinal/Abdominal: Reports: no symptoms Objective Last 24 Hour Vital Signs Date Time Temp Pulse Resp B/P Pulse Ox O2 Delivery O2 Flow Rate FiO2 10/15/16 12:55 97.7 85 19 124/63 100 Room Air 10/15/16 09:59 86 151/64 10/15/16 08:49 97.9 86 20 151/64 100 Room Air 10/15/16 07:33 85 16 Venturi Mask 8.0 40 10/15/16 07:33 Venturi Mask 40 10/15/16 07:33 97 Venturi Mask 8.0 40 10/15/16 04:00 97.5 78 19 137/75 100 Simple Mask 9.0 10/15/16 00:00 97.9 84 20 144/75 100 Simple Mask 9.0 10/14/16 20:49 Venturi Mask 40 10/14/16 20:48 82 18 Venturi Mask 8.0 40 10/14/16 20:48 99 Venturi Mask 8.0 40 10/14/16 20:00 97.7 76 19 146/79 100 Nasal Cannula 9.0 10/14/16 16:00 97.7 81 19 143/70 91 Room Air Intake and Output 10/14/16 10/15/16 19:00 07:00 Intake Total 360 ml 240 ml Output Total 100 ml 375 ml Balance 260 ml -135 ml Intake Oral 360 ml 240 ml Output Urine Total 100 ml 375 ml # Bowel Movements 1 Laboratory Tests Test 10/15/16 09:35 White Blood Count 18.9 K/UL (4.8-10.8) H Red Blood Count 2.66 M/UL (4.70-6.10) L Hemoglobin 8.8 G/DL (14.2-18.0) L Hematocrit 26.2 % (42.0-52.0) L Mean Corpuscular Volume 98 FL (80-99) Mean Corpuscular Hemoglobin 32.9 PG (27.0-31.0) H Mean Corpuscular Hemoglobin Concent 33.5 G/DL (32.0-36.0) Red Cell Distribution Width 21.4 % (11.6-14.8) H Platelet Count 164 K/UL (150-450) Mean Platelet Volume 6.9 FL (6.5-10.1) Neutrophils (%) (Auto) % (45.0-75.0) Lymphocytes (%) (Auto) % (20.0-45.0) Monocytes (%) (Auto) % (1.0-10.0) Eosinophils (%) (Auto) % (0.0-3.0) Basophils (%) (Auto) % (0.0-2.0) Differential Total Cells Counted 100 Neutrophils % (Manual) 88 % (45-75) H Lymphocytes % (Manual) 5 % (20-45) L Monocytes % (Manual) 7 % (1-10) Eosinophils % (Manual) 0 % (0-3) Basophils % (Manual) 0 % (0-2) Band Neutrophils 0 % (0-8) Platelet Estimate Adequate Platelet Morphology Normal Hypochromasia 1+ Anisocytosis 2+ Macrocytosis 1+ Sodium Level 140 mEQ/L (135-145) Potassium Level 5.0 mEQ/L (3.4-4.9) H Chloride Level 104 mEQ/L (98-107) Carbon Dioxide Level 26 mEQ/L (20-30) Anion Gap 10 (5-15) Blood Urea Nitrogen 80 mg/dL (7-23) H Creatinine 2.1 mg/dL (0.7-1.2) H Estimat Glomerular Filtration Rate 31.7 mL/min (>60) Glucose Level 100 mg/dL (74-106) Calcium Level 8.2 mg/dL (8.6-10.2) L Height (Feet): 5 Height (Inches): 6.00 Weight (Pounds): 200 General Appearance: no apparent distress, alert Cardiovascular: normal rate Respiratory/Chest: normal breath sounds, no respiratory distress Abdominal Exam: normal bowel sounds, non tender, soft Extremities: normal range of motion Objective Service Date: 10/04/16 Procedure: CT Abdomen Pelvis WO Contrast Indication: Hepatic encephalopathy and abdominal pain Impression: Moderate bilateral pleural effusions with compressive atelectasis in the partially visualized lung bases, left greater than right. Nasogastric tube within the stomach. White catheter in the bladder. Small and nodular liver consistent with cirrhosis. TIPS shunt not adequately evaluated without contrast. Questionable exophytic mass of the anterior right lobe of liver measuring 1.9 cm. Further evaluation with contrast recommended. Mild ascites. Right inguinal hernia containing fat, fluid and distal small bowel. Entering loop of bowel within the hernia relatively larger in caliber than the exiting loop of bowel and possibility of partial or early obstruction not excluded. Clinical correlation/followup recommended. Approximately 1.9 cm hypodensity within the lower pole of the right kidney incompletely assessed probably a cyst. Clinical correlation recommended. Diffuse subcutaneous edema. Angela Anderson N.P. Oct 15, 2016 13:05
--- NOTE | 2016-10-15 13:25 | Wound Care Consultation ---
Wound Assessment Wound Assessment #1: Wound Number: #1 Wound Present on Admission: Yes New Wound: No Status Change of Wound: No Wound Location Body Site Modif: mid Wound Location Body Site: sacral Wound Type: pressure ulcer Francisco J Test: Does not Francisco J Pressure Ulcer Stage: II Wound Thickness: Partial Thickness Wound Length: 3.8 Wound Width: 2.0 Percent of Wound [place]/Red: 100 Wound Drainage Description: Serosanguineous Wound Drainage Amount: Scant Wound Drainage Odor: None/Absent Tissue Surrounding Wound: Erythemic Wound General Appearance: Reddened Wound Assessment #2: Wound Number: #2 Wound Present on Admission: Yes New Wound: No Status Change of Wound: No Wound Location Body Site Modif: right Wound Location Body Site: elbow Wound Type: other - open wound etiology -unknown. Francisco J Test: Does not Francisco J Wound Thickness: Full Thickness Wound Length: 0.5 Wound Width: 0.5 Wound Depth: 0.1 Wound Drainage Amount: None Wound Drainage Odor: None/Absent Tissue Surrounding Wound: Erythemic Wound General Appearance: Reddened Wound Assessment #3: Wound Number: #3 Wound Present on Admission: Yes New Wound: No Status Change of Wound: No Wound Location Body Site Modif: left Wound Location Body Site: elbow Wound Type: pressure ulcer Francisco J Test: Does not Francisco J Pressure Ulcer Stage: I Wound Length: 3.0 Wound Width: 2.0 Percent of Wound [place]/Red: 100 Wound Drainage Amount: None Wound Drainage Odor: None/Absent Tissue Surrounding Wound: Intact Wound General Appearance: Reddened Wound Assessment #4: Wound Number: #4 Wound Present on Admission: Yes New Wound: No Status Change of Wound: No Wound Location Body Site Modif: left Wound Location Body Site: chest Wound Type: scab - resolving Francisco J Test: Does not Francisco J Percent of Wound [place]/Red: 100 Wound Drainage Amount: None Wound Drainage Odor: None/Absent Tissue Surrounding Wound: Intact Wound General Appearance: Open to air, Clean/Dry Wound Assessment #5: Wound Number: #5 Wound Present on Admission: No New Wound: Yes Status Change of Wound: No Wound Location Body Site Modif: left Wound Location Body Site: ear - top of ear Wound Type: pressure ulcer - redness, patient wears oxygen mask , noted pulling on mask. Francisco J Test: Does not Francisco J Wound Length: 0.5 Wound Width: 0.5 Percent of Wound [place]/Red: 100 Wound Drainage Amount: None Wound Drainage Odor: None/Absent Tissue Surrounding Wound: Erythemic Wound General Appearance: Reddened Wound Comment #1 Sacral stage II.- good progress noted, 100% wound bed. #2 Right elbow area open wound- etiology unknown.-resolving #3 Left elbow pressure ulcer stage I. #4 Left chest resolving scattered scabs. #5 Bilateral lower extremities hyperpigmentation. #6 Left top of ear stage I pressure ulcer. Recommendation -Local wound care as ordered. -Turn and reposition. -keep clean and dry. -Provide 4x4 gauze for cushion to both ears, LEFT EAR - cleanse with normal saline, pat dry , apply TRIAD , cover with 4x4 ,cover with small bordered dressing DAILY and PRN if soiled/dislodged. -Optimize nutrition. -Heel protectors. -Offload affected sacral site. -Offload heels and feet. -Avoid shear and friction. -Low air loss overlay SPR for wound and skin management. -Assess and notify MD if any change of condition is noted. DAVID DOTSON Oct 15, 2016 13:25
[2016-10-15] MEDS ORDERED: Sodium Polystyrene Sulfonate 15gm Powder ORAL ONE (14:00)
--- NOTE | 2016-10-15 15:34 | Nephrology Progress Note ---
Assessment/Plan Problem List: (1) CKD (chronic kidney disease) Assessment: no change (2) Ascites (3) Elevated liver function tests (4) Diabetes mellitus (5) Thrombocytopenia (6) Anemia Assessment: worse (7) Hepatic encephalopathy (8) Altered mental state (9) Pneumothorax, left Plan cont as is DC planning Discussed with RN Subjective Subjective In NAD Objective Objective Last 24 Hour Vital Signs Date Time Temp Pulse Resp B/P Pulse Ox O2 Delivery O2 Flow Rate FiO2 10/15/16 12:55 97.7 85 19 124/63 100 Room Air 10/15/16 09:59 86 151/64 10/15/16 08:49 97.9 86 20 151/64 100 Room Air 10/15/16 07:33 85 16 Venturi Mask 8.0 40 10/15/16 07:33 Venturi Mask 40 10/15/16 07:33 97 Venturi Mask 8.0 40 10/15/16 04:00 97.5 78 19 137/75 100 Simple Mask 9.0 10/15/16 00:00 97.9 84 20 144/75 100 Simple Mask 9.0 10/14/16 20:49 Venturi Mask 40 10/14/16 20:48 82 18 Venturi Mask 8.0 40 10/14/16 20:48 99 Venturi Mask 8.0 40 10/14/16 20:00 97.7 76 19 146/79 100 Nasal Cannula 9.0 10/14/16 16:00 97.7 81 19 143/70 91 Room Air Intake and Output 10/14/16 10/15/16 19:00 07:00 Intake Total 360 ml 240 ml Output Total 100 ml 375 ml Balance 260 ml -135 ml Intake Oral 360 ml 240 ml Output Urine Total 100 ml 375 ml # Bowel Movements 1 Laboratory Tests 10/15/16 09:35: White Blood Count 18.9H, Red Blood Count 2.66L, Hemoglobin 8.8L, Hematocrit 26.2L, Mean Corpuscular Volume 98, Mean Corpuscular Hemoglobin 32.9H, Mean Corpuscular Hemoglobin Concent 33.5, Red Cell Distribution Width 21.4H, Platelet Count 164, Mean Platelet Volume 6.9, Neutrophils (%) (Auto) , Lymphocytes (%) (Auto) , Monocytes (%) (Auto) , Eosinophils (%) (Auto) , Basophils (%) (Auto) , Differential Total Cells Counted 100, Neutrophils % ( Manual) 88H, Lymphocytes % (Manual) 5L, Monocytes % (Manual) 7, Eosinophils % ( Manual) 0, Basophils % (Manual) 0, Band Neutrophils 0, Platelet Estimate Adequate, Platelet Morphology Normal, Hypochromasia 1+, Anisocytosis 2+, Macrocytosis 1+, Sodium Level 140, Potassium Level 5.0H, Chloride Level 104, Carbon Dioxide Level 26, Anion Gap 10, Blood Urea Nitrogen 80H, Creatinine 2.1H , Estimat Glomerular Filtration Rate 31.7, Glucose Level 100, Calcium Level 8.2L Height (Feet): 5 Height (Inches): 6.00 Weight (Pounds): 200 Cardiovascular: normal rate Respiratory/Chest: lungs clear FERNANDO DC Oct 15, 2016 15:34
[2016-10-15 16:08] VITALS: BP 139/68
[2016-10-15 20:00] VITALS: BP 140/80
--- NOTE | 2016-10-15 23:56 | Pulmonology Progress Note ---
Assessment/Plan Problems: (1) Pleural effusion associated with hepatic disorder (2) Coagulopathy (3) Thrombocytopenia (4) Altered mental state Assessment/Plan thoracentesis liver w/u in process rule out malignancy. f/u GI ammonia level Subjective ROS Limited/Unobtainable: Yes Respiratory: Reports: dyspnea at rest, dyspnea on exertion, pleuritic pain, productive cough, shortness of breath, wheezing Neurologic: Reports: confusion, weakness Allergies: Coded Allergies: No Known Allergies (Unverified , 10/03/16) Objective Last 24 Hour Vital Signs Date Time Temp Pulse Resp B/P Pulse Ox O2 Delivery O2 Flow Rate FiO2 10/15/16 20:00 98.1 82 19 140/80 97 Room Air 10/15/16 19:49 97 Venturi Mask 8.0 40 10/15/16 19:49 Venturi Mask 40 10/15/16 19:49 73 16 Venturi Mask 8.0 40 10/15/16 16:08 98.1 80 18 139/68 96 Room Air 10/15/16 12:55 97.7 85 19 124/63 100 Room Air 10/15/16 09:59 86 151/64 10/15/16 08:49 97.9 86 20 151/64 100 Room Air 10/15/16 07:33 85 16 Venturi Mask 8.0 40 10/15/16 07:33 Venturi Mask 40 10/15/16 07:33 97 Venturi Mask 8.0 40 10/15/16 04:00 97.5 78 19 137/75 100 Simple Mask 9.0 10/15/16 00:00 97.9 84 20 144/75 100 Simple Mask 9.0 Intake and Output 10/14/16 10/15/16 19:00 07:00 Intake Total 360 ml 240 ml Output Total 100 ml 375 ml Balance 260 ml -135 ml Intake Oral 360 ml 240 ml Output Urine Total 100 ml 375 ml # Bowel Movements 1 General Appearance: no acute distress HEENT: normocephalic, atraumatic, PERRL Respiratory/Chest: chest wall non-tender, decreased breath sounds, accessory muscle use, crackles/rales, rhonchi, expiratory wheezing Cardiovascular: normal peripheral pulses, normal rate, regular rhythm, no JVD Abdomen: normal bowel sounds, soft, non tender, no organomegaly Genitourinary: normal external genitalia Extremities: no cyanosis Skin: no rash, no lesions Neurologic/Psychiatric: responsive, abnormal CN, disoriented Laboratory Tests 10/15/16 09:35: White Blood Count 18.9H, Red Blood Count 2.66L, Hemoglobin 8.8L, Hematocrit 26.2L, Mean Corpuscular Volume 98, Mean Corpuscular Hemoglobin 32.9H, Mean Corpuscular Hemoglobin Concent 33.5, Red Cell Distribution Width 21.4H, Platelet Count 164, Mean Platelet Volume 6.9, Neutrophils (%) (Auto) , Lymphocytes (%) (Auto) , Monocytes (%) (Auto) , Eosinophils (%) (Auto) , Basophils (%) (Auto) , Differential Total Cells Counted 100, Neutrophils % ( Manual) 88H, Lymphocytes % (Manual) 5L, Monocytes % (Manual) 7, Eosinophils % ( Manual) 0, Basophils % (Manual) 0, Band Neutrophils 0, Platelet Estimate Adequate, Platelet Morphology Normal, Hypochromasia 1+, Anisocytosis 2+, Macrocytosis 1+, Sodium Level 140, Potassium Level 5.0H, Chloride Level 104, Carbon Dioxide Level 26, Anion Gap 10, Blood Urea Nitrogen 80H, Creatinine 2.1H , Estimat Glomerular Filtration Rate 31.7, Glucose Level 100, Calcium Level 8.2L Current Medications Medications (Trade) Dose Ordered Sig/Morgan Route PRN Reason Start Time Stop Time Status Last Admin Dose Admin Amlodipine Besylate (Norvasc) 5 mg DAILY NG 10/09/16 09:00 11/08/16 08:59 10/15/16 09:59 Clonidine HCl (Catapres) 0.2 mg Q4H PRN GT SBP>170 10/08/16 23:00 11/07/16 22:59 Dextrose (Dextrose 50%) STAT PRN IV Hypoglycemia 10/09/16 22:00 11/08/16 21:59 Insulin Aspart (NovoLOG) BEFORE MEALS AND HS SUBQ 10/13/16 21:00 11/12/16 20:59 Lactulose (Cephulac) 20 gm EVERY 8 HOURS NG 10/09/16 06:00 11/08/16 05:59 10/15/16 05:40 Morphine Sulfate (Morphine Sulfate) 2 mg Q4H PRN IVP Moderate Pain (Pain Scale 4-6) 10/09/16 01:00 10/16/16 00:59 Morphine Sulfate (Morphine Sulfate) 4 mg Q4H PRN IVP Severe Pain (Pain Scale 7-10) 10/09/16 01:00 10/16/16 00:59 Ondansetron HCl (Zofran) 4 mg Q4H PRN IVP Nausea & Vomiting 10/09/16 01:00 11/08/16 00:59 Rifaximin (Xifaxan) 550 mg EVERY 12 HOURS NG 10/09/16 09:00 10/16/16 08:59 10/15/16 09:59 Vitamin A/Vitamin D (A & D Oint) 1 applic EVERY 12 HOURS TOPIC 10/09/16 09:00 11/08/16 08:59 10/15/16 21:18 KRISTOPHER JACQUES Oct 15, 2016 23:56
[2016-10-16] VITALS: BP 165/79
[2016-10-16 03:36] VITALS: BP 150/63
[2016-10-16] MEDS: Lactulose 20gm/30ml UDC NG SCH ×3 (06:00→22:00)
[2016-10-16] MEDS: NovoLOG Insulin Flexpen SUBQ SCH ×4 (06:14→22:12)
[2016-10-16 07:19] LABS: BASOPHILS % (AUTO) 1.4 % (0.0-2.0); EOSINOPHILS % (AUTO) 0.5 % (0.0-3.0); MEAN CORPUSCULAR HEMOGLOBIN 33.3 PG (27.0-31.0); MEAN CORPUSCULAR HGB CONC 33.5 G/DL (32.0-36.0); MEAN CORPUSCULAR VOLUME 99 FL (80-99); MEAN PLATELET VOLUME 6.8 FL (6.5-10.1); MONOCYTES % (AUTO) 8.8 % (1.0-10.0); NEUTROPHILS % (AUTO) 84.2 % (45.0-75.0); PLATELET COUNT 163 K/UL (150-450); RED BLOOD COUNT 2.83 M/UL (4.70-6.10); RED CELL DISTRIBUTION WIDTH 21.9 % (11.6-14.8); WHITE BLOOD COUNT 16.5 K/UL (4.8-10.8)
[2016-10-16 07:33] LABS: CALCIUM 8.2 mg/dL (8.6-10.2); GLOMERULAR FILTRATION RATE 33.5 mL/min (>60); POTASSIUM 4.5 mEQ/L (3.4-4.9)
[2016-10-16 08:08] VITALS: BP 132/71
[2016-10-16] MEDS: Vitamin A&D Oint 2oz Tube TOPIC SCH ×2 (09:29→22:13)
[2016-10-16 12:40] VITALS: BP 105/57
--- NOTE | 2016-10-16 13:37 | Nephrology Progress Note ---
Assessment/Plan Problem List: (1) CKD (chronic kidney disease) Assessment: no change (2) Ascites (3) Elevated liver function tests (4) Diabetes mellitus (5) Thrombocytopenia (6) Anemia Assessment: better (7) Hepatic encephalopathy (8) Altered mental state (9) Pneumothorax, left Plan cont as is DC planning Discussed with RN Subjective Subjective In NAD Objective Objective Last 24 Hour Vital Signs Date Time Temp Pulse Resp B/P Pulse Ox O2 Delivery O2 Flow Rate FiO2 10/16/16 12:40 97.3 76 19 105/57 98 Room Air 10/16/16 09:29 83 132/71 10/16/16 08:08 97.0 83 19 132/71 97 Room Air 10/16/16 03:36 97.9 80 19 150/63 96 Room Air 10/16/16 00:00 97.2 82 20 165/79 93 Room Air 10/15/16 20:00 98.1 82 19 140/80 97 Room Air 10/15/16 19:49 97 Venturi Mask 8.0 40 10/15/16 19:49 Venturi Mask 40 10/15/16 19:49 73 16 Venturi Mask 8.0 40 10/15/16 16:08 98.1 80 18 139/68 96 Room Air Intake and Output 10/15/16 10/16/16 19:00 07:00 Intake Total 480 ml 320 ml Output Total 150 ml 300 ml Balance 330 ml 20 ml Intake Oral 480 ml 320 ml Output Urine Total 150 ml 300 ml Laboratory Tests 10/16/16 06:55: White Blood Count 16.5H, Red Blood Count 2.83L, Hemoglobin 9.4L, Hematocrit 28.1L, Mean Corpuscular Volume 99, Mean Corpuscular Hemoglobin 33.3H, Mean Corpuscular Hemoglobin Concent 33.5, Red Cell Distribution Width 21.9H, Platelet Count 163, Mean Platelet Volume 6.8, Neutrophils (%) (Auto) 84.2H, Lymphocytes (%) (Auto) 5.0L, Monocytes (%) (Auto) 8.8, Eosinophils (%) (Auto) 0.5, Basophils (%) (Auto) 1.4, Sodium Level 137, Potassium Level 4.5, Chloride Level 100, Carbon Dioxide Level 25, Anion Gap 12, Blood Urea Nitrogen 81H, Creatinine 2.0H, Estimat Glomerular Filtration Rate 33.5, Glucose Level 72L, Calcium Level 8.2L Height (Feet): 5 Height (Inches): 6.00 Weight (Pounds): 200 Cardiovascular: normal rate Respiratory/Chest: lungs clear Extremities: moderate edema FERNANDO DC Oct 16, 2016 13:37
--- NOTE | 2016-10-16 14:04 | General Progress Note ---
Assessment/Plan Problem List: (1) Ascites ICD Codes: R18.8 - Other ascites SNOMED: 673686614 (2) HTN (hypertension) ICD Codes: I10 - Essential (primary) hypertension SNOMED: 08153964 (3) Altered mental status ICD Codes: R41.82 - Altered mental status, unspecified SNOMED: 086798778 (4) Cirrhosis of liver ICD Codes: K74.60 - Unspecified cirrhosis of liver SNOMED: 99152707 (5) Diabetes mellitus ICD Codes: E11.9 - Type 2 diabetes mellitus without complications SNOMED: 45303986 (6) Renal insufficiency ICD Codes: N28.9 - Disorder of kidney and ureter, unspecified SNOMED: 711864855 (7) Hepatic encephalopathy ICD Codes: K72.90 - Hepatic failure, unspecified without coma SNOMED: 10012605 Assessment/Plan lactulose xifaxan fu labs dc planning Subjective ROS Limited/Unobtainable: Yes Allergies: Coded Allergies: No Known Allergies (Unverified , 10/03/16) Objective Last 24 Hour Vital Signs Date Time Temp Pulse Resp B/P Pulse Ox O2 Delivery O2 Flow Rate FiO2 10/16/16 12:40 97.3 76 19 105/57 98 Room Air 10/16/16 09:29 83 132/71 10/16/16 08:08 97.0 83 19 132/71 97 Room Air 10/16/16 03:36 97.9 80 19 150/63 96 Room Air 10/16/16 00:00 97.2 82 20 165/79 93 Room Air 10/15/16 20:00 98.1 82 19 140/80 97 Room Air 10/15/16 19:49 97 Venturi Mask 8.0 40 10/15/16 19:49 Venturi Mask 40 10/15/16 19:49 73 16 Venturi Mask 8.0 40 10/15/16 16:08 98.1 80 18 139/68 96 Room Air Intake and Output 10/15/16 10/16/16 19:00 07:00 Intake Total 480 ml 320 ml Output Total 150 ml 300 ml Balance 330 ml 20 ml Intake Oral 480 ml 320 ml Output Urine Total 150 ml 300 ml Laboratory Tests 10/16/16 06:55: White Blood Count 16.5H, Red Blood Count 2.83L, Hemoglobin 9.4L, Hematocrit 28.1L, Mean Corpuscular Volume 99, Mean Corpuscular Hemoglobin 33.3H, Mean Corpuscular Hemoglobin Concent 33.5, Red Cell Distribution Width 21.9H, Platelet Count 163, Mean Platelet Volume 6.8, Neutrophils (%) (Auto) 84.2H, Lymphocytes (%) (Auto) 5.0L, Monocytes (%) (Auto) 8.8, Eosinophils (%) (Auto) 0.5, Basophils (%) (Auto) 1.4, Sodium Level 137, Potassium Level 4.5, Chloride Level 100, Carbon Dioxide Level 25, Anion Gap 12, Blood Urea Nitrogen 81H, Creatinine 2.0H, Estimat Glomerular Filtration Rate 33.5, Glucose Level 72L, Calcium Level 8.2L Height (Feet): 5 Height (Inches): 6.00 Weight (Pounds): 200 General Appearance: alert EENT: normal ENT inspection Neck: supple Cardiovascular: normal rate Respiratory/Chest: decreased breath sounds Abdomen: normal bowel sounds, non tender, soft Extremities: non-tender SAIRA APPIAH Oct 16, 2016 14:04
--- NOTE | 2016-10-16 15:49 | Internal Med Progress Note ---
Subjective Date of Service: Oct 16, 2016 Physician Name Rafiq Florentino Attending Physician Jeremiah Light MD Current Medications Medications (Trade) Dose Ordered Sig/Morgan Route PRN Reason Start Time Stop Time Status Last Admin Dose Admin Amlodipine Besylate (Norvasc) 5 mg DAILY NG 10/09/16 09:00 11/08/16 08:59 10/16/16 09:29 Clonidine HCl (Catapres) 0.2 mg Q4H PRN GT SBP>170 10/08/16 23:00 11/07/16 22:59 Dextrose (Dextrose 50%) STAT PRN IV Hypoglycemia 10/09/16 22:00 11/08/16 21:59 Insulin Aspart (NovoLOG) BEFORE MEALS AND HS SUBQ 10/13/16 21:00 11/12/16 20:59 Lactulose (Cephulac) 20 gm EVERY 8 HOURS NG 10/09/16 06:00 11/08/16 05:59 10/15/16 05:40 Ondansetron HCl (Zofran) 4 mg Q4H PRN IVP Nausea & Vomiting 10/09/16 01:00 11/08/16 00:59 Rifaximin (Xifaxan) 550 mg EVERY 12 HOURS ORAL 10/16/16 21:00 10/23/16 20:59 Vitamin A/Vitamin D (A & D Oint) 1 applic EVERY 12 HOURS TOPIC 10/09/16 09:00 11/08/16 08:59 10/16/16 09:29 Allergies: Coded Allergies: No Known Allergies (Unverified , 10/03/16) ROS Limited/Unobtainable: Yes Subjective 66 YO M admitted with abdominal pain and encephalopathy. Cover for Int Med-Dr Light. S/P left thoracentesis on 10/07/16. Now left pneumothorax; S/P chest tube. Await transfer to [facility] group home facility. Tolerating room air. Objective Last Vital Signs Date Time Temp Pulse Resp B/P Pulse Ox O2 Delivery O2 Flow Rate FiO2 10/16/16 12:40 97.3 76 19 105/57 98 Room Air 10/15/16 19:49 8.0 40 Laboratory Tests Test 10/16/16 06:55 White Blood Count 16.5 K/UL (4.8-10.8) H Red Blood Count 2.83 M/UL (4.70-6.10) L Hemoglobin 9.4 G/DL (14.2-18.0) L Hematocrit 28.1 % (42.0-52.0) L Mean Corpuscular Volume 99 FL (80-99) Mean Corpuscular Hemoglobin 33.3 PG (27.0-31.0) H Mean Corpuscular Hemoglobin Concent 33.5 G/DL (32.0-36.0) Red Cell Distribution Width 21.9 % (11.6-14.8) H Platelet Count 163 K/UL (150-450) Mean Platelet Volume 6.8 FL (6.5-10.1) Neutrophils (%) (Auto) 84.2 % (45.0-75.0) H Lymphocytes (%) (Auto) 5.0 % (20.0-45.0) L Monocytes (%) (Auto) 8.8 % (1.0-10.0) Eosinophils (%) (Auto) 0.5 % (0.0-3.0) Basophils (%) (Auto) 1.4 % (0.0-2.0) Sodium Level 137 mEQ/L (135-145) Potassium Level 4.5 mEQ/L (3.4-4.9) Chloride Level 100 mEQ/L (98-107) Carbon Dioxide Level 25 mEQ/L (20-30) Anion Gap 12 (5-15) Blood Urea Nitrogen 81 mg/dL (7-23) H Creatinine 2.0 mg/dL (0.7-1.2) H Estimat Glomerular Filtration Rate 33.5 mL/min (>60) Glucose Level 72 mg/dL (74-106) L Calcium Level 8.2 mg/dL (8.6-10.2) L Intake and Output 10/15/16 10/16/16 19:00 07:00 Intake Total 480 ml 320 ml Output Total 150 ml 300 ml Balance 330 ml 20 ml Intake Oral 480 ml 320 ml Output Urine Total 150 ml 300 ml Objective General Appearance: WD/WN, alert, mild distress EENT: PERRL/EOMI, normal ENT inspection Neck: non-tender, normal alignment, supple, normal inspection Cardiovascular: normal peripheral pulses, normal rate, regular rhythm, no gallop/murmur, no JVD Respiratory/Chest: chest wall non-tender, lungs clear, no respiratory distress , no accessory muscle use Abdomen: decreased bowel sounds, distended, guarding, tender Extremities: normal range of motion Neurologic: console attendant II-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 (3) Elevated liver function tests (4) CHF (congestive heart failure) (5) Diabetes mellitus Assessment & Plan: Cont novolog sliding scale (6) HTN (hypertension) Assessment & Plan: Continue amlodipine and clonidine. (7) Renal failure (8) Anemia (9) Hepatic encephalopathy Assessment & Plan: Continue Xifaxan (10) Ascites Assessment & Plan: Paracentesis on hold due to thrombocytopenia. (11) Thrombocytopenia (12) Pleural effusion associated with hepatic disorder Assessment & Plan: Left. S/P thoracentesis 10/07/. 3 Liters fluid removed. (13) Pneumothorax, left Assessment & Plan: S/P left chest tube. (14) Hyperkalemia Assessment & Plan: PRN Kayexalate Status: stable Assessment/Plan Transfer to [facility] group home facility when bed available. RAFIQ FLORENTINO Oct 16, 2016 15:49
[2016-10-16] MEDS: Rifaximin 550mg tab ORAL SCH (22:12)
--- NOTE | 2016-10-16 22:44 | Pulmonology Progress Note ---
Assessment/Plan Problems: (1) Pleural effusion associated with hepatic disorder (2) Coagulopathy (3) Thrombocytopenia (4) Altered mental state Assessment/Plan thoracentesis liver w/u in process rule out malignancy. f/u GI ammonia level Subjective Allergies: Coded Allergies: No Known Allergies (Unverified , 10/03/16) Objective Last 24 Hour Vital Signs Date Time Temp Pulse Resp B/P Pulse Ox O2 Delivery O2 Flow Rate FiO2 10/16/16 19:46 Venturi Mask 8.0 40 10/16/16 19:46 99 Venturi Mask 8.0 40 10/16/16 12:40 97.3 76 19 105/57 98 Room Air 10/16/16 09:29 83 132/71 10/16/16 08:08 97.0 83 19 132/71 97 Room Air 10/16/16 03:36 97.9 80 19 150/63 96 Room Air 10/16/16 00:00 97.2 82 20 165/79 93 Room Air Intake and Output 10/15/16 10/16/16 19:00 07:00 Intake Total 480 ml 320 ml Output Total 150 ml 300 ml Balance 330 ml 20 ml Intake Oral 480 ml 320 ml Output Urine Total 150 ml 300 ml Laboratory Tests 10/16/16 06:55: White Blood Count 16.5H, Red Blood Count 2.83L, Hemoglobin 9.4L, Hematocrit 28.1L, Mean Corpuscular Volume 99, Mean Corpuscular Hemoglobin 33.3H, Mean Corpuscular Hemoglobin Concent 33.5, Red Cell Distribution Width 21.9H, Platelet Count 163, Mean Platelet Volume 6.8, Neutrophils (%) (Auto) 84.2H, Lymphocytes (%) (Auto) 5.0L, Monocytes (%) (Auto) 8.8, Eosinophils (%) (Auto) 0.5, Basophils (%) (Auto) 1.4, Sodium Level 137, Potassium Level 4.5, Chloride Level 100, Carbon Dioxide Level 25, Anion Gap 12, Blood Urea Nitrogen 81H, Creatinine 2.0H, Estimat Glomerular Filtration Rate 33.5, Glucose Level 72L, Calcium Level 8.2L Current Medications Medications (Trade) Dose Ordered Sig/Morgan Route PRN Reason Start Time Stop Time Status Last Admin Dose Admin Amlodipine Besylate (Norvasc) 5 mg DAILY NG 10/09/16 09:00 11/08/16 08:59 10/16/16 09:29 Clonidine HCl (Catapres) 0.2 mg Q4H PRN GT SBP>170 10/08/16 23:00 11/07/16 22:59 Dextrose (Dextrose 50%) STAT PRN IV Hypoglycemia 10/09/16 22:00 11/08/16 21:59 Insulin Aspart (NovoLOG) BEFORE MEALS AND HS SUBQ 10/13/16 21:00 11/12/16 20:59 Lactulose (Cephulac) 20 gm EVERY 8 HOURS NG 10/09/16 06:00 11/08/16 05:59 10/15/16 05:40 Ondansetron HCl (Zofran) 4 mg Q4H PRN IVP Nausea & Vomiting 10/09/16 01:00 11/08/16 00:59 Rifaximin (Xifaxan) 550 mg EVERY 12 HOURS ORAL 10/16/16 21:00 10/23/16 20:59 Vitamin A/Vitamin D (A & D Oint) 1 applic EVERY 12 HOURS TOPIC 10/09/16 09:00 11/08/16 08:59 10/16/16 09:29 KRISTOPHER JACQUES Oct 16, 2016 22:44
[2016-10-17] VITALS: BP 121/62
[2016-10-17 04:00] VITALS: BP 159/73
[2016-10-17] MEDS: Lactulose 20gm/30ml UDC NG SCH ×3 (06:00→21:45)
[2016-10-17] MEDS: NovoLOG Insulin Flexpen SUBQ SCH ×4 (06:05→21:46)
[2016-10-17 07:26] LABS: CALCIUM 8.1 mg/dL (8.6-10.2); CREATININE 2.3 mg/dL (0.7-1.2); GLOMERULAR FILTRATION RATE 28.5 mL/min (>60); POTASSIUM 3.9 mEQ/L (3.4-4.9)
[2016-10-17 07:29] LABS: BASOPHILS % (AUTO) 0.7 % (0.0-2.0); EOSINOPHILS % (AUTO) 0.4 % (0.0-3.0); LYMPHOCYTES % (AUTO) 4.7 % (20.0-45.0); MEAN CORPUSCULAR HEMOGLOBIN 33.2 PG (27.0-31.0); MEAN CORPUSCULAR VOLUME 101 FL (80-99); MEAN PLATELET VOLUME 6.3 FL (6.5-10.1); MONOCYTES % (AUTO) 9.2 % (1.0-10.0); NEUTROPHILS % (AUTO) 84.9 % (45.0-75.0); PLATELET COUNT 168 K/UL (150-450); RED CELL DISTRIBUTION WIDTH 20.5 % (11.6-14.8); WHITE BLOOD COUNT 17.9 K/UL (4.8-10.8)
[2016-10-17] MEDS: Rifaximin 550mg tab ORAL SCH ×2 (09:00→21:45)
[2016-10-17] MEDS: Vitamin A&D Oint 2oz Tube TOPIC SCH ×2 (09:00→21:45)
[2016-10-17 10:47] VITALS: BP 147/67
--- NOTE | 2016-10-17 12:41 | General Progress Note ---
Assessment/Plan Problem List: (1) Ascites ICD Codes: R18.8 - Other ascites SNOMED: 075427617 (2) HTN (hypertension) ICD Codes: I10 - Essential (primary) hypertension SNOMED: 90874767 (3) Altered mental status ICD Codes: R41.82 - Altered mental status, unspecified SNOMED: 096201816 (4) Cirrhosis of liver ICD Codes: K74.60 - Unspecified cirrhosis of liver SNOMED: 03575710 (5) Diabetes mellitus ICD Codes: E11.9 - Type 2 diabetes mellitus without complications SNOMED: 56308401 (6) Renal insufficiency ICD Codes: N28.9 - Disorder of kidney and ureter, unspecified SNOMED: 163661803 (7) Hepatic encephalopathy ICD Codes: K72.90 - Hepatic failure, unspecified without coma SNOMED: 38110996 Assessment/Plan lactulose xifaxan fu labs start cefipem Subjective ROS Limited/Unobtainable: Yes Allergies: Coded Allergies: No Known Allergies (Unverified , 10/03/16) Subjective no event Objective Last 24 Hour Vital Signs Date Time Temp Pulse Resp B/P Pulse Ox O2 Delivery O2 Flow Rate FiO2 10/17/16 10:47 97.0 97 20 147/67 93 Room Air 10/17/16 09:38 97 Venturi Mask 8.0 40 10/17/16 09:38 Venturi Mask 8.0 40 10/17/16 09:00 90 159/73 10/17/16 04:00 98.1 90 19 159/73 94 Room Air 10/17/16 00:00 98.2 81 18 121/62 94 Room Air 10/16/16 19:46 Venturi Mask 8.0 40 10/16/16 19:46 99 Venturi Mask 8.0 40 Intake and Output 10/16/16 10/17/16 19:00 07:00 Intake Total 480 ml 300 ml Output Total 200 ml 350 ml Balance 280 ml -50 ml Intake Oral 480 ml 300 ml Output Urine Total 200 ml 350 ml Laboratory Tests 10/17/16 06:35: White Blood Count 17.9H, Red Blood Count 2.40L, Hemoglobin 8.0L, Hematocrit 24.2L, Mean Corpuscular Volume 101H, Mean Corpuscular Hemoglobin 33.2H, Mean Corpuscular Hemoglobin Concent 33.0, Red Cell Distribution Width 20.5H, Platelet Count 168, Mean Platelet Volume 6.3L, Neutrophils (%) (Auto) 84.9H, Lymphocytes (%) (Auto) 4.7L, Monocytes (%) (Auto) 9.2, Eosinophils (%) (Auto) 0.4, Basophils (%) (Auto) 0.7, Sodium Level 136, Potassium Level 3.9, Chloride Level 98, Carbon Dioxide Level 26, Anion Gap 12, Blood Urea Nitrogen 81H, Creatinine 2.3H, Estimat Glomerular Filtration Rate 28.5, Glucose Level 72L, Calcium Level 8.1L Height (Feet): 5 Height (Inches): 6.00 Weight (Pounds): 200 General Appearance: no apparent distress EENT: normal ENT inspection Neck: supple Cardiovascular: normal rate Respiratory/Chest: decreased breath sounds Abdomen: normal bowel sounds, non tender, soft Extremities: non-tender SAIRA APPIAH Oct 17, 2016 12:41
--- NOTE | 2016-10-17 13:09 | Nephrology Progress Note ---
Assessment/Plan Problem List: (1) CKD (chronic kidney disease) Assessment: no significant change (2) Ascites (3) Elevated liver function tests (4) Diabetes mellitus (5) Thrombocytopenia (6) Anemia Assessment: worse (7) Hepatic encephalopathy (8) Altered mental state (9) Pneumothorax, left Plan cont as is DC planning Discussed with Dr Light Subjective Subjective In NAD Objective Objective Last 24 Hour Vital Signs Date Time Temp Pulse Resp B/P Pulse Ox O2 Delivery O2 Flow Rate FiO2 10/17/16 10:47 97.0 97 20 147/67 93 Room Air 10/17/16 09:38 97 Venturi Mask 8.0 40 10/17/16 09:38 Venturi Mask 8.0 40 10/17/16 09:00 90 159/73 10/17/16 04:00 98.1 90 19 159/73 94 Room Air 10/17/16 00:00 98.2 81 18 121/62 94 Room Air 10/16/16 19:46 Venturi Mask 8.0 40 10/16/16 19:46 99 Venturi Mask 8.0 40 Intake and Output 10/16/16 10/17/16 19:00 07:00 Intake Total 480 ml 300 ml Output Total 200 ml 350 ml Balance 280 ml -50 ml Intake Oral 480 ml 300 ml Output Urine Total 200 ml 350 ml Laboratory Tests 10/17/16 06:35: White Blood Count 17.9H, Red Blood Count 2.40L, Hemoglobin 8.0L, Hematocrit 24.2L, Mean Corpuscular Volume 101H, Mean Corpuscular Hemoglobin 33.2H, Mean Corpuscular Hemoglobin Concent 33.0, Red Cell Distribution Width 20.5H, Platelet Count 168, Mean Platelet Volume 6.3L, Neutrophils (%) (Auto) 84.9H, Lymphocytes (%) (Auto) 4.7L, Monocytes (%) (Auto) 9.2, Eosinophils (%) (Auto) 0.4, Basophils (%) (Auto) 0.7, Sodium Level 136, Potassium Level 3.9, Chloride Level 98, Carbon Dioxide Level 26, Anion Gap 12, Blood Urea Nitrogen 81H, Creatinine 2.3H, Estimat Glomerular Filtration Rate 28.5, Glucose Level 72L, Calcium Level 8.1L Height (Feet): 5 Height (Inches): 6.00 Weight (Pounds): 200 Cardiovascular: normal rate Respiratory/Chest: lungs clear Extremities: moderate edema FERNANDO DC Oct 17, 2016 13:09
--- NOTE | 2016-10-17 13:33 | Pulmonology Progress Note ---
Assessment/Plan Assessment/Plan ASSESSMENT chronic kidney disease acute hepatic encephalopathy large left pleural effusion, associated with liver disease s/p thoracentesis 3 /6-300 ml out Pneumothorax 2 to thoracentesis s/p L thoracic vent( drain catheter placement) moderate pulmonary HTN moderate TR ST -resolved diastolic dysfunction abdominal pain ascites coagulopathy thrombocytopenia HTN anemia cirrhosis elevated CEA DM hypothyroidism PLAN OF CARE [facility] floor cardio eval noted tachy resolved ECHO with EF 60-65%, RVSP of 58, c/w mdoerate pulmonary HTN, + moderate LVH, + moderate TR , large anterior and posterior pleural effusion lactulose and Rifaximin, ammonia trending down - ? dc- per GI discretion GI follows O2 HHN prn s/p thoracentesis of L pleural effusion - 3L out pneumothorax detected in CXR after tap s/p placement of drainage catheter by IR pain management s/p vit K, monitor PLT count , up to normal, no heparin anemia workup with stable B 12 and iron, folate P, elevated CEA , stool OB negative s/p transfusion PRBC , monitor HH, transfuse if Hgb below 7,5 BS management with SS of insulin GI prophylaxis CT A/P noted, mild ascites, moderate bilateral pleural effusions with compressive atelectasis in the partially visualized lung bases, left greater than right. abdominal US revealed hepatic cirrhosis, patent TIPS shunt, normal velocities renal US with normal kidney echogenicity, no hydro s/p IVF nephro follows, no change in renal parameters chronic kidney disease BP management with CCB, stable, optimize as needed dc plan DNR/DNI status case discussed and evaluated by supervising physician Subjective Allergies: Coded Allergies: No Known Allergies (Unverified , 10/03/16) Subjective tachy resolved, remains altered on RA sat stable, no signs of respiratory distress Objective Last 24 Hour Vital Signs Date Time Temp Pulse Resp B/P Pulse Ox O2 Delivery O2 Flow Rate FiO2 10/17/16 10:47 97.0 97 20 147/67 93 Room Air 10/17/16 09:38 97 Venturi Mask 8.0 40 10/17/16 09:38 Venturi Mask 8.0 40 10/17/16 09:00 90 159/73 10/17/16 04:00 98.1 90 19 159/73 94 Room Air 10/17/16 00:00 98.2 81 18 121/62 94 Room Air 10/16/16 19:46 Venturi Mask 8.0 40 10/16/16 19:46 99 Venturi Mask 8.0 40 Intake and Output 10/16/16 10/17/16 19:00 07:00 Intake Total 480 ml 300 ml Output Total 200 ml 350 ml Balance 280 ml -50 ml Intake Oral 480 ml 300 ml Output Urine Total 200 ml 350 ml Objective General Appearance: no apparent distress, awake, responsive, confused Lines, tubes and drains: peripheral HEENT: normocephalic, atraumatic, Neck: non-tender, supple Respiratory/Chest: lungs clear , decreased BS at bases , no respiratory distress, no accessory muscle use Cardiovascular/Chest: normal rate, regular rhythm, SR on tele Abdomen: normal bowel sounds, non tender , distended , soft Extremities: normal range of motion, no calf tenderness, normal capillary refill, + 1 edema BLE, SCD on Neurologic: abnormal gait, awake, responsive, confused, bedridden Musculoskeletal: normal muscle bulk Laboratory Tests 10/17/16 06:35: White Blood Count 17.9H, Red Blood Count 2.40L, Hemoglobin 8.0L, Hematocrit 24.2L, Mean Corpuscular Volume 101H, Mean Corpuscular Hemoglobin 33.2H, Mean Corpuscular Hemoglobin Concent 33.0, Red Cell Distribution Width 20.5H, Platelet Count 168, Mean Platelet Volume 6.3L, Neutrophils (%) (Auto) 84.9H, Lymphocytes (%) (Auto) 4.7L, Monocytes (%) (Auto) 9.2, Eosinophils (%) (Auto) 0.4, Basophils (%) (Auto) 0.7, Sodium Level 136, Potassium Level 3.9, Chloride Level 98, Carbon Dioxide Level 26, Anion Gap 12, Blood Urea Nitrogen 81H, Creatinine 2.3H, Estimat Glomerular Filtration Rate 28.5, Glucose Level 72L, Calcium Level 8.1L Current Medications Medications (Trade) Dose Ordered Sig/Morgan Route PRN Reason Start Time Stop Time Status Last Admin Dose Admin Amlodipine Besylate (Norvasc) 5 mg DAILY NG 10/09/16 09:00 11/08/16 08:59 10/16/16 09:29 Cefepime HCl/ Dextrose (Maxipime/D5W) 55 ml @ 110 mls/hr Q24H IVPB 10/17/16 14:00 10/24/16 13:59 Clonidine HCl (Catapres) 0.2 mg Q4H PRN GT SBP>170 10/08/16 23:00 11/07/16 22:59 Dextrose (Dextrose 50%) STAT PRN IV Hypoglycemia 10/09/16 22:00 11/08/16 21:59 10/16/16 23:59 Insulin Aspart (NovoLOG) BEFORE MEALS AND HS SUBQ 10/13/16 21:00 11/12/16 20:59 Lactulose (Cephulac) 20 gm EVERY 8 HOURS NG 10/09/16 06:00 11/08/16 05:59 10/15/16 05:40 Ondansetron HCl (Zofran) 4 mg Q4H PRN IVP Nausea & Vomiting 10/09/16 01:00 11/08/16 00:59 Rifaximin 550 mg 550 mg EVERY 12 HOURS ORAL 10/16/16 21:00 10/23/16 20:59 Vitamin A/Vitamin D (A & D Oint) 1 applic EVERY 12 HOURS TOPIC 10/09/16 09:00 11/08/16 08:59 10/17/16 09:00 Abran ([facility])Briseida NP Oct 17, 2016 13:33
[2016-10-17] MEDS: Cefepime HCl 1 GM in D5W 55 ML IVPB SCH (14:45)
--- NOTE | 2016-10-17 16:31 | Internal Med Progress Note ---
Subjective Date of Service: Oct 17, 2016 Physician Name Rafiq Florentino Attending Physician Jeremiah Light MD Current Medications Medications (Trade) Dose Ordered Sig/Morgan Route PRN Reason Start Time Stop Time Status Last Admin Dose Admin Amlodipine Besylate (Norvasc) 5 mg DAILY NG 10/09/16 09:00 11/08/16 08:59 10/16/16 09:29 Cefepime HCl/ Dextrose (Maxipime/D5W) 55 ml @ 110 mls/hr Q24H IVPB 10/17/16 14:00 10/24/16 13:59 10/17/16 14:45 Clonidine HCl (Catapres) 0.2 mg Q4H PRN GT SBP>170 10/08/16 23:00 11/07/16 22:59 Dextrose (Dextrose 50%) STAT PRN IV Hypoglycemia 10/09/16 22:00 11/08/16 21:59 10/16/16 23:59 Insulin Aspart (NovoLOG) BEFORE MEALS AND HS SUBQ 10/13/16 21:00 11/12/16 20:59 Lactulose (Cephulac) 20 gm EVERY 8 HOURS NG 10/09/16 06:00 11/08/16 05:59 10/15/16 05:40 Ondansetron HCl (Zofran) 4 mg Q4H PRN IVP Nausea & Vomiting 10/09/16 01:00 11/08/16 00:59 Rifaximin 550 mg 550 mg EVERY 12 HOURS ORAL 10/16/16 21:00 10/23/16 20:59 Vitamin A/Vitamin D (A & D Oint) 1 applic EVERY 12 HOURS TOPIC 10/09/16 09:00 11/08/16 08:59 10/17/16 09:00 Allergies: Coded Allergies: No Known Allergies (Unverified , 10/03/16) ROS Limited/Unobtainable: Yes Subjective 66 YO M admitted with abdominal pain and encephalopathy. Cover for Int Med-Dr Light. S/P left thoracentesis on 10/07/16. Now left pneumothorax; S/P chest tube. Await transfer to [facility] vs [facility] care home facility. Tolerating room air. Objective Last Vital Signs Date Time Temp Pulse Resp B/P Pulse Ox O2 Delivery O2 Flow Rate FiO2 10/17/16 10:47 97.0 97 20 147/67 93 Room Air 10/17/16 09:38 8.0 40 Laboratory Tests Test 10/17/16 06:35 White Blood Count 17.9 K/UL (4.8-10.8) H Red Blood Count 2.40 M/UL (4.70-6.10) L Hemoglobin 8.0 G/DL (14.2-18.0) L Hematocrit 24.2 % (42.0-52.0) L Mean Corpuscular Volume 101 FL (80-99) H Mean Corpuscular Hemoglobin 33.2 PG (27.0-31.0) H Mean Corpuscular Hemoglobin Concent 33.0 G/DL (32.0-36.0) Red Cell Distribution Width 20.5 % (11.6-14.8) H Platelet Count 168 K/UL (150-450) Mean Platelet Volume 6.3 FL (6.5-10.1) L Neutrophils (%) (Auto) 84.9 % (45.0-75.0) H Lymphocytes (%) (Auto) 4.7 % (20.0-45.0) L Monocytes (%) (Auto) 9.2 % (1.0-10.0) Eosinophils (%) (Auto) 0.4 % (0.0-3.0) Basophils (%) (Auto) 0.7 % (0.0-2.0) Sodium Level 136 mEQ/L (135-145) Potassium Level 3.9 mEQ/L (3.4-4.9) Chloride Level 98 mEQ/L (98-107) Carbon Dioxide Level 26 mEQ/L (20-30) Anion Gap 12 (5-15) Blood Urea Nitrogen 81 mg/dL (7-23) H Creatinine 2.3 mg/dL (0.7-1.2) H Estimat Glomerular Filtration Rate 28.5 mL/min (>60) Glucose Level 72 mg/dL (74-106) L Calcium Level 8.1 mg/dL (8.6-10.2) L Intake and Output 10/16/16 10/17/16 19:00 07:00 Intake Total 480 ml 300 ml Output Total 200 ml 350 ml Balance 280 ml -50 ml Intake Oral 480 ml 300 ml Output Urine Total 200 ml 350 ml Objective General Appearance: WD/WN, alert, mild distress EENT: PERRL/EOMI, normal ENT inspection Neck: non-tender, normal alignment, supple, normal inspection Cardiovascular: normal peripheral pulses, normal rate, regular rhythm, no gallop/murmur, no JVD Respiratory/Chest: chest wall non-tender, lungs clear, no respiratory distress , no accessory muscle use Abdomen: decreased bowel sounds, distended, guarding, tender Extremities: normal range of motion 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 (3) Elevated liver function tests (4) CHF (congestive heart failure) (5) Diabetes mellitus Assessment & Plan: Cont novolog sliding scale (6) HTN (hypertension) Assessment & Plan: Continue amlodipine and clonidine. (7) Renal failure (8) Anemia (9) Hepatic encephalopathy Assessment & Plan: Continue Xifaxan (10) Ascites Assessment & Plan: Paracentesis on hold due to thrombocytopenia. (11) Thrombocytopenia (12) Pleural effusion associated with hepatic disorder Assessment & Plan: Left. S/P thoracentesis 10/07/16. 3 Liters fluid removed. (13) Pneumothorax, left Assessment & Plan: S/P left chest tube. (14) Hyperkalemia Assessment & Plan: PRN Kayexalate Assessment/Plan Transfer to [facility] vs [facility] care home [facility] when bed available. RAFIQ FLORENTINO Oct 17, 2016 16:31
[2016-10-17] MEDS ORDERED: Norco 5mg/325mg tab ORAL PRN (18:00)
--- NOTE | 2016-10-17 18:57 | Cardiac Electrophysiology PN ---
Assessment/Plan Assessment/Plan 1. Sinus tachycardia. Due to severe anemia, PTX and sepsis. Ruled out for CA. EF 60% to 65%. 2. Severe pulmonary hypertension with PA pressure of 58. 3. HTN on Norvasc 5 daily. 4. Pleural effusion,with diastolic dysfunction. S/P chest tube and subsequent removal.. 5. Hepatic encephalopathy due to Cirrhosis of the liver,on lactulose 6. Type 2 diabetes. 7. Renal failure. Per Dr. Langston. 8. Anemia with gastrointestinal bleed. 9. DNR/DNI DW RN Subjective Subjective More alert. Able to say a few words and is able to eat. On Med surge . Left chest tube was removed. Objective Last 24 Hour Vital Signs Date Time Temp Pulse Resp B/P Pulse Ox O2 Delivery O2 Flow Rate FiO2 10/17/16 10:47 97.0 97 20 147/67 93 Room Air 10/17/16 09:38 97 Venturi Mask 8.0 40 10/17/16 09:38 Venturi Mask 8.0 40 10/17/16 09:00 90 159/73 10/17/16 04:00 98.1 90 19 159/73 94 Room Air 10/17/16 00:00 98.2 81 18 121/62 94 Room Air 10/16/16 19:46 Venturi Mask 8.0 40 10/16/16 19:46 99 Venturi Mask 8.0 40 Intake and Output 10/16/16 10/17/16 19:00 07:00 Intake Total 480 ml 300 ml Output Total 200 ml 350 ml Balance 280 ml -50 ml Intake Oral 480 ml 300 ml Output Urine Total 200 ml 350 ml Laboratory Tests Test 10/17/16 06:35 White Blood Count 17.9 K/UL (4.8-10.8) H Red Blood Count 2.40 M/UL (4.70-6.10) L Hemoglobin 8.0 G/DL (14.2-18.0) L Hematocrit 24.2 % (42.0-52.0) L Mean Corpuscular Volume 101 FL (80-99) H Mean Corpuscular Hemoglobin 33.2 PG (27.0-31.0) H Mean Corpuscular Hemoglobin Concent 33.0 G/DL (32.0-36.0) Red Cell Distribution Width 20.5 % (11.6-14.8) H Platelet Count 168 K/UL (150-450) Mean Platelet Volume 6.3 FL (6.5-10.1) L Neutrophils (%) (Auto) 84.9 % (45.0-75.0) H Lymphocytes (%) (Auto) 4.7 % (20.0-45.0) L Monocytes (%) (Auto) 9.2 % (1.0-10.0) Eosinophils (%) (Auto) 0.4 % (0.0-3.0) Basophils (%) (Auto) 0.7 % (0.0-2.0) Sodium Level 136 mEQ/L (135-145) Potassium Level 3.9 mEQ/L (3.4-4.9) Chloride Level 98 mEQ/L (98-107) Carbon Dioxide Level 26 mEQ/L (20-30) Anion Gap 12 (5-15) Blood Urea Nitrogen 81 mg/dL (7-23) H Creatinine 2.3 mg/dL (0.7-1.2) H Estimat Glomerular Filtration Rate 28.5 mL/min (>60) Glucose Level 72 mg/dL (74-106) L Calcium Level 8.1 mg/dL (8.6-10.2) L Objective NECK: Shows no JVD. LUNGS: Coarse rhonchi.Left chest tube removed and site covered. CARDIOVASCULAR: Tachycardic. S1 and S2 with no gallop or murmur. ABDOMEN: Ascites EXTREMITIES: 1+ pitting edema. MYLES COSME Oct 17, 2016 18:57
[2016-10-17 20:00] VITALS: BP 139/71
[2016-10-18] VITALS: BP 146/66
[2016-10-18 04:00] VITALS: BP 132/59
[2016-10-18] MEDS: Lactulose 20gm/30ml UDC NG SCH ×3 (06:00→21:21)
[2016-10-18] MEDS: NovoLOG Insulin Flexpen SUBQ SCH ×4 (06:30→21:00)
--- NOTE | 2016-10-18 08:25 | General Progress Note ---
Assessment/Plan Problem List: (1) Ascites ICD Codes: R18.8 - Other ascites SNOMED: 436737455 (2) HTN (hypertension) ICD Codes: I10 - Essential (primary) hypertension SNOMED: 15448886 (3) Altered mental status ICD Codes: R41.82 - Altered mental status, unspecified SNOMED: 241384196 (4) Cirrhosis of liver ICD Codes: K74.60 - Unspecified cirrhosis of liver SNOMED: 73415927 (5) Diabetes mellitus ICD Codes: E11.9 - Type 2 diabetes mellitus without complications SNOMED: 57755084 (6) Renal insufficiency ICD Codes: N28.9 - Disorder of kidney and ureter, unspecified SNOMED: 879537086 (7) Hepatic encephalopathy ICD Codes: K72.90 - Hepatic failure, unspecified without coma SNOMED: 09697139 Assessment/Plan lactulose xifaxan fu labs cefipem pend possible placement Subjective ROS Limited/Unobtainable: Yes Allergies: Coded Allergies: No Known Allergies (Unverified , 10/03/16) Subjective no event Objective Last 24 Hour Vital Signs Date Time Temp Pulse Resp B/P Pulse Ox O2 Delivery O2 Flow Rate FiO2 10/18/16 04:00 98.6 79 20 132/59 95 Room Air 10/18/16 00:00 98.1 82 22 146/66 93 Room Air 10/17/16 20:00 97.5 84 22 139/71 94 Room Air 10/17/16 10:47 97.0 97 20 147/67 93 Room Air 10/17/16 09:38 97 Venturi Mask 8.0 40 10/17/16 09:38 Venturi Mask 8.0 40 10/17/16 09:00 90 159/73 Intake and Output 10/17/16 10/18/16 19:00 07:00 Intake Total 840 ml 240 ml Output Total 450 ml 500 ml Balance 390 ml -260 ml Intake Oral 840 ml 240 ml Output Urine Total 450 ml 500 ml # Bowel Movements 2 Height (Feet): 5 Height (Inches): 6.00 Weight (Pounds): 200 General Appearance: no apparent distress EENT: normal ENT inspection Neck: supple Cardiovascular: normal rate Respiratory/Chest: decreased breath sounds Abdomen: normal bowel sounds, non tender, soft Extremities: non-tender SAIRA APPIAH Oct 18, 2016 08:25
[2016-10-18] MEDS: Vitamin A&D Oint 2oz Tube TOPIC SCH ×2 (08:40→21:21)
[2016-10-18] MEDS: Rifaximin 550mg tab ORAL SCH ×2 (08:41→21:00)
[2016-10-18 09:00] VITALS: BP 120/67
[2016-10-18 12:05] VITALS: BP 118/73
--- NOTE | 2016-10-18 15:12 | Pulmonology Progress Note ---
Assessment/Plan Assessment/Plan ASSESSMENT chronic kidney disease acute hepatic encephalopathy large left pleural effusion, associated with liver disease s/p thoracentesis 3 /6-300 ml out Pneumothorax 2 to thoracentesis s/p L thoracic vent( drain catheter placement) moderate pulmonary HTN moderate TR ST -resolved diastolic dysfunction abdominal pain ascites coagulopathy thrombocytopenia HTN anemia cirrhosis elevated CEA DM hypothyroidism PLAN OF CARE MS floor cardio eval noted tachy resolved ECHO with EF 60-65%, RVSP of 58, c/w mdoerate pulmonary HTN, + moderate LVH, + moderate TR , large anterior and posterior pleural effusion lactulose and Rifaximin, ammonia trending down - ? dc- per GI discretion GI follows O2 HHN prn s/p thoracentesis of L pleural effusion - 3L out pneumothorax detected in CXR after tap s/p placement of drainage catheter by IR pain management s/p vit K, monitor PLT count , up to normal, no heparin anemia workup with stable B 12 and iron, folate P, elevated CEA , stool OB negative s/p transfusion PRBC , monitor HH, transfuse if Hgb below 7,5 BS management with SS of insulin GI prophylaxis CT A/P noted, mild ascites, moderate bilateral pleural effusions with compressive atelectasis in the partially visualized lung bases, left greater than right. abdominal US revealed hepatic cirrhosis, patent TIPS shunt, normal velocities renal US with normal kidney echogenicity, no hydro s/p IVF nephro follows, no change in renal parameters chronic kidney disease BP management with CCB, stable, optimize as needed dc plan to SNF when placement found and secures ad per PMD DNR/DNI status case discussed and evaluated by supervising physician Subjective Allergies: Coded Allergies: No Known Allergies (Unverified , 10/03/16) Subjective tachy resolved, remains altered on RA sat stable, no signs of respiratory distress Objective Last 24 Hour Vital Signs Date Time Temp Pulse Resp B/P Pulse Ox O2 Delivery O2 Flow Rate FiO2 10/18/16 12:05 97.9 82 18 118/73 99 Nasal Cannula 2.0 10/18/16 11:49 97 Nasal Cannula 2.0 28 10/18/16 11:49 Nasal Cannula 2.0 28 10/18/16 09:00 98.2 84 18 120/67 95 Room Air 10/18/16 04:00 98.6 79 20 132/59 95 Room Air 10/18/16 00:00 98.1 82 22 146/66 93 Room Air 10/17/16 20:00 97.5 84 22 139/71 94 Room Air Intake and Output 10/17/16 10/18/16 19:00 07:00 Intake Total 840 ml 240 ml Output Total 450 ml 500 ml Balance 390 ml -260 ml Intake Oral 840 ml 240 ml Output Urine Total 450 ml 500 ml # Bowel Movements 2 Objective General Appearance: no apparent distress, awake, responsive, confused Lines, tubes and drains: peripheral HEENT: normocephalic, atraumatic, Neck: non-tender, supple Respiratory/Chest: lungs clear , decreased BS at bases , no respiratory distress, no accessory muscle use Cardiovascular/Chest: normal rate, regular rhythm, SR on tele Abdomen: normal bowel sounds, non tender , distended , soft Extremities: normal range of motion, no calf tenderness, normal capillary refill, + 1 edema BLE, SCD on Neurologic: abnormal gait, awake, responsive, confused, bedridden Musculoskeletal: normal muscle bulk Current Medications Medications (Trade) Dose Ordered Sig/Morgan Route PRN Reason Start Time Stop Time Status Last Admin Dose Admin Acetaminophen/ Hydrocodone Bitart ([place] 5/325) 1 tab Q6H PRN ORAL For Pain 10/17/16 18:00 10/24/16 17:59 10/17/16 18:49 Amlodipine Besylate (Norvasc) 5 mg DAILY NG 10/09/16 09:00 11/08/16 08:59 10/16/16 09:29 Cefepime HCl/ Dextrose (Maxipime/D5W) 55 ml @ 110 mls/hr Q24H IVPB 10/17/16 14:00 10/24/16 13:59 10/17/16 14:45 Clonidine HCl (Catapres) 0.2 mg Q4H PRN GT SBP>170 10/08/16 23:00 11/07/16 22:59 Dextrose (Dextrose 50%) STAT PRN IV Hypoglycemia 10/09/16 22:00 11/08/16 21:59 10/16/16 23:59 Insulin Aspart (NovoLOG) BEFORE MEALS AND HS SUBQ 10/13/16 21:00 11/12/16 20:59 Lactulose (Cephulac) 20 gm EVERY 8 HOURS NG 10/09/16 06:00 11/08/16 05:59 10/17/16 21:45 Ondansetron HCl (Zofran) 4 mg Q4H PRN IVP Nausea & Vomiting 10/09/16 01:00 11/08/16 00:59 Rifaximin 550 mg 550 mg EVERY 12 HOURS ORAL 10/16/16 21:00 10/23/16 20:59 10/17/16 21:45 Vitamin A/Vitamin D (A & D Oint) 1 applic EVERY 12 HOURS TOPIC 10/09/16 09:00 11/08/16 08:59 10/18/16 08:40 Abran ([facility])Briseida NP Oct 18, 2016 15:12
--- NOTE | 2016-10-18 15:16 | Cardiac Electrophysiology PN ---
Assessment/Plan Assessment/Plan 1. Sinus tachycardia. Due to severe anemia, PTX and sepsis. Ruled out for DE. EF 60% to 65%. Resolved 2. Severe pulmonary hypertension with PA pressure of 58. 3. HTN on Norvasc 5 daily. 4. Pleural effusion,with diastolic dysfunction. S/P chest tube and subsequent removal. 5. Hepatic encephalopathy due to Cirrhosis of the liver,on lactulose 6. Type 2 diabetes. 7. Renal failure. Per Dr. Langston. 8. Anemia with gastrointestinal bleed. 9. DNR/DNI DW RN Subjective Subjective Comfortable in NAD. Awaiting placement. Objective Last 24 Hour Vital Signs Date Time Temp Pulse Resp B/P Pulse Ox O2 Delivery O2 Flow Rate FiO2 10/18/16 12:05 97.9 82 18 118/73 99 Nasal Cannula 2.0 10/18/16 11:49 97 Nasal Cannula 2.0 28 10/18/16 11:49 Nasal Cannula 2.0 28 10/18/16 09:00 98.2 84 18 120/67 95 Room Air 10/18/16 04:00 98.6 79 20 132/59 95 Room Air 10/18/16 00:00 98.1 82 22 146/66 93 Room Air 10/17/16 20:00 97.5 84 22 139/71 94 Room Air Intake and Output 10/17/16 10/18/16 19:00 07:00 Intake Total 840 ml 240 ml Output Total 450 ml 500 ml Balance 390 ml -260 ml Intake Oral 840 ml 240 ml Output Urine Total 450 ml 500 ml # Bowel Movements 2 Objective NECK: Shows no JVD. LUNGS: Coarse rhonchi.Left chest tube removed and site covered. CARDIOVASCULAR: Nl S1 and S2 with no gallop or murmur. ABDOMEN: Ascites EXTREMITIES: 1+ pitting edema. MYLES COSME Oct 18, 2016 15:16
[2016-10-18] MEDS: Cefepime HCl 1 GM in D5W 55 ML IVPB SCH (15:21)
[2016-10-18 16:00] VITALS: BP 142/73
--- NOTE | 2016-10-18 17:58 | Internal Med Progress Note ---
Subjective Date of Service: Oct 18, 2016 Physician Name Rafiq Florentino Attending Physician Jeremiah Light MD Current Medications Medications (Trade) Dose Ordered Sig/Morgan Route PRN Reason Start Time Stop Time Status Last Admin Dose Admin Acetaminophen/ Hydrocodone Bitart ([place] 5/325) 1 tab Q6H PRN ORAL For Pain 10/17/16 18:00 10/24/16 17:59 10/17/16 18:49 Amlodipine Besylate (Norvasc) 5 mg DAILY NG 10/09/16 09:00 11/08/16 08:59 10/16/16 09:29 Cefepime HCl/ Dextrose (Maxipime/D5W) 55 ml @ 110 mls/hr Q24H IVPB 10/17/16 14:00 10/24/16 13:59 10/18/16 15:21 Clonidine HCl (Catapres) 0.2 mg Q4H PRN GT SBP>170 10/08/16 23:00 11/07/16 22:59 Dextrose (Dextrose 50%) STAT PRN IV Hypoglycemia 10/09/16 22:00 11/08/16 21:59 10/16/16 23:59 Insulin Aspart (NovoLOG) BEFORE MEALS AND HS SUBQ 10/13/16 21:00 11/12/16 20:59 Lactulose (Cephulac) 20 gm EVERY 8 HOURS NG 10/09/16 06:00 11/08/16 05:59 10/17/16 21:45 Ondansetron HCl (Zofran) 4 mg Q4H PRN IVP Nausea & Vomiting 10/09/16 01:00 11/08/16 00:59 Rifaximin 550 mg 550 mg EVERY 12 HOURS ORAL 10/16/16 21:00 10/23/16 20:59 10/17/16 21:45 Vitamin A/Vitamin D (A & D Oint) 1 applic EVERY 12 HOURS TOPIC 10/09/16 09:00 11/08/16 08:59 10/18/16 08:40 Allergies: Coded Allergies: No Known Allergies (Unverified , 10/03/16) ROS Limited/Unobtainable: Yes Subjective 66 YO M admitted with abdominal pain and encephalopathy. Cover for Int Med-Dr Light. S/P left thoracentesis on 10/07/16. Now left pneumothorax; S/P chest tube. Await transfer to [facility] vs [facility] nursing [facility]. Tolerating room air. Objective Last Vital Signs Date Time Temp Pulse Resp B/P Pulse Ox O2 Delivery O2 Flow Rate FiO2 10/18/16 12:05 97.9 82 18 118/73 99 Nasal Cannula 2.0 10/18/16 11:49 28 Intake and Output 10/17/16 10/18/16 19:00 07:00 Intake Total 840 ml 240 ml Output Total 450 ml 500 ml Balance 390 ml -260 ml Intake Oral 840 ml 240 ml Output Urine Total 450 ml 500 ml # Bowel Movements 2 Objective General Appearance: WD/WN, alert, mild distress EENT: PERRL/EOMI, normal ENT inspection Neck: non-tender, normal alignment, supple, normal inspection Cardiovascular: normal peripheral pulses, normal rate, regular rhythm, no gallop/murmur, no JVD Respiratory/Chest: chest wall non-tender, lungs clear, no respiratory distress , no accessory muscle use Abdomen: decreased bowel sounds, distended, guarding, tender Extremities: normal range of motion 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 (3) Elevated liver function tests (4) CHF (congestive heart failure) (5) Diabetes mellitus Assessment & Plan: Cont novolog sliding scale (6) HTN (hypertension) Assessment & Plan: Continue amlodipine and clonidine. (7) Renal failure (8) Anemia (9) Hepatic encephalopathy Assessment & Plan: Continue Xifaxan (10) Ascites Assessment & Plan: Paracentesis on hold due to thrombocytopenia. (11) Thrombocytopenia (12) Pleural effusion associated with hepatic disorder Assessment & Plan: Left. S/P thoracentesis 10/07/16. 3 Liters fluid removed. (13) Pneumothorax, left Assessment & Plan: S/P left chest tube. (14) Hyperkalemia Assessment & Plan: PRN Kayexalate Assessment/Plan Transfer to [facility] vs [facility] nursing [facility] when bed available. RAFIQ FLORENTINO Oct 18, 2016 17:58
[2016-10-18 20:00] VITALS: BP 149/76
--- NOTE | 2016-10-18 20:34 | Nephrology Progress Note ---
Assessment/Plan Problem List: (1) CKD (chronic kidney disease) Assessment: no significant change (2) Ascites (3) Elevated liver function tests (4) Diabetes mellitus (5) Thrombocytopenia (6) Anemia Assessment: worse (7) Hepatic encephalopathy (8) Altered mental state (9) Pneumothorax, left Plan abxs will follow Subjective Subjective In NAD Objective Objective Last 24 Hour Vital Signs Date Time Temp Pulse Resp B/P Pulse Ox O2 Delivery O2 Flow Rate FiO2 10/18/16 20:29 Nasal Cannula 2.0 28 10/18/16 20:29 98 Nasal Cannula 2.0 28 10/18/16 12:05 97.9 82 18 118/73 99 Nasal Cannula 2.0 10/18/16 11:49 97 Nasal Cannula 2.0 28 10/18/16 11:49 Nasal Cannula 2.0 28 10/18/16 09:00 98.2 84 18 120/67 95 Room Air 10/18/16 04:00 98.6 79 20 132/59 95 Room Air 10/18/16 00:00 98.1 82 22 146/66 93 Room Air Intake and Output 10/17/16 10/18/16 19:00 07:00 Intake Total 840 ml 240 ml Output Total 450 ml 500 ml Balance 390 ml -260 ml Intake Oral 840 ml 240 ml Output Urine Total 450 ml 500 ml # Bowel Movements 2 Height (Feet): 5 Height (Inches): 6.00 Weight (Pounds): 200 Cardiovascular: normal rate Respiratory/Chest: lungs clear Extremities: moderate edema FERNANDO DC Oct 18, 2016 20:34
[2016-10-18] MEDS ORDERED: Tubing IV Secondary IV ONE (20:56)
[2016-10-19 04:00] VITALS: BP 113/59
[2016-10-19] MEDS: Lactulose 20gm/30ml UDC NG SCH ×3 (06:11→20:51)
[2016-10-19] MEDS: NovoLOG Insulin Flexpen SUBQ SCH ×4 (06:27→21:00)
[2016-10-19 07:13] LABS: CALCIUM 7.9 mg/dL (8.6-10.2); CREATININE 2.2 mg/dL (0.7-1.2); POTASSIUM 4.1 mEQ/L (3.4-4.9)
[2016-10-19 07:14] LABS: MEAN CORPUSCULAR HEMOGLOBIN 33.4 PG (27.0-31.0); MEAN CORPUSCULAR HGB CONC 33.5 G/DL (32.0-36.0); MEAN CORPUSCULAR VOLUME 100 FL (80-99); MEAN PLATELET VOLUME 5.6 FL (6.5-10.1); PLATELET COUNT 135 K/UL (150-450); RED BLOOD COUNT 2.33 M/UL (4.70-6.10); RED CELL DISTRIBUTION WIDTH 21.7 % (11.6-14.8); WHITE BLOOD COUNT 17.4 K/UL (4.8-10.8)
[2016-10-19 08:00] VITALS: BP 140/70
[2016-10-19 08:01] LABS: ANISOCYTOSIS 3+; BAND NEUTROPHILS % (MANUAL) 0 % (0-8); BASOPHILS % (MANUAL) 1 % (0-2); EOSINOPHILS % (MANUAL) 0 % (0-3); HYPOCHROMASIA 3+; LYMPHOCYTES % (MANUAL) 1 % (20-45); NEUTROPHILS % (MANUAL) 95 % (45-75); PLATELET ESTIMATE DECREASED; PLATELET MORPHOLOGY NORMAL; TOTAL CELLS COUNTED 100
--- NOTE | 2016-10-19 08:35 | General Progress Note ---
Assessment/Plan Problem List: (1) Ascites ICD Codes: R18.8 - Other ascites SNOMED: 830173807 (2) HTN (hypertension) ICD Codes: I10 - Essential (primary) hypertension SNOMED: 35755974 (3) Altered mental status ICD Codes: R41.82 - Altered mental status, unspecified SNOMED: 026018302 (4) Cirrhosis of liver ICD Codes: K74.60 - Unspecified cirrhosis of liver SNOMED: 25407110 (5) Diabetes mellitus ICD Codes: E11.9 - Type 2 diabetes mellitus without complications SNOMED: 08999481 (6) Renal insufficiency ICD Codes: N28.9 - Disorder of kidney and ureter, unspecified SNOMED: 975857128 (7) Hepatic encephalopathy ICD Codes: K72.90 - Hepatic failure, unspecified without coma SNOMED: 76179085 Assessment/Plan lactulose xifaxan fu labs cefipem pend possible placement repeat stool ob fu cbs and LFTS Subjective ROS Limited/Unobtainable: Yes Allergies: Coded Allergies: No Known Allergies (Unverified , 10/03/16) Subjective no event Objective Last 24 Hour Vital Signs Date Time Temp Pulse Resp B/P Pulse Ox O2 Delivery O2 Flow Rate FiO2 10/19/16 04:00 97.0 69 18 113/59 97 Room Air 10/18/16 20:29 Nasal Cannula 2.0 28 10/18/16 20:29 98 Nasal Cannula 2.0 28 10/18/16 20:00 97.1 82 18 149/76 97 Nasal Cannula 2.0 10/18/16 16:00 97.9 80 18 142/73 99 Nasal Cannula 2.0 10/18/16 12:05 97.9 82 18 118/73 99 Nasal Cannula 2.0 10/18/16 11:49 97 Nasal Cannula 2.0 28 10/18/16 11:49 Nasal Cannula 2.0 28 10/18/16 09:00 98.2 84 18 120/67 95 Room Air Intake and Output 10/18/16 10/19/16 19:00 07:00 Intake Total 155 ml 240 ml Output Total 150 ml 350 ml Balance 5 ml -110 ml Intake Oral 100 ml 240 ml IV Total 55 ml Output Urine Total 150 ml 350 ml Laboratory Tests 10/19/16 06:35: White Blood Count 17.4H, Red Blood Count 2.33L, Hemoglobin 7.8L, Hematocrit 23.2L, Mean Corpuscular Volume 100H, Mean Corpuscular Hemoglobin 33.4H, Mean Corpuscular Hemoglobin Concent 33.5, Red Cell Distribution Width 21.7H, Platelet Count 135L, Mean Platelet Volume 5.6L, Neutrophils (%) (Auto) , Lymphocytes (%) (Auto) , Monocytes (%) (Auto) , Eosinophils (%) (Auto) , Basophils (%) (Auto) , Differential Total Cells Counted 100, Neutrophils % ( Manual) 95H, Lymphocytes % (Manual) 1L, Monocytes % (Manual) 3, Eosinophils % ( Manual) 0, Basophils % (Manual) 1, Band Neutrophils 0, Platelet Estimate DecreasedL, Platelet Morphology Normal, Hypochromasia 3+, Anisocytosis 3+, Sodium Level 135, Potassium Level 4.1, Chloride Level 99, Carbon Dioxide Level 23, Anion Gap 13, Blood Urea Nitrogen 81H, Creatinine 2.2H, Estimat Glomerular Filtration Rate 30.0, Glucose Level 74, Calcium Level 7.9L Height (Feet): 5 Height (Inches): 6.00 Weight (Pounds): 200 General Appearance: alert EENT: normal ENT inspection Neck: supple Cardiovascular: normal rate Respiratory/Chest: decreased breath sounds Abdomen: non tender, soft, hypoactive bowel sounds Extremities: non-tender SAIRA APPIAH Oct 19, 2016 08:35
[2016-10-19] MEDS: Rifaximin 550mg tab ORAL SCH ×2 (08:44→20:51)
[2016-10-19] MEDS: Vitamin A&D Oint 2oz Tube TOPIC SCH ×2 (08:45→21:01)
[2016-10-19 12:00] VITALS: BP 126/73
[2016-10-19] MEDS: Cefepime HCl 1 GM in D5W 55 ML IVPB SCH (14:03)
[2016-10-19 16:00] VITALS: BP 113/71
--- NOTE | 2016-10-19 16:51 | Pulmonology Progress Note ---
Assessment/Plan Assessment/Plan ASSESSMENT chronic kidney disease acute hepatic encephalopathy large left pleural effusion, associated with liver disease s/p thoracentesis 3 /6-300 ml out Pneumothorax 2 to thoracentesis s/p L thoracic vent( drain catheter placement) moderate pulmonary HTN moderate TR ST -resolved diastolic dysfunction abdominal pain ascites coagulopathy thrombocytopenia HTN anemia cirrhosis elevated CEA DM hypothyroidism PLAN OF CARE [facility] floor cardio eval noted tachy resolved ECHO with EF 60-65%, RVSP of 58, c/w mdoerate pulmonary HTN, + moderate LVH, + moderate TR , large anterior and posterior pleural effusion lactulose and Rifaximin, ammonia trending down - ? dc- per GI discretion GI follows O2 HHN prn s/p thoracentesis of L pleural effusion - 3L out pneumothorax detected in CXR after tap s/p placement of drainage catheter by IR pain management s/p vit K, monitor PLT count , up to normal, no heparin anemia workup with stable B 12 and iron, folate P, elevated CEA , stool OB negative s/p transfusion PRBC , monitor HH, transfuse if Hgb below 7,5 BS management with SS of insulin GI prophylaxis CT A/P noted, mild ascites, moderate bilateral pleural effusions with compressive atelectasis in the partially visualized lung bases, left greater than right. abdominal US revealed hepatic cirrhosis, patent TIPS shunt, normal velocities renal US with normal kidney echogenicity, no hydro s/p IVF nephro follows, no change in renal parameters chronic kidney disease BP management with CCB, stable, optimize as needed dc plan to SNF when placement found and secured as per PMD DNR/DNI status case discussed and evaluated by supervising physician Subjective Allergies: Coded Allergies: No Known Allergies (Unverified , 10/03/16) Subjective on RA sat stable, confused pending placement Objective Last 24 Hour Vital Signs Date Time Temp Pulse Resp B/P Pulse Ox O2 Delivery O2 Flow Rate FiO2 10/19/16 12:00 98.1 74 21 126/73 100 Nasal Cannula 2.0 10/19/16 08:45 77 140/70 10/19/16 08:00 97.4 77 20 140/70 97 Nasal Cannula 2.0 10/19/16 04:00 97.0 69 18 113/59 97 Room Air 10/18/16 20:29 Nasal Cannula 2.0 28 10/18/16 20:29 98 Nasal Cannula 2.0 28 3/18/17 20:00 97.1 82 18 149/76 97 Nasal Cannula 2.0 Intake and Output 10/18/16 10/19/16 19:00 07:00 Intake Total 155 ml 240 ml Output Total 150 ml 350 ml Balance 5 ml -110 ml Intake Oral 100 ml 240 ml IV Total 55 ml Output Urine Total 150 ml 350 ml Objective General Appearance: no apparent distress, awake, responsive, confused Lines, tubes and drains: peripheral HEENT: normocephalic, atraumatic, Neck: non-tender, supple Respiratory/Chest: lungs clear , decreased BS at bases , no respiratory distress, no accessory muscle use Cardiovascular/Chest: normal rate, regular rhythm, SR on tele Abdomen: normal bowel sounds, non tender , distended , soft Extremities: normal range of motion, no calf tenderness, normal capillary refill, + 1 edema BLE, SCD on Neurologic: abnormal gait, awake, responsive, confused, bedridden Musculoskeletal: normal muscle bulk Laboratory Tests 10/19/16 06:35: White Blood Count 17.4H, Red Blood Count 2.33L, Hemoglobin 7.8L, Hematocrit 23.2L, Mean Corpuscular Volume 100H, Mean Corpuscular Hemoglobin 33.4H, Mean Corpuscular Hemoglobin Concent 33.5, Red Cell Distribution Width 21.7H, Platelet Count 135L, Mean Platelet Volume 5.6L, Neutrophils (%) (Auto) , Lymphocytes (%) (Auto) , Monocytes (%) (Auto) , Eosinophils (%) (Auto) , Basophils (%) (Auto) , Differential Total Cells Counted 100, Neutrophils % ( Manual) 95H, Lymphocytes % (Manual) 1L, Monocytes % (Manual) 3, Eosinophils % ( Manual) 0, Basophils % (Manual) 1, Band Neutrophils 0, Platelet Estimate DecreasedL, Platelet Morphology Normal, Hypochromasia 3+, Anisocytosis 3+, Sodium Level 135, Potassium Level 4.1, Chloride Level 99, Carbon Dioxide Level 23, Anion Gap 13, Blood Urea Nitrogen 81H, Creatinine 2.2H, Estimat Glomerular Filtration Rate 30.0, Glucose Level 74, Calcium Level 7.9L Current Medications Medications (Trade) Dose Ordered Sig/Morgan Route PRN Reason Start Time Stop Time Status Last Admin Dose Admin Acetaminophen/ Hydrocodone Bitart ([place] 5/325) 1 tab Q6H PRN ORAL For Pain 10/17/16 18:00 10/24/16 17:59 10/17/16 18:49 Amlodipine Besylate (Norvasc) 5 mg DAILY NG 10/09/16 09:00 11/08/16 08:59 10/19/16 08:45 Cefepime HCl/ Dextrose (Maxipime/D5W) 55 ml @ 110 mls/hr Q24H IVPB 10/17/16 14:00 10/24/16 13:59 10/19/16 14:03 Clonidine HCl (Catapres) 0.2 mg Q4H PRN GT SBP>170 10/08/16 23:00 11/07/16 22:59 Dextrose (Dextrose 50%) STAT PRN IV Hypoglycemia 10/09/16 22:00 11/08/16 21:59 10/16/16 23:59 Insulin Aspart (NovoLOG) BEFORE MEALS AND HS SUBQ 10/13/16 21:00 11/12/16 20:59 Lactulose (Cephulac) 20 gm EVERY 8 HOURS NG 10/09/16 06:00 11/08/16 05:59 10/19/16 06:11 Ondansetron HCl (Zofran) 4 mg Q4H PRN IVP Nausea & Vomiting 10/09/16 01:00 11/08/16 00:59 Rifaximin 550 mg 550 mg EVERY 12 HOURS ORAL 10/16/16 21:00 10/23/16 20:59 10/19/16 08:44 Vitamin A/Vitamin D (A & D Oint) 1 applic EVERY 12 HOURS TOPIC 10/09/16 09:00 11/08/16 08:59 10/19/16 08:45 Abran Davenportchina)Briseida NP Oct 19, 2016 16:51
--- NOTE | 2016-10-19 17:36 | Internal Med Progress Note ---
Subjective Date of Service: Oct 19, 2016 Physician Name Rafiq Florentino Attending Physician Jeremiah Light MD Current Medications Medications (Trade) Dose Ordered Sig/Morgan Route PRN Reason Start Time Stop Time Status Last Admin Dose Admin Acetaminophen/ Hydrocodone Bitart ([place] 5/325) 1 tab Q6H PRN ORAL For Pain 10/17/16 18:00 10/24/16 17:59 10/17/16 18:49 Amlodipine Besylate (Norvasc) 5 mg DAILY NG 10/09/16 09:00 11/08/16 08:59 10/19/16 08:45 Cefepime HCl/ Dextrose (Maxipime/D5W) 55 ml @ 110 mls/hr Q24H IVPB 10/17/16 14:00 10/24/16 13:59 10/19/16 14:03 Clonidine HCl (Catapres) 0.2 mg Q4H PRN GT SBP>170 10/08/16 23:00 11/07/16 22:59 Dextrose (Dextrose 50%) STAT PRN IV Hypoglycemia 10/09/16 22:00 11/08/16 21:59 10/16/16 23:59 Insulin Aspart (NovoLOG) BEFORE MEALS AND HS SUBQ 10/13/16 21:00 11/12/16 20:59 Lactulose (Cephulac) 20 gm EVERY 8 HOURS NG 10/09/16 06:00 11/08/16 05:59 10/19/16 06:11 Ondansetron HCl (Zofran) 4 mg Q4H PRN IVP Nausea & Vomiting 10/09/16 01:00 11/08/16 00:59 Rifaximin 550 mg 550 mg EVERY 12 HOURS ORAL 10/16/16 21:00 10/23/16 20:59 10/19/16 08:44 Vitamin A/Vitamin D (A & D Oint) 1 applic EVERY 12 HOURS TOPIC 10/09/16 09:00 11/08/16 08:59 10/19/16 08:45 Allergies: Coded Allergies: No Known Allergies (Unverified , 10/03/16) ROS Limited/Unobtainable: Yes Subjective 66 YO M admitted with abdominal pain and encephalopathy. Cover for Int Med-Dr Light. S/P left thoracentesis on 10/07/16. Now left pneumothorax; S/P chest tube. Await transfer to [facility]. Tolerating room air. Objective Last Vital Signs Date Time Temp Pulse Resp B/P Pulse Ox O2 Delivery O2 Flow Rate FiO2 10/19/16 16:00 97.6 76 21 113/71 99 Nasal Cannula 2.0 10/18/16 20:29 28 Laboratory Tests Test 10/19/16 06:35 White Blood Count 17.4 K/UL (4.8-10.8) H Red Blood Count 2.33 M/UL (4.70-6.10) L Hemoglobin 7.8 G/DL (14.2-18.0) L Hematocrit 23.2 % (42.0-52.0) L Mean Corpuscular Volume 100 FL (80-99) H Mean Corpuscular Hemoglobin 33.4 PG (27.0-31.0) H Mean Corpuscular Hemoglobin Concent 33.5 G/DL (32.0-36.0) Red Cell Distribution Width 21.7 % (11.6-14.8) H Platelet Count 135 K/UL (150-450) L Mean Platelet Volume 5.6 FL (6.5-10.1) L Neutrophils (%) (Auto) % (45.0-75.0) Lymphocytes (%) (Auto) % (20.0-45.0) Monocytes (%) (Auto) % (1.0-10.0) Eosinophils (%) (Auto) % (0.0-3.0) Basophils (%) (Auto) % (0.0-2.0) Differential Total Cells Counted 100 Neutrophils % (Manual) 95 % (45-75) H Lymphocytes % (Manual) 1 % (20-45) L Monocytes % (Manual) 3 % (1-10) Eosinophils % (Manual) 0 % (0-3) Basophils % (Manual) 1 % (0-2) Band Neutrophils 0 % (0-8) Platelet Estimate Decreased L Platelet Morphology Normal Hypochromasia 3+ Anisocytosis 3+ Sodium Level 135 mEQ/L (135-145) Potassium Level 4.1 mEQ/L (3.4-4.9) Chloride Level 99 mEQ/L (98-107) Carbon Dioxide Level 23 mEQ/L (20-30) Anion Gap 13 (5-15) Blood Urea Nitrogen 81 mg/dL (7-23) H Creatinine 2.2 mg/dL (0.7-1.2) H Estimat Glomerular Filtration Rate 30.0 mL/min (>60) Glucose Level 74 mg/dL (74-106) Calcium Level 7.9 mg/dL (8.6-10.2) L Intake and Output 10/18/16 10/19/16 19:00 07:00 Intake Total 155 ml 240 ml Output Total 150 ml 350 ml Balance 5 ml -110 ml Intake Oral 100 ml 240 ml IV Total 55 ml Output Urine Total 150 ml 350 ml Objective General Appearance: WD/WN, alert, mild distress EENT: PERRL/EOMI, normal ENT inspection Neck: non-tender, normal alignment, supple, normal inspection Cardiovascular: normal peripheral pulses, normal rate, regular rhythm, no gallop/murmur, no JVD Respiratory/Chest: chest wall non-tender, lungs clear, no respiratory distress , no accessory muscle use Abdomen: decreased bowel sounds, distended, guarding, tender Extremities: normal range of motion 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 (3) Elevated liver function tests (4) CHF (congestive heart failure) (5) Diabetes mellitus Assessment & Plan: Cont novolog sliding scale (6) HTN (hypertension) Assessment & Plan: Continue amlodipine and clonidine. (7) Renal failure (8) Anemia (9) Hepatic encephalopathy Assessment & Plan: Continue Xifaxan (10) Ascites Assessment & Plan: Paracentesis on hold due to thrombocytopenia. (11) Thrombocytopenia (12) Pleural effusion associated with hepatic disorder Assessment & Plan: Left. S/P thoracentesis 10/07/16. 3 Liters fluid removed. (13) Pneumothorax, left Assessment & Plan: S/P left chest tube. (14) Hyperkalemia Assessment & Plan: PRN Kayexalate Assessment/Plan Transfer to [facility] vs [facility] when bed available. RAFIQ FLORENTINO Oct 19, 2016 17:36
--- NOTE | 2016-10-19 17:58 | Nephrology Progress Note ---
Assessment/Plan Problem List: (1) CKD (chronic kidney disease) Assessment: no significant change (2) Ascites (3) Elevated liver function tests (4) Diabetes mellitus (5) Thrombocytopenia (6) Anemia Assessment: worse (7) Hepatic encephalopathy (8) Altered mental state (9) Pneumothorax, left Plan abxs await placement Subjective Subjective In NAD Objective Objective Last 24 Hour Vital Signs Date Time Temp Pulse Resp B/P Pulse Ox O2 Delivery O2 Flow Rate FiO2 10/19/16 16:00 97.6 76 21 113/71 99 Nasal Cannula 2.0 10/19/16 12:00 98.1 74 21 126/73 100 Nasal Cannula 2.0 10/19/16 08:45 77 140/70 10/19/16 08:00 97.4 77 20 140/70 97 Nasal Cannula 2.0 10/19/16 04:00 97.0 69 18 113/59 97 Room Air 10/18/16 20:29 Nasal Cannula 2.0 28 10/18/16 20:29 98 Nasal Cannula 2.0 28 10/18/16 20:00 97.1 82 18 149/76 97 Nasal Cannula 2.0 Intake and Output 10/18/16 10/19/16 19:00 07:00 Intake Total 155 ml 240 ml Output Total 150 ml 350 ml Balance 5 ml -110 ml Intake Oral 100 ml 240 ml IV Total 55 ml Output Urine Total 150 ml 350 ml Laboratory Tests 10/19/16 06:35: White Blood Count 17.4H, Red Blood Count 2.33L, Hemoglobin 7.8L, Hematocrit 23.2L, Mean Corpuscular Volume 100H, Mean Corpuscular Hemoglobin 33.4H, Mean Corpuscular Hemoglobin Concent 33.5, Red Cell Distribution Width 21.7H, Platelet Count 135L, Mean Platelet Volume 5.6L, Neutrophils (%) (Auto) , Lymphocytes (%) (Auto) , Monocytes (%) (Auto) , Eosinophils (%) (Auto) , Basophils (%) (Auto) , Differential Total Cells Counted 100, Neutrophils % ( Manual) 95H, Lymphocytes % (Manual) 1L, Monocytes % (Manual) 3, Eosinophils % ( Manual) 0, Basophils % (Manual) 1, Band Neutrophils 0, Platelet Estimate DecreasedL, Platelet Morphology Normal, Hypochromasia 3+, Anisocytosis 3+, Sodium Level 135, Potassium Level 4.1, Chloride Level 99, Carbon Dioxide Level 23, Anion Gap 13, Blood Urea Nitrogen 81H, Creatinine 2.2H, Estimat Glomerular Filtration Rate 30.0, Glucose Level 74, Calcium Level 7.9L Height (Feet): 5 Height (Inches): 6.00 Weight (Pounds): 200 Cardiovascular: normal rate Respiratory/Chest: lungs clear Extremities: moderate edema FERNANDO DC Oct 19, 2016 17:58
[2016-10-19 20:00] VITALS: BP 124/70
[2016-10-20] VITALS: BP 128/69
[2016-10-20 04:00] VITALS: BP 119/68
[2016-10-20] MEDS: Lactulose 20gm/30ml UDC NG SCH ×2 (06:00→14:00)
[2016-10-20] MEDS: NovoLOG Insulin Flexpen SUBQ SCH ×2 (06:19→11:30)
[2016-10-20 08:00] VITALS: BP 123/77
[2016-10-20 08:03] LABS: MEAN CORPUSCULAR HEMOGLOBIN 33.5 PG (27.0-31.0); MEAN CORPUSCULAR HGB CONC 33.9 G/DL (32.0-36.0); MEAN CORPUSCULAR VOLUME 99 FL (80-99); MEAN PLATELET VOLUME 5.6 FL (6.5-10.1); PLATELET COUNT 219 K/UL (150-450); RED BLOOD COUNT 2.76 M/UL (4.70-6.10); RED CELL DISTRIBUTION WIDTH 21.4 % (11.6-14.8); WHITE BLOOD COUNT 17.1 K/UL (4.8-10.8)
[2016-10-20 08:25] LABS: ALBUMIN/GLOBULIN RATIO 0.5 (1.0-2.7); CALCIUM 8.1 mg/dL (8.6-10.2); CREATININE 2.2 mg/dL (0.7-1.2); POTASSIUM 4.3 mEQ/L (3.4-4.9); TOTAL PROTEIN 5.7 g/dL (6.6-8.7)
[2016-10-20 08:37] LABS: BILIRUBIN,DIRECT 0.6 mg/dL (0.1-0.3)
[2016-10-20] MEDS: Vitamin A&D Oint 2oz Tube TOPIC SCH (08:42)
[2016-10-20] MEDS: Rifaximin 550mg tab ORAL SCH (08:42)
--- NOTE | 2016-10-20 10:29 | General Progress Note ---
Assessment/Plan Problem List: (1) Ascites ICD Codes: R18.8 - Other ascites SNOMED: 466836968 (2) HTN (hypertension) ICD Codes: I10 - Essential (primary) hypertension SNOMED: 97244676 (3) Altered mental status ICD Codes: R41.82 - Altered mental status, unspecified SNOMED: 492018578 (4) Cirrhosis of liver ICD Codes: K74.60 - Unspecified cirrhosis of liver SNOMED: 19993755 (5) Diabetes mellitus ICD Codes: E11.9 - Type 2 diabetes mellitus without complications SNOMED: 93945434 (6) Renal insufficiency ICD Codes: N28.9 - Disorder of kidney and ureter, unspecified SNOMED: 875118252 (7) Hepatic encephalopathy ICD Codes: K72.90 - Hepatic failure, unspecified without coma SNOMED: 49005215 Assessment/Plan lactulose xifaxan fu labs cefipem pend possible placement repeat stool ob fu cbs and LFTS Subjective ROS Limited/Unobtainable: No Allergies: Coded Allergies: No Known Allergies (Unverified , 10/03/16) Subjective no event Objective Last 24 Hour Vital Signs Date Time Temp Pulse Resp B/P Pulse Ox O2 Delivery O2 Flow Rate FiO2 10/20/16 08:42 78 119/68 10/20/16 08:00 96.4 77 18 123/77 90 Nasal Cannula 2.0 10/20/16 04:00 97.8 78 18 119/68 100 Room Air 10/20/16 00:00 97.8 76 18 128/69 100 Nasal Cannula 2.0 10/19/16 20:19 76 16 Nasal Cannula 2.0 28 10/19/16 20:00 97.0 77 18 124/70 100 Nasal Cannula 2.0 10/19/16 19:00 Nasal Cannula 2.0 28 10/19/16 19:00 99 Nasal Cannula 2.0 28 10/19/16 16:00 97.6 76 21 113/71 99 Nasal Cannula 2.0 10/19/16 12:00 98.1 74 21 126/73 100 Nasal Cannula 2.0 Intake and Output 10/19/16 10/20/16 19:00 07:00 Output Total 400 ml Balance -400 ml Output Urine Total 400 ml Laboratory Tests 10/20/16 07:50: White Blood Count 17.1H, Red Blood Count 2.76L, Hemoglobin 9.2L, Hematocrit 27.2L, Mean Corpuscular Volume 99, Mean Corpuscular Hemoglobin 33.5H, Mean Corpuscular Hemoglobin Concent 33.9, Red Cell Distribution Width 21.4H, Platelet Count 219#, Mean Platelet Volume 5.6L, Neutrophils (%) (Auto) , Lymphocytes (%) (Auto) , Monocytes (%) (Auto) , Eosinophils (%) (Auto) , Basophils (%) (Auto) , Neutrophils % (Manual) [Pending], Lymphocytes % (Manual) [Pending], Platelet Estimate [Pending], Platelet Morphology [Pending], Sodium Level 137, Potassium Level 4.3, Chloride Level 99, Carbon Dioxide Level 26, Anion Gap 12, Blood Urea Nitrogen 79H, Creatinine 2.2H, Estimat Glomerular Filtration Rate 30.0, Glucose Level 95, Calcium Level 8.1L, Total Bilirubin 1.2 , Direct Bilirubin 0.6H, Aspartate Amino Transf (AST/SGOT) 36, Alanine Aminotransferase (ALT/SGPT) 25, Alkaline Phosphatase 146H, Total Protein 5.7L, Albumin 1.9L, Globulin 3.8, Albumin/Globulin Ratio 0.5L Height (Feet): 5 Height (Inches): 6.00 Weight (Pounds): 200 General Appearance: no apparent distress EENT: normal ENT inspection Neck: supple Cardiovascular: normal rate Respiratory/Chest: decreased breath sounds Abdomen: normal bowel sounds, non tender, soft Extremities: non-tender SAIRA APPIAH Oct 20, 2016 10:29
[2016-10-20 10:49] LABS: ANISOCYTOSIS 2+; EOSINOPHILS % (MANUAL) 4 % (0-3); HYPOCHROMASIA 1+; LYMPHOCYTES % (MANUAL) 5 % (20-45); NEUTROPHILS % (MANUAL) 88 % (45-75); TOTAL CELLS COUNTED 100
[2016-10-20 10:55] LABS: BAND NEUTROPHILS % (MANUAL) 0 % (0-8); BASOPHILS % (MANUAL) 0 % (0-2); PLATELET ESTIMATE ADEQUATE; PLATELET MORPHOLOGY NORMAL
[2016-10-20 12:00] VITALS: BP 124/71
--- NOTE | 2016-10-20 13:56 | Nephrology Progress Note ---
Assessment/Plan Problem List: (1) CKD (chronic kidney disease) Assessment: no significant change (2) Ascites (3) Elevated liver function tests (4) Diabetes mellitus (5) Thrombocytopenia (6) Anemia Assessment: worse (7) Hepatic encephalopathy (8) Altered mental state (9) Pneumothorax, left Plan abxs await placement Subjective Subjective In NAD Objective Objective Last 24 Hour Vital Signs Date Time Temp Pulse Resp B/P Pulse Ox O2 Delivery O2 Flow Rate FiO2 10/20/16 12:00 96.4 75 18 124/71 99 Nasal Cannula 2.0 10/20/16 08:42 78 119/68 10/20/16 08:00 96.4 77 18 123/77 90 Nasal Cannula 2.0 10/20/16 07:51 Nasal Cannula 2.0 28 10/20/16 07:50 99 Nasal Cannula 2.0 28 10/20/16 04:00 97.8 78 18 119/68 100 Room Air 10/20/16 00:00 97.8 76 18 128/69 100 Nasal Cannula 2.0 10/19/16 20:19 76 16 Nasal Cannula 2.0 28 10/19/16 20:00 97.0 77 18 124/70 100 Nasal Cannula 2.0 10/19/16 19:00 Nasal Cannula 2.0 28 10/19/16 19:00 99 Nasal Cannula 2.0 28 10/19/16 16:00 97.6 76 21 113/71 99 Nasal Cannula 2.0 Intake and Output 10/19/16 10/20/16 19:00 07:00 Output Total 400 ml Balance -400 ml Output Urine Total 400 ml Laboratory Tests 10/20/16 07:50: White Blood Count 17.1H, Red Blood Count 2.76L, Hemoglobin 9.2L, Hematocrit 27.2L, Mean Corpuscular Volume 99, Mean Corpuscular Hemoglobin 33.5H, Mean Corpuscular Hemoglobin Concent 33.9, Red Cell Distribution Width 21.4H, Platelet Count 219#, Mean Platelet Volume 5.6L, Neutrophils (%) (Auto) , Lymphocytes (%) (Auto) , Monocytes (%) (Auto) , Eosinophils (%) (Auto) , Basophils (%) (Auto) , Differential Total Cells Counted 100, Neutrophils % ( Manual) 88H, Lymphocytes % (Manual) 5L, Monocytes % (Manual) 3, Eosinophils % ( Manual) 4H, Basophils % (Manual) 0, Band Neutrophils 0, Platelet Estimate Adequate, Platelet Morphology Normal, Hypochromasia 1+, Anisocytosis 2+, Sodium Level 137, Potassium Level 4.3, Chloride Level 99, Carbon Dioxide Level 26, Anion Gap 12, Blood Urea Nitrogen 79H, Creatinine 2.2H, Estimat Glomerular Filtration Rate 30.0, Glucose Level 95, Calcium Level 8.1L, Total Bilirubin 1.2 , Direct Bilirubin 0.6H, Aspartate Amino Transf (AST/SGOT) 36, Alanine Aminotransferase (ALT/SGPT) 25, Alkaline Phosphatase 146H, Total Protein 5.7L, Albumin 1.9L, Globulin 3.8, Albumin/Globulin Ratio 0.5L Height (Feet): 5 Height (Inches): 6.00 Weight (Pounds): 200 Cardiovascular: normal rate Respiratory/Chest: lungs clear Extremities: moderate edema FERNANDO DC Oct 20, 2016 13:56
[2016-10-20] MEDS: Cefepime HCl 1 GM in D5W 55 ML IVPB SCH (14:00)
[2016-10-20] MEDS ORDERED: CEFEPIME-D1 GM/50 ML IVPB (14:49)
[2016-10-20] MEDS ORDERED: CLONIDINE 0.2M0.2 MG GT (14:52)
[2016-10-20] MEDS ORDERED: NORCO 5-325 TA1 EAC1 ORAL (14:53)
[2016-10-20] MEDS ORDERED: NOVOLOG100 UNIT/4 SQ (15:00)
[2016-10-20] MEDS ORDERED: LACTULOSE20 GM/301 ORAL (15:01)
[2016-10-20] MEDS ORDERED: ZOFRAN 4 MG4 MG/2 ML IV (15:02)
[2016-10-20] MEDS ORDERED: A AND D OINTM42.5 GM TP (15:02)
[2016-10-20 16:00] VITALS: BP 110/72
--- NOTE | 2016-10-21 13:22 | Discharge Summary ---
Discharge Summary Hospital Course Date of Admission Oct 03, 2016 at 20:25 Date of Discharge Oct 20, 2016 at 16:22 Admitting Diagnosis abdominal pain/ALOC/hepatic encephalopathy Reason for Hospitalization: hepatic encephalopathy, renal failure, abdominal pain, HPI Ibrahima Glass is a 66 year old male who was admitted on Oct 03, 2016 at 20:25 for Abdominal pain, altered level of consciousness 66 y/old male was brought in for altered mentation and abdominal pain. Patient with history of cirrhosis, encephalopathy ; patient is from [facility] facility. Allegedly he was on hospice care but then when he went to [facility] he was signed off of hospice. He was short of breath earlier prior to ER arrival No n/v/diarrhea chest x-ray was taken, and according to his doctor he had bilateral infiltrates and effusions. He was sent for further evaluation of this. in ED the patient had his eyes closed and was not answering any questions According to his daughter, pleural effusions have been tapped multiple times. History of prior GI bleeds with transfusions. Family decided DNR, then patient reversed this. Family was not present when this happened. workup in ED revealed CXR with bilateral pleural effusion L>R troponin negative ECG with NSR INR-1./4, PLT-88, HH 7.3/23.2, BUN/creat 49/2.0 elevated ammonia 188 elevated bili and AST pro BNP elevated -[id number] patient was admitted for further management Consultations dr.Vosoghi-GI dr.Rahban Noel nephro dr.Zarrabi-pulmo Hall - cardio dr. Austin- cardiothoracic surgeon Procedures thoracentesis 10/06 CT guided placement of thoracic vent for treatment of post thoracenteses pneumothorax Hospital Course DISCHARGE DIAGNOSIS chronic kidney disease acute hepatic encephalopathy large left pleural effusion, associated with liver disease s/p thoracentesis /-300 ml out Pneumothorax 2 to thoracentesis s/p L thoracic vent( drain catheter placement) moderate pulmonary HTN valvular heart disease with moderate TR ascites cirrhosis sacral decub st 2, POA diastolic dysfunction HTN anemia DM hypothyroidism PLAN OF CARE MS floor cardio followed sinus tachy resolved per cardio ST due to severe anemia, pneumothorax and sepsis. patient ruled out for CT. EF 60% to 65%. ECHO with EF 60-65%, RVSP of 58, c/w moderate pulmonary HTN, + moderate LVH, + moderate TR , large anterior and posterior pleural effusion lactulose and Rifaximin, ammonia trending down - GI followed O2 HHN prn s/p thoracentesis of L pleural effusion - 3L out pneumothorax detected in CXR after tap s/p placement of drainage catheter by IR pain management s/p vit K, INT monitor PLT count , up to normal, no heparin anemia workup with stable B 12 and iron, folate , elevated CEA , stool OB negative s/p transfusion PRBC , monitor HH, transfuse if Hgb below 7,5 , remained at baseline after transfusion outpt GI procedure BS management with SS of insulin GI prophylaxis CT A/P noted, mild ascites, moderate bilateral pleural effusions with compressive atelectasis in the partially visualized lung bases, left greater than right. abdominal US revealed hepatic cirrhosis, patent TIPS shunt, normal velocities renal US with normal kidney echogenicity, no hydro s/p IVF nephro followed, no change in renal parameters chronic kidney disease, BP management with CCB, stable, optimize as needed wound care as per wound nurse recommendations dc to SNF DNR/DNI status Discharge Medications Continued Medications: Amlodipine Besylate* (Amlodipine Besylate*) 5 Mg Tablet 5 MG ORAL DAILY, TAB Clonidine HCl (Clonidine HCl) 0.2 Mg Tablet 0.2 MG GT Q4HR PRN for For High Blood Pressure, TAB Hydrocodone Bit/Acetaminophen 5-325* (Cataldo 5-325 Tablet*) 1 Each Tablet 1 TAB ORAL Q6HR PRN for For Pain, TAB Insulin Aspart (Novolog) 100 Unit/1 Ml Cartridge 100 UNIT SQ BEFORE MEALS AND HS Lactulose (Lactulose*) 20 Gm/30 Ml Solution 20 ML ORAL Q8HR, ML 0 Refills Ondansetron* (Zofran*) 4 Mg/2 Ml Vial 4 MG IV Q4HR PRN for Nausea & Vomiting, VIAL Rifaximin* (Xifaxan*) 550 Mg Tablet 550 MG ORAL TWICE A DAY for 30 Days, MG 0 Refills Vits A and D/White Pet/Lanolin (A And D Ointment) 42.5 Gm Oint...g. 42.5 GM TP Q12HR, GM Discontinued Medications: Amino Acids/Protein Hydrolys (Pro-Stat Liquid) 30 Ml Liquid.pkt 30 ML ORAL DAILY, ML Ascorbic Acid* (Vitamin C*) 500 Mg Tablet 500 MG ORAL DAILY, #30 TAB 0 Refills Ferrous Sulfate (Iron) 325 Mg Capsule.er 325 MG PO DAILY, CAP Hydralazine Hcl* (Hydralazine Hcl*) 25 Mg Tablet 25 MG ORAL TID, TAB 0 Refills Lactulose (Lactulose*) 20 Gm/30 Ml Solution 30 ML ORAL TID, ML 0 Refills Midodrine* (Proamatine*) 10 Mg Tablet 15 MG ORAL THREE TIMES A DAY, TAB Ondansetron (Zofran) 4 Mg Tablet 4 MG ORAL Q6H PRN for Nausea & Vomiting, TAB Pantoprazole* (Pantoprazole*) 40 Mg Tablet.dr 40 MG ORAL EVERY 12 HOURS, TAB Polyethylene Glycol 3350* (Miralax*) 17 Gm Powd.pack 17 GM ORAL DAILY PRN for Constipation, PACKET Vitamin B Cmplx/Vit C/Folic AC (Nephro-Heidi Tablet) 0.8 Mg Tablet 1 TAB ORAL DAILY, #30 TAB 0 Refills Zinc Sulfate (Zinc Sulfate) 220 Mg Tablet 220 MG ORAL DAILY, #30 TAB 0 Refills Discharge Condition Upon Discharge: stable Discharge Disposition Patient was discharged to SNF/Subacute Facility(03) Discharge Diagnoses: Abran ([place])Briseida NP Oct 21, 2016 13:22
== END 2016-10-20 16:22 | DRG 432 ==
LOC: ENRESERVTM → ENRESERVDT → EDBD 19:52 → EMR 20:04 → 2E 20:25 → EDBEDREQ 23:05 → 4W 10-06 17:09 → ICU 10-07 20:10 → 4W 10-08 22:05
PROC: 0W9B3ZZ Drainage of Left Pleural Cavity, Percutaneous Approach (ICD-10-PCS; principal; 2016-10-06)
PROC: 0B9P30Z Drainage of Left Pleura with Drainage Device, Percutaneous Approach (ICD-10-PCS; 2016-10-07)
DX: K74.69 Other cirrhosis of liver (principal); N17.0 Acute kidney failure with tubular necrosis; L89.152 Pressure ulcer of sacral region, stage 2; J90 Pleural effusion, not elsewhere classified; D68.9 Coagulation defect, unspecified; I13.0 Hypertensive heart and chronic kidney disease with heart failure and stage 1 through stage 4 chronic kidney disease, or unspecified chronic kidney disease; K72.90 Hepatic failure, unspecified without coma; I50.30 Unspecified diastolic (congestive) heart failure; J95.811 Postprocedural pneumothorax; R18.8 Other ascites; D69.6 Thrombocytopenia, unspecified; D64.9 Anemia, unspecified; I27.2 Other secondary pulmonary hypertension; I08.2 Rheumatic disorders of both aortic and tricuspid valves; E11.22 Type 2 diabetes mellitus with diabetic chronic kidney disease; N18.9 Chronic kidney disease, unspecified; R00.0 Tachycardia, unspecified; E87.5 Hyperkalemia; Z66 Do not resuscitate
CPT/HCPCS: 36415; 36600; 71010; 74000; 74176; 75989; 76700; 76775; 76942; 80048; 80053; 80076; 80300; 80329; 81001; 81003; 82105; 82140; 82248; 82270; 82378; 82436; 82533; 82550; 82607; 82728; 82746; 82803; 82962; 83540; 83550; 83615; 83690; 83735; 83880; 83930; 83935; 84100; 84133; 84300; 84439; 84443; 84481; 84484; 84550; 85007; 85025; 85044; 85060; 85610; 85651; 85730; 86705; 86709; 86803; 86850; 86900; 86901; 86920; 87040; 87081; 87086; 87340; 89050; 93005; 93306; 93970; 94664; 94760; J1815